=== PATIENT | female | born 1945 | race Caucasian/White ===

== ENCOUNTER → 2018-08-12 12:38 | Outpatient (CLI) | payer MEDICARE, SELFPAY ==
--- NOTE | 2018-08-12 12:45 | CA_ITS ---
PROCEDURE: 2-D M-mode and color Doppler study INDICATIONS FOR THE TEST: Chest pain COPD Heart Murmur+ Tobacco Smoking Palpitations Fatigue Syncope Edema Hypertension+Diabetes Mellitus Rheumatic Fever SOB MESSINA Obesity Hyperlipidemia+ Family History HD Additional History CABG, STENTS PATIENT INFORMATION HEIGHT:64 WEIGHT:197 GENDER: Female B/P: 2-D/M-MODE INTERPRETATION: 2-D MEASUREMENTS OBSERVED VALUES IN CMS Right Ventricular Dimension (RVDd) 2.0 Interventricular Septum (Thickness)(IVsd) 1.4 Left Ventricular Internal Dimensions(LVIDd) 5.1 Left Ventricular Posterior Wall (Thickness)(LVPWd) 1.1 Aortic Root 2.6 Aortic Cusp Separation 1.5 Left Atrial Dimensions (LAD) 4.1 2D 1. Left atrium is mildly enlarged, left ventricle is normal size, mild concentric left ventricular hypertrophy, visually estimated ejection fraction of 55% with no regional wall motion abnormality. 2. The right atrium and right ventricle are normal size and contractility. 3. The aortic valve is thickened and calcified with restriction the leaflet mobility. 4. The mitral and tricuspid valve leaflets are minimally thickened. 5. The pulmonic valve is poorly visualized. 6. No significant pericardial effusion noted. DOPPLER INTERROGATION: Doppler interrogation of the aortic, mitral and tricuspid valve reveals presence of moderate aortic, mild mitral and tricuspid regurgitation, tricuspid regurgitation jet velocity is inadequate for calculation of the right ventricular systolic pressure, grade 1 diastolic dysfunction seen with tissue Doppler evidence of raised left atrial pressure. The mean gradient across aortic valve is 9 mmHg represents mild aortic stenosis. CONCLUSION: 1. Mildly enlarged left atrium, normal left ventricular size, mild concentric left ventricular hypertrophy, visually estimated ejection fraction of 55% with no regional wall motion abnormality, grade 1 diastolic dysfunction seen with tissue Doppler evidence of raised left atrial pressure. 2. Thickened and calcified aortic valve with mild aortic stenosis, there is moderate aortic insufficiency. 3. Mild mitral and tricuspid regurgitation 4. No significant pericardial effusion noted.
== END ==
PROVIDERS: PCP Family Medicine; Visit Provider Family Medicine
DX: R01.1 Cardiac murmur, unspecified (principal)
CPT/HCPCS: 93306

== ENCOUNTER → 2018-10-04 08:08 | Outpatient (CLI) | payer MEDICARE, SELFPAY ==
--- NOTE | 2018-10-04 08:13 | XR_ITS ---
XR DEXA axial skeleton HISTORY: ITS.REASON: POSTMENOPAUSAL ORDERING PHYSICIAN: Saeed Tomlinson MD PATIENT AGE: 73 years COMPARISON: None FINDINGS: The BMD measured at the right femoral neck is 0.773 g/cm squared with a T score of -1.9. This is considered Osteopenic according to the World Health Organization criteria. Fracture risk is Moderate. Treatment is advised. IMPRESSION: Osteopenia with marked fracture risk. Treatment is advised. Suggest follow up exam in 2 years
== END ==
PROVIDERS: PCP Family Medicine; Visit Provider Family Medicine
DX: Z78.0 Asymptomatic menopausal state (principal)
CPT/HCPCS: 77080

== ENCOUNTER → 2019-04-10 09:35 | Outpatient (CLI) | payer MEDICARE, SELFPAY ==
--- NOTE | 2019-04-10 10:41 | CT_ITS ---
CT angio LE BI INDICATION: ITS.REASON: AAA W/O RUPTURE ORDERING PHYSICIAN: Ricarda Stephen APRN PATIENT AGE: 74 years COMPARISON: 01/20/2019. TECHNIQUE: Axial images are obtained without contrast. Sagittal and coronal reformatted images are reviewed as well. All CT scans at the facility use one or more dose reduction, viz: automated exposure control, ma/kV adjustment per patient size (including targeted exams where dose is matched to indication, i.e. head), or iterative reconstruction technique. FINDINGS: Angiogram portion of the study shows the atherosclerotic changes involving the abdominal aorta with the fusiform infrarenal abdominal aortic aneurysm. However there is accumulation of contrast along the left lateral aspect which is somewhat extrinsic to some of the wall calcifications suggesting either a prominent ulceration or pseudoaneurysm. This contrast-filled outpouching measures 2.7 x 1.4 cm in AP and transverse diameter and is approximately 1.4 cm in length. There is a small amount of soft tissue density surrounding this area along the left lateral aspect. The soft tissue density is nonspecific although could be some reactive edema or fibrosis. The overall size of the aneurysm appears stable compared to the prior exam. There are solitary renal artery calcifications. The celiac and SMA and NGA arteries opacify normally although there is probably a small calcified plaque with very mild narrowing at the origin of the celiac artery. Pelvic area shows vascular calcifications with mild to moderate stenosis of the distal left common iliac artery. There are some scattered external iliac and internal iliac L5 plaques which are nonstenotic. Left lower extremity shows small partially calcified plaque at the left common femoral artery with 20% or less diameter stenosis. There is a normal bifurcation in this area. There is a distal left SFA small nonstenotic plaque. There is also a calcified plaque causing less than 20% stenosis of the proximal left popliteal artery. There is a left-sided 3 vessel trifurcation however at the mid to lower aspect of the left lower leg the peroneal and anterior tibial arteries are no longer visualized and the posterior tibial artery is opacified to the left ankle and foot area. Right lower extremity shows calcified plaque with less than 20% diameter stenosis of the left common femoral artery. There is a normal right femoral bifurcation. There are a few nonstenotic calcified plaques along the right SFA and proximal right popliteal artery where there is a 20% diameter stenosis. At the mid right popliteal there is a calcified plaque with at least 30% diameter stenosis. There is a right trifurcation with small calcified plaque without stenosis involving the distal common trunk. As on the left side the right side shows lack of opacification of the mid and distal right anterior tibial and right peroneal arteries and the right posterior tibial artery is faintly opacified at the right ankle. The visualized lower extremity muscles and osseous structures are unremarkable. There are clips from cholecystectomy. There are small diverticulum from the distal second portion of the duodenal sweep. There are a few small sigmoid diverticula without inflammatory changes. Uterus is not visualized. IMPRESSION: Infrarenal fusiform abdominal aortic aneurysm is stable in size. However as described above along the left posterior lateral aspect of the aneurysm there is another contrast-filled outpouching which appears to be extrinsic to the calcified wall which could be a prominent ulceration or pseudoaneurysm. Small amount of adjacent para-aortic soft tissue density could be some reactive inflammation or fibrosis. There is no gross evidence of acute rupture. As discussed above calcific plaques in the pelv
--- NOTE | 2019-04-10 11:12 | CI_ITS ---
Cerebrovascular Exam Indications: 780.4 Dizziness and giddiness. IMPRESSIONS 1. The bilateral vertebral arteries are patent with normal antegrade flow. 2. Study suggests 50-69% stenosis involving the right internal carotid artery and the left internal carotid artery. History: Risk factors: Former smoker - years since quittinyr. Hypertension. History of CABG. Carotid duplex study. Complete study and Doppler flow study including spectral analysis, color and vasquez scale imaging. Height: Height: 162.6cm. Height: 64in. Weight: Weight: 81.6kg. Weight: 179.6lb. Body mass index: BMI: 30.9kg/m^2. Body surface area: BSA: 1.95m^2. Location: Vascular laboratory. Patient status: Outpatient. Tables: Arterial flow: + +--------+--------+ Location V sys V ed + +--------+--------+ Right CCA - proximal 97.4cm/s 18.1cm/s + +--------+--------+ Right CCA - distal 109cm/s 18.1cm/s + +--------+--------+ Right ECA 172cm/s -------- + +--------+--------+ Right ICA - proximal 161cm/s 33.4cm/s + +--------+--------+ Right ICA - mid 158cm/s 31.4cm/s + +--------+--------+ Right ICA - distal 108cm/s 24.7cm/s + +--------+--------+ Right vertebral 58.9cm/s -------- + +--------+--------+ Left CCA - proximal 104cm/s 13.4cm/s + +--------+--------+ Left CCA - distal 104cm/s 18.1cm/s + +--------+--------+ Left ECA 179cm/s -------- + +--------+--------+ Left ICA - proximal 210cm/s 21cm/s + +--------+--------+ Left ICA - mid 228cm/s 39.3cm/s + +--------+--------+ Left ICA - distal 147cm/s 35.2cm/s + +--------+--------+ Left vertebral 68.7cm/s -------- + +--------+--------+ Velocity ratios: + + + + + + Right, V sys Right, V ed Left, V sys Left, V ed + + + + + + Max ICA/dist CCA 1.48 1.85 2.19 2.17 + + + + + + (Report amended ) Electronically signed by: Jesus Gutierrez [id number]
== END ==
PROVIDERS: PCP Nurse Practitioner Family; Visit Provider Nurse Practitioner Family
DX: R42 Dizziness and giddiness (principal); I71.4 Abdominal aortic aneurysm, without rupture
CPT/HCPCS: 73701; 93880; Q9967

== ENCOUNTER 2019-08-12 13:10 | Outpatient (CLI) | payer MEDICARE, SELFPAY ==
[2019-08-12 13:30] VITALS: BP 176/64; PULSE 54; RESP 18
== END 2019-08-12 14:00 | disposition home or self-care (01) ==
LOC: INF 13:10
PROVIDERS: Visit Provider Family Medicine
DX: M81.0 Age-related osteoporosis without current pathological fracture (principal); Z91.89 Other specified personal risk factors, not elsewhere classified
CPT/HCPCS: 96372; J0897

== ENCOUNTER → 2020-03-22 09:44 | Outpatient (CLI) | payer MEDICARE, SELFPAY ==
--- NOTE | 2020-03-22 09:50 | US_ITS ---
PROCEDURE: US ABD. AORTA SCREENING CLINICAL INDICATION: AAA Follow-up aortic aneurysm COMPARISON: AGABDFEM CT angio abdomen/femoral from 04/10/2019 FINDINGS: There is dilatation the mid abdominal aorta measuring up to 3 cm. There is an intraluminal area of increased echogenicity which may represent the wall the saccular aneurysm as seen on the CT scan. Proximal common iliacs are unremarkable. IMPRESSION: 3 cm mid abdominal aortic aneurysm Dictated by: Juan Monreal MD 03/22/2020 19:02 Electronically signed by Juan Monreal MD in [place] 03/22/2020 19:02
== END ==
PROVIDERS: PCP Family Medicine; Visit Provider Nurse Practitioner Family
DX: I71.4 Abdominal aortic aneurysm, without rupture (principal)
CPT/HCPCS: 76705

== ENCOUNTER 2020-11-28 10:33 | Emergency (ER) | payer MEDICARE, SELFPAY ==
[2020-11-28 10:52] LABS: Color,Urine Yellow (Yellow)
[2020-11-28 10:53] LABS: Apearance,Urine Slightly Cloudy (Clear); Bilirubin,Urine Negative (Negative); Blood, Urine 3+ (Negative); Glucose,Urine (UA) Negative (Negative); Ketones,Urine Negative (Negative); PH,Urine 5.5 (5.0-8.5); Protein,Urine 1+ (Negative); Specific Gravity, Urine 1.025 (1.005-1.030); Urobilinogen,Urine 0.2 EU/dl (0.2)
[2020-11-28 10:54] LABS: UTC Leukocyte Esterase,Urine 1+ (Negative); UTC Nitrate,Urine Positive (Negative)
[2020-11-28 11:07] VITALS: BP 107/77; PULSE 89; RESP 16; TEMP 36.8; O2SAT 94; BMI 32.1
[2020-11-28 11:13] VITALS: BP 110/78; PULSE 79; RESP 16; TEMP 36.6
--- NOTE | 2020-11-28 11:13 | HMH.EDUTC ---
[facility] [place] Disposition Clinical Impression: UTI (urinary tract infection) Qualifiers: Urinary tract infection type: site unspecified Hematuria presence: with hematuria Qualified Code(s): N39.0 - Urinary tract infection, site not specified Disposition: Home, Self-Care Condition on Discharge: Good Instructions: Urinary Tract Infection, DI for Urinary Tract Infection (UTI) Additional Instructions: Drink plenty of fluids. Take tylenol for pain or fever. Take the medications as directed. Follow up with your regular doctor. GO TO THE ER FOR ANY WORSENING SYMPTOMS The pyridium will make your urine turn orange, this is an expected side effect. It will stain your clothes if it comes into contact with them. Prescriptions: Nitrofurantoin Monohyd/M-Cryst [Macrobid 100 mg Capsule] 100 mg PO BID 5 Days #10 cap Transmission Status: Received by [facility] #[id number] Phenazopyridine HCl [Pyridium 200mg Tablet] 200 pow PO TID #6 tab Transmission Status: Received by [facility] #[id number] Referrals: Ricarda Stephen APRN [Primary Care Provider] - Time of Disposition: 11:22 Medical Decision Making - Medical Records Medical records reviewed: No: I reviewed the patient's medical records. - Jackson Inquiry Pt receiving controlled substance: No Vital Signs: 11/28/20 11:07 11/28/20 11:13 Temperature 98.2 F 97.9 F Temperature Source Oral Oral Pulse Rate 79 Pulse Rate [Left] 89 Respiratory Rate 16 16 Blood Pressure 110/78 Blood Pressure [Right Arm] 107/77 L Blood Pressure Mean [Right Arm] 87 Blood Pressure Source [Right Arm] Automatic Cuff Blood Pressure Position Sitting Blood Pressure Position [Right Arm] Sitting 02 Sat by Pulse Oximetry 94 L Oxygen Delivery Method Room Air - Lab Data Lab results reviewed: Yes: I reviewed the patient's lab results. Lab Results 11/28/20 10:34: Urine Color Yellow, Urine Appearance Slightly cloudy, Urine pH 5.5, Ur Specific [place] 1.025, Urine Protein 1+, Urine Glucose (UA) Negative, Urine Ketones Negative, Urine Blood 3+, Urine Nitrate Positive A, Urine Bilirubin Negative, Urine Urobilinogen 0.2, Ur Leukocyte Esterase 1+ A Orders (Tests/Meds): ORDERS Category Date Time Status Urine Culture Routine Micro 11/28/20 10:50 Received [facility] [place] HPI - General Stated complaint: possible uti Time Seen by Provider: 11/28/20 11:13 Mode of Arrival: Ambulatory Source of Information: Patient Limitations: No Limitations Description of Symptoms (Recalled from Triage Doc. by RN): pt states she thinks she has a uti. shes having burning and pain with urination and states theres a bad smell. HEENT Symptoms (Recalled from RN notes): No Resp Symptoms (Recalled from RN notes): No Skin Symptoms (Recalled from RN notes): No MS Symptoms (Recalled from RN notes): No Functional Status (Recalled from RN notes): na - History of Present Illness Provider Complaint: She states that for the past 2 days her urine has had a strong odor and it has burnt when she was urinating. She is on azithromycin for a sinus infection. She denies any yeast infection symptoms. - Related Data Home Medications Medication Instructions Recorded Confirmed aspirin 81 mg tablet,delayed 81 mg PO DAILY 10/12/18 06/15/20 release cetirizine 10 mg capsule 10 mg PO DAILY cap 10/12/18 06/15/20 citalopram 20 mg tablet 20 mg PO DAILY 10/12/18 06/15/20 lisinopril 5 mg tablet 5 mg PO DAILY 10/12/18 06/15/20 metoprolol succinate 50 mg capsule 50 mg PO BID 10/12/18 06/15/20 sprinkle, ext. release 24 hr Magnesium 250 mg PO DAILY 01/20/19 06/15/20 acetaminophen 650 mg 650 mg PO Q12H PRN 08/20/19 06/15/20 tablet,extended release levothyroxine 75 mcg tablet PO #90 tab 08/20/19 06/15/20 red yeast rice 600 mg tablet 600 mg PO DAILY 08/20/19 06/15/20 omega 8-tkt-bmf-fish oil 120 cap PO 11/20/19 06/15/20 mg-180 mg-500 mg capsule vitamin B complex 1 tab PO DAILY 06/15/20 06/15/20 Previo
== END 2020-11-28 11:39 | disposition home or self-care (01) ==
PROVIDERS: Emergency Provider Nurse Practitioner Family; PCP Nurse Practitioner Family
DX: N30.00 Acute cystitis without hematuria (principal); B96.20 Unspecified Escherichia coli [E. coli] as the cause of diseases classified elsewhere; I10 Essential (primary) hypertension; F33.1 Major depressive disorder, recurrent, moderate; E78.5 Hyperlipidemia, unspecified; E03.9 Hypothyroidism, unspecified; Z95.1 Presence of aortocoronary bypass graft; Z87.891 Personal history of nicotine dependence
CPT/HCPCS: G0463; 81003; 87086; 87088; 87186; 99202

== ENCOUNTER → 2020-12-02 15:28 | Outpatient (CLI) | payer MEDICARE, SELFPAY ==
--- NOTE | 2020-12-02 15:37 | CT_ITS ---
PROCEDURE: CT ABDOMEN PELVIS WO CON CLINICAL INDICATION: HEMATURIA,DYSURIA Hematuria, UTI since Sunday, burning sensation. COMPARISON: CT ABDPELWO CT abdomen pelvis wo con from 01/20/[address] angio abdomen/femoral from 04/10/2019 TECHNIQUE: Axial images obtained with sagittal and coronal reformats. All CT scans at the facility use one or more dose reduction, viz: automated exposure control, ma/kV adjustment per patient size (including targeted exams where dose is matched to indication, i.e. head), or iterative reconstruction technique. FINDINGS: LOWER THORAX: No acute finding ABDOMEN & PELVIS: There is no intraperitoneal free air. There is no intraperitoneal free fluid. Patient has had prior cholecystectomy. The solid abdominal organs have an otherwise unremarkable unenhanced appearance. Patient has had prior hysterectomy and small or surgically absent ovaries. There is minimal fluid in an unremarkable appearing urinary bladder. There are several diverticuli without CT evidence of diverticulitis. The cecum is midline and in a low position, lying immediately above the urinary bladder. The appendix is not visualized as a independent structure but there are no secondary signs suspicious for acute appendicitis. GI tract otherwise unremarkable. There is no abdominal or pelvic adenopathy. 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 These findings were better visualized on CTA dated 04/10/2019. There is a small focal protrusion inferior to the inferior left renal pole, also present and not significantly changed compared with the prior CT a. there is extensive atherosclerotic calcification in the abdominal aorta which extends into the iliac arteries where there is suspected moderate narrowing of the left external iliac artery. There is diffuse osteopenia. No acute fracture. IMPRESSION: Scattered diverticulosis without CT evidence of acute diverticulitis. Pre-existing known infrarenal abdominal aortic aneurysm and dissection not visibly changed on noncontrast CT compared to prior CT a. Severe atherosclerosis. Diffuse osteopenia. Dictated by: Lien Miranda MD 12/02/2020 16:17 Lien Miranda MD in [place] 12/02/2020 16:17
== END ==
PROVIDERS: PCP Nurse Practitioner; Visit Provider Nurse Practitioner
DX: R31.9 Hematuria, unspecified (principal); R30.0 Dysuria
CPT/HCPCS: 74176

== ENCOUNTER → 2020-12-24 09:03 | Outpatient (CLI) | payer MEDICARE, SELFPAY ==
--- NOTE | 2020-12-24 09:06 | XR_ITS ---
PROCEDURE: XR DEXA AXIAL SKELETON CLINICAL HISTORY: OSTEOPENIA COMPARISON: CR DEXAAX XR DEXA axial skeleton from 10/04/2018 FINDINGS: The right hip BMD is 0.668 with a T-score of -1.6. The left hip BMD is 0.709 with a T-score of -1.3. The lumbar spine BMD is 1.121 with a T-score of 0.7. Previously the lowest density was in the right femoral neck with a T-score of -1.9 IMPRESSION: This patient is considered osteopenic according to the World Health Organization criteria. Bone density is between 10 and 25 percent below young normal. Fracture risk is moderate. Treatment is advised. Based on these results a follow-up exam is recommended in 2 year. Dictated by: Juan Monreal MD 12/25/2020 11:45 Juan Monreal MD in [place] 12/25/2020 11:45
== END ==
PROVIDERS: PCP Nurse Practitioner Family; Visit Provider Nurse Practitioner Family
DX: M85.89 Other specified disorders of bone density and structure, multiple sites (principal)
CPT/HCPCS: 77080

== ENCOUNTER 2021-02-19 09:26 | Emergency (ER) | payer MEDICARE, SELFPAY ==
--- NOTE | 2021-02-19 10:29 | HMH.EDUTC ---
[facility] [place] Clinical Impression: Sinusitis Qualifiers: Sinusitis location: unspecified location Chronicity: acute Recurrence: non-recurrent Qualified Code(s): J01.90 - Acute sinusitis, unspecified Acute bronchitis Qualifiers: Bronchitis organism: unspecified organism Qualified Code(s): J20.9 - Acute bronchitis, unspecified Disposition: Home, Self-Care Condition on Discharge: Good Instructions: DI for Sinusitis Additional Instructions: Drink plenty of fluids. Take tylenol for pain or fever. Return if you begin to have difficulty breathing. Follow up with your regular doctor. GO TO THE ER FOR ANY WORSENING SYMPTOMS Prescriptions: Benzonatate [Tessalon Perle 100mg Cap] 100 mg PO TIDP PRN #30 cap PRN Reason: Cough Transmission Status: Received by [facility] # Azithromycin [Z-Yonathan 250mg Tab*] 250 mg PO UD DOSE PK #6 tab Transmission Status: Received by [facility] # Referrals: Ricarda Stephen APRN [Primary Care Provider] - Time of Disposition: 10:37 Medical Decision Making - Medical Records Medical records reviewed: No: I reviewed the patient's medical records. - Jackson Inquiry Pt receiving controlled substance: No Vital Signs: 02/19/21 10:39 02/19/21 10:44 Temperature 97.0 F L 97.0 F L Temperature Source Tympanic Tympanic Pulse Rate 68 Pulse Rate [Right] 68 Respiratory Rate 17 16 Blood Pressure 147/68 H Blood Pressure [Right Arm] 147/68 H Blood Pressure Mean [Right Arm] 94 Blood Pressure Source [Right Arm] Automatic Cuff Blood Pressure Position [Right Arm] Sitting 02 Sat by Pulse Oximetry 95 Oxygen Delivery Method Room Air [facility] [place] - General Stated complaint: sneezing, runny nose, congestion Time Seen by Provider: 02/19/21 10:29 - History of Present Illness Provider Complaint: She states that for the past 2 days she has been getting more congested in her sinuses and her chest. She denies any shortness of breath. - Related Data Home Medications Medication Instructions Recorded Confirmed aspirin 81 mg tablet,delayed 81 mg PO DAILY 10/12/18 06/15/20 release cetirizine 10 mg capsule 10 mg PO DAILY cap 10/12/18 06/15/20 citalopram 20 mg tablet 20 mg PO DAILY 10/12/18 06/15/20 lisinopril 5 mg tablet 5 mg PO DAILY 10/12/18 06/15/20 metoprolol succinate 50 mg capsule 50 mg PO BID 10/12/18 06/15/20 sprinkle, ext. release 24 hr Magnesium 250 mg PO DAILY 01/20/19 06/15/20 acetaminophen 650 mg 650 mg PO Q12H PRN 08/20/19 06/15/20 tablet,extended release levothyroxine 75 mcg tablet PO #90 tab 08/20/19 06/15/20 red yeast rice 600 mg tablet 600 mg PO DAILY 08/20/19 06/15/20 omega 5-kye-ydu-fish oil 120 cap PO 11/20/19 06/15/20 mg-180 mg-500 mg capsule vitamin B complex 1 tab PO DAILY 06/15/20 06/15/20 Previous Rx's Medication Instructions Recorded fluconazole 150 mg tablet 150 mg PO Q3D 0 Days #2 tab 06/15/20 terconazole 0.8 % vaginal cream 1 appful VAGINAL QHS 3 Days #20 g 06/15/20 Nitrofurantoin Monohyd/M-Cryst 100 mg PO BID 5 Days #10 cap 11/28/20 [Macrobid 100 mg Capsule] Phenazopyridine HCl [Pyridium 200 pow PO TID #6 tab 11/28/20 200mg Tablet] Azithromycin [Z-Yonathan 250mg Tab*] 250 mg PO UD DOSE PK #6 tab 02/19/21 Benzonatate [Tessalon Perle 100mg 100 mg PO TIDP PRN #30 cap 02/19/21 Cap] Allergies Allergy/AdvReac Type Severity Reaction Status Date / Time ciprofloxacin [From Cipro] Allergy Mild Vomiting Verified 11/28/20 10:35 trimethoprim [From Bactrim] Allergy Verified 11/28/20 10:35 [facility] History - Hepatitis A Screen Attestation statement:: This patient has been screened for Hepatitis A risk factors. I have reviewed the patient's past medical history: Yes Medical History: Reports:: Aneurysm, Depression, Hyperlipidemia, Hypertension Denies:: Diabetes Mellitus Type 1, Diabetes Mellitus Type 2 Other Medical History: Reports: Hypothyroidism Laterality Cases: Bilateral: Tonsillectomy O
[2021-02-19 10:39] VITALS: BP 147/68; PULSE 68; RESP 17; TEMP 36.1; O2SAT 95; BMI 36.5
[2021-02-19 10:44] VITALS: BP 147/68; PULSE 68; RESP 16; TEMP 36.1; O2SAT 95
== END 2021-02-19 10:44 | disposition home or self-care (01) ==
PROVIDERS: Emergency Provider Nurse Practitioner Family; PCP Nurse Practitioner Family
DX: J01.90 Acute sinusitis, unspecified (principal); J20.9 Acute bronchitis, unspecified; I10 Essential (primary) hypertension; E78.5 Hyperlipidemia, unspecified; Z79.899 Other long term (current) drug therapy
CPT/HCPCS: G0463; 99202

== ENCOUNTER → 2021-03-15 12:14 | Outpatient (CLI) | payer MEDICARE, SELFPAY ==
[2021-03-15 13:10] LABS: Hemoglobin A1C 5.5 % (4.0-6.0)
[2021-03-15 15:23] LABS: Vitamin B12 358 pg/mL (239-931)
[2021-03-16 13:34] LABS: Antiparietal Cell Antibody 42.8 Units (0.0-20.0)
[2021-03-17 16:53] LABS: Intrinsic Factor Abs, Serum 58.8 AU/mL (0.0-1.1)
== END ==
PROVIDERS: Visit Provider Nurse Practitioner Family
DX: R26.89 Other abnormalities of gait and mobility (principal); R26.9 Unspecified abnormalities of gait and mobility; R29.2 Abnormal reflex; R73.09 Other abnormal glucose
CPT/HCPCS: 36415; 82607; 82746; 83036; 83516; 86340

== ENCOUNTER → 2021-03-23 16:08 | Outpatient (CLI) | payer MEDICARE, SELFPAY ==
--- NOTE | 2021-03-23 16:08 | MR_ITS ---
PROCEDURE: MR CERVICAL SPINE WO CON CLINICAL INDICATION: gait dist, + hewitt, brisk reflexes Pt denies neck pain. Pt states hx of memory issues and imbalance with multiple falls. COMPARISON: No exams were available for comparison TECHNIQUE: Standard multiplanar multiecho sequences are performed without contrast. 3-D MIP and myelographic images are also rendered and reviewed FINDINGS: There is normal alignment. The craniocervical junction has an unremarkable appearance. C2-C3: Minimal central disc protrusion versus prominent posterior longitudinal ligament without impingement. C3-C4: Minimal central disc protrusion versus mild prominence of the posterior longitudinal ligament with narrowing of the canal at 10 mm without impingement C4-C5: Degenerative disc disease with a small broad-based central/left paracentral and foraminal disc protrusion/disc osteophyte complex with canal stenosis at 8 mm, left lateral recess narrowing, and severe left foraminal narrowing. There is moderate right foraminal narrowing as well. There is some minimal flattening of the cord anteriorly on the left. C5-C6: Degenerative disc disease with bulging disc with narrowing of the canal at 9 mm. Moderate right foraminal narrowing and mild left foraminal narrowing from facet and uncovertebral hypertrophy. C6-C7: Degenerative disc disease with mild bulging disc without impingement. C7-T1: Unremarkable. The spinal cord has an unremarkable appearance. IMPRESSION: Multilevel cervical spondylosis with degenerative disc disease, bulging and protruding disc along with facet and uncovertebral hypertrophy with resultant canal stenosis, lateral recess and foraminal narrowing. Please see above for detailed description at each level. Dictated by: Juan Monreal MD 03/24/2021 07:23 Juan Monreal MD in [place] 03/24/2021 07:23
--- NOTE | 2021-03-23 16:08 | MR_ITS ---
PROCEDURE: MR HEAD/BRAIN WO CON CLINICAL INDICATION: gait disturbance, +hewitt Pt states hx of memory issues and imbalance. COMPARISON: No exams were available for comparison TECHNIQUE: Routine multiplanar multi echo sequences are performed without gadolinium enhancement. FINDINGS: No restricted diffusion. No evidence of acute infarction. No midline shift mass effect intracranial hemorrhage or hydrocephalus identified. Cerebellopontine angles cerebellum, brainstem, and mid brain have an unremarkable appearance. Senescent changes with mild brain volume loss and minimal nonspecific T2 white matter hyperintensity. Pituitary gland, optic chiasm, corpus callosum, and craniocervical junction is unremarkable. No mastoid effusion or sinus air-fluid level. IMPRESSION: No acute intracranial findings. Unremarkable unenhanced MRI of the brain. Dictated by: Juan Monreal MD 03/24/2021 07:15 Juan Monreal MD in [facility] 03/24/2021 07:15
== END ==
PROVIDERS: PCP Nurse Practitioner Family; Visit Provider Nurse Practitioner Family
DX: R26.89 Other abnormalities of gait and mobility (principal); R29.2 Abnormal reflex
CPT/HCPCS: 70551; 72141; 76376

== ENCOUNTER 2021-04-25 15:00 | Outpatient (RCR) | payer MEDICARE, SELFPAY ==
--- NOTE | 2021-03-28 14:27 | HMH.PTOPEV ---
PT Outpatient Evaluation Rehab PT Outpatient Evaluation Start: 03/28/21 13:53 Freq: Status: Active Protocol: Document 03/28/21 14:14 URI (Rec: 03/28/21 14:26 URI [id number]) Electronically Signed By Santana Bess PT 03/28/21 14:14 Outpatient Therapy Subjective History Subjective History THis is the initial Vestibular evaluation for Marguerite Decker. Pt is a 76 y/o female referred to PT for c/o bad balance . Pt reports minimal complaints for years but states last year c/o balance issues increased. Pt reports she feels like her knees are gonna buckle or she feels like she is gonna fall backwards. Pt also reports that just after standing up she has to not move for a bit b/c she feels unsteady. Chief Complaint Other Symptom Type Other Symptoms Relieved By Rest/Positioning Current Functional Limitations Recreation Activity,Walking Symptom Description Intermittent Balance Eval Chief Complaint vertigo No Did you feel dizzy, unsteady or faint? Yes Activity at onset standing Prior Functional Limitations Prior Functional [place] Level I Hx of Falls Hx Falls No Gait/Posture Asssessment General Gait Observation Narrow Based Gait Assistive Devices None / NA Nystagmus Nystagmus Presence None Timed Up and Go Test 1. Is the Timed Up and Go test result > yes or = to 12 seconds? Oculomotor Gaze Oculomotor Gaze Abn: Smooth Pursuit Saccades [place] Feet Together/Eyes open/Stable Surface pass Feet Together/Eyes Closed/Stable Surface pass Feet Together/Eyes open/Unstable Surface pass Feet Together/Eyes Closed/Unstable pass Surface Dynamic Gait Index Test Protocol Gait Level Surface Mild Impairment Query Text: Instructions: Walk at your normal speed from here to the next cesar (20'). Grading: Cesar the lowest category that applies. Change in Gait Speed Mild Impairment Query Text: Instructions: Begin walking at your normal pace (for 5'), when I tell you go , walk as fast as you can (for 5'). When I tell you slow , walk as slowly as you can (for 5'). Grading: Cesar the lowest category that applies. Gait with Horizo
== END 2021-04-25 15:05 | disposition home or self-care (01) ==
LOC: PT 15:00
PROVIDERS: PCP Nurse Practitioner Family; Visit Provider Nurse Practitioner Family
DX: R26.89 Other abnormalities of gait and mobility (principal)
CPT/HCPCS: 97110; 97163

== ENCOUNTER → 2021-08-11 14:20 | Outpatient (CLI) | payer MEDICARE, SELFPAY | PROVIDERS: PCP Family Medicine; Visit Provider Nurse Practitioner | DX: Z20.822 Contact with and (suspected) exposure to COVID-19 (principal) | CPT/HCPCS: C9803; U0003; U0005 ==

== ENCOUNTER 2021-08-12 16:31 | Emergency (ER) | payer MEDICARE, SELFPAY ==
[2021-08-12 16:53] VITALS: BP 169/74; PULSE 84; RESP 18; TEMP 36.9; O2SAT 96; BMI 32.1
--- NOTE | 2021-08-12 17:05 | HMH.EDUTC ---
[facility] [place] Clinical Impression: UTI (urinary tract infection) Qualifiers: Urinary tract infection type: site unspecified Hematuria presence: with hematuria Qualified Code(s): N39.0 - Urinary tract infection, site not specified Disposition: Home, Self-Care Condition on Discharge: Good Instructions: DI for Urinary Tract Infection (UTI) Additional Instructions: *Increase fluids. Water not Soda or Tea *Start antibiotic immediately and be sure to take as ordered for the FULL length of time although you should start to see improvement over the next 48 hours *Be SURE to follow up anytime for new or worsening symptoms with your family doctor. AND in 48 hours for urine culture results with your family doctor, if you do not have a doctor then you may call back to the [facility] for urine culture results and further treatment. We do recommend that you choose and establish care with a Primary Care Physician. AND follow up with them in 10-14 days to repeat UA to ensure infection is resolved and blood no longer present *Be sure to let your PCP know that we sent urine cultures from the [facility] so they can follow up to ensure that you area the on the correct antibiotic Call your doctor office and make appointment for 48 hours (2 days from today) to follow up and get the results of your urine culture and further treatment Follow up with your Family Doctor if no improvement or any worsening of symptoms Return if needed Prescriptions: cephALEXin [cephALEXin 500mg capsule*] 500 mg PO BID 7 Days #14 cap Transmission Status: Received by [facility] #[id number] Referrals: Saeed Tomlinson MD [Primary Care Provider] - As needed Time of Disposition: 17:26 Medical Decision Making - Jackson Inquiry Pt receiving controlled substance: No Jackson was queried for this patient: No Vital Signs: 08/12/21 16:53 08/12/21 17:39 Temperature 98.4 F 98.4 F Temperature Source Oral Pulse Rate 84 Pulse Rate [Left] 84 Respiratory Rate 18 18 Blood Pressure 169/74 H Blood Pressure [Right Arm] 169/74 H Blood Pressure Mean [Right Arm] 105 02 Sat by Pulse Oximetry 96 - Lab Data Lab results reviewed: Yes: I reviewed the patient's lab results. Lab Results 08/12/21 17:04: Influenza Type A Ag Negative, Influenza Type B Ag Negative 08/12/21 17:04: Strep Scn [facility] Negative 08/12/21 17:04: Urine Color Dark yellow, Urine Appearance Clear, Urine pH 5.5, Ur Specific [place] 1.010, Urine Protein Negative, Urine Glucose (UA) Negative, Urine Ketones Negative, Urine Blood 4+, Urine Nitrate Negative, Urine Bilirubin Negative, Urine Urobilinogen 0.2, Ur Leukocyte Esterase Trace Orders (Tests/Meds): ORDERS Category Date Time Status Strep Screen Confirmation Stat Micro 08/12/21 17:04 Received Urine Culture Stat Micro 08/12/21 17:10 Received Medical Decision Narrative: Patient reports that she is able to smell ok but nothing tastes right Medication discussed with pharmacy and dosed per pharmacy [facility] [place] - General Stated complaint: nausea taste change Time Seen by Provider: 08/12/21 17:05 Mode of Arrival: Ambulatory Source of Information: Patient Limitations: No Limitations Description of Symptoms (Recalled from Triage Doc. by RN): pt was negative for covid as of yesterday. pt c/o loss of taste, no appetite, nausea, PULLIAM, and body aches. HEENT Symptoms (Recalled from RN notes): Yes (loss of taste, PULLIAM and sore throat) Resp Symptoms (Recalled from RN notes): No Skin Symptoms (Recalled from RN notes): No MS Symptoms (Recalled from RN notes): No Functional Status (Recalled from RN notes): body aches - History of Present Illness Provider Complaint: Patient states that she hasnt felt well for a few days now States that she has been having body aches, chills, and nausea but she always has nausea. States that she has been laying around in the bed States that she got tested yesterday for COVID and it was negative but she still doesnt have much of an appetit
[2021-08-12 17:11] LABS: Apearance,Urine Clear (Clear); Color,Urine Dark Yellow (Yellow); Glucose,Urine (UA) Negative (Negative); Ketones,Urine Negative (Negative); PH,Urine 5.5 (5.0-8.5); Protein,Urine Negative (Negative)
[2021-08-12 17:12] LABS: Bilirubin,Urine Negative (Negative); Blood, Urine 4+ (Negative); UTC Leukocyte Esterase,Urine Trace (Negative); UTC Nitrate,Urine Negative (Negative); Urobilinogen,Urine 0.2 EU/dl (0.2)
[2021-08-12 17:39] VITALS: BP 169/74; PULSE 84; RESP 18; TEMP 36.9
[2021-08-12 19:01] LABS: UTC Influenza A Antigen Negative (Negative); UTC Influenza B Antigen Negative (Negative); UTC Strep Screen (Rapid) Negative (Negative)
== END 2021-08-12 17:40 | disposition home or self-care (01) ==
PROVIDERS: Emergency Provider Nurse Practitioner; PCP Family Medicine
DX: N30.00 Acute cystitis without hematuria (principal); I25.10 Atherosclerotic heart disease of native coronary artery without angina pectoris; E78.5 Hyperlipidemia, unspecified; I10 Essential (primary) hypertension; F33.1 Major depressive disorder, recurrent, moderate; E03.9 Hypothyroidism, unspecified; Z79.899 Other long term (current) drug therapy
CPT/HCPCS: G0463; 81003; 87086; 87088; 87186; 87804; 87880; 99203

== ENCOUNTER 2021-08-15 06:23 | Emergency (ER) | payer MEDICARE, SELFPAY ==
[2021-08-15 06:24] VITALS: BP 163/61; PULSE 88; RESP 16; TEMP 36.6; O2SAT 95; BMI 30.9
--- NOTE | 2021-08-15 06:42 | CT_ITS ---
Procedure: CT ANGIO ABDOMEN PELVIS CLINICAL HISTORY: abd pain, known AAA Right-sided abdominal pain. Known aneurysm COMPARISON: CT AGABDFEM CT angio abdomen/femoral from 04/10/[address] ABDOMEN PELVIS WO CON from 12/02/2020 TECHNIQUE: IV Contrast: 100ml Isovue 370 Axial images obtained with sagittal and coronal reformats. All CT scans at the facility use one or more dose reduction, viz: automated exposure control, ma/kV adjustment per patient size (including targeted exams where dose is matched to indication, i.e. head), or iterative reconstruction technique. FINDINGS: Lung bases: Stable 6 x 3 mm nodule right lower lobe anteriorly. Faint ground-glass opacity is present in the right lung base medially possibly related to scarring or atelectatic change. Small nodular opacity in the lingula at 7 x 3 mm. Prior CABG. Abdomen and pelvis: Fatty liver. Small hiatal hernia. Prior cholecystectomy with mild biliary ectasia with common bile duct measuring 11 mm. A duodenal diverticulum is present near the ampulla the common bile duct. The spleen has an unremarkable appearance. There is mild nodularity of the adrenal glands nonspecific. No evidence of pancreatitis. Along the superior aspect of the tail the pancreas posteriorly there is a small nodular protrudes. This may only be due to anatomic variation of the pancreas. Follow-up suggested to confirm stability. This is not significantly changed. No renal or ureteral calculi. No hydronephrosis. There is an infrarenal abdominal aortic aneurysm with a saccular component on the left. The maximum with of the aneurysm is 3.4 cm transverse and 2.7 cm AP. The saccular component is 1.8 cm transverse and 2 cm cephalad caudad. Overall, the diameter of the aorta is not significantly changed from 04/10/2019. Along the posterior and left lateral aspect of the saccular component there is some slight soft tissue thickening. This could be due to mural thrombus or some minimal perianeurysmal fibrosis from an old small bleed. This is not significantly changed from 04/10/2019. Inferior to the saccular component of the aneurysm the aorta measures up to 2.8 cm transverse not significantly changed. The celiac and SMA show no significant stenosis. Scattered atheromatous changes are present of the celiac and SMA. The renal arteries are small without obvious occlusive change. No evidence of acute retroperitoneal hemorrhage. The stomach and duodenum have an unremarkable appearance other than the duodenal diverticulum. There is mild dilatation of the small bowel with scattered air-fluid levels.. This involves the ilium. There is some minimal bowel wall thickening in the lower pelvic region. There is a small amount of fluid in the cul-de-sac. There has been a prior hysterectomy. No free air apparent. IMPRESSION: 1. Stable infrarenal abdominal aortic aneurysm with saccular component. Minimal soft tissue thickening along the left the posterior lateral aspect of the saccular component which could be related to an old area of leakage versus asymmetric mural thrombus not significantly changed 2. Mildly distended small bowel loops with some mild mucosal thickening. No obvious transition point. Enteritis is considered. Cannot exclude partial obstruction. Consider follow-up to confirm resolution. There is a small amount fluid in the pelvis. No evidence of occlusive change of the celiac or SMA. The NGA is patent. Dictated by: Juan Monreal MD 08/15/2021 08:44 Juan Monreal MD in [place] 08/15/2021 08:44
--- NOTE | 2021-08-15 06:44 | HMH.EDGENADL ---
ED Disposition Condition on Discharge: Good - Critical Care Critical Care Time: No <Courtney Mijares - Last Filed: 08/15/21 07:50> Condition on Discharge: Good Time of Disposition: 08:57 - Critical Care Critical Care Time: No <Juan J Ta - Last Filed: 08/15/21 08:58> Clinical Impression: Enteritis Abdominal pain Qualifiers: Abdominal location: unspecified location Qualified Code(s): R10.9 - Unspecified abdominal pain Disposition: Home, Self-Care Instructions: DI for Acute Abdominal Pain Additional Instructions: Clear liquid diet. You may slowly advance your diet as your symptoms improve. Return to emergency department for abdominal bloating, pain, or vomiting. Referrals: Ricarda Stephen APRN [Primary Care Provider] - (1 to 2 days) Attestation: On 08/15/21, the high probability of a clinically significant, sudden or life threatening deterioration of the following system(s) required my full and direct attention, intervention and personal management. The time I documented below is in addition to time spent performing reported procedures but includes the following listed in this critical care notation. Medical Decision Making - Jackson Inquiry Pt receiving controlled substance: No - Lab Data Result diagrams: 08/15/21 07:00 08/15/21 07:00 <Courtney Mijares - Last Filed: 08/15/21 07:50> - Medical Records Medical records reviewed: Yes: I reviewed the patient's medical records. - Jackson Inquiry Pt receiving controlled substance: No - Lab Data Lab results reviewed: Yes: I reviewed the patient's lab results. Result diagrams: 08/15/21 07:00 08/15/21 07:00 - CT Data CT Scan: Abdomen, Pelvis Time Received: 08:[address] Reviewed: Yes: I have viewed the radiologist's interpretation Preliminary Findings: Abnormal <Juan J Ta - Last Filed: 08/15/21 08:58> Vital Signs: 08/15/21 06:24 Temperature 97.9 F Temperature Source Oral Pulse Rate [Right] 88 Respiratory Rate 16 Blood Pressure [Right Arm] 163/61 H Blood Pressure Mean [Right Arm] 95 02 Sat by Pulse Oximetry 95 - Lab Data Lab Results 08/15/21 07:00: WBC 7.7, RBC 4.25, Hgb 12.9, Hct 38.1, MCV 89.6, MCH 30.2, MCHC 33.7, RDW 13.9, Plt Count 232, MPV 9.9, Neut % (Auto) 71.9, Lymph % (Auto) 19.3, [place] % (Auto) 7.2, Eos % (Auto) 1.0, Baso % (Auto) 0.6, Neut # (Auto) 5.6, Lymph # (Auto) 1.5, [place] # (Auto) 0.6, Eos # (Auto) 0.1, Baso # (Auto) 0.1 08/15/21 07:00: Sodium 135 L, Potassium 3.9, Chloride 102, Carbon Dioxide 24, Anion Gap 12.9, BUN 13, Creatinine 0.80, Estimated Creat Clear 63, Estimated GFR 70, Est GFR ( Amer) 85, Glucose 142 H, Calcium 8.6, Total Bilirubin 0.5, AST 24, ALT 16, Alkaline Phosphatase 49, Troponin I < 0.01, Total Protein 6.8, Albumin 3.7, Globulin 3.1, Albumin/Globulin Ratio 1.2 08/15/21 07:10: Urine Color Yellow, Urine Appearance Clear, Urine pH 6.0, Ur Specific [place] 1.010, Urine Protein Negative, Urine Glucose (UA) Negative, Urine Ketones Negative, Urine Blood 3+, Urine Nitrate Negative, Urine Bilirubin Negative, Urine Urobilinogen 0.2, Ur Leukocyte Esterase Negative, Urine RBC None, Urine WBC 3-5, Ur Squamous Epith Cells Occasional, Urine Bacteria None Orders (Tests/Meds): ED MEDICATIONS Discontinued Medications Generic Name Dose Route Start Last Admin Trade Name Chuy PRN Reason Stop Dose Admin Iopamidol 100 ml 08/15/21 08:15 08/15/21 08:17 Iopamidol-370 (76%);100ml Bottle IV 08/15/21 08:16 100 ml ONCE ONE Administration Ketorolac Tromethamine 30 mg 08/15/21 08:35 08/15/21 08:36 Ketorolac 30mg/Ml Vial IV 08/15/21 08:36 30 mg ONCE ONE Administration Ondansetron HCl 4 mg 08/15/21 08:35 08/15/21 08:36 Ondansetron 4mg/2ml Vial IV 08/15/21 08:36 4 mg ONCE ONE Administration Sodium Chloride 40 ml 08/15/21 08:15 08/15/21 08:17 0.9 % Sodium Chloride 50 Ml Vial IV 08/15/21 08:16 40 ml ONCE ONE Administration Sodium Chloride 10 ml 08/15/21 08:15 08/15
[2021-08-15 07:18] LABS: Basophils # 0.1 K/mm3 (0-0.2); Basophils % 0.6 % (0.1-2.0); Eosinophils # 0.1 K/mm3 (0.0-0.4); Hematocrit 38.1 % (37.0-47.0); Hemoglobin 12.9 g/dL (12.2-16.2); Lymphocytes # 1.5 K/mm3 (0.7-4.5); Lymphocytes % 19.3 % (10-50); Mean Corpuscular HGB Conc 33.7 g/dL (31.8-35.4); Mean Corpuscular Hemoglobin 30.2 pg (27.0-31.2); Mean Corpuscular Volume 89.6 fl (81-99); Mean Platelet Volume 9.9 fl (7.4-10.4); Monocytes # 0.6 K/mm3 (0.1-1.0); Monocytes % 7.2 % (1.7-9.3); Neutrophils # 5.6 K/mm3 (1.8-7.8); Neutrophils % 71.9 % (37.0-80.0); Platelet Count 232 K/mm3 (142-424); Red Blood Count 4.25 M/mm3 (4.20-5.40); Red Cell Distribution Width 13.9 % (11.5-17.5); White Blood Count 7.7 K/mm3 (4.8-10.8)
[2021-08-15 07:26] LABS: Alanine Aminotransferase 16 U/L (12-78); Albumin Level 3.7 g/dl (3.5-5.0); Albumin/Globulin Ratio 1.2 (1.1-1.8); Alkaline Phosphatase 49 U/L (38-126); Anion Gap 12.9 mEq/L (5-15); Aspartate Amino Transferase 24 U/L (14-36); Bilirubin,Total 0.5 mg/dl (0.2-1.3); Blood Urea Nitrogen 13 mg/dl (7-17); Calcium 8.6 mg/dl (8.4-10.2); Carbon Dioxide 24 mmol/L (22.0-30.0); Chloride 102 mmol/L (98-107); Creatinine Clearance Estimated 63 mL/min (50-200); Estimated Glomerular Filt Rate 70 ml/min (>60); GFR (African American) 85 ML/MIN (>60); Globulin 3.1 g/dL (1.3-3.2); Glucose 142 mg/dl (74-100); Potassium 3.9 mmoL/L (3.5-5.1); Sodium 135 mmol/L (136-145); Total Protein,Serum 6.8 g/dl (6.3-8.2)
[2021-08-15 07:55] LABS: Troponin I < 0.01 ng/ml (0.00-0.034)
[2021-08-15 08:13] LABS: Microscopic, Urine URINE MICROSCOPIC (MICROSCOPIC)
[2021-08-15 08:18] LABS: Appearance,Urine CLEAR (Clear); Bilirubin,Urine Negative (Negative); Blood, Urine 3+ (Negative); Color,Urine YELLOW (Yellow); Glucose,Urine (UA) Negative (Negative); Ketones,Urine Negative (Negative); Leukocyte Esterase,Urine Negative (Negative); Nitrate,Urine Negative (Negative); Protein,Urine Negative (Negative); Urobilinogen,Urine 0.2 EU/dl (0.2)
[2021-08-15 08:30] LABS: Squamous Epithelial Cell,Urine Occasional #/hpf (0-5)
[2021-08-15 09:07] VITALS: BP 145/87; PULSE 78; RESP 18; TEMP 36.6; O2SAT 98
== END 2021-08-15 09:09 | disposition home or self-care (01) ==
PROVIDERS: Emergency Provider Emergency Medicine; PCP Nurse Practitioner Family
DX: K52.9 Noninfective gastroenteritis and colitis, unspecified (principal); N39.0 Urinary tract infection, site not specified; E03.9 Hypothyroidism, unspecified; I25.10 Atherosclerotic heart disease of native coronary artery without angina pectoris; I10 Essential (primary) hypertension; E78.5 Hyperlipidemia, unspecified; I71.4 Abdominal aortic aneurysm, without rupture; Z95.1 Presence of aortocoronary bypass graft; Z79.899 Other long term (current) drug therapy
CPT/HCPCS: 74174; 80053; 81001; 84484; 85025; 96374; 96375; 99283; J2405; Q9967

== ENCOUNTER 2021-08-24 11:48 | Emergency (ER) | payer MEDICARE, SELFPAY ==
[2021-08-24 13:34] VITALS: BP 173/50; PULSE 52; RESP 14; TEMP 36.8; O2SAT 96; BMI 31.6
[2021-08-24 13:37] VITALS: BP 173/50; PULSE 52; RESP 14; TEMP 36.8
[2021-08-24 13:39] LABS: Apearance,Urine Cloudy (Clear); Color,Urine Amber (Yellow); PH,Urine 5.5 (5.0-8.5); Specific Gravity, Urine 1.015 (1.005-1.030)
[2021-08-24 13:40] LABS: Bilirubin,Urine Negative (Negative); Blood, Urine 4+ (Negative); Glucose,Urine (UA) Negative (Negative); Ketones,Urine Negative (Negative); Protein,Urine 2+ (Negative); UTC Leukocyte Esterase,Urine 3+ (Negative); UTC Nitrate,Urine Negative (Negative); Urobilinogen,Urine 0.2 EU/dl (0.2)
--- NOTE | 2021-08-24 13:58 | HMH.EDUTC ---
[facility] [place] Impression: UTI (urinary tract infection) Qualifiers: Urinary tract infection type: site unspecified Hematuria presence: with hematuria Qualified Code(s): N39.0 - Urinary tract infection, site not specified Disposition: Home, Self-Care Condition on Discharge: Good Instructions: Urinary Tract Infection, DI for Urinary Tract Infection (UTI) Additional Instructions: Drink plenty of fluids. Take tylenol or ibuprofen for pain or fever. Take the medications as directed. Follow up with your regular doctor. GO TO THE ER FOR ANY WORSENING SYMPTOMS The pyridium will make your urine turn orange, this is an expected side effect. It will stain your clothes if it comes into contact with them. Prescriptions: Cefdinir [Omnicef 300mg Capsule] 300 mg PO BID #20 cap Transmission Status: Received by [facility] #[id number] Phenazopyridine HCl [Pyridium 200mg Tablet] 200 pow PO TID #6 tab Transmission Status: Received by [facility] #[id number] Referrals: Ricarda Stephen APRN [Primary Care Provider] - Time of Disposition: 14:10 Medical Decision Making - Medical Records Medical records reviewed: No: I reviewed the patient's medical records. - Jackson Inquiry Pt receiving controlled substance: No Vital Signs: 08/24/21 13:34 08/24/21 13:37 Temperature 98.2 F 98.2 F Temperature Source Oral Pulse Rate 52 L Pulse Rate [Left] 52 L Respiratory Rate 14 14 Blood Pressure 173/50 H Blood Pressure [Right Arm] 173/50 H Blood Pressure Mean [Right Arm] 91 02 Sat by Pulse Oximetry 96 - Lab Data Lab results reviewed: Yes: I reviewed the patient's lab results. Lab Results 08/24/21 13:38: Urine Color Lin, Urine Appearance Cloudy, Urine pH 5.5, Ur Specific [place] 1.015, Urine Protein 2+, Urine Glucose (UA) Negative, Urine Ketones Negative, Urine Blood 4+, Urine Nitrate Negative, Urine Bilirubin Negative, Urine Urobilinogen 0.2, Ur Leukocyte Esterase 3+ A Orders (Tests/Meds): ORDERS Category Date Time Status Urine Culture Stat Micro 08/24/21 13:26 Results [facility] [place] - General Stated complaint: possible uti Time Seen by Provider: 08/24/21 14:02 Mode of Arrival: Ambulatory Source of Information: Patient Limitations: No Limitations Description of Symptoms (Recalled from Triage Doc. by RN): pt was seen here on 08/12 for a UTI. pt is still having symptoms. she wonders if maybe she needed a stronger antibiotic. HEENT Symptoms (Recalled from RN notes): No Resp Symptoms (Recalled from RN notes): No Skin Symptoms (Recalled from RN notes): No MS Symptoms (Recalled from RN notes): No Functional Status (Recalled from RN notes): na - History of Present Illness Provider Complaint: She c/o burning with urination and low back pain for the past 2 days. She thinks sthat she has a uti. She just had a uti about 3 weeks ago. She states that she got better with that episode, but now she is having the same symptoms. - Related Data Home Medications Medication Instructions Recorded Confirmed aspirin 81 mg tablet,delayed 81 mg PO DAILY 10/12/18 04/19/21 release cetirizine 10 mg capsule 10 mg PO DAILY cap 10/12/18 04/19/21 citalopram 20 mg tablet 20 mg PO DAILY 10/12/18 04/19/21 lisinopril 5 mg tablet 5 mg PO DAILY 10/12/18 04/19/21 metoprolol succinate 50 mg capsule 50 mg PO BID 10/12/18 04/19/21 sprinkle, ext. release 24 hr acetaminophen 650 mg 650 mg PO Q12H PRN 08/20/19 04/19/21 tablet,extended release red yeast rice 600 mg tablet 600 mg PO DAILY 08/20/19 04/19/21 omega 2-nvl-wro-fish oil 120 cap PO 11/20/19 04/19/21 mg-180 mg-500 mg capsule vitamin B complex 1 tab PO DAILY 06/15/20 04/19/21 levothyroxine 75 mcg tablet 75 mcg PO DAILY #90 tab 04/19/21 04/19/21 Previous Rx's Medication Instructions Recorded Nitrofurantoin Monohyd/M-Cryst 100 mg PO BID 5 Days #10 cap 11/28/20 [Macrobid 100 mg Capsule] cephALEXin [cephALEXin 500mg 500 mg PO
== END 2021-08-24 14:29 | disposition home or self-care (01) ==
PROVIDERS: Emergency Provider Nurse Practitioner Family; PCP Nurse Practitioner Family
DX: N30.00 Acute cystitis without hematuria (principal); I25.10 Atherosclerotic heart disease of native coronary artery without angina pectoris; F33.1 Major depressive disorder, recurrent, moderate; E78.5 Hyperlipidemia, unspecified; I10 Essential (primary) hypertension; E03.9 Hypothyroidism, unspecified; Z79.899 Other long term (current) drug therapy
CPT/HCPCS: G0463; 81003; 87086; 87088; 87186; 99202

== ENCOUNTER 2021-10-22 15:10 | Emergency (ER) | payer MEDICARE, SELFPAY ==
[2021-10-22 16:25] LABS: Color,Urine Orange (Yellow)
[2021-10-22 16:26] LABS: Apearance,Urine Clear (Clear); Bilirubin,Urine Negative (Negative); Blood, Urine 2+ (Negative); Glucose,Urine (UA) 100 (Negative); Ketones,Urine Negative (Negative); Protein,Urine 1+ (Negative); Specific Gravity, Urine 1.005 (1.005-1.030); UTC Leukocyte Esterase,Urine 3+ (Negative); UTC Nitrate,Urine Positive (Negative); Urobilinogen,Urine 2 EU/dl (0.2)
[2021-10-22 17:20] VITALS: BP 108/68; PULSE 84; RESP 19; TEMP 36.9; O2SAT 98; BMI 33.1
--- NOTE | 2021-10-22 17:43 | HMH.EDUTC ---
[facility] [place]ression: UTI (urinary tract infection) Qualifiers: Urinary tract infection type: site unspecified Hematuria presence: with hematuria Qualified Code(s): N39.0 - Urinary tract infection, site not specified Disposition: Home, Self-Care Condition on Discharge: Good Instructions: DI for Urinary Tract Infection (UTI), Cefdinir Additional Instructions: *Increase fluids. Water not Soda or Tea *Start antibiotic immediately and be sure to take as ordered for the FULL length of time although you should start to see improvement over the next 48 hours *Pyridium as needed Remember this medication will turn your urine [place]. This is normal but it will stain what ever it gets on *You should not use Pyridium for more than 48 hours. If so , follow up with your primary physician to review urine culture and ensure that antibiotic is adequate for infection *Be SURE to follow up anytime for new or worsening symptoms with your family doctor. AND in 48 hours for urine culture results with your family doctor, if you do not have a doctor then you may call back to the [facility] for urine culture results and further treatment. We do recommend that you choose and establish care with a Primary Care Physician. AND follow up with them in 10-14 days to repeat UA to ensure infection is resolved and blood no longer present *Be sure to let your PCP know that we sent urine cultures from the [facility] so they can follow up to ensure that you area the on the correct antibiotic Call your doctor office and make appointment for 48 hours (2 days from today) to follow up and get the results of your urine culture and further treatment Prescriptions: Cefdinir [Omnicef 300mg Capsule] 300 mg PO BID #20 cap Transmission Status: Received by [id number] Phenazopyridine HCl [Pyridium 200mg Tablet] 200 pow PO TID #6 tab Transmission Status: Received by [id number] Referrals: Ricarda Stephen APRN [Primary Care Provider] - As needed Time of Disposition: 18:03 Medical Decision Making - Jackson Inquiry Pt receiving controlled substance: No Jackson was queried for this patient: No Vital Signs: 10/22/21 17:20 10/22/21 18:03 Temperature 98.4 F 98.4 F Temperature Source Oral Pulse Rate 84 Pulse Rate [Left Brachial] 84 Respiratory Rate 19 19 Blood Pressure 108/68 L Blood Pressure [Left Arm] 108/68 L Blood Pressure Mean [Left Arm] 81 Blood Pressure Source [Left Arm] Automatic Cuff Blood Pressure Position [Left Arm] Sitting 02 Sat by Pulse Oximetry 98 Oxygen Delivery Method Room Air - Lab Data Lab results reviewed: Yes: I reviewed the patient's lab results. Lab Results 10/22/21 16:10: Urine Color [place], Urine Appearance Clear, Urine pH 5.0, Ur Specific [place] 1.005, Urine Protein 1+, Urine Glucose (UA) 100, Urine Ketones Negative, Urine Blood 2+, Urine Nitrate Positive A, Urine Bilirubin Negative, Urine Urobilinogen 2, Ur Leukocyte Esterase 3+ A Orders (Tests/Meds): ORDERS Category Date Time Status Urine Culture Stat Micro 10/22/21 16:08 Received Medical Decision Narrative: Patient states that she has taken cefdinir and pyridium in the past without complications or reactions [facility] [place] General Stated complaint: Possible UTI Time Seen by Provider: 10/22/21 17:43 Mode of Arrival: Ambulatory Source of Information: Patient Limitations: No Limitations Description of Symptoms (Recalled from Triage Doc. by RN): PATIENT C/O BURNING AND PAIN WITH URINATION SINCE YESTERDAY HEENT Symptoms (Recalled from RN notes): No Resp Symptoms (Recalled from RN notes): No Skin Symptoms (Recalled from RN notes): No MS Symptoms (Recalled from RN notes): No Functional Status (Recalled from RN notes): WNL - History of Present Illness Provider Complaint: Patient states that she has frequent UTI States that she started having burning with urination and urgency and frequency like she gets when she has a UTI States that she took
[2021-10-22 18:03] VITALS: BP 108/68; PULSE 84; RESP 19; TEMP 36.9; O2SAT 98
== END 2021-10-22 18:07 | disposition home or self-care (01) ==
PROVIDERS: Emergency Provider Nurse Practitioner; PCP Nurse Practitioner Family
DX: N30.00 Acute cystitis without hematuria (principal); I25.10 Atherosclerotic heart disease of native coronary artery without angina pectoris; I10 Essential (primary) hypertension; E78.5 Hyperlipidemia, unspecified
CPT/HCPCS: G0463; 81003; 87086; 87088; 87186; 99202

== ENCOUNTER 2021-11-10 15:57 | Emergency (ER) | payer MEDICARE, SELFPAY ==
[2021-11-10 16:40] VITALS: BP 143/81; PULSE 76; RESP 18; TEMP 36.6; O2SAT 99; BMI 31.1
[2021-11-10 17:10] LABS: Apearance,Urine Cloudy (Clear); Color,Urine Dark Yellow (Yellow)
[2021-11-10 17:11] LABS: Bilirubin,Urine 1+ (Negative); Blood, Urine 3+ (Negative); Glucose,Urine (UA) Negative (Negative); Ketones,Urine Negative (Negative); Protein,Urine 1+ (Negative); UTC Leukocyte Esterase,Urine 1+ (Negative); UTC Nitrate,Urine Positive (Negative); Urobilinogen,Urine 1 EU/dl (0.2)
--- NOTE | 2021-11-10 17:41 | HMH.EDUTC ---
[facility] [place] Clinical Impression: UTI (urinary tract infection) Qualifiers: Urinary tract infection type: site unspecified Hematuria presence: with hematuria Qualified Code(s): N39.0 - Urinary tract infection, site not specified; R31.9 - Hematuria, unspecified Disposition: Home, Self-Care Condition on Discharge: Good Instructions: DI for Urinary Tract Infection (UTI), Urinary Tract Infection, Cephalexin Additional Instructions: *Increase fluids. Water not Soda or Tea *Start antibiotic immediately and be sure to take as ordered for the FULL length of time although you should start to see improvement over the next 48 hours *Pyridium as needed Remember this medication will turn your urine [place]. This is normal but it will stain what ever it gets on *You should not use Pyridium for more than 48 hours. If so , follow up with your primary physician to review urine culture and ensure that antibiotic is adequate for infection *Be SURE to follow up anytime for new or worsening symptoms with your family doctor. AND in 48 hours for urine culture results with your family doctor, if you do not have a doctor then you may call back to the [facility] for urine culture results and further treatment. We do recommend that you choose and establish care with a Primary Care Physician. AND follow up with them in 10-14 days to repeat UA to ensure infection is resolved and blood no longer present *Be sure to let your PCP know that we sent urine cultures from the [facility] so they can follow up to ensure that you area the on the correct antibiotic Call your doctor office and make appointment for 48 hours (2 days from today) to follow up and get the results of your urine culture and further treatment Prescriptions: cephALEXin [cephALEXin 500mg capsule*] 500 mg PO BID 7 Days #14 cap Transmission Status: Pending to [id number] Phenazopyridine HCl [Pyridium 200mg Tablet] 200 pow PO TID #6 tab Transmission Status: Pending to [id number] Referrals: Ricarda Stephen APRN [Primary Care Provider] - As needed Time of Disposition: 17:46 Medical Decision Making - Jackson Inquiry Pt receiving controlled substance: No Jackson was queried for this patient: No Vital Signs: 11/10/21 16:40 Temperature 97.8 F Temperature Source Oral Pulse Rate [Right Brachial] 76 Respiratory Rate 18 Blood Pressure [Right Arm] 143/81 H Blood Pressure Mean [Right Arm] 101 Blood Pressure Source [Right Arm] Automatic Cuff Blood Pressure Position [Right Arm] Sitting 02 Sat by Pulse Oximetry 99 Oxygen Delivery Method Room Air - Lab Data Lab results reviewed: Yes: I reviewed the patient's lab results. Lab Results 11/10/21 16:56: Urine Color Dark yellow, Urine Appearance Cloudy, Urine pH 5.0, Ur Specific [place] 1.030, Urine Protein 1+, Urine Glucose (UA) Negative, Urine Ketones Negative, Urine Blood 3+, Urine Nitrate Positive A, Urine Bilirubin 1+ A, Urine Urobilinogen 1, Ur Leukocyte Esterase 1+ A Orders (Tests/Meds): ORDERS Category Date Time Status Urine Culture Stat Micro 11/10/21 17:09 [place] [facility] [place] - General Stated complaint: possible uti Time Seen by Provider: 11/10/21 17:42 Mode of Arrival: Ambulatory Source of Information: Patient Limitations: No Limitations Description of Symptoms (Recalled from Triage Doc. by RN): PATIENT C/O BURNING AND FREQUENCY WITH URINATION X 3 DAYS HEENT Symptoms (Recalled from RN notes): No Resp Symptoms (Recalled from RN notes): No Skin Symptoms (Recalled from RN notes): No MS Symptoms (Recalled from RN notes): No Functional Status (Recalled from RN notes): WNL - History of Present Illness Provider Complaint: Patient state that she gets UTI frequently and for the last couple of days states that she has been having burning with urination and feeling of frequency and urgency like she gets with UTI so she came in to get checked - Related Data Home Medications Medication Instructions Recorded Conf
[2021-11-10 17:50] VITALS: BP 143/81; PULSE 76; RESP 18; TEMP 36.6; O2SAT 99
== END 2021-11-10 17:59 | disposition home or self-care (01) ==
PROVIDERS: Emergency Provider Nurse Practitioner; PCP Nurse Practitioner Family
DX: N30.01 Acute cystitis with hematuria (principal); E03.9 Hypothyroidism, unspecified; I25.10 Atherosclerotic heart disease of native coronary artery without angina pectoris; E78.5 Hyperlipidemia, unspecified; I10 Essential (primary) hypertension
CPT/HCPCS: G0463; 81003; 87086; 87088; 87186; 99202

== ENCOUNTER 2022-02-12 16:48 | Emergency (ER) | payer MEDICARE, SELFPAY ==
[2022-02-12 17:00] VITALS: BP 125/58; PULSE 78; RESP 18; TEMP 37.4; O2SAT 94; BMI 32.1
[2022-02-12 17:25] LABS: UTC Influenza A Antigen Negative (Negative); UTC Influenza B Antigen Negative (Negative)
--- NOTE | 2022-02-12 17:38 | HMH.EDUTC ---
[facility] [place] Impression: Upper respiratory infection, viral Disposition: Home, Self-Care Condition on Discharge: Good Instructions: DI for Viral Upper Respiratory Infection -- Adult Additional Instructions: covid swab was sent to lab, call tomorrow for results. self isolate until test results are known to be negative No sign of a bacterial infection. Likely viral. Viruses can take 7-14 days to run their course. Nasal saline and bulb syringe or nose Caryn to remove nasal drainage to help with nasal congestion. Hard to eat, drink, sleep with nasal congestion so important to keep this cleaned out. Monitor temp. Tylenol or Motrin as needed for pain or fever Encourage fluids, water, Gatorade, Powerade, Pedialyte if /toddler/child Warm salt water gargles Warm fluids Sore throat lozenges Sleep elevated Humidifier/vaporizer Follow-up immediately for new or worsening symptoms or no noticeable improvement over the next 48-72 hours. Referrals: Ricarda Stephen APRN [Primary Care Provider] - Time of Disposition: 17:42 Medical Decision Making - Jackson Inquiry Pt receiving controlled substance: No Vital Signs: 02/12/22 17:00 Temperature 99.3 F Temperature Source Oral Pulse Rate [Right Brachial] 78 Respiratory Rate 18 Blood Pressure [Right Arm] 125/58 L Blood Pressure Mean [Right Arm] 80 Blood Pressure Source [Right Arm] Automatic Cuff Blood Pressure Position [Right Arm] Sitting 02 Sat by Pulse Oximetry 94 L Oxygen Delivery Method Room Air - Lab Data Lab Results 02/12/22 17:11: Influenza Type A Ag Negative, Influenza Type B Ag Negative Orders (Tests/Meds): ORDERS Category Date Time Status Covid-19 Nasal PCR ([facility]) Routine Lab 02/12/22 17:14 [place] [facility] [place] - General Chief complaint: [facility] Stated complaint: Cough, chills, body aches Time Seen by Provider: 02/12/22 17:39 Mode of Arrival: Ambulatory Source of Information: Patient Limitations: No Limitations Description of Symptoms (Recalled from Triage Doc. by RN): PATIENT C/O BODY ACHES, NAUSEA, AND NO TASTE SINCE YESTERDAY HEENT Symptoms (Recalled from RN notes): No Resp Symptoms (Recalled from RN notes): No Skin Symptoms (Recalled from RN notes): No MS Symptoms (Recalled from RN notes): No Functional Status (Recalled from RN notes): WNL - History of Present Illness Provider Complaint: 77 yr old female presents for body aches,nausea and loss of taste since yesterday - Related Data Home Medications Medication Instructions Recorded Confirmed aspirin 81 mg tablet,delayed 81 mg PO DAILY 10/12/18 01/23/22 release cetirizine 10 mg capsule 10 mg PO DAILY cap 10/12/18 01/23/22 citalopram 20 mg tablet 20 mg PO DAILY 10/12/18 01/23/22 lisinopril 5 mg tablet 5 mg PO DAILY 10/12/18 01/23/22 metoprolol succinate 50 mg capsule 50 mg PO BID 10/12/18 01/23/22 sprinkle, ext. release 24 hr acetaminophen 650 mg 650 mg PO Q12H PRN 08/20/19 01/23/22 tablet,extended release red yeast rice 600 mg tablet 600 mg PO DAILY 08/20/19 01/23/22 omega 9-wwy-rza-fish oil 120 cap PO 11/20/19 01/23/22 mg-180 mg-500 mg capsule vitamin B complex 1 tab PO DAILY 06/15/20 01/23/22 levothyroxine 75 mcg tablet 75 mcg PO DAILY #90 tab 04/19/21 01/23/22 cranberry extract 500 mg capsule 500 mg PO DAILY cap 01/23/22 01/23/22 cyanocobalamin (vitamin B-12) 1,000 mcg SQ .COMPLEX 01/23/22 01/23/22 1,000 mcg/mL injection solution estradiol 1 g VAGINAL WEEKLY g 01/23/22 01/23/22 ibandronate 150 mg tablet 150 mg PO QMONTH tab 01/23/22 01/23/22 magnesium citrate 100 mg capsule 100 mg PO DAILY 01/23/22 01/23/22 nitrofurantoin 100 mg PO ONCE cap 01/23/22 monohydrate/macrocrystals 100 mg capsule Allergies Allergy/AdvReac Type Severity Reaction Status Date / Time ciprofloxacin [From Cipro] Allergy Mild Vomiting Verified 01/23/22 10:28 Sulfa (Sulfonamide Allergy Verified 01/23/22 10:28 Antibiotics) trimethoprim
[2022-02-12 17:42] VITALS: BP 125/58; PULSE 78; RESP 18; TEMP 37.4; O2SAT 94
== END 2022-02-12 17:47 | disposition home or self-care (01) ==
PROVIDERS: Emergency Provider Nurse Practitioner Family; PCP Nurse Practitioner Family
DX: J06.9 Acute upper respiratory infection, unspecified (principal)
CPT/HCPCS: 87804; 99213; C9803; G0463; U0003; U0005

== ENCOUNTER 2022-03-18 11:27 | Emergency (ER) | payer MEDICARE, SELFPAY ==
--- NOTE | 2022-03-18 12:00 | HMH.EDUTC ---
[facility] [place] Clinical Impression: UTI (urinary tract infection) Disposition: Home, Self-Care Condition on Discharge: Good Instructions: DI for Urinary Tract Infection (UTI) Additional Instructions: Take all medications as prescribed until gone May also take AZO if needed Urine has been sent for culture - should be available to Miss Stephen Sunday or Sunday Prescriptions: cephALEXin [cephALEXin 500mg capsule*] 500 mg PO TID 7 Days #21 cap Transmission Status: Pending to [id number] Referrals: Ricarda Stephen APRN [Primary Care Provider] - Time of Disposition: 12:11 Medical Decision Making - Jackson Inquiry Pt receiving controlled substance: No - Lab Data Lab results reviewed: Yes: I reviewed the patient's lab results. [facility] [place] HPI - General Stated complaint: possible uti Time Seen by Provider: 03/18/22 12:08 - History of Present Illness Provider Complaint: Dysuria X 3 days. Right flank pain. No fever. No nausea or vomiting. History of recurrent UTIs, no kidney stones. Has been seeing Dr Edgar and hasn't had one recently. Has been taking AZO with some relief. Onset (ago): day(s) (3) Location: abdomen Radiation: back Consistency: intermittent Relieving factors: none Exacerbating factors: none Associated symptoms: other Treatments prior to arrival: other (AZO) - Related Data Home Medications Medication Instructions Recorded Confirmed aspirin 81 mg tablet,delayed 81 mg PO DAILY 10/12/18 01/23/22 release cetirizine 10 mg capsule 10 mg PO DAILY cap 10/12/18 01/23/22 citalopram 20 mg tablet 20 mg PO DAILY 10/12/18 01/23/22 lisinopril 5 mg tablet 5 mg PO DAILY 10/12/18 01/23/22 metoprolol succinate 50 mg capsule 50 mg PO BID 10/12/18 01/23/22 sprinkle, ext. release 24 hr acetaminophen 650 mg 650 mg PO Q12H PRN 08/20/19 01/23/22 tablet,extended release red yeast rice 600 mg tablet 600 mg PO DAILY 08/20/19 01/23/22 omega 0-mic-aba-fish oil 120 cap PO 11/20/19 01/23/22 mg-180 mg-500 mg capsule vitamin B complex 1 tab PO DAILY 06/15/20 01/23/22 levothyroxine 75 mcg tablet 75 mcg PO DAILY #90 tab 04/19/21 01/23/22 cranberry extract 500 mg capsule 500 mg PO DAILY cap 01/23/22 01/23/22 cyanocobalamin (vitamin B-12) 1,000 mcg SQ .COMPLEX 01/23/22 01/23/22 1,000 mcg/mL injection solution estradiol 1 g VAGINAL WEEKLY g 01/23/22 01/23/22 ibandronate 150 mg tablet 150 mg PO QMONTH tab 01/23/22 01/23/22 magnesium citrate 100 mg capsule 100 mg PO DAILY 01/23/22 01/23/22 nitrofurantoin 100 mg PO ONCE cap 01/23/22 monohydrate/macrocrystals 100 mg capsule Previous Rx's Medication Instructions Recorded cephALEXin [cephALEXin 500mg 500 mg PO TID 7 Days #21 cap 03/18/22 capsule*] Allergies Allergy/AdvReac Type Severity Reaction Status Date / Time ciprofloxacin [From Cipro] Allergy Mild Vomiting Verified 01/23/22 10:28 Sulfa (Sulfonamide Allergy Verified 01/23/22 10:28 Antibiotics) trimethoprim [From Bactrim] Allergy Verified 01/23/22 10:28 [facility] History - Hepatitis A Screen Attestation statement:: This patient has been screened for Hepatitis A risk factors. Medical History: Reports:: Aneurysm, Coronary Artery Disease, Depression, Hyperlipidemia, Hypertension, Myocardial Infarction, Urinary Tract Infection Denies:: Diabetes Mellitus Type 1, Diabetes Mellitus Type 2 Other Medical History: Reports: Arthritis, Hypothyroidism Laterality Cases: Bilateral: Tonsillectomy Other Surgeries: Yes: CABG, Cardiac Catheterization, Cardiac Surgery, Cholecystectomy, Colonoscopy, Coronary Stent, Hysterectomy-Total, Hysterectomy-Partial, Tubal Ligation, Other Amputation: No Fractures: No Comment: Bypass - Social History Smoking Status: Former smoker Alcohol Intake: never Substance Use Type: denies use Occupational Status: retired Housing: house Household Members: family - Psychiatric History Pschychiatric History:: Reports:: Depression Family Hx:: Cancer, Heart At
[2022-03-18 12:10] VITALS: BP 155/70; PULSE 60; RESP 17; TEMP 36.7; O2SAT 96; BMI 32.8
[2022-03-18 12:16] LABS: Apearance,Urine Clear (Clear); Bilirubin,Urine Negative (Negative); Blood, Urine Negative (Negative); Color,Urine Yellow (Yellow); Glucose,Urine (UA) Negative (Negative); Ketones,Urine Negative (Negative); PH,Urine 6.5 (5.0-8.5); Protein,Urine Negative (Negative); Specific Gravity, Urine 1.015 (1.005-1.030); UTC Leukocyte Esterase,Urine Negative (Negative); UTC Nitrate,Urine Negative (Negative); Urobilinogen,Urine 0.2 EU/dl (0.2)
[2022-03-18 12:25] VITALS: BP 155/70; PULSE 60; RESP 17; TEMP 36.7
== END 2022-03-18 12:38 | disposition home or self-care (01) ==
PROVIDERS: Emergency Provider Physician Assistant; PCP Nurse Practitioner Family
DX: N39.0 Urinary tract infection, site not specified (principal); Z88.1 Allergy status to other antibiotic agents; Z88.2 Allergy status to sulfonamides
CPT/HCPCS: 81003; 87086; 99212; G0463

== ENCOUNTER → 2022-04-14 08:12 | Outpatient (CLI) | payer MEDICARE, SELFPAY ==
--- NOTE | 2022-04-14 08:33 | US_ITS ---
FINAL REPORT CLINICAL HISTORY: follow up [facility] FINDINGS: Limited sonographic images were obtained of the abdomen to evaluate the abdominal aorta and iliac arteries. The abdominal aorta measures up to 3.3 cm in greatest dimension. The iliac arteries are within normal limits. IMPRESSION: Mild aneurysmal dilatation up to 3.3 cm. If indicated, CTA may be helpful. Reviewed, Interpreted and Dictated by Jose Cid III, MD Transcribed by Cora Willard Authenticated and [facility]
== END ==
PROVIDERS: PCP Nurse Practitioner Family; Visit Provider Nurse Practitioner Family
DX: I71.4 Abdominal aortic aneurysm, without rupture (principal)
CPT/HCPCS: 76705

== ENCOUNTER 2022-11-23 08:39 | Emergency (ER) | payer MEDICARE, SELFPAY ==
[2022-11-23 08:59] VITALS: BP 132/74; PULSE 72; RESP 18; TEMP 37.1; O2SAT 96; BMI 29.7
[2022-11-23 09:19] LABS: UTC Influenza A Antigen Negative (Negative); UTC Influenza B Antigen Negative (Negative)
--- NOTE | 2022-11-23 09:21 | EXP.UTC ---
Discharge Plan Disposition Patient Disposition: Home, Self-Care Condition: Good Prescriptions Prescriptions: New ondansetron 4 mg tablet,disintegrating 4 mg PO Q8H PRN (Reason: nausea and vomiting) Qty: 10 0RF benzonatate 100 mg capsule 100 mg PO TID PRN (Reason: cough) Qty: 15 0RF No Action metoprolol succinate 50 mg capsule,sprinkle,ER 24hr 50 mg PO BID lisinopril 5 mg tablet 5 mg PO DAILY citalopram 20 mg tablet 20 mg PO DAILY aspirin [Adult Low Dose Aspirin] 81 mg tablet,delayed release (DR/EC) 81 mg PO DAILY cetirizine 10 mg capsule 10 mg PO DAILY vitamin B complex [B Complex-Vitamin B12] Tablet 1 tab PO DAILY acetaminophen [Arthritis Pain Relief (acetam)] 650 mg tablet extended release 650 mg PO Q12H PRN red yeast rice 600 mg tablet 600 mg PO DAILY levothyroxine 75 mcg tablet 75 mcg PO DAILY Qty: 90 Label Comments: TAKE 1 TABLET BY MOUTH IN THE MORNING ON AN EMPTY STOMACH Fish Oil 120-180-500 mg capsule PO estradiol 0.01 % (0.1 mg/gram) cream 1 g VAGINAL WEEKLY Label Comments: INSERT ONE GRAM VAGINALLY UP TO 3 TIMES A WEEK cyanocobalamin (vitamin B-12) 1,000 mcg/mL solution 1,000 mcg SQ .COMPLEX Rx Instructions: 1,000 mcg SQ 2x month; nitrofurantoin monohyd/m-cryst 100 mg capsule 100 mg PO ONCE ibandronate 150 mg tablet 150 mg PO QMONTH magnesium citrate 100 mg capsule 100 mg PO DAILY cranberry extract 500 mg capsule 500 mg PO DAILY Rx Instructions: administer with meals Referrals Follow up/Referrals: Ricarda Stephen APRN [Primary Care Provider] - See instructions Activity Restrictions/Add. Instructions Additional Instructions/Restrictions: Drink extra fluids with and between meals. If you have difficulty drinking, try very small amounts of water or suck on ice chips. ? Avoid fruit juices, as these do not replace minerals and can actually increase diarrhea. ? Children and adults can use sports drinks to replenish electrolytes. Younger children and infants should use products formulated for children, like oral rehydration solutions. ? Eat food in small amounts and let your stomach recover. ? Get lots of rest. You may feel tired or weak. ? No greasy or fried foods for the next 24-48 hours BRAT diet Bananas Rice Apples and [place] ? Make sure to drink plenty of liquids ? Return if needed ? Straight to ER if any life threatening symptoms ? Zofran as prescribed ? You was given an outpatient order for diarrhea panel, please collect specimen and bring back to outpatient lab then call back to the [facility] or follow up with family doctor for results ? Follow up with family doctor in the next 48-72 hours if no improvement or any worsening of symptoms You were tested for today for COVID19 your test result should be back in the next 24-48 hours, you may check your results on the [facility] Clinical Impressions Clinical Impression: Viral syndrome Instructions Patient Instructions: DI for Viral Syndrome, DI for Vomiting -- Adult Discharge ED Provider: No Mejia [facility] [place] General Stated complaint: Bodyaches vomiting headache fever Mode of Arrival: Ambulatory Source of Information: Patient Limitations: No Limitations Time Seen by Provider: 11/23/22 09:21 Description of Symptoms (Recalled from Triage Doc. by RN): c/o vomiting, cough, body aches and diarrhea since yesterday, exposed to covid HEENT Symptoms (Recalled from RN notes): No Resp Symptoms (Recalled from RN notes): No Skin Symptoms (Recalled from RN notes): No MS Symptoms (Recalled from RN notes): No Functional Status (Recalled from RN notes): na History of Present Illness Provider Complaint: Patient states that she has been around her 2 brothers that has been dx with COVID states that she isnt sure if she may have a s
[2022-11-23 09:41] VITALS: BP 132/74; PULSE 72; RESP 19; TEMP 37.1; O2SAT 96
== END 2022-11-23 09:43 | disposition home or self-care (01) ==
PROVIDERS: Emergency Provider Nurse Practitioner; PCP Nurse Practitioner Family
DX: U07.1 COVID-19 (principal); R52 Pain, unspecified; R11.10 Vomiting, unspecified; R50.9 Fever, unspecified
CPT/HCPCS: 87804; 99212; 99213; C9803; G0463; U0003; U0005

== ENCOUNTER → 2022-12-22 08:54 | Outpatient (CLI) | payer MEDICARE, SELFPAY ==
--- NOTE | 2022-12-22 08:58 | XR_ITS ---
FINAL REPORT TECHNIQUE: Bone densitometry calculations of the lumbar spine and hip were obtained. CLINICAL HISTORY: . post menopausal COMPARISON: 12/24/2020 FINDINGS: DEXA BONE DENSITY AXIAL SKELETON Using L1-4, the bone mineral density of the spine is 1.085 g/cm2, corresponding to T-score of 0.3. Previously measured 1.121 g/cm2, corresponding to T-score of 0.7. Using the right hip, the bone mineral density of the femoral neck is 0.637 g/cm2, corresponding to a T-score of -1.9. Previously measured 0.668 g/cm2, corresponding to T-score of -1.6. NOTE: T-score: Standard deviation compared with peak bone mass of young adult mean. *Following the recommendations of the International Society of Bone densitometry, classification of hip BMD is based on the lower of two T-scores; total hip or femoral neck. IMPRESSION: Normal bone mineral density of the lumbar spine. Diminished bone mineral density of the right hip consistent with osteopenia. FRAX 10 year fracture risk is 13% for a hip fracture and 22% for a major osteoporotic fracture. Reviewed, Interpreted and Dictated by Jose Cid III, MD Transcribed by Cora iWllard Authenticated and [facility]
== END ==
PROVIDERS: PCP Nurse Practitioner Family; Visit Provider Nurse Practitioner Family
DX: M85.89 Other specified disorders of bone density and structure, multiple sites (principal)
CPT/HCPCS: 77080

== ENCOUNTER → 2023-01-18 13:13 | Outpatient (CLI) | payer MEDICARE, SELFPAY | PROVIDERS: PCP Nurse Practitioner Family; Referring Provider Internal Medicine Cardiovascular Disease; Visit Provider Nurse Practitioner Family | DX: I25.810 Atherosclerosis of coronary artery bypass graft(s) without angina pectoris (principal) | CPT/HCPCS: 93306 ==

== ENCOUNTER 2023-04-01 15:58 | Emergency (ER) | payer MEDICARE, SELFPAY ==
[2023-04-01 15:59] VITALS: BP 144/80; PULSE 58; RESP 18; TEMP 37; O2SAT 94; BMI 36.1
--- NOTE | 2023-04-01 16:16 | EXP.UTC ---
Discharge Plan Disposition Patient Disposition: Home, Self-Care Condition: Good Prescriptions Prescriptions: New methylprednisolone 4 mg Tablets,Dose Pack 4 mg PO DIRECTED Qty: 21 0RF No Action metoprolol succinate 50 mg capsule,sprinkle,ER 24hr 50 mg PO BID lisinopril 5 mg tablet 5 mg PO DAILY citalopram 20 mg tablet 20 mg PO DAILY aspirin [Adult Low Dose Aspirin] 81 mg tablet,delayed release (DR/EC) 81 mg PO DAILY cetirizine 10 mg capsule 10 mg PO DAILY vitamin B complex [B Complex-Vitamin B12] Tablet 1 tab PO DAILY acetaminophen [Arthritis Pain Relief (acetam)] 650 mg tablet extended release 650 mg PO Q12H PRN red yeast rice 600 mg tablet 600 mg PO DAILY levothyroxine 75 mcg tablet 75 mcg PO DAILY Qty: 90 Label Comments: TAKE 1 TABLET BY MOUTH IN THE MORNING ON AN EMPTY STOMACH Fish Oil 120-180-500 mg capsule PO estradiol 0.01 % (0.1 mg/gram) cream 1 g VAGINAL WEEKLY Label Comments: INSERT ONE GRAM VAGINALLY UP TO 3 TIMES A WEEK cyanocobalamin (vitamin B-12) 1,000 mcg/mL solution 1,000 mcg SQ .COMPLEX Rx Instructions: 1,000 mcg SQ 2x month; nitrofurantoin monohyd/m-cryst 100 mg capsule 100 mg PO ONCE ibandronate 150 mg tablet 150 mg PO QMONTH magnesium citrate 100 mg capsule 100 mg PO DAILY cranberry extract 500 mg capsule 500 mg PO DAILY Rx Instructions: administer with meals ondansetron 4 mg tablet,disintegrating 4 mg PO Q8H PRN (Reason: nausea and vomiting) Qty: 10 0RF benzonatate 100 mg capsule 100 mg PO TID PRN (Reason: cough) Qty: 15 0RF Referrals Follow up/Referrals: Ricarda Stephen APRN [Primary Care Provider] - See instructions Willie Cage JR, MD [Physician] - See instructions Activity Restrictions/Add. Instructions Additional Instructions/Restrictions: Rest the extremity. Take the medication as directed. Follow up with Dr. Cage (orthopedics) if you continue to have symptoms. I put in a referral but you need to call his office and schedule an appointment. Follow up with your regular doctor. GO TO THE ER FOR ANY WORSENING SYMPTOMS Clinical Impressions Clinical Impression: Pain in right shoulder Instructions Patient Instructions: DI for Shoulder Pain, Shoulder Tendinopathy Discharge ED Provider: Aniceto [facility] General Stated complaint: rt lung should pain - no accident Time Seen by Provider: 04/01/23 16:16 History of Present Illness Provider Complaint: She states that for the past 3 days she has had right sided shoulder pain. She denies any injury. She states that her shoulder pain is worse when she lies on that side. It is also worse when she raises her shoulder above her head. Related Data Home Medications Medication Instructions Recorded Confirmed aspirin 81 mg tablet,delayed 81 mg PO DAILY CAD 10/12/18 07/04/22 release (Adult Low Dose Aspirin) cetirizine 10 mg capsule 10 mg PO DAILY Allergy symptoms 10/12/18 07/04/22 citalopram 20 mg tablet 20 mg PO DAILY Depression 10/12/18 07/04/22 lisinopril 5 mg tablet 5 mg PO DAILY CAD 10/12/18 07/04/22 metoprolol succinate 50 mg capsule 50 mg PO BID High blood pressure 10/12/18 07/04/22 sprinkle, ext. release 24 hr acetaminophen 650 mg 650 mg PO Q12H PRN 08/20/19 07/04/22 tablet,extended release (Arthritis Pain Relief (acetaminophen) ER) red yeast rice 600 mg tablet 600 mg PO DAILY 08/20/19 07/04/22 omega 3-jak-ihv-fish oil 120 cap PO 11/20/19 07/04/22 mg-180 mg-500 mg capsule (Fish Oil) vitamin B complex (B 1 tab PO DAILY 06/15/20 07/04/22 Complex-Vitamin B12 tablet) levothyroxine 75 mcg tablet 75 mcg PO DAILY #90 tabs 04/19/21 07/04/22 cranberry extract 500 mg capsule 500 mg PO DAILY 01/23/22 07/04/22 cyanocobalamin (vitamin B-12) 1,000 mcg SQ .COMPLEX 01/23/22 07/04/22 1,000 mcg/mL injection solution estradiol 0.01% (0.1 mg/gram) 1
--- NOTE | 2023-04-01 16:28 | XR_ITS ---
PROCEDURE INFORMATION: Exam: XR Chest Exam date and time: 04/01/2023 4:30 PM Age: 78 years old Clinical indication: Pain; Chest pressure TECHNIQUE: Imaging protocol: Radiologic exam of the chest. Views: 2 views. COMPARISON: MR CERVICAL SPINE WO CON 03/23/2021 4:19 PM FINDINGS: Lungs: No acute airspace consolidation. No appreciable pulmonary edema. Pleural spaces: No pleural effusion. No pneumothorax. Heart/Mediastinum: Cardiomediastinal silouhette is within normal limits. Bones/joints: No evidence of acute osseous abnormality. IMPRESSION: No acute findings.
[2023-04-01 17:10] VITALS: BP 144/80; PULSE 58; RESP 18; TEMP 37; O2SAT 94
== END 2023-04-01 17:12 | disposition home or self-care (01) ==
PROVIDERS: Emergency Provider Nurse Practitioner Family; PCP Nurse Practitioner Family
DX: M25.511 Pain in right shoulder (principal); M75.31 Calcific tendinitis of right shoulder
CPT/HCPCS: 71046; 99212; 99214; G0463

== ENCOUNTER 2024-01-10 15:05 | Emergency (ER) | payer MEDICARE, SELFPAY ==
[2024-01-10 15:08] VITALS: BP 150/59; PULSE 71; RESP 18; TEMP 36.7; O2SAT 94; BMI 33.6
--- NOTE | 2024-01-10 15:15 | CT_ITS ---
PROCEDURE INFORMATION: Exam: CT Head Without Contrast Exam date and time: 01/10/2024 4:26 PM Age: 78 years old Clinical indication: Dizziness; Additional info: Dizziness, recent cath TECHNIQUE: Imaging protocol: Computed tomography of the head without contrast. Radiation optimization: All CT scans at this facility use at least one of these dose optimization techniques: automated exposure control; mA and/or kV adjustment per patient size (includes targeted exams where dose is matched to clinical indication); or iterative reconstruction. COMPARISON: MR HEAD/BRAIN WO CON 03/23/2021 4:19 PM FINDINGS: Brain: There is no evidence of acute intracranial hemorrhage, extra-axial collection or locoregional mass effect. There are scattered hypodensities in the periventricular and subcortical white matter. The appearance is nonspecific, but most likely represents chronic small vessel disease in a person of this age. There are multiple small hypodensities in the basal ganglia, consistent with remote lacunar infarctions/prominent perivascular spaces. Cerebral ventricles: The ventricles, sulci and cisterns are normal in size and configuration for patient's age. No hydrocephalus or midline structure shift Pituitary gland and sella: Sellar/parasellar structures, craniocervical junction and orbits are unremarkable Paranasal sinuses: Visualized sinuses are unremarkable. No fluid levels. Mastoid air cells: Visualized mastoid air cells are well aerated. Bones/joints: No calvarial fracture Soft tissues: Unremarkable. IMPRESSION: 1. No acute intracranial abnormality. No calvarial fracture. 2. If focal neurological symptoms persist brain MRI can be obtained for better evaluation
--- NOTE | 2024-01-10 15:15 | CT_ITS ---
PROCEDURE INFORMATION: Exam: CTA Head With Contrast, Arteriography Exam date and time: 01/10/2024 4:29 PM Age: 78 years old Clinical indication: Dizziness and giddiness; Additional info: Dizziness, recent cath TECHNIQUE: Imaging protocol: Computed tomographic angiography of the head with contrast. Exam focused on the arteries. 3D rendering (Not supervised by radiologist): MIP and/or 3D reconstructed images were created by the technologist. Radiation optimization: All CT scans at this facility use at least one of these dose optimization techniques: automated exposure control; mA and/or kV adjustment per patient size (includes targeted exams where dose is matched to clinical indication); or iterative reconstruction. Contrast material: ISOVUE; Contrast volume: 100 ml; Contrast route: INTRAVENOUS (IV); COMPARISON: CT HEAD/BRAIN WO CON 01/10/2024 4:26 PM FINDINGS: ANTERIOR CIRCULATION: Right internal carotid artery: Intracranial segment is patent with no significant stenosis. No aneurysm. Right middle cerebral artery: No occlusion or significant stenosis. No aneurysm. Right anterior cerebral artery: No occlusion or significant stenosis. No aneurysm. Left internal carotid artery: Intracranial segment is patent with no significant stenosis. No aneurysm. Left middle cerebral artery: No occlusion or significant stenosis. No aneurysm. Left anterior cerebral artery: A1 segment of left anterior cerebral artery is hypoplastic, anatomical variant. Left anterior cerebral artery is patent. No significant stenosis. No aneurysm. POSTERIOR CIRCULATION: Right vertebral artery: No occlusion or significant stenosis. No aneurysm. Left vertebral artery: No occlusion or significant stenosis. No aneurysm. Basilar artery: No occlusion or significant stenosis. No aneurysm. Right posterior cerebral artery: No occlusion or significant stenosis. No aneurysm. Left posterior cerebral artery: No occlusion or significant stenosis. No aneurysm. Brain: No definite mass, mass effect, or midline shift. Cerebral ventricles: No ventriculomegaly. Bones/joints: Unremarkable. No acute fracture. Soft tissues: Unremarkable. IMPRESSION: No large vessel occlusion.
--- NOTE | 2024-01-10 15:15 | CT_ITS ---
PROCEDURE INFORMATION: Exam: CTA Neck With Contrast Exam date and time: 01/10/2024 4:29 PM Age: 78 years old Clinical indication: Dizziness and giddiness; Additional info: Dizziness, recent cath TECHNIQUE: Imaging protocol: Computed tomographic angiography of the neck with contrast. Exam focused on the cervical segments of the vasculature. 3D rendering (Not supervised by radiologist): MIP and/or 3D reconstructed images were created by the technologist. Radiation optimization: All CT scans at this facility use at least one of these dose optimization techniques: automated exposure control; mA and/or kV adjustment per patient size (includes targeted exams where dose is matched to clinical indication); or iterative reconstruction. Contrast material: ISOVUE; Contrast volume: 100 ml; Contrast route: INTRAVENOUS (IV); COMPARISON: CT ANGIO HEAD 01/10/2024 4:29 PM FINDINGS: Right common carotid artery: No stenosis. No dissection or occlusion. Right internal carotid artery: Moderate atherosclerotic changes contribute to 50-69% stenosis per NASCET criteria at the origin of right internal carotid artery. Right external carotid artery: No occlusion or stenosis of the origin. Left common carotid artery: No stenosis. No dissection or occlusion. Left internal carotid artery: Moderate atherosclerotic changes contribute to 50-69% stenosis per NASCET criteria at the origin of left internal carotid artery. Left external carotid artery: No occlusion or stenosis of the origin. Right vertebral artery: No stenosis. No dissection or occlusion. Left vertebral artery: No stenosis. No dissection or occlusion. Soft tissues: Normal. No significant soft tissue swelling. Bones/joints: No acute fracture. Lungs: Hazy ground-glass opacities with centrilobular distribution suspicious for pulmonary edema. IMPRESSION: 1. Hazy ground-glass opacities with centrilobular distribution suspicious for pulmonary edema. 2. Moderate atherosclerotic changes contribute to 50-69% stenosis per NASCET criteria at the origin of bilateral internal carotid arteries. REFERENCES: NASCET CRITERIA. The degree of stenosis in the cervical segment of the internal carotid artery is based on NASCET criteria. Normal is no stenosis. Mild is less than 50% stenosis. Moderate is 50-69% stenosis. Severe is 70% to 99% stenosis. Total occlusion is no detectable patent lumen.
--- NOTE | 2024-01-10 15:17 | ECG_ITS ---
APPROVED REPORT Exam: Resting ECG HR:64 bpm ECG Measurements Heart Rate 64 AXES [place] 167 P 23 QRSd 136 QRS 36 QT 396 T -5 QTc 405 Conclusion SINUS RHYTHM INTRAVENTRICULAR CONDUCTION DELAY [130+ ms QRS DURATION] ABNORMAL ECG Electronically signed by : VANESSA HOYOS, 01/10/2024 23:34:15
--- NOTE | 2024-01-10 15:28 | ED_ITS ---
Discharge Plan Disposition Patient Disposition: Home, Self-Care Chief Complaint: Weakness Prescriptions Prescriptions: No Action aspirin [Adult Low Dose Aspirin] 81 mg tablet,delayed release (DR/EC) 81 mg PO DAILY cetirizine 10 mg capsule 10 mg PO DAILY acetaminophen [Arthritis Pain Relief (acetam)] 650 mg tablet extended release 650 mg PO Q12H PRN red yeast rice 600 mg tablet 600 mg PO DAILY Fish Oil 120-180-500 mg capsule PO cyanocobalamin (vitamin B-12) 1,000 mcg/mL solution 1,000 mcg SQ .COMPLEX Rx Instructions: 1,000 mcg SQ 2x month; nitrofurantoin monohyd/m-cryst 100 mg capsule 100 mg PO ONCE cranberry extract 500 mg capsule 15,000 mg PO DAILY Rx Instructions: administer with meals levothyroxine 100 mcg tablet 100 mcg PO DAILY ropinirole 1 mg tablet 1 mg PO DAILY cholecalciferol (vitamin D3) 1,250 mcg (50,000 unit) capsule 1,250 mcg PO WEEKLY meloxicam 15 mg tablet 15 mg PO DAILY Qty: 30 2RF metoprolol succinate 50 mg capsule,sprinkle,ER 24hr 50 mg PO BID 90 Days Qty: 180 0RF lisinopril 5 mg tablet 5 mg PO DAILY 90 Days Qty: 90 0RF citalopram 20 mg tablet 20 mg PO DAILY 90 Days Qty: 90 0RF metoprolol tartrate 50 mg tablet 50 mg PO BID 30 Days Qty: 60 2RF Referrals Follow up/Referrals: Lennie Grimm APRN [Primary Care Provider] - See instructions Activity Restrictions/Add. Instructions Additional Instructions/Restrictions: At this time it was felt you are safe to be discharged home. If new or worsening symptoms please do not hesitate to return the emergency department. As discussed please follow-up with your destination sign repairer or family doctor within 48 hours. Your calcium, liver, muscle markers were elevated today which is likely due to your ezetimibe which you quit taking 2 days ago. Please continue to not take your ezetimibe and follow-up for repeat blood work within the next 2 days to ensure that everything is heading in the proper direction. Clinical Impressions Clinical Impression: Hypercalcemia, Adverse effect of statin, Transaminitis, Myopathy, Creatinine elevation Discharge ED Provider: Jean Paul Khan General Adult HPI General Chief complaint: Weakness Stated complaint: sent by destination sign repairer , CT of head requested Time Seen by Provider: 01/10/24 15:08 Mode of Arrival: Ambulatory Source of Information: Patient Limitations: No Limitations Description of Symptoms (Recalled from ER Triage Doc. by RN): Patient reports night sweats, nausea, weakness since starting new medications after having a heart cath. History of Present Illness HPI narrative: Patient is a 78-year-old female with past medical history of coronary artery disease status post CABG status post recent heart catheterization of CABG approximately 2 weeks ago at [facility] who presents emergency department for evaluation of night sweats, nausea, weakness. This all started when she took her new statin that was prescribed to her after her heart cath. Denies trauma. Denies any current chest pain. Weakness is generalized. She contacted her destination sign repairer who wanted her to come here for evaluation of stroke. Related Data Home Medications Medication Instructions Recorded Confirmed aspirin 81 mg tablet,delayed 81 mg PO DAILY CAD 10/12/18 12/03/23 release (Adult Low Dose Aspirin) cetirizine 10 mg capsule 10 mg PO DAILY Allergy symptoms 10/12/18 12/03/23 acetaminophen 650 mg 650 mg PO Q12H PRN 08/20/19 12/03/23 tablet,extended release (Arthritis Pain Relief (acetaminophen) ER) red yeast rice 600 mg tablet 600 mg PO DAILY 08/20/19 12/03/23 omega 4-mtd-twj-fish oil 120 cap PO 11/20/19 12/03/23 mg-180 mg-500 mg capsule (Fish Oil) cyanocobalamin (vitamin B-12) 1,000 mcg SQ .COMPLEX 01/23/22 12/03/23 1,000 mcg/mL injection solution nitrofurantoin 100 mg PO ONCE 01/23/22 12/03/23 monohydrate/macrocrystals 100 mg capsule cholecalciferol (vitamin D3) 1,250 1,250 mcg PO WEEKLY 12/03/23 12/03/23 mcg (50,000 unit) capsule cranberry extract 500 mg capsule 15,000 mg PO DAILY 12/03/23 12/03/23 levothyroxine 100 mcg tablet 100 mcg PO DAILY 12/03/23 12/03/23 ropinirole 1 mg tablet 1 mg PO DAILY 12/03/23 12/03/23 Previous Rx's Medication Instructions Recorded citalopram 20 mg tablet 20 mg PO DAILY Depression 90 days 07/23/23 #90 tabs lisinopril 5 mg tablet 5 mg PO DAILY CAD 90 days #90 tabs 07/23/23 metoprolol succinate 50 mg capsule 50 mg PO BID High blood pressure 07/23/23 sprinkle, ext. release 24 hr 90 days #180 ea metoprolol tartrate 50 mg tablet 50 mg PO BID 30 days #60 tabs 07/23/23 meloxicam 15 mg tablet 15 mg PO DAILY #30 tabs 12/03/23 Allergies Allergy/AdvReac Type Severity Reaction Status Date / Time ciprofloxacin [From Cipro] Allergy Mild Vomiting Verified 12/03/23 14:30 Sulfa (Sulfonamide Allergy Verified 12/03/23 14:30 Antibiotics) trimethoprim [From Bactrim] Allergy Verified 12/03/23 14:30 PFSH PFS Disclaimer: The information contained in this section may have been updated after the patient was seen, as this information can be updated by other users. Surgical History H/O: hysterectomy Hx of cholecystectomy S/P CABG (coronary artery bypass graft) Family History Other Cancer Heart attack Hypertension Stroke Social History Smoking Status: Former smoker second hand exposure: No alcohol intake: never substance use type: denies use current occupational status: retired Travel in the last 8 weeks: None household members: family housing: house ROS Obtained: Yes Systems reviewed as appropriate & no additional complaints except as documented Physical Exam General General appearance: alert and in no apparent distress Head Head exam: atraumatic and normocephalic Eye Eye exam: Present PERRL and EOMI ENT ENT exam: Present mucous membranes moist Neck Neck exam: Present normal inspection Chest Chest inspection: Present normal inspection and symmetric chest wall rise Respiratory Respiratory exam: Present normal lung sounds bilaterally; Absent respiratory distress Cardiovascular Cardiovascular exam: Present regular rate and normal rhythm Abdominal Exam Abdominal exam: Present soft; Absent tenderness Extremities Exam Extremities exam: Present normal inspection Neurological Exam Neurological exam: Present alert, oriented X3 and CN II-XII intact; Absent motor sensory deficit Psychiatric Psychiatric exam: Present normal affect Skin Skin exam: Present warm and dry Medical Decision Making Jackson Inquiry Pt receiving controlled substance: No Vital Signs: 01/10/24 15:08 01/10/24 15:30 01/10/24 16:00 Temperature 98.0 F Temperature Source Oral Pulse Rate 62 62 Pulse Rate [Radial] 71 Respiratory Rate 18 20 20 Blood Pressure 118/66 129/60 Blood Pressure [Right Arm] 150/59 H Blood Pressure Mean 83 92 Blood Pressure Mean [Right Arm] 89 Blood Pressure Source [Right Arm] Automatic Cuff Blood Pressure Position [Right Arm] Sitting 02 Sat by Pulse Oximetry 94 L 98 96 Oxygen Delivery Method Room Air Lab Data Lab Results 01/10/24 15:24: WBC 7.0, RBC 4.16 L, Hgb 13.0, Hct 38.1, MCV 91.7, MCH 31.2, MCHC 34.0, RDW 13.6, Plt Count 224, MPV 8.7, Neut % (Auto) 69.3, Lymph % (Auto) 20.3, [place] % (Auto) 7.1, Eos % (Auto) 2.1, Baso % (Auto) 1.2, Neut # (Auto) 4.9, Lymph # (Auto) 1.4, [place] # (Auto) 0.5, Eos # (Auto) 0.2, Baso # (Auto) 0.1, S odium 134 L, Potassium 5.3 H, Chloride 101, Carbon Dioxide 27, Anion Gap 11.3, B UN 29 H, Creatinine 1.70 H, Estimated Creat Clear 35, Estimated GFR 29 L, Est GFR ( Amer) 35 L, Glucose 125 H, Calcium 11.4 H, Magnesium 1.9, Total Bilirubin 0.7, AST 208 H, ALT 214 H, Alkaline Phosphatase 60, Total Creatine Kinase 447 H, Total Protein 7.5, Albumin 4.3, Globulin 3.2, Albumin/Globulin Ratio 1.3 01/10/24 15:24 01/10/24 15:24 Orders (Tests/Meds): ED MEDICATIONS Discontinued Medications Generic Name Dose Route Start Last Admin Trade Name Freq PRN Reason Stop Dose Admin Iopamidol 100 ml 01/10/24 16:31 01/10/24 16:32 Iopamidol-370 (76%);100ml Bottle IV 01/10/24 16:32 100 ml ONCE ONE Administration Ondansetron HCl 4 mg 01/10/24 15:15 01/10/24 15:34 Ondansetron 4mg/2ml Vial IV 01/10/24 15:16 4 mg ONCE ONE Administration Sodium Chloride 50 ml 01/10/24 16:31 01/10/24 16:32 0.9 % Sodium Chloride 50 Ml Vial IV 01/10/24 16:32 50 ml ONCE ONE Administration Sodium Chloride 10 ml 01/10/24 16:31 01/10/24 16:32 Sodium Chloride 0.9% 10ml Syr (Rad Only) IV 01/10/24 16:32 10 ml ONCE ONE Administration ORDERS Category Date Time Status CT angio head Stat Cat Scan 01/10/24 15:[address] angio neck Stat Cat Scan 01/10/24 15:[address] head/brain wo con Stat Cat Scan 01/10/24 15:15 Completed CBC w/Auto Diff [Complete Blood Count Auto Diff] Stat Lab 01/10/24 15:24 Completed CK [Creatine Kinase] Stat Lab 01/10/24 15:24 Completed CMP [Comprehensive Metabolic Panel] Stat Lab 01/10/24 15:24 Completed MG [Magnesium] Stat Lab 01/10/24 15:24 Completed UA [Urinalysis and Microscopic] Stat Lab 01/10/24 15:15 Ordered ECG Data Tracing #1: Dependently interpreted by me, rate is 64, rhythm is regular, axis is normal, no ST elevation in anatomical contiguous leads, incomplete right bundle branch block, QTc 405. Medical Decision Narrative: In summary patient is a 78-year-old female past medical history described above presents emergency department for evaluation of nausea, weakness, night sweats in the setting of recent heart catheterization 2 weeks ago with new medicine initiation. Patient is hemodynamically stable nontoxic-appearing upon arrival, afebrile. Differential diagnosis includes medication side effect, myositis, electrolyte abnormalities, among others. CVA would be unlikely however cannot be completely ruled out. Workup will be conducted with hematologic labs, EKG, urinalysis, noncontrasted CT scan of the head and CTA of the head and neck. Initial inventions include Zofran. Initial workup reviewed by me, hematologic labs are remarkable for mild transaminitis and elevated CK. Given that she has no abdominal pain, no focal findings on exam I suspect the patient is having myopathy and elevated transaminases secondary to her initiation of statin. CK is not elevated enough to cause acute tubular necrosis therefore elevated creatinine is likely CKD given that her last known creatinine was over 3 years ago however even if it was an acute injury there are no critical electrolyte abnormalities that would warrant emergent intervention at this time. Repeat discussion was had at bedside. Patient was recently started on ezetimibe for her dyslipidemia which I think is the culprit. Patient was told to discontinue by her destination sign repairer a couple of days ago therefore the definitive intervention has already been conducted. However given transaminitis, mild hypercalcemia, mild transaminitis patient was given a crystalloid bolus and patient will require rapid follow-up within the next 48 hours to ensure it is heading in the right direction. This was discussed with the patient and she is comfortable doing this. Patient was given return precautions. Critical Care Critical Care Time Critical Care Time: No
[2024-01-10 15:30] VITALS: BP 118/66; PULSE 62; RESP 20; O2SAT 98
[2024-01-10] MEDS: ONDANSETRON 4MG/2ML VIAL 4 MG IV (15:34)
[2024-01-10 15:36] LABS: Basophils # 0.1 K/mm3 (0-0.2); Basophils % 1.2 % (0.1-2.0); Eosinophils # 0.2 K/mm3 (0.0-0.4); Eosinophils % 2.1 % (0.1-12.0); Hematocrit 38.1 % (37.0-47.0); Lymphocytes # 1.4 K/mm3 (0.7-4.5); Lymphocytes % 20.3 % (10-50); Mean Corpuscular Hemoglobin 31.2 pg (27.0-31.2); Mean Corpuscular Volume 91.7 fl (81-99); Mean Platelet Volume 8.7 fl (7.4-10.4); Monocytes # 0.5 K/mm3 (0.1-1.0); Monocytes % 7.1 % (1.7-9.3); Neutrophils # 4.9 K/mm3 (1.8-7.8); Neutrophils % 69.3 % (37.0-80.0); Platelet Count 224 K/mm3 (142-424); Red Blood Count 4.16 M/mm3 (4.20-5.40); Red Cell Distribution Width 13.6 % (11.5-17.5)
[2024-01-10 16:00] VITALS: BP 129/60; PULSE 62; RESP 20; O2SAT 96
[2024-01-10 16:01] LABS: Chloride 101 mmol/L (98-107)
[2024-01-10 16:02] LABS: Potassium 5.3 mmoL/L (3.5-5.1)
[2024-01-10 16:04] LABS: Alanine Aminotransferase 214 U/L (12-78); Albumin Level 4.3 g/dl (3.5-5.0); Albumin/Globulin Ratio 1.3 (1.1-1.8); Alkaline Phosphatase 60 U/L (38-126); Aspartate Amino Transferase 208 U/L (14-36); Bilirubin,Total 0.7 mg/dl (0.2-1.3); Blood Urea Nitrogen 29 mg/dl (7-17); Calcium 11.4 mg/dl (8.4-10.2); Carbon Dioxide 27 mmol/L (22.0-30.0); Creatine Kinase 447 U/L (30-135); Creatinine Clearance Estimated 35 mL/min (50-200); Estimated Glomerular Filt Rate 29 ml/min (>60); GFR (African American) 35 ML/MIN (>60); Globulin 3.2 g/dL (1.3-3.2); Glucose 125 mg/dl (74-100); Total Protein,Serum 7.5 g/dl (6.3-8.2)
[2024-01-10 16:05] LABS: Magnesium 1.9 mg/dl (1.6-2.3)
[2024-01-10 16:07] LABS: Anion Gap 11.3 mEq/L (5-15); Sodium 134 mmol/L (136-145)
[2024-01-10] MEDS: IOPAMIDOL-370 (76%);100ML BOTTLE 100 ML IV (16:32)
[2024-01-10] MEDS: SODIUM CHLORIDE 0.9% 10ML SYR (RAD ONLY) 10 ML IV (16:32)
[2024-01-10] MEDS: 0.9 % SODIUM CHLORIDE 50 ML VIAL IV (16:32)
[2024-01-10 17:00] VITALS: BP 151/55; PULSE 62; RESP 18; O2SAT 90
[2024-01-10 18:32] VITALS: BP 146/52; PULSE 60; RESP 16; TEMP 36.7; O2SAT 90
== END 2024-01-10 18:33 | disposition home or self-care (01) ==
PROVIDERS: Emergency Provider Emergency Medicine; PCP Nurse Practitioner
DX: E83.52 Hypercalcemia (principal); R74.01 Elevation of levels of liver transaminase levels; R11.0 Nausea; R53.1 Weakness; I25.10 Atherosclerotic heart disease of native coronary artery without angina pectoris; T46.6X5A Adverse effect of antihyperlipidemic and antiarteriosclerotic drugs, initial encounter; Z87.891 Personal history of nicotine dependence; I45.19 Other right bundle-branch block
CPT/HCPCS: 70450; 70496; 70498; 80053; 82550; 83735; 85025; 93005; 96374; 99285; J2405; Q9967

== ENCOUNTER 2024-01-19 12:06 | Observation (INO) | payer MEDICARE, SELFPAY ==
[2024-01-19] VITALS (15 sets, daily range): BP systolic 116–178; BP diastolic 45–61; PULSE 64–78; RESP 18–22; TEMP 36.7–36.9; O2SAT 2–96; BMI 29.3; BMI 28.9
--- NOTE | 2024-01-19 12:52 | EXP.UTC ---
Discharge Plan Disposition Patient Disposition: Still a Patient Condition: Good Prescriptions Prescriptions: No Action aspirin [Adult Low Dose Aspirin] 81 mg tablet,delayed release (DR/EC) 81 mg PO DAILY cetirizine 10 mg capsule 10 mg PO DAILY acetaminophen [Arthritis Pain Relief (acetam)] 650 mg tablet extended release 650 mg PO Q12H PRN red yeast rice 600 mg tablet 600 mg PO DAILY Fish Oil 120-180-500 mg capsule PO cyanocobalamin (vitamin B-12) 1,000 mcg/mL solution 1,000 mcg SQ .COMPLEX Rx Instructions: 1,000 mcg SQ 2x month; nitrofurantoin monohyd/m-cryst 100 mg capsule 100 mg PO ONCE cranberry extract 500 mg capsule 15,000 mg PO DAILY Rx Instructions: administer with meals levothyroxine 100 mcg tablet 100 mcg PO DAILY ropinirole 1 mg tablet 1 mg PO DAILY cholecalciferol (vitamin D3) 1,250 mcg (50,000 unit) capsule 1,250 mcg PO WEEKLY lisinopril 5 mg tablet 5 mg PO DAILY 90 Days Qty: 90 0RF citalopram 20 mg tablet 20 mg PO DAILY 90 Days Qty: 90 0RF metoprolol tartrate 50 mg tablet 50 mg PO BID 30 Days Qty: 60 2RF meloxicam 15 mg tablet 15 mg PO DAILY clopidogrel 75 mg tablet 75 mg PO DAILY Referrals Follow up/Referrals: Lennie Grimm APRN [Primary Care Provider] - See instructions Clinical Impressions Clinical Impression: Elevated liver enzymes, Weakness Discharge ED Provider: Jean Paul Khan [facility] General Stated complaint: weakness Mode of Arrival: Ambulatory Source of Information: Patient Limitations: No Limitations Time Seen by Provider: 01/19/24 12:52 Description of Symptoms (Recalled from Triage Doc. by RN): Pt was seen at [facility] for stents being placed. She was seen in ER on 01/10/2024 for weakness. She stated that she has vomitted three times in the last two weeks. The last time she vomitted was last night. She is complaining of nausea, weakness, and fatigued. HEENT Symptoms (Recalled from RN notes): No Resp Symptoms (Recalled from RN notes): No Skin Symptoms (Recalled from RN notes): No MS Symptoms (Recalled from RN notes): No Functional Status (Recalled from RN notes): n/a History of Present Illness Provider Complaint: She returns today to be rechecked for her weakness. She states that she is feeling better, but she would like to be rechecked. She denies any chest pain or shortness of breath. She has had continued nausea. She denies abdominal pain. She refuses a chest x-ray. Related Data Home Medications Medication Instructions Recorded Confirmed aspirin 81 mg tablet,delayed 81 mg PO DAILY CAD 10/12/18 01/19/24 release (Adult Low Dose Aspirin) cetirizine 10 mg capsule 10 mg PO DAILY Allergy symptoms 10/12/18 12/03/23 acetaminophen 650 mg 650 mg PO Q12H PRN 08/20/19 12/03/23 tablet,extended release (Arthritis Pain Relief (acetaminophen) ER) red yeast rice 600 mg tablet 600 mg PO DAILY 08/20/19 12/03/23 omega 8-jnr-fmc-fish oil 120 cap PO 11/20/19 12/03/23 mg-180 mg-500 mg capsule (Fish Oil) cyanocobalamin (vitamin B-12) 1,000 mcg SQ .COMPLEX 01/23/22 12/03/23 1,000 mcg/mL injection solution nitrofurantoin 100 mg PO ONCE 01/23/22 01/19/24 monohydrate/macrocrystals 100 mg capsule cholecalciferol (vitamin D3) 1,250 1,250 mcg PO WEEKLY 12/03/23 12/03/23 mcg (50,000 unit) capsule cranberry extract 500 mg capsule 15,000 mg PO DAILY 12/03/23 12/03/23 levothyroxine 100 mcg tablet 100 mcg PO DAILY 12/03/23 01/19/24 ropinirole 1 mg tablet 1 mg PO DAILY 12/03/23 12/03/23 clopidogrel 75 mg tablet 75 mg PO DAILY 01/19/24 01/19/24 meloxicam 15 mg tablet 15 mg PO DAILY 01/19/24 01/19/24 Previous Rx's Medication Instructions Recorded citalopram 20 mg tablet 20 mg PO DAILY Depression 90 days 07/23/23 #90 tabs lisinopril 5 mg tablet 5 mg PO DAILY CAD 90 days #90 tabs 07/23/23 metoprolol tartrate 50 mg tablet 50 mg PO BID 30 days #60 tabs 07/23/23 Allergies Allergy/AdvReac Type Severity Reaction Status Date / Time ciprofloxacin [From Bryce] Allergy Mild Vomiting Verified 01/19/24 12:49 Sulfa (Sulfonamide Allergy Verified 01/19/24 12:49 Antibiotics) trimethoprim [From Bactrim] Allergy Verified 01/19/24 12:49 Worker's Comp Is this a Worker's Comp case?: No [facility] Disclaimer: The information contained in this section may have been updated after the patient was seen, as this information can be updated by other users. Surgical History H/O: hysterectomy Hx of cholecystectomy S/P CABG (coronary artery bypass graft) Family History Other Cancer Heart attack Hypertension Stroke Social History Smoking Status: Former smoker second hand exposure: No alcohol intake: never substance use type: denies use current occupational status: retired Travel in the last 8 weeks: None household members: family housing: house ROS Obtained: Yes All systems reviewed & no additional complaints except as documented Constitutional Constitutional: Denies chills and Denies fever(s) Eyes Eyes: Denies eye discharge ENT Ears, Nose, Mouth, and Throat: Denies dizziness, Denies otalgia and Denies sore throat Cardiovascular Cardiovascular: Denies chest pain Respiratory Respiratory: Denies shortness of breath, Denies chest congestion, Denies cough, Denies stridor and Denies wheezing Gastrointestinal Gastrointestingal: Denies nausea or vomiting Musculoskeletal Musculoskeletal: Reports system reviewed and no additional complaints, except as documented and Denies arthralgias Integumentary/Breasts Skin/Breast: Denies rash Neurologic Neurologic: Denies dizziness and Denies paresthesias Allergic/Immunologic Allergic/Immunologic: Denies wheezing Physical Exam General General appearance: alert and in no apparent distress Head Head exam: atraumatic, normocephalic and normal inspection Eye Eye exam: Present normal appearance, PERRL and EOMI ENT ENT exam: Present normal exam, normal oropharynx, mucous membranes moist, TM's normal bilaterally and normal external ear exam Neck Neck exam: Present normal inspection, full ROM and trachea midline; Absent meningismus or lymphadenopathy Chest Chest inspection: Present normal inspection and symmetric chest wall rise; Absent tenderness Respiratory Respiratory exam: Present normal lung sounds bilaterally; Absent respiratory distress Cardiovascular Cardiovascular exam: Present regular rate and normal rhythm; Absent JVD Abdominal Exam Abdominal exam: Present soft and normal bowel sounds; Absent distention, tenderness or guarding Extremities Exam Extremities exam: Present normal inspection, full ROM and normal capillary refill; Absent calf tenderness Back Exam Back exam: Present normal inspection; Absent tenderness Neurological Exam Neurological exam: Present alert and oriented X3 Psychiatric Psychiatric exam: Present normal affect and normal mood Skin Skin exam: Present warm, dry, intact and normal color Lymphatic Lymphatic Findings: no adenopathy Medical Decision Making Medical Records Medical records reviewed: No I reviewed the patient's medical records. Jackson Inquiry Pt receiving controlled substance: No Vital Signs: 01/19/24 12:40 Temperature 98.0 F Temperature Source Oral Pulse Rate [Right Radial] 76 Respiratory Rate 19 Blood Pressure [Right Arm] 125/59 L Blood Pressure Mean [Right Arm] 81 Blood Pressure Source [Right Arm] Automatic Cuff Blood Pressure Position [Right Arm] Sitting 02 Sat by Pulse Oximetry 90 L Oxygen Delivery Method Room Air Lab Data Lab results reviewed: Yes I reviewed the patient's lab results. 01/19/24 13:05 01/19/24 13:05
--- NOTE | 2024-01-19 13:07 | PC.NURSE ---
Sent to lab via tube
[2024-01-19 13:18] LABS: Chloride 102 mmol/L (98-107); Potassium 4.5 mmoL/L (3.5-5.1); Sodium 136 mmol/L (136-145)
[2024-01-19 13:21] LABS: Albumin/Globulin Ratio 1.1 (1.1-1.8); Alkaline Phosphatase 107 U/L (38-126); Anion Gap 12.5 mEq/L (5-15); Aspartate Amino Transferase 742 U/L (14-36); Bilirubin,Total 1.1 mg/dl (0.2-1.3); Blood Urea Nitrogen 23 mg/dl (7-17); Calcium 11.5 mg/dl (8.4-10.2); Carbon Dioxide 26 mmol/L (22.0-30.0); Creatinine Clearance Estimated 40 mL/min (50-200); Estimated Glomerular Filt Rate 34 ml/min (>60); GFR (African American) 41 ML/MIN (>60); Globulin 3.6 g/dL (1.3-3.2); Glucose 122 mg/dl (74-100); Total Protein,Serum 7.6 g/dl (6.3-8.2)
[2024-01-19 13:23] LABS: Basophils # 0.1 K/mm3 (0-0.2); Basophils % 1.1 % (0.1-2.0); Eosinophils # 0.1 K/mm3 (0.0-0.4); Eosinophils % 1.1 % (0.1-12.0); Hematocrit 39.6 % (37.0-47.0); Hemoglobin 12.6 g/dL (12.2-16.2); Lymphocytes % 19.5 % (10-50); Mean Corpuscular HGB Conc 31.7 g/dL (31.8-35.4); Mean Corpuscular Hemoglobin 30.1 pg (27.0-31.2); Mean Corpuscular Volume 95.2 fl (81-99); Mean Platelet Volume 9.6 fl (7.4-10.4); Monocytes # 0.4 K/mm3 (0.1-1.0); Monocytes % 7.1 % (1.7-9.3); Neutrophils # 3.8 K/mm3 (1.8-7.8); Neutrophils % 71.3 % (37.0-80.0); Platelet Count 206 K/mm3 (142-424); Red Blood Count 4.17 M/mm3 (4.20-5.40); Red Cell Distribution Width 14.1 % (11.5-17.5); White Blood Count 5.3 K/mm3 (4.8-10.8)
[2024-01-19 13:28] LABS: Alanine Aminotransferase 765 U/L (12-78)
--- NOTE | 2024-01-19 14:04 | PC.NURSE ---
[facility] Yessenia Arita APRN s/w Dr. Khan.
[2024-01-19 14:05] LABS: Microscopic, Urine URINE MICROSCOPIC (MICROSCOPIC)
--- NOTE | 2024-01-19 14:10 | CT_ITS ---
PROCEDURE INFORMATION: Exam: CT Abdomen And Pelvis With Contrast Exam date and time: 01/19/2024 3:20 PM Age: 78 years old Clinical indication: Abdominal pain; Additional info: Painless liver failure TECHNIQUE: Imaging protocol: Computed tomography of the abdomen and pelvis with contrast. Radiation optimization: All CT scans at this facility use at least one of these dose optimization techniques: automated exposure control; mA and/or kV adjustment per patient size (includes targeted exams where dose is matched to clinical indication); or iterative reconstruction. Contrast material: ISOVUE; Contrast volume: 75 ml; Contrast route: IV; COMPARISON: CT ANGIO ABDOMEN PELVIS 08/15/2021 7:59 AM FINDINGS: Lungs: Patchy bilateral ground-glass opacities may represent multifocal pneumonia. Coronary arteries: Coronary artery calcifications may indicate coronary artery disease. Liver: Normal. No mass. Gallbladder and bile ducts: Cholecystectomy. The common duct is prominent. It measures 11 millimeters. This may be due to post cholecystectomy state and elderly status. However, if biliary obstruction is suspected clinically, recommend further evaluation. Pneumobilia in the common duct Pancreas: Normal. No ductal dilation. Spleen: Normal. No splenomegaly. Adrenal glands: Normal. No mass. Kidneys and ureters: 10 mm simple cyst lower pole right kidney . No follow-up imaging recommended . Stomach and bowel: Diverticulosis of the rectosigmoid. No diverticulitis Appendix: No evidence of appendicitis. Intraperitoneal space: Unremarkable. No free air. No significant fluid collection. 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 Lymph nodes: Unremarkable. No enlarged lymph nodes. Urinary bladder: Unremarkable as visualized. Reproductive: Surgical resection of the uterus Bones/joints: Median sternotomy. Soft tissues: Unremarkable. IMPRESSION: 1. Patchy bilateral ground-glass opacities may represent multifocal pneumonia. 2. 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 COMMENTS: Consistent with the [employer]'s Incidental Findings Committee white paper (J Am Collette Radiol 2018): Any incidental renal lesion less than 1 cm or classified as too small to characterize, or any incidental cystic renal lesion characterized as simple-appearing, is likely benign. No follow-up imaging is recommended for these lesions per consensus recommendations based on imaging criteria.
[2024-01-19 14:11] LABS: Appearance,Urine CLEAR (Clear); Blood, Urine 3+ (Negative); Color,Urine YELLOW (Yellow); Glucose,Urine (UA) Negative (Negative); Ketones,Urine Negative (Negative); Leukocyte Esterase,Urine 1+ (Negative); Nitrate,Urine POSITIVE (Negative); Protein,Urine 1+ (Negative)
[2024-01-19 14:15] LABS: Bilirubin,Urine 1+ (Negative)
[2024-01-19] MEDS: 0.9 % SODIUM CHLORIDE 1000ML 1,000 ML 999 ML IV (14:23)
--- NOTE | 2024-01-19 14:27 | HMH.EDGENADL ---
Discharge Plan Disposition Patient Disposition: Admitted Condition: Good Clinical Impressions Clinical Impression: Elevated liver enzymes, Weakness, Side effect of medication, Acute UTI, Pneumonia Discharge ED Provider: Fabián Campos General Adult HPI <Jean Paul Khan MD - Last Filed: 01/19/24 15:14> General Chief complaint: Weakness Stated complaint: weakness Time Seen by Provider: 01/19/24 12:52 Mode of Arrival: Ambulatory Source of Information: Patient and Medical Record Limitations: No Limitations Description of Symptoms (Recalled from ER Triage Doc. by RN): Pt reports generalized weakness and wanting to have her liver enzymes rechecked. She has c/o occassional vomiting, most recently last night. She also c/o nausea wo diarrhea. Denies any abd pain, rectal bleeding, or urinary symptoms. History of Present Illness HPI narrative: Patient is a pleasant 78-year-old female who presents for repeat evaluation of weakness. I remember this patient well, I saw this patient on 01-10-2024 where she presented for evaluation of weakness after 2 stents were placed in her coronary artery bypass graft at [facility] in mid December. Patient was started on ezetimibe at that time and her workup was ultimately unremarkable for mild transaminitis in the 200s, CK in the 400s which I attributed to the ezetimibe which she discontinued 2 days prior to my evaluation. She was to follow-up on an outpatient basis for repeat lab work and changing her statin on an outpatient basis. She presented to urgent care today where transaminases were significantly elevated from prior with global weakness, denies chest pain or abdominal pain and urgent care referred her here for continued evaluation. Patient denies trauma, other acute complaints at this time, just more globally weak from baseline. Related Data Home Medications Medication Instructions Recorded Confirmed aspirin 81 mg tablet,delayed 81 mg PO DAILY CAD 10/12/18 01/19/24 release (Adult Low Dose Aspirin) cetirizine 10 mg capsule 10 mg PO DAILY Allergy symptoms 10/12/18 12/03/23 acetaminophen 650 mg 650 mg PO Q12H PRN 08/20/19 12/03/23 tablet,extended release (Arthritis Pain Relief (acetaminophen) ER) red yeast rice 600 mg tablet 600 mg PO DAILY 08/20/19 12/03/23 omega 2-lkn-erc-fish oil 120 cap PO 11/20/19 12/03/23 mg-180 mg-500 mg capsule (Fish Oil) cyanocobalamin (vitamin B-12) 1,000 mcg SQ .COMPLEX 01/23/22 12/03/23 1,000 mcg/mL injection solution nitrofurantoin 100 mg PO ONCE 01/23/22 01/19/24 monohydrate/macrocrystals 100 mg capsule cholecalciferol (vitamin D3) 1,250 1,250 mcg PO WEEKLY 12/03/23 12/03/23 mcg (50,000 unit) capsule cranberry extract 500 mg capsule 15,000 mg PO DAILY 12/03/23 12/03/23 levothyroxine 100 mcg tablet 100 mcg PO DAILY 12/03/23 01/19/24 ropinirole 1 mg tablet 1 mg PO DAILY 12/03/23 12/03/23 clopidogrel 75 mg tablet 75 mg PO DAILY 01/19/24 01/19/24 meloxicam 15 mg tablet 15 mg PO DAILY 01/19/24 01/19/24 Previous Rx's Medication Instructions Recorded citalopram 20 mg tablet 20 mg PO DAILY Depression 90 days 07/23/23 #90 tabs lisinopril 5 mg tablet 5 mg PO DAILY CAD 90 days #90 tabs 07/23/23 metoprolol tartrate 50 mg tablet 50 mg PO BID 30 days #60 tabs 07/23/23 Allergies Allergy/AdvReac Type Severity Reaction Status Date / Time ciprofloxacin [From Cipro] Allergy Mild Vomiting Verified 01/19/24 12:49 Sulfa (Sulfonamide Allergy Verified 01/19/24 12:49 Antibiotics) trimethoprim [From Bactrim] Allergy Verified 01/19/24 12:49 [facility] <Jean Paul Khan MD - Last Filed: 01/19/24 15:14> [facility] Disclaimer: The information contained in this section may have been updated after the patient was seen, as this information can be updated by other users. Surgical History H/O: hysterectomy Hx of cholecystectomy S/P CABG (coronary artery bypass graft) Family History Other Cancer Heart attack Hypertension Stroke Social History Smoking Status: Former smoker second hand exposure: No alcohol intake: never substance use type: denies use current occupational status: retired Travel in the last 8 weeks: None household members: family housing: house <Jean Paul Khan MD - Last Filed: 01/19/24 15:14> ROS Obtained: Yes Systems reviewed as appropriate & no additional complaints except as documented Physical Exam <Jean Paul Khan MD - Last Filed: 01/19/24 15:14> General General appearance: alert and in no apparent distress Head Head exam: atraumatic and normocephalic Eye Eye exam: Present PERRL ENT ENT exam: Present mucous membranes moist Neck Neck exam: Present normal inspection Chest Chest inspection: Present normal inspection and symmetric chest wall rise Respiratory Respiratory exam: Present normal lung sounds bilaterally; Absent respiratory distress Cardiovascular Cardiovascular exam: Present regular rate, normal rhythm and other (No pitting edema) Abdominal Exam Abdominal exam: Present soft; Absent tenderness Extremities Exam Extremities exam: Present normal inspection Neurological Exam Neurological exam: Present alert Psychiatric Psychiatric exam: Present normal affect Skin Skin exam: Present warm and dry Medical Decision Making <Jean Paul Khan MD - Last Filed: 01/19/24 15:14> [place] Inquiry Pt receiving controlled substance: No Vital Signs: 01/19/24 12:40 01/19/24 14:04 01/19/24 14:30 Temperature 98.0 F 98.2 F Temperature Source Oral Oral Pulse Rate 67 Pulse Rate [Right Radial] 76 66 Respiratory Rate 19 20 18 Blood Pressure 116/52 L Blood Pressure [Right Arm] 125/59 L 161/53 H Blood Pressure Mean 73 Blood Pressure Mean [Right Arm] 81 89 Blood Pressure Source [Right Arm] Automatic Cuff Automatic Cuff Blood Pressure Position [Right Arm] Sitting 02 Sat by Pulse Oximetry 90 L 93 L 90 L Oxygen Delivery Method Room Air Room Air 01/19/24 15:00 01/19/24 15:31 01/19/24 16:00 Temperature Temperature Source Pulse Rate 66 67 64 Pulse Rate [Right Radial] Respiratory Rate 18 18 18 Blood Pressure 118/45 L 143/52 H 130/48 L Blood Pressure [Right Arm] Blood Pressure Mean 77 69 60 Blood Pressure Mean [Right Arm] Blood Pressure Source [Right Arm] Blood Pressure Position [Right Arm] 02 Sat by Pulse Oximetry 90 L 92 L 94 L Oxygen Delivery Method 01/19/24 16:33 01/19/24 17:00 01/19/24 17:34 Temperature Temperature Source Pulse Rate 76 68 74 Pulse Rate [Right Radial] Respiratory Rate 18 18 Blood Pressure 178/58 H 155/59 H 159/60 H Blood Pressure [Right Arm] Blood Pressure Mean 81 73 Blood Pressure Mean [Right Arm] Blood Pressure Source [Right Arm] Blood Pressure Position [Right Arm] 02 Sat by Pulse Oximetry 91 L 89 L 92 L Oxygen Delivery Method Room Air 01/19/24 18:00 01/19/24 18:31 01/19/24 19:00 Temperature Temperature Source Pulse Rate 73 73 74 Pulse Rate [Right Radial] Respiratory Rate 18 18 Blood Pressure 173/59 H 158/61 H 155/60 H Blood Pressure [Right Arm] Blood Pressure Mean 93 91 Blood Pressure Mean [Right Arm] Blood Pressure Source [Right Arm] Blood Pressure Position [Right Arm] 02 Sat by Pulse Oximetry 88 L 95 95 Oxygen Delivery Method Lab Data Lab Results 01/19/24 13:05: WBC 5.3, RBC 4.17 L, Hgb 12.6, Hct 39.6, MCV 95.2, MCH 30.1, MCHC 31.7 L, RDW 14.1, Plt Count 206, MPV 9.6, Neut % (Auto) 71.3, Lymph % (Auto) 19.5, Mora % (Auto) 7.1, Eos % (Auto) 1.1, Baso % (Auto) 1.1, Neut # (Auto) 3.8, Lymph # (Auto) 1.0, Mora # (Auto) 0.4, Eos # (Auto) 0.1, Baso # (Auto) 0.1, Sodium 136, Potassium 4.5, Chloride 102, Carbon Dioxide 26, Anion Gap 12.5, BUN 23 H, Creatinine 1.50 H, Estimated Creat Clear 40, Estimated GFR 34 L, Est GFR ( Amer) 41 L, Glucose 122 H, Calcium 11.5 H, Total Bilirubin 1.1, Direct Bilirubin 0.5 H, AST 742 H*, ALT 765 H*, Alkaline Phosphatase 107, Total Creatine Kinase 40, Total Protein 7.6, Albumin 4.0, Globulin 3.6 H, Albumin/Globulin Ratio 1.1, Lipase 171 01/19/24 13:59: Urine Color Yellow, Urine Appearance Clear, Urine pH 6.0, Ur Specific [place] 1.020, Urine Protein 1+, Urine Glucose (UA) Negative, Urine Ketones Negative, Urine Blood 3+, Urine Nitrate Positive, Urine Bilirubin 1+ A, Urine Urobilinogen 2.0, Ur Leukocyte Esterase 1+ A, Urine RBC 5-10, Urine WBC 3-5, Ur Squamous Epith Cells 5-10, Urine Bacteria Trace 01/19/24 14:25: Ammonia 9 01/19/24 15:07: Lactate 1.1 01/19/24 15:30: PT 12.8 H, INR 1.20 H 01/19/24 13:05 01/19/24 13:05 Orders (Tests/Meds): ED MEDICATIONS Generic Name Dose Route Start Last Admin Trade Name Freq PRN Reason Stop Dose Admin Sodium Chloride 10 ml 01/19/24 15:19 Sodium Chloride 0.9% 10ml Syr (Rad Only) IV 02/18/24 15:18 NEEDED PRN Maintain IV Site Discontinued Medications Generic Name Dose Route Start Last Admin Trade Name Freq PRN Reason Stop Dose Admin Sodium Chloride 1,000 mls @ 999 mls/hr 01/19/24 14:16 01/19/24 14:23 Sod Chlor 0.9% 1000ml Bag IV 01/19/24 15:16 999 mls/hr .Q1H1M ONE Administration Ceftriaxone Sodium 1 gm/ 50 mls @ 100 mls/hr 01/19/24 14:56 01/19/24 15:58 Sodium Chloride IV 01/19/24 15:25 100 mls/hr ONCE ONE Administration Ceftriaxone Sodium 1 gm/ 50 mls @ 100 mls/hr 01/19/24 18:11 01/19/24 18:32 Sodium Chloride IV 01/19/24 18:40 100 mls/hr ONCE ONE Administration Iopamidol 75 ml 01/19/24 15:19 01/19/24 15:20 Iopamidol-370 (76%);100ml Bottle IV 01/19/24 15:20 75 ml ONCE ONE Administration ORDERS Category Date Time Status CT abdomen pelvis w con Stat Cat Scan 01/19/24 14:10 Completed Ammonia Stat Lab 01/19/24 14:25 Completed Bilirubin,Direct Stat Lab 01/19/24 13:05 Completed CK [Creatine Kinase] Stat Lab 01/19/24 13:05 Completed Complete Blood Count Auto Diff Stat Lab 01/19/24 13:05 Completed Comprehensive Metabolic Panel Stat Lab 01/19/24 13:05 Completed Lactic Acid Stat Lab 01/19/24 15:07 Completed Lipase Stat Lab 01/19/24 13:05 Completed PT INR [Prothrombin Time INR] Stat Lab 01/19/24 15:30 Completed Urinalysis and Microscopic Stat Lab 01/19/24 13:59 Completed Urine Culture Stat Micro 01/19/24 13:59 Received Medical Decision Narrative: In summary patient is a 78-year-old female who presents emergency department for evaluation of global weakness in the setting of transaminitis. Patient is hemodynamically stable nontoxic-appearing upon arrival, afebrile. Differential includes worsening statin hepatitis although medication has been discontinued, acute viral hepatitis, malignancy, among others. Workup will be conducted with additional hematologic labs, CT abdomen pelvis will be obtained. Initial inventions include crystalloid bolus. Additional labs and CT imaging pending at time of transition of care to the oncoming physician, Dr. Campos. <Fabián Campos MD - Last Filed: 01/19/24 19:26> Vital Signs: 01/19/24 12:40 01/19/24 14:04 01/19/24 14:30 Temperature 98.0 F 98.2 F Temperature Source Oral Oral Pulse Rate 67 Pulse Rate [Right Radial] 76 66 Respiratory Rate 19 20 18 Blood Pressure 116/52 L Blood Pressure [Right Arm] 125/59 L 161/53 H Blood Pressure Mean 73 Blood Pressure Mean [Right Arm] 81 89 Blood Pressure Source [Right Arm] Automatic Cuff Automatic Cuff Blood Pressure Position [Right Arm] Sitting 02 Sat by Pulse Oximetry 90 L 93 L 90 L Oxygen Delivery Method Room Air Room Air 01/19/24 15:00 01/19/24 15:31 01/19/24 16:00 Temperature Temperature Source Pulse Rate 66 67 64 Pulse Rate [Right Radial] Respiratory Rate 18 18 18 Blood Pressure 118/45 L 143/52 H 130/48 L Blood Pressure [Right Arm] Blood Pressure Mean 77 69 60 Blood Pressure Mean [Right Arm] Blood Pressure Source [Right Arm] Blood Pressure Position [Right Arm] 02 Sat by Pulse Oximetry 90 L 92 L 94 L Oxygen Delivery Method 01/19/24 16:33 01/19/24 17:00 01/19/24 17:34 Temperature Temperature Source Pulse Rate 76 68 74 Pulse Rate [Right Radial] Respiratory Rate 18 18 Blood Pressure 178/58 H 155/59 H 159/60 H Blood Pressure [Right Arm] Blood Pressure Mean 81 73 Blood Pressure Mean [Right Arm] Blood Pressure Source [Right Arm] Blood Pressure Position [Right Arm] 02 Sat by Pulse Oximetry 91 L 89 L 92 L Oxygen Delivery Method Room Air 01/19/24 18:00 01/19/24 18:31 01/19/24 19:00 Temperature Temperature Source Pulse Rate 73 73 74 Pulse Rate [Right Radial] Respiratory Rate 18 18 Blood Pressure 173/59 H 158/61 H 155/60 H Blood Pressure [Right Arm] Blood Pressure Mean 93 91 Blood Pressure Mean [Right Arm] Blood Pressure Source [Right Arm] Blood Pressure Position [Right Arm] 02 Sat by Pulse Oximetry 88 L 95 95 Oxygen Delivery Method Lab Data Lab Results 01/19/24 13:05: WBC 5.3, RBC 4.17 L, Hgb 12.6, Hct 39.6, MCV 95.2, MCH 30.1, MCHC 31.7 L, RDW 14.1, Plt Count 206, MPV 9.6, Neut % (Auto) 71.3, Lymph % (Auto) 19.5, Mora % (Auto) 7.1, Eos % (Auto) 1.1, Baso % (Auto) 1.1, Neut # (Auto) 3.8, Lymph # (Auto) 1.0, Mora # (Auto) 0.4, Eos # (Auto) 0.1, Baso # (Auto) 0.1, Sodium 136, Potassium 4.5, Chloride 102, Carbon Dioxide 26, Anion Gap 12.5, BUN 23 H, Creatinine 1.50 H, Estimated Creat Clear 40, Estimated GFR 34 L, Est GFR ( Amer) 41 L, Glucose 122 H, Calcium 11.5 H, Total Bilirubin 1.1, Direct Bilirubin 0.5 H, AST 742 H*, ALT 765 H*, Alkaline Phosphatase 107, Total Creatine Kinase 40, Total Protein 7.6, Albumin 4.0, Globulin 3.6 H, Albumin/Globulin Ratio 1.1, Lipase 171 01/19/24 13:59: Urine Color Yellow, Urine Appearance Clear, Urine pH 6.0, Ur Specific [place] 1.020, Urine Protein 1+, Urine Glucose (UA) Negative, Urine Ketones Negative, Urine Blood 3+, Urine Nitrate Positive, Urine Bilirubin 1+ A, Urine Urobilinogen 2.0, Ur Leukocyte Esterase 1+ A, Urine RBC 5-10, Urine WBC 3-5, Ur Squamous Epith Cells 5-10, Urine Bacteria Trace 01/19/24 14:25: Ammonia 9 01/19/24 15:07: Lactate 1.1 01/19/24 15:30: PT 12.8 H, INR 1.20 H Orders (Tests/Meds): ED MEDICATIONS Generic Name Dose Route Start Last Admin Trade Name Freq PRN Reason Stop Dose Admin Sodium Chloride 10 ml 01/19/24 15:19 Sodium Chloride 0.9% 10ml Syr (Rad Only) IV 02/18/24 15:18 NEEDED PRN Maintain IV Site Discontinued Medications Generic Name Dose Route Start Last Admin Trade Name Freq PRN Reason Stop Dose Admin Sodium Chloride 1,000 mls @ 999 mls/hr 01/19/24 14:16 01/19/24 14:23 Sod Chlor 0.9% 1000ml Bag IV 01/19/24 15:16 999 mls/hr .Q1H1M ONE Administration Ceftriaxone Sodium 1 gm/ 50 mls @ 100 mls/hr 01/19/24 14:56 01/19/24 15:58 Sodium Chloride IV 01/19/24 15:25 100 mls/hr ONCE ONE Administration Ceftriaxone Sodium 1 gm/ 50 mls @ 100 mls/hr 01/19/24 18:11 01/19/24 18:32 Sodium Chloride IV 01/19/24 18:40 100 mls/hr ONCE ONE Administration Iopamidol 75 ml 01/19/24 15:19 01/19/24 15:20 Iopamidol-370 (76%);100ml Bottle IV 01/19/24 15:20 75 ml ONCE ONE Administration ORDERS Category Date Time Status CT abdomen pelvis w con Stat Cat Scan 01/19/24 14:10 Completed Ammonia Stat Lab 01/19/24 14:25 Completed Bilirubin,Direct Stat Lab 01/19/24 13:05 Completed CK [Creatine Kinase] Stat Lab 01/19/24 13:05 Completed Complete Blood Count Auto Diff Stat Lab 01/19/24 13:05 Completed Comprehensive Metabolic Panel Stat Lab 01/19/24 13:05 Completed Lactic Acid Stat Lab 01/19/24 15:07 Completed Lipase Stat Lab 01/19/24 13:05 Completed PT INR [Prothrombin Time INR] Stat Lab 01/19/24 15:30 Completed Urinalysis and Microscopic Stat Lab 01/19/24 13:59 Completed Urine Culture Stat Micro 01/19/24 13:59 Received Medical Decision Narrative: In summary patient is a 78-year-old female who presents emergency department for evaluation of global weakness in the setting of transaminitis. Patient is hemodynamically stable nontoxic-appearing upon arrival, afebrile. Differential includes worsening statin hepatitis although medication has been discontinued, acute viral hepatitis, malignancy, among others. Workup will be conducted with additional hematologic labs, CT abdomen pelvis will be obtained. Initial inventions include crystalloid bolus. Additional labs and CT imaging pending at time of transition of care to the oncoming physician, Dr. Campos. Andres: I assumed primary responsibility for this patient after signout from previous physician. Independent interpretation of workup demonstrated nonactionable CBC. Chemistry with normal ammonia. Electrolytes within normal limits. Kidney function decreased with ANNA creatinine 1.5, BUN 23, GFR 34. Patient's LFTs concerning for AST 742, ALT 765. Alkaline phosphatase and bilirubin normal. CK within normal limits at 40. Lipase negative. UA with concern for UTI. Andres: I assumed primary responsibility for this patient after signout from previous physician. On my evaluation of patient, patient continues to desat around 85%. Placed on [address] demonstrated concern for pneumonia. Patient also has AAA which is known with intramural thrombus. No evidence of liver involvement on independent interpretation. Hospital medicine was contacted here at [facility]. They recommended I reach out to hepatology. I reach out to hepatology at [facility]. Hepatology stated that they would not exchange trouble shooter, should she be transferred in the short-term. They recommended admission here at [facility], PT/INR, chemistry, bilirubin daily as well as right upper quadrant ultrasound to evaluate the liver. I also reached out to [facility], [facility] does not have hepatology on. After further conversation with hospitalist, he feels comfortable admitting this patient for trending labs, possible transfer in the case of worsening. Because patient high risk for clinical decompensation, deemed appropriate for inpatient admission. Results were relayed to patient who voiced understanding and patient was agreeable to inpatient admission and management. Patient was admitted to the hospital for further definitive management. Critical Care <Jean Paul Khan MD - Last Filed: 01/19/24 15:14> Critical Care Time Critical Care Time: No
[2024-01-19 14:53] LABS: Bacteria,Urine Trace /lpf
[2024-01-19 15:03] LABS: Ammonia 9 umol/L (9-30)
--- NOTE | 2024-01-19 15:05 | PC.NURSE ---
@[id number]- Called lab to check on status of PT/INR, lab state the can not find it. Reminded them that rainbow of tubes were sent by [facility] earlier. [place] in lab reports we've looked all over and its not here . @[phone]- Lab called back to state, We found it but it is rejected because it was not filled enough . Asking staff again to re-collect the blue top tube.
[2024-01-19 15:08] LABS: Bilirubin,Direct 0.5 mg/dl (0.0-0.4); Creatine Kinase 40 U/L (30-135); Lipase 171 U/L (23-300)
[2024-01-19] MEDS: IOPAMIDOL-370 (76%);100ML BOTTLE 75 ML IV (15:20)
--- NOTE | 2024-01-19 15:23 | PC.NURSE ---
Pt back from ct scan and collected blue top for PT/INR. I ensured it had sufficient amount of blood to the fill line and sent to Lab.
[2024-01-19 15:58] LABS: Prothrombin Time 12.8 seconds (10.1-12.5)
[2024-01-19] MEDS: CEFTRIAXONE SODIUM 1 GM in 0.9 % SODIUM CHLORIDE 50 ML IV ×2 (15:58→18:32)
--- NOTE | 2024-01-19 16:50 | PC.NURSE ---
CT read back at 1639. Let Dr. Campos known results of CT are back and pt asking how much longer till I get a bed? . Dr. Campos reviewed ct scan images and results and states he would like to reach out to [facility] as pt follow [facility].
--- NOTE | 2024-01-19 17:04 | PC.NURSE ---
called [facility] for consult/transfer. will call back
--- NOTE | 2024-01-19 17:20 | PC.NURSE ---
Dr. Campos at bedside
[2024-01-19 17:23] LABS: Lactic Acid 1.1 mmol/L (0.7-2.1)
--- NOTE | 2024-01-19 17:29 | PC.NURSE ---
Meghna from [facility] returned call and states Dr. Torres (vascular surgery) is at [place] on inpatients. States he is NOT accepting any transfers and never does any outside hospital consults. Dr. Campos notified
--- NOTE | 2024-01-19 17:41 | PC.NURSE ---
calling [facility] for consult on pt , hepatology for elevated liver enzymes
--- NOTE | 2024-01-19 17:52 | PC.NURSE ---
Pt ambulate to the restroom
--- NOTE | 2024-01-19 18:04 | PC.NURSE ---
ROBERTO on the phone at this time speaking to Dr Campos
--- NOTE | 2024-01-19 18:48 | PC.NURSE ---
elida? admitting pt here
--- NOTE | 2024-01-19 18:52 | PC.NURSE ---
front line supervisor notified for bed request
--- NOTE | 2024-01-19 19:24 | PC.NURSE ---
pt 84% on RA @ rest. placed on 2lnc due to increased SOA.
--- NOTE | 2024-01-19 22:24 | EXP.HP ---
History of Present Illness *Admission Date: 01/19/24 *Reason for visit:: Transaminitis *History of present illness: 78 year old female presented to the [facility] ED for c/o nausea and weakness. PMHX of AAA, CAD (2 stents placed in december at [facility]), HTN, HLD, Hypothyroid, and recurrent UTI's. Patient was started on ezetimibe s/p stent placement. She was seen in the ED here on 01/10/24 with mild transaminitis in the 200s, CK in the 400s which was attributed to the ezetimibe. It had been discontinued 2 days prior. Today her liver enzymes are significantly worse with AST 742 and ALT 765. She has an ANNA with creatinine of 1.5. Her UA is positive for nitrates and leukocytes. Her abdomen/pelvis CT reveals multifocal pna and AAA with thrombus. She was given Rocephin in the ED and the ED physiciain consulted the hospitalist team for further medical management. I admitted the pt to the medical floor. She is unable to recall all her current medications. Awaiting Son to bring in all bottles of medications. She will be started on cefepime IV for treatment of the UTI and PNA. Will trend liver enzymes, PT/INR, and obtain a ultrasound of her liver. I will also consult cardiology for the thrombus on her AAA. [facility] Disclaimer: The information contained in this section may have been updated after the patient was seen, as this information can be updated by other users. Surgical History H/O: hysterectomy Hx of cholecystectomy S/P CABG (coronary artery bypass graft) Family History Other Cancer Heart attack Hypertension Stroke Social History (Updated 01/19/24 @ 19:51 by Sneha Capone RN) Smoking Status: Former smoker second hand exposure: No alcohol intake: never substance use type: denies use current occupational status: retired Travel in the last 8 weeks: None household members: family housing: house Review of Systems Review of Systems Review of systems:: pertinent systems reviewed and negative unless documented below ENT Ears, Nose, Mouth, and Throat: Denies dizziness *Gastrointestinal Gastrointestinal: Reports as per HPI *Neurologic Neurologic: Denies dizziness and Denies paresthesias Meds Home Medications and Allergies Home Medications Medication Instructions Recorded Confirmed Type aspirin 81 mg tablet,delayed 81 mg PO DAILY CAD 10/12/18 01/19/24 History release (Adult Low Dose Aspirin) acetaminophen 650 mg 650 mg PO Q12H PRN Pain (Scale 08/20/19 01/19/24 History tablet,extended release (Arthritis Score 1-3) Pain Relief (acetaminophen) ER) omega 9-dic-dwz-fish oil 120 1 cap PO DAILY 11/20/19 01/19/24 History mg-180 mg-500 mg capsule (Fish Oil) cyanocobalamin (vitamin B-12) 1,000 mcg SQ .COMPLEX 01/23/22 01/19/24 History 1,000 mcg/mL injection solution nitrofurantoin 100 mg PO ONCE 01/23/22 01/19/24 History monohydrate/macrocrystals 100 mg capsule citalopram 20 mg tablet 20 mg PO DAILY Depression 90 days 07/23/23 01/19/24 Rx #90 tabs lisinopril 5 mg tablet 5 mg PO DAILY CAD 90 days #90 tabs 07/23/23 01/19/24 Rx metoprolol tartrate 50 mg tablet 50 mg PO BID 30 days #60 tabs 07/23/23 01/19/24 Rx cholecalciferol (vitamin D3) 1,250 1,250 mcg PO WEEKLY 12/03/23 01/19/24 History mcg (50,000 unit) capsule cranberry extract 500 mg capsule 15,000 mg PO DAILY 12/03/23 01/19/24 History levothyroxine 100 mcg tablet 100 mcg PO DAILY 12/03/23 01/19/24 History ropinirole 1 mg tablet 1 mg PO DAILY 12/03/23 01/19/24 History meloxicam 15 mg tablet 15 mg PO DAILY 01/19/24 01/19/24 History New Prescriptions to Start Prescriptions: Allergies Allergy/AdvReac Type Severity Reaction Status Date / Time ciprofloxacin [From Cipro] Allergy Mild Vomiting Verified 01/19/24 12:49 Sulfa (Sulfonamide Allergy Verified 01/19/24 12:49 Antibiotics) trimethoprim [From Bactrim] Allergy Verified 01/19/24 12:49 Exam Data for Last 24 hours Vital signs and Labs for Last 24 Hours: Temp Pulse Resp BP Pulse Ox O2 Del Method O2 Flow Rate 98.2 F 74 19 155/60 H 95 Nasal Cannula 2 01/19/24 19:15 01/19/24 19:15 01/19/24 19:15 01/19/24 19:15 01/19/24 19:00 01/19/24 21:00 01/19/24 21:00 Laboratory Results - last 24 hr 01/19/24 13:05: WBC 5.3, RBC 4.17 L, Hgb 12.6, Hct 39.6, MCV 95.2, MCH 30.1, MCHC 31.7 L, RDW 14.1, Plt Count 206, MPV 9.6, Neut % (Auto) 71.3, Lymph % (Auto) 19.5, Long % (Auto) 7.1, Eos % (Auto) 1.1, Baso % (Auto) 1.1, Neut # (Auto) 3.8, Lymph # (Auto) 1.0, Long # (Auto) 0.4, Eos # (Auto) 0.1, Baso # (Auto) 0.1, Sodium 136, Potassium 4.5, Chloride 102, Carbon Dioxide 26, Anion Gap 12.5, BUN 23 H, Creatinine 1.50 H, Estimated Creat Clear 40, Estimated GFR 34 L, Est GFR ( Amer) 41 L, Glucose 122 H, Calcium 11.5 H, Total Bilirubin 1.1, Direct Bilirubin 0.5 H, AST 742 H*, ALT 765 H*, Alkaline Phosphatase 107, Total Creatine Kinase 40, Total Protein 7.6, Albumin 4.0, Globulin 3.6 H, Albumin/Globulin Ratio 1.1, Lipase 171 01/19/24 13:59: Urine Color Yellow, Urine Appearance Clear, Urine pH 6.0, Ur Specific [place] 1.020, Urine Protein 1+, Urine Glucose (UA) Negative, Urine Ketones Negative, Urine Blood 3+, Urine Nitrate Positive, Urine Bilirubin 1+ A, Urine Urobilinogen 2.0, Ur Leukocyte Esterase 1+ A, Urine RBC 5-10, Urine WBC 3-5, Ur Squamous Epith Cells 5-10, Urine Bacteria Trace 01/19/24 14:25: Ammonia 9 01/19/24 15:07: Lactate 1.1 01/19/24 15:30: PT 12.8 H, INR 1.20 H I & O for Last 24 hours: Intake & Output 01/16/24 01/17/24 01/18/24 01/19/24 23:59 23:59 23:59 23:59 Intake Total 250 / 250 Output Total 0 / 0 Balance 250 / 250 Weight 79.9 kg Constitutional Constitutional: no acute distress *Routine HEENT Exam Head: Present normocephalic and atraumatic Eye: Present EOMI and PERRL ENT: Present mucous membranes moist *Routine Neck Exam Neck: Present supple and full ROM *Routine Respiratory Exam Respiratory: Present crackles and symmetric chest movement *Routine Cardiovascular Exam Cardiovascular: Present RRR *Routine Abdominal Exam Abdominal: Present soft and normoactive bowel sounds; Absent tenderness or distended *Routine Rectal Exam Rectal:: deferred *Routine Genitalia Exam Genitalia:: deferred *Routine Extremities Exam Extremities: Present full ROM *Routine Skin Exam Skin: Present intact *Routine Neurological Exam Neurological: Present alert and oriented X3 Assessment and Plan *Assessment and plan (1) Transaminitis: Status: Acute Category: Medical Code(s): R74.01 - Elevation of levels of liver transaminase levels (2) ANNA (acute kidney injury): Status: Acute Category: Medical Code(s): N17.9 - Acute kidney failure, unspecified (3) Acute UTI: Status: Acute Category: Medical Code(s): N39.0 - Urinary tract infection, site not specified (4) Pneumonia: Status: Acute Category: Medical Code(s): J18.9 - Pneumonia, unspecified organism (5) AAA (abdominal aortic aneurysm): Status: Acute Qualifiers: Presence of rupture: without rupture Qualified Code(s): I71.4 - Abdominal aortic aneurysm, without rupture Category: Medical Code(s): I71.4 - Abdominal aortic aneurysm, without rupture (6) CAD (coronary artery disease): Status: Acute Category: Medical Code(s): I25.10 - Atherosclerotic heart disease of [place] coronary artery without angina pectoris (7) HTN (hypertension): Status: Acute Category: Medical Code(s): I10 - Essential (primary) hypertension (8) HLD (hyperlipidemia): Status: Acute Category: Medical Code(s): E78.5 - Hyperlipidemia, unspecified (9) Hypothyroid: Status: Acute Category: Medical Code(s): E03.9 - Hypothyroidism, unspecified Plan 78 year old female presented to the [facility] ED for c/o nausea and weakness. Liver enzymes are significantly worse with AST 742 and ALT 765. She has an ANNA with creatinine of 1.5. Her UA is positive for nitrates and leukocytes. Her abdomen/pelvis CT reveals multifocal pna and AAA with thrombus. She was given Rocephin in the ED and the ED physiciain consulted the hospitalist team for further medical management. I admitted the pt to the medical floor. She is unable to recall all her current medications. Awaiting Son to bring in all bottles of medications. She will be started on cefepime IV for treatment of the UTI and PNA. Will trend liver enzymes, PT/INR, and obtain a ultrasound of her liver. I will also consult cardiology for the thrombus on her AAA. [facility] already contacted by ED physician. If liver enzymes continue to increase, will contact [facility] again for hepatology. Plan as to follow: TRANSAMINITIS ANNA -AST 742 and ALT 765 -trend daily -Ezetimibe started and stopped in December due to mild elevation in liver enzymes. Since then, continued elevation -PT/INR 12.8, 1.20-trend daily -Ultrasound of liver pending -Hold all hepatic toxic medications -Creatinine 1.5 -trend cmp -hold home medication lisinopril ACUTE UTI PNA -Cefepime 2gm q 8hr -holding daily home medication Macrobid -blood cultures ordered -UA reveals nitrates and leukocytes -urine culture pending AAA CAD HTN HLD HYPOTHRYROID -CT of reviewed and reveals multifocal pna and AAA with thrombus. Thrombus is lateral measuring 4.5 x 3.5. Cardiology consult placed. Thank you for the help!! -continue aspirin 81 mg, levothyroxine 100 mcg, metoprolol 50 mg, Plavix 75 mg, and requip 1mg PRN. -TSH pending DNR CARDIAC DIET DVT: HEPARIN SQ
[2024-01-19 23:12] LABS: Chol/HDL Ratio 9.9 (1-3.5); Cholesterol 179 mg/dl (140-200); HDL Cholesterol 18 mg/dl (40-60); Triglycerides 301 mg/dl (30-150); VLDL Cholesterol 60 mg/dL (0-40)
[2024-01-19 23:23] LABS: Direct LDL Cholesterol 89.28 mg/dL (100-129)
[2024-01-20] VITALS: BP 172/62; PULSE 96; RESP 22; TEMP 37.1; O2SAT 98
[2024-01-20 04:00] VITALS: BP 144/60; PULSE 84; RESP 18; TEMP 36.9; O2SAT 93; BMI 29.5
[2024-01-20] MEDS: CEFEPIME HCL 2 GM in 0.9 % SODIUM CHLORIDE 100 ML IV ×2 (05:00→17:34)
--- NOTE | 2024-01-20 06:29 | PC.NURSE ---
patient on 2LNC - otherwise no acute changes
[2024-01-20 07:28] LABS: Chloride 107 mmol/L (98-107); Potassium 4.2 mmoL/L (3.5-5.1); Sodium 138 mmol/L (136-145)
[2024-01-20 07:31] LABS: Alanine Aminotransferase 724 U/L (12-78); Albumin Level 3.5 g/dl (3.5-5.0); Albumin/Globulin Ratio 1.1 (1.1-1.8); Alkaline Phosphatase 104 U/L (38-126); Anion Gap 11.2 mEq/L (5-15); Aspartate Amino Transferase 693 U/L (14-36); Bilirubin,Total 0.8 mg/dl (0.2-1.3); Blood Urea Nitrogen 18 mg/dl (7-17); Calcium 10.6 mg/dl (8.4-10.2); Carbon Dioxide 24 mmol/L (22.0-30.0); Creatinine Clearance Estimated 50 mL/min (50-200); Estimated Glomerular Filt Rate 44 ml/min (>60); GFR (African American) 53 ML/MIN (>60); Globulin 3.1 g/dL (1.3-3.2); Glucose 162 mg/dl (74-100); Prothrombin Time 11.8 seconds (10.1-12.5); Total Protein,Serum 6.6 g/dl (6.3-8.2)
[2024-01-20 07:40] LABS: Eosinophils # 0.2 K/mm3 (0.0-0.4); Monocytes # 0.3 K/mm3 (0.1-1.0); Neutrophils # 2.5 K/mm3 (1.8-7.8); Red Cell Distribution Width 14.1 % (11.5-17.5)
[2024-01-20 07:46] LABS: Basophils % 1.1 % (0.1-2.0); Eosinophils % 4.1 % (0.1-12.0); Hematocrit 36.2 % (37.0-47.0); Lymphocytes % 25.3 % (10-50); Mean Corpuscular HGB Conc 31.4 g/dL (31.8-35.4); Mean Corpuscular Hemoglobin 29.9 pg (27.0-31.2); Mean Corpuscular Volume 95.1 fl (81-99); Mean Platelet Volume 9.2 fl (7.4-10.4); Monocytes % 7.5 % (1.7-9.3); Platelet Count 178 K/mm3 (142-424)
[2024-01-20 07:49] LABS: Hemoglobin 11.4 g/dL (12.2-16.2)
[2024-01-20 07:50] VITALS: BP 132/62; PULSE 85; RESP 18; TEMP 36.8; O2SAT 95
[2024-01-20] MEDS: ASPIRIN EC 81MG TABLET 81 MG PO (09:10)
[2024-01-20] MEDS: CLOPIDOGREL 75MG TAB 75 MG PO (09:10)
[2024-01-20] MEDS: HEPARIN SODIUM 5,000 UNIT/ML VIAL 5000 UNIT SQ ×2 (09:10→21:19)
[2024-01-20] MEDS: METOPROLOL TARTRATE 50MG TABLET 50 MG PO (09:10)
[2024-01-20] MEDS: LEVOTHYROXINE 100MCG (0.1MG) TAB 100 MCG PO (09:10)
--- NOTE | 2024-01-20 09:25 | PC.NURSE ---
turned pt's oxygen off. o2 noted at 87% on RA. pt is currently at 93% on 2L NC tolerating well.
--- NOTE | 2024-01-20 09:57 | HMH.PHAINT1 ---
Pharmacy Intervention Comments: MEDICATION RECONCILIATION COMPLETED ON PATIENT USING EXTERNAL FILL HISTORY FROM PHARMACY AND PATIENT'S OWN RX BOTTLES. -VIKTOR RAINEY, PRASHANTD
[2024-01-20 11:56] VITALS: BP 133/61; PULSE 68; RESP 18; TEMP 36.7; O2SAT 95
--- NOTE | 2024-01-20 15:55 | EXP.PN ---
Subjective *Date: 01/20/24 *Time: 15:55 Interval history: patient is seen at bedside, denied CP, SOB, N/V Exam Data for Last 24 hours Vital signs and Labs for Last 24 Hours: Temp Pulse Resp BP Pulse Ox O2 Del Method O2 Flow Rate 98.0 F 68 18 133/61 95 Nasal Cannula 2 01/20/24 11:56 01/20/24 11:56 01/20/24 11:56 01/20/24 11:56 01/20/24 11:56 01/20/24 13:10 01/20/24 13:10 Laboratory Results - last 24 hr 01/19/24 13:05: Triglycerides 301 H, Cholesterol 179, LDL Cholesterol Direct 89.28 L, VLDL Cholesterol 60 H, HDL Cholesterol 18 L, Cholesterol/HDL Ratio 9.9 H, TSH 2.00 01/19/24 15:07: Lactate 1.1 01/19/24 15:30: PT 12.8 H, INR 1.20 H 01/20/24 06:50: WBC 4.0 L, RBC 3.80 L, Hgb 11.4 L, Hct 36.2 L, MCV 95.1, MCH 29.9, MCHC 31.4 L, RDW 14.1, Plt Count 178, MPV 9.2, Neut % (Auto) 62.0, Lymph % (Auto) 25.3, [place] % (Auto) 7.5, Eos % (Auto) 4.1, Baso % (Auto) 1.1, Neut # (Auto) 2.5, Lymph # (Auto) 1.0, [place] # (Auto) 0.3, Eos # (Auto) 0.2, Baso # (Auto) 0.0, PT 11.8, INR 1.10, Sodium 138, Potassium 4.2, Chloride 107, Carbon Dioxide 24, Anion Gap 11.2, BUN 18 H, Creatinine 1.20 H, Estimated Creat Clear 50, Estimated GFR 44 L, Est GFR ( Amer) 53 L D, Glucose 162 H D, Calcium 10.6 H, Total Bilirubin 0.8, AST 693 H*, ALT 724 H*, Alkaline Phosphatase 104, Total Protein 6.6, Albumin 3.5 D, Globulin 3.1, Albumin/Globulin Ratio 1.1 I & O for Last 24 hours: Intake & Output 01/17/24 01/18/24 01/19/24 01/20/24 23:59 23:59 23:59 23:59 Intake Total 250 / 370 630 / 630 Output Total 0 / 0 0 / 0 Balance 250 / 370 630 / 630 Weight 78.67 kg 80.456 kg Constitutional Constitutional: no acute distress *Routine HEENT Exam Head: Present normocephalic Eye: Present EOMI and PERRL ENT: Present mucous membranes moist *Routine Neck Exam Neck: Present supple; Absent lymphadenopathy *Routine Respiratory Exam Respiratory: Present CTA bilaterally *Routine Cardiovascular Exam Cardiovascular: Present RRR *Routine Abdominal Exam Abdominal: Present soft and normoactive bowel sounds; Absent tenderness *Routine Extremities Exam Extremities: Absent cyanosis, clubbing or edema *Routine Skin Exam Skin: Present warm; Absent rash *Routine Neurological Exam Neurological: Present alert and oriented X3 Assessment and Plan *Assessment and plan (1) Transaminitis: Status: Acute Category: Medical Code(s): R74.01 - Elevation of levels of liver transaminase levels (2) ANNA (acute kidney injury): Status: Acute Category: Medical Code(s): N17.9 - Acute kidney failure, unspecified (3) Acute UTI: Status: Acute Category: Medical Code(s): N39.0 - Urinary tract infection, site not specified (4) Pneumonia: Status: Acute Category: Medical Code(s): J18.9 - Pneumonia, unspecified organism (5) AAA (abdominal aortic aneurysm): Status: Acute Qualifiers: Presence of rupture: without rupture Qualified Code(s): I71.4 - Abdominal aortic aneurysm, without rupture Category: Medical Code(s): I71.4 - Abdominal aortic aneurysm, without rupture (6) CAD (coronary artery disease): Status: Acute Category: Medical Code(s): I25.10 - Atherosclerotic heart disease of [place] coronary artery without angina pectoris (7) HTN (hypertension): Status: Acute Category: Medical Code(s): I10 - Essential (primary) hypertension (8) HLD (hyperlipidemia): Status: Acute Category: Medical Code(s): E78.5 - Hyperlipidemia, unspecified (9) Hypothyroid: Status: Acute Category: Medical Code(s): E03.9 - Hypothyroidism, unspecified Plan 78 year old female presented to the [facility] ED for c/o nausea and weakness. Liver enzymes are significantly worse with AST 742 and ALT 765. She has an ANNA with creatinine of 1.5. Her UA is positive for nitrates and leukocytes. Her abdomen/pelvis CT reveals multifocal pna and AAA with thrombus. She was given Rocephin in the ED and the ED physiciain consulted the hospitalist team for further medical management. I admitted the pt to the medical floor. She is unable to recall all her current medications. Awaiting Son to bring in all bottles of medications. She will be started on cefepime IV for treatment of the UTI and PNA. Will trend liver enzymes, PT/INR, and obtain a ultrasound of her liver. I will also consult cardiology for the thrombus on her AAA. [facility] already contacted by ED physician. If liver enzymes continue to increase, will contact [facility] again for hepatology. Plan as to follow: TRANSAMINITIS ANNA -AST and ALT trend daily, trending down -Ezetimibe started and stopped in December due to mild elevation in liver enzymes. Since then, continued elevation -Ultrasound of liver pending -Hold all hepatic toxic medications -Creatinine 1.5 -trend cmp -hold home medication lisinopril ACUTE UTI PNA -Cefepime 2gm q 8hr -holding daily home medication Macrobid -blood cultures ordered -UA reveals nitrates and leukocytes -urine culture pending AAA CAD HTN HLD HYPOTHRYROID -CT of reviewed and reveals multifocal pna and AAA with thrombus. Thrombus is lateral measuring 4.5 x 3.5. Cardiology consult placed. Thank you for the help!! -continue aspirin 81 mg, levothyroxine 100 mcg, metoprolol 50 mg, Plavix 75 mg, and requip 1mg PRN. -TSH pending DNR CARDIAC DIET DVT: HEPARIN SQ plan is to continue IV abx and monitor LFTs, await cardiology recommendations for mural thrombus in Aortic aneurysm
[2024-01-20 16:00] VITALS: BP 136/58; PULSE 73; RESP 18; TEMP 36.7; O2SAT 91
--- NOTE | 2024-01-20 16:07 | PC.NURSE ---
A&OX4. PT HAS TOLERATED 2L NC WELL THUS FAR AND IS CURRENTLY ON 1L NC TOLERATING WELL. NOTED AT 91%. RESPIRATIONS REGULAR AND UNLABORED. LUNG SOUNDS CLEAR THROUGHOUT. OCCASIONALLY NONPRODUCTIVE COUGH NOTED. HEART RATE REGULAR. HAND SCRAPPER EQUAL. +1 PULSES NOTED THROUGHOUT. DENIES ANY CP, SOB, OR PAIN THUS FAR. ACTIVE BOWEL SOUNDS HEARD IN ALL 4 QUADRANTS. SOFT AND NONTENDER ABDOMEN. VOIDS PER BATHROOM INDEPENDENTLY. FAMILY HAS VISITED THROUGHOUT SHIFT. BED IN LOWEST POSITION. CALL LIGHT WITHIN REACH. VSS.
--- NOTE | 2024-01-20 18:48 | PC.NURSE ---
PROVIDED PT WITH SPECIMEN CUP FOR SPUTUM SAMPLE. PT VERBALIZED UNDERSTANDING AND AWARE OF NEED FOR SPUTUM SAMPLE
--- NOTE | 2024-01-20 19:07 | PC.NURSE ---
GIVEN TO DAVE SHARMA
[2024-01-20 20:00] VITALS: BP 149/58; PULSE 60; RESP 20; TEMP 36.7; O2SAT 94
[2024-01-20] MEDS: METOPROLOL TARTRATE 50 MG PO (21:19)
[2024-01-20] MEDS: ROPINIROLE 1 MG PO (21:19)
[2024-01-21] VITALS (9 sets, daily range): BP systolic 117–149; BP diastolic 50–61; PULSE 66–83; RESP 16–20; TEMP 36.4–37.2; O2SAT 83–94; BMI 29.0
[2024-01-21] MEDS: ONDANSETRON 4MG/2ML VIAL 4 MG IV (00:41)
[2024-01-21] MEDS: CEFEPIME HCL 2 GM in 0.9 % SODIUM CHLORIDE 100 ML IV ×2 (04:25→17:49)
--- NOTE | 2024-01-21 04:49 | PC.NURSE ---
Pt is alert and oriented. Ambulates to the restroom. Pt became nausea, no vomiting, treated per dec. Increased to 2L NC at 0400 due to patient desat to low 80s while ambulating, and not recovering, pt comfortable, O2 sat 94% on 2L NC. Lung sounds clear. Pt has had no other complaints this shift. Call light in reach.
--- NOTE | 2024-01-21 06:00 | US_ITS ---
FINAL REPORT CLINICAL HISTORY: transaminitis FINDINGS: Sonographic images of the right upper quadrant were obtained. The pancreas is partially obscured.The liver has an unremarkable appearance. The gallbladder is surgically absent. There is no evidence of biliary ductal dilatation.The common duct measures 5mm. Limited images of the right kidney are unremarkable. IMPRESSION: Unremarkable right upper quadrant ultrasound. Reviewed, Interpreted and Dictated by Jose Cid III, MD Transcribed by Rakel Moran Authenticated and [facility]
[2024-01-21] MEDS: LEVOTHYROXINE 100 MCG PO (06:11)
[2024-01-21 09:35] LABS: Chloride 106 mmol/L (98-107); Sodium 136 mmol/L (136-145)
[2024-01-21 09:36] LABS: Potassium 4.5 mmoL/L (3.5-5.1)
[2024-01-21 09:38] LABS: Basophils # 0.1 K/mm3 (0-0.2); Basophils % 1.3 % (0.1-2.0); Blood Urea Nitrogen 17 mg/dl (7-17); Creatinine Clearance Estimated 45 mL/min (50-200); Eosinophils # 0.1 K/mm3 (0.0-0.4); Estimated Glomerular Filt Rate 40 ml/min (>60); GFR (African American) 48 ML/MIN (>60); Hematocrit 36.5 % (37.0-47.0); Hemoglobin 11.5 g/dL (12.2-16.2); Lymphocytes # 1.1 K/mm3 (0.7-4.5); Lymphocytes % 27.9 % (10-50); Mean Corpuscular HGB Conc 31.6 g/dL (31.8-35.4); Mean Corpuscular Hemoglobin 29.9 pg (27.0-31.2); Mean Corpuscular Volume 94.7 fl (81-99); Mean Platelet Volume 9.3 fl (7.4-10.4); Monocytes # 0.4 K/mm3 (0.1-1.0); Monocytes % 8.6 % (1.7-9.3); Neutrophils # 2.4 K/mm3 (1.8-7.8); Neutrophils % 59.2 % (37.0-80.0); Platelet Count 205 K/mm3 (142-424); Red Blood Count 3.85 M/mm3 (4.20-5.40); Red Cell Distribution Width 14.2 % (11.5-17.5); White Blood Count 4.1 K/mm3 (4.8-10.8)
[2024-01-21 09:39] LABS: Anion Gap 10.5 mEq/L (5-15); Calcium 10.9 mg/dl (8.4-10.2); Carbon Dioxide 24 mmol/L (22.0-30.0); Glucose 140 mg/dl (74-100)
[2024-01-21 10:20] LABS: Alanine Aminotransferase 712 U/L (12-78); Aspartate Amino Transferase 599 U/L (14-36); Bilirubin,Unconjugated 0.2 mg/dL (0.0-1.1)
[2024-01-21 10:21] LABS: Albumin Level 3.5 g/dl (3.5-5.0); Alkaline Phosphatase 108 U/L (38-126); Bilirubin,Direct 0.6 mg/dl (0.0-0.4); Bilirubin,Indirect 0.2 mg/dL (0.0-0.9); Bilirubin,Total 0.8 mg/dl (0.2-1.3); Total Protein,Serum 6.7 g/dl (6.3-8.2)
[2024-01-21] MEDS: METOPROLOL TARTRATE 50 MG PO ×2 (10:29→20:22)
[2024-01-21] MEDS: *PAT OWN MED* CLOPIDOGREL 75MG TAB 75 MG PO (10:29)
[2024-01-21] MEDS: ASPIRIN EC 81MG TABLET 81 MG PO (10:31)
[2024-01-21] MEDS: HEPARIN SODIUM 5,000 UNIT/ML VIAL 5000 UNIT SQ ×2 (10:31→20:22)
--- NOTE | 2024-01-21 10:58 | EXP.CARD.CON ---
History of Present Illness History of Present Illness Consult date: 01/21/24 Requesting physician: Anoop Wells Chief complaint: AAA History of present illness: This is a 78-year-old white female who presented to the emergency department complaints of nausea and weakness. The patient has past medical history of coronary artery disease status post coronary artery bypass grafting in 2007 and 2 stents placed approximately 2 to 3 weeks ago. The patient sees cardiology at [facility], Dr. Del Angel. She also has a past medical history of AAA, hypertension, hyperlipidemia and hypothyroidism. The patient states that she was started on Zetia post cardiac catheterization and she has had issues with taking statins and Zetia in the past causing elevated liver enzymes. On arrival to the emergency department the patient's liver enzymes were significantly elevated with an AST of 742 and an ALT of 765. The Zetia has been stopped. She also had an acute kidney injury with a creatinine of 1.5 which is now improved. She also is being treated for a UTI. CT of her abdomen pelvis showed multifocal pneumonia and a AAA with a lateral thrombus which the patient reports has been present for many years. CAT scan in 2020 shows a AAA with mural thrombus. She denies any chest pain or pressure. She denies any shortness of breath or edema. She denies any jaw pain which is typically her symptoms when she has needed stenting in the past. She denies any fever, chills, nausea, vomiting, diarrhea, PND orthopnea today. [facility] Disclaimer: The information contained in this section may have been updated after the patient was seen, as this information can be updated by other users. Medical History (Updated 01/21/24 @ 11:03 by Kemi Mckenzie APRN) Stenosis of carotid artery Pneumonia Acute UTI AAA (abdominal aortic aneurysm) Weakness Elevated liver enzymes HLD (hyperlipidemia) HTN (hypertension) CAD (coronary artery disease) Surgical History Hx of cholecystectomy H/O: hysterectomy S/P CABG (coronary artery bypass graft) Family History Other Cancer Heart attack Hypertension Stroke Social History (Updated 01/19/24 @ 19:51 by Sneha Capone RN) Smoking Status: Former smoker second hand exposure: No alcohol intake: never substance use type: denies use current occupational status: retired Travel in the last 8 weeks: None household members: family housing: house Review of Systems Review of Systems Review of systems:: pertinent systems reviewed and negative unless documented below Constitutional Constitutional: Reports system reviewed and no additional complaints, except as documented, Reports lethargy and Reports weakness Eyes Eyes: Reports system reviewed and no additional complaints, except as documented ENT Ears, Nose, Mouth, and Throat: Denies dizziness *Cardiovascular Cardiovascular: Reports system reviewed and no additional complaints, except as documented *Respiratory Respiratory: Reports system reviewed and no additional complaints, except as documented *Gastrointestinal Gastrointestinal: Reports system reviewed and no additional complaints, except as documented *Genitourinary Genitourinary: Reports system reviewed and no additional complaints, except as documented *Musculoskeletal Musculoskeletal: Reports system reviewed and no additional complaints, except as documented Integumentary/Breasts Skin/Breast: Reports system reviewed and no additional complaints, except as documented *Neurologic Neurologic: Denies dizziness, Denies paresthesias and Reports weakness Psychiatric Psychiatric: Reports system reviewed and no additional complaints, except as documented Endocrine Endocrine: Reports system reviewed and no additional complaints, except as documented Hematologic/Lymphatic Hematologic/Lymphatic: Reports system reviewed and no additional complaints, except as documented Allergic/Immunologic Allergic/Immunologic: Reports system reviewed and no additional complaints, except as documented Exam Data for Last 24 hours Vital signs and Labs for Last 24 Hours: Temp Pulse Resp BP Pulse Ox O2 Del Method O2 Flow Rate 97.9 F 70 16 126/59 L 90 L Nasal Cannula 2 01/21/24 08:00 01/21/24 08:00 01/21/24 08:00 01/21/24 08:00 01/21/24 08:00 01/21/24 08:00 01/21/24 08:00 Laboratory Results - last 24 hr 01/21/24 09:18: WBC 4.1 L, RBC 3.85 L, Hgb 11.5 L, Hct 36.5 L, MCV 94.7, MCH 29.9, MCHC 31.6 L, RDW 14.2, Plt Count 205, MPV 9.3, Neut % (Auto) 59.2, Lymph % (Auto) 27.9, [place] % (Auto) 8.6, Eos % (Auto) 3.0, Baso % (Auto) 1.3, Neut # (Auto) 2.4, Lymph # (Auto) 1.1, [place] # (Auto) 0.4, Eos # (Auto) 0.1, Baso # (Auto) 0.1, Sodium 136, Potassium 4.5, Chloride 106, Carbon Dioxide 24, Anion Gap 10.5, BUN 17, Creatinine 1.30 H, Estimated Creat Clear 45, Estimated GFR 40 L, Est GFR ( Amer) 48 L, Glucose 140 H, Calcium 10.9 H, Total Bilirubin 0.8, Direct Bilirubin 0.6 H, Conjugated Bilirubin 0.0, Indirect Bilirubin 0.2, Unconjugated Bilirubin 0.2, AST 599 H*, ALT 712 H*, Alkaline Phosphatase 108, Total Protein 6.7, Albumin 3.5 I & O for Last 24 hours: Intake & Output 01/18/24 01/19/24 01/20/24 01/21/24 23:59 23:59 23:59 23:59 Intake Total 250 / 370 1989 340 / 340 Output Total 0 / 0 0 / 0 0 / 0 Balance 250 / 370 1989 340 / 340 Weight 173 lb 7 oz 177 lb 6 oz 174 lb 3 oz Constitutional Constitutional: no acute distress and average body habitus *Routine HEENT Exam Head: Present normocephalic and atraumatic ENT: Present mucous membranes moist *Routine Neck Exam Neck: Present supple, full ROM and normal carotid upstroke; Absent JVD, carotid bruit or lymphadenopathy *Routine Respiratory Exam Respiratory: Present CTA bilaterally, normal respiratory effort, able to speak in complete sentences and symmetric chest movement *Routine Cardiovascular Exam Cardiovascular: Present RRR, Normal S1 and Normal S2; Absent murmur or gallop *Routine Abdominal Exam Abdominal: Present soft and normoactive bowel sounds; Absent tenderness, distended or organomegaly *Routine Extremities Exam Extremities: Present full ROM, pulses intact and normal capillary refill; Absent cyanosis, clubbing or edema *Routine Skin Exam Skin: Present intact and warm; Absent erythema *Routine Neurological Exam Neurological: Present alert, oriented X3 and CN II-XII intact; Absent sensory deficit or motor deficit Routine Psychiatric Exam Psychiatric: Present normal affect Meds Home Medications and Allergies Home Medications Medication Instructions Recorded Confirmed Type aspirin 81 mg tablet,delayed 81 mg PO DAILY 10/12/18 01/20/24 History release (Adult Low Dose Aspirin) cyanocobalamin (vitamin B-12) 1,000 mcg SQ DIRECTED 01/23/22 01/20/24 History 1,000 mcg/mL injection solution citalopram 20 mg tablet 20 mg PO DAILY Depression 90 days 07/23/23 01/20/24 Rx #90 tabs metoprolol tartrate 50 mg tablet 50 mg PO BID 30 days #60 tabs 07/23/23 01/20/24 Rx cholecalciferol (vitamin D3) 1,250 1,250 mcg PO DIRECTED 12/03/23 01/20/24 History mcg (50,000 unit) capsule cranberry extract 500 mg capsule 15,000 mg PO DAILY 12/03/23 01/20/24 History levothyroxine 100 mcg tablet 100 mcg PO DAILY 12/03/23 01/20/24 History ropinirole 1 mg tablet 1 mg PO HS 12/03/23 01/20/24 History clopidogrel 75 mg tablet 75 mg PO DAILY 01/19/24 01/20/24 History meloxicam 15 mg tablet 15 mg PO DAILY 01/19/24 01/20/24 History lisinopril 20 mg tablet 20 mg PO DAILY 01/20/24 01/20/24 History nitrofurantoin macrocrystal 50 mg 50 mg PO DAILY 01/20/24 01/20/24 History capsule New Prescriptions to Start Prescriptions: Allergies Allergy/AdvReac Type Severity Reaction Status Date / Time ciprofloxacin [From Cipro] Allergy Mild Vomiting Verified 01/19/24 12:49 Sulfa (Sulfonamide Allergy Verified 01/19/24 12:49 Antibiotics) trimethoprim [From Bactrim] Allergy Verified 01/19/24 12:49 Assessment and Plan *Assessment and plan (1) AAA (abdominal aortic aneurysm): Status: Acute Qualifiers: Presence of rupture: without rupture Qualified Code(s): I71.4 - Abdominal aortic aneurysm, without rupture Category: Medical Code(s): I71.4 - Abdominal aortic aneurysm, without rupture (2) CAD (coronary artery disease): Status: Acute Qualifiers: Associated angina: without angina Coronary Disease-Associated Artery/Lesion type: [place] artery [place] vs. transplanted heart: [place] heart Qualified Code(s): I25.10 - Atherosclerotic heart disease of [place] coronary artery without angina pectoris Category: Medical Code(s): I25.10 - Atherosclerotic heart disease of [place] coronary artery without angina pectoris (3) Stenosis of carotid artery: Status: Acute Qualifiers: Laterality: bilateral Qualified Code(s): I65.23 - Occlusion and stenosis of bilateral carotid arteries Category: Medical Code(s): I65.29 - Occlusion and stenosis of unspecified carotid artery (4) HTN (hypertension): Status: Acute Qualifiers: Hypertension type: primary hypertension Qualified Code(s): I10 - Essential (primary) hypertension Category: Medical Code(s): I10 - Essential (primary) hypertension (5) HLD (hyperlipidemia): Status: Acute Qualifiers: Hyperlipidemia type: mixed hyperlipidemia Qualified Code(s): E78.2 - Mixed hyperlipidemia Category: Medical Code(s): E78.5 - Hyperlipidemia, unspecified (6) Elevated liver enzymes: Status: Acute Category: Medical Code(s): R74.8 - Abnormal levels of other serum enzymes (7) Weakness: Status: Acute Category: Medical Code(s): R53.1 - Weakness (8) Acute UTI: Status: Acute Category: Medical Code(s): N39.0 - Urinary tract infection, site not specified (9) Pneumonia: Status: Acute Qualifiers: Laterality: unspecified laterality Lung location: unspecified part of lung Pneumonia type: due to unspecified organism Qualified Code(s): J18.9 - Pneumonia, unspecified organism Category: Medical Code(s): J18.9 - Pneumonia, unspecified organism (10) ANNA (acute kidney injury): Status: Acute Category: Medical Code(s): N17.9 - Acute kidney failure, unspecified Plan Plan: 1. The patient presented to the emergency department with nausea and weakness. She was found to have elevated liver enzymes. The patient had recently been started on Zetia following stenting in December of this year. The Zetia has been stopped. The patient reports that in 2016 she had the same thing happen when she was started on a statin as well as Zetia then. Will hold all statins and hepatotoxic medications at this time. 2. The patient did have an acute kidney injury on admission with a creatinine at 1.5. Her creatinine has improved to 1.2 at this time. 3. The patient does have an acute UTI and pneumonia. She is currently getting IV antibiotics. Will defer this to the hospitalist. 4. Coronary artery disease is present. She denies any chest pain or pressure. She had recent cardiac stenting 2 to [address] Payne. No plans for invasive left cardiac catheterization at this time. Continue aspirin and Plavix. 5. Her blood pressure is well-controlled. Continue metoprolol. 6. Her LDL goal is less than 55. Her LDL is 89. As mentioned above her liver enzymes are elevated so no statin or hepatotoxic drugs at this time. 7. The patient does have a history of a AAA with a lateral thrombus which was also present on CT in 2020. No heparin drip indicated at this time. The most recent CT shows that her aneurysm is 4.5 x 3.5 cm and previous scans showed that the aneurysm was around 3.3 to 3.5 cm. It is not clear on this most recent scan if the 4.5 or 3.5 is the diameter of the aneurysm so we have contacted radiology to relook at these scans to compare her aneurysm to previous studies to see if the aneurysm has grown in diameter or not. We are awaiting them to reevaluate the scans. If the scan has grown over the last year and a half then it may be time to consider surgical intervention for her AAA which can be done on an outpatient basis. The patient reports that if she requires surgery then she wants to see Dr. Torres in [place] for this. 8. Liver ultrasound is currently pending. 9. No further recommendations at this time from a cardiac standpoint. The patient is going to continue her cardiology care with Dr. Del Angel in [facility]. She states that she has an appointment with him at the beginning of February of this year. Thank you for the opportunity to help participate in the care of this patient. All recommendations and orders are per Dr. Earl.
--- NOTE | 2024-01-21 16:02 | P.PN_ITS ---
Subjective *Date: 01/21/24 *Time: 16:02 Interval history: patient is seen at bedside, denied CP, SOB, N/V, she is on room air Exam Data for Last 24 hours Vital signs and Labs for Last 24 Hours: Temp Pulse Resp BP Pulse Ox O2 Del Method O2 Flow Rate 97.8 F 66 18 137/57 L 93 L Room Air 2 01/21/24 11:42 01/21/24 11:42 01/21/24 11:42 01/21/24 11:42 01/21/24 11:42 01/21/24 15:00 01/21/24 11:42 Laboratory Results - last 24 hr 01/21/24 09:18: WBC 4.1 L, RBC 3.85 L, Hgb 11.5 L, Hct 36.5 L, MCV 94.7, MCH 29.9, MCHC 31.6 L, RDW 14.2, Plt Count 205, MPV 9.3, Neut % (Auto) 59.2, Lymph % (Auto) 27.9, [place] % (Auto) 8.6, Eos % (Auto) 3.0, Baso % (Auto) 1.3, Neut # (Auto) 2.4, Lymph # (Auto) 1.1, [place] # (Auto) 0.4, Eos # (Auto) 0.1, Baso # (Auto) 0.1, Sodium 136, Potassium 4.5, Chloride 106, Carbon Dioxide 24, Anion Gap 10.5, BUN 17, Creatinine 1.30 H, Estimated Creat Clear 45, Estimated GFR 40 L, Est GFR ( Amer) 48 L, Glucose 140 H, Calcium 10.9 H, Total Bilirubin 0.8, Direct Bilirubin 0.6 H, Conjugated Bilirubin 0.0, Indirect Bilirubin 0.2, Unconjugated Bilirubin 0.2, AST 599 H*, ALT 712 H*, Alkaline Phosphatase 108, Total Protein 6.7, Albumin 3.5 I & O for Last 24 hours: Intake & Output 01/18/24 01/19/24 01/20/24 01/21/24 23:59 23:59 23:59 23:59 Intake Total 250 / 370 1989 580 / 580 Output Total 0 / 0 0 / 0 0 / 0 Balance 250 / 370 1989 580 / 580 Weight 78.67 kg 80.456 kg 79.01 kg Constitutional Constitutional: no acute distress *Routine HEENT Exam Head: Present normocephalic Eye: Present EOMI and PERRL ENT: Present mucous membranes moist *Routine Neck Exam Neck: Present supple; Absent lymphadenopathy *Routine Respiratory Exam Respiratory: Present CTA bilaterally *Routine Cardiovascular Exam Cardiovascular: Present RRR *Routine Abdominal Exam Abdominal: Present soft and normoactive bowel sounds; Absent tenderness *Routine Extremities Exam Extremities: Absent cyanosis, clubbing or edema *Routine Skin Exam Skin: Present warm; Absent rash *Routine Neurological Exam Neurological: Present alert and oriented X3 Assessment and Plan *Assessment and plan (1) Transaminitis: Status: Acute Category: Medical Code(s): R74.01 - Elevation of levels of liver transaminase levels (2) ANNA (acute kidney injury): Status: Acute Category: Medical Code(s): N17.9 - Acute kidney failure, unspecified (3) Acute UTI: Status: Acute Category: Medical Code(s): N39.0 - Urinary tract infection, site not specified (4) Pneumonia: Status: Acute Qualifiers: Laterality: unspecified laterality Lung location: unspecified part of lung Pneumonia type: due to unspecified organism Qualified Code(s): J18.9 - Pneumonia, unspecified organism Category: Medical Code(s): J18.9 - Pneumonia, unspecified organism (5) AAA (abdominal aortic aneurysm): Status: Acute Qualifiers: Presence of rupture: without rupture Qualified Code(s): I71.4 - Abdominal aortic aneurysm, without rupture Category: Medical Code(s): I71.4 - Abdominal aortic aneurysm, without rupture (6) CAD (coronary artery disease): Status: Acute Qualifiers: Coronary Disease-Associated Artery/Lesion type: [place] artery [place] vs. transplanted heart: [place] heart Associated angina: without angina Qualified Code(s): I25.10 - Atherosclerotic heart disease of [place] coronary artery without angina pectoris Category: Medical Code(s): I25.10 - Atherosclerotic heart disease of [place] coronary artery without angina pectoris (7) HTN (hypertension): Status: Acute Qualifiers: Hypertension type: primary hypertension Qualified Code(s): I10 - Essential (primary) hypertension Category: Medical Code(s): I10 - Essential (primary) hypertension (8) HLD (hyperlipidemia): Status: Acute Qualifiers: Hyperlipidemia type: mixed hyperlipidemia Qualified Code(s): E78.2 - Mixed hyperlipidemia Category: Medical Code(s): E78.5 - Hyperlipidemia, unspecified (9) Hypothyroid: Status: Acute Category: Medical Code(s): E03.9 - Hypothyroidism, unspecified Plan 78 year old female presented to the [facility] ED for c/o nausea and weakness. Liver enzymes are significantly worse with AST 742 and ALT 765. She has an ANNA with creatinine of 1.5. Her UA is positive for nitrates and leukocytes. Her abdomen/pelvis CT reveals multifocal pna and AAA with thrombus. She was given Rocephin in the ED and the ED physiciain consulted the hospitalist team for further medical management. I admitted the pt to the medical floor. She is unable to recall all her current medications. Awaiting Son to bring in all bottles of medications. She will be started on cefepime IV for treatment of th e UTI and PNA. Will trend liver enzymes, PT/INR, and obtain a ultrasound of her liver. I will also consult cardiology for the thrombus on her AAA. [facility] already contacted by ED physician. If liver enzymes continue to increase, will contact again for hepatology. Plan as to follow: TRANSAMINITIS - improving, stable ANNA - stable -AST and ALT trend daily, trending down -Ezetimibe started and stopped in December due to mild elevation in liver enzymes. Since then, continued elevation -Ultrasound of liver pending - unremarkable -Hold all hepatic toxic medications -hold home medication lisinopril ACUTE UTI PNA -Cefepime 2gm q 8hr -holding daily home medication Macrobid -blood cultures ordered -UA reveals nitrates and leukocytes -urine culture pending AAA CAD HTN HLD HYPOTHRYROID -CT of reviewed and reveals multifocal pna and AAA with thrombus. Thrombus is lateral measuring 4.5 x 3.5. Cardiology consult placed. await radiology comparison with previous scans -continue aspirin 81 mg, levothyroxine 100 mcg, metoprolol 50 mg, Plavix 75 mg, and requip 1mg PRN. -TSH pending DNR CARDIAC DIET DVT: HEPARIN SQ plan is to continue IV abx and monitor LFTs, await final cardiology recommendations for mural thrombus in Aortic aneurysm, likely discharge tomorrow
--- NOTE | 2024-01-21 18:39 | PC.NURSE ---
Addendum entered by Chencho Cruz RN 01/21/24 19:00: gave pt prune juice to help induce BM Original Note: Pt alert and oriented x4. VSS. Oxygen removed this afternoon, sats in the 90s. Pt has been ambulating around her room all day today and denies shortness of breath/chest pain. Incentive spirometer use has been encouraged throughout the day. Bed is in the lowest position and call light is in reach.
[2024-01-21] MEDS: ROPINIROLE 1 MG PO (20:22)
[2024-01-22 04:00] VITALS: BP 147/61; PULSE 78; RESP 16; TEMP 36.6; O2SAT 92; BMI 29.0
[2024-01-22] MEDS: CEFEPIME HCL 2 GM in 0.9 % SODIUM CHLORIDE 100 ML IV (06:00)
[2024-01-22] MEDS: LEVOTHYROXINE 100 MCG PO (06:00)
[2024-01-22 06:28] LABS: Chloride 106 mmol/L (98-107); Potassium 4.5 mmoL/L (3.5-5.1); Sodium 135 mmol/L (136-145)
[2024-01-22 06:30] LABS: Alanine Aminotransferase 675 U/L (12-78); Aspartate Amino Transferase 565 U/L (14-36); Blood Urea Nitrogen 20 mg/dl (7-17); Creatinine Clearance Estimated 45 mL/min (50-200); Estimated Glomerular Filt Rate 40 ml/min (>60); GFR (African American) 48 ML/MIN (>60)
[2024-01-22 06:31] LABS: Albumin Level 3.3 g/dl (3.5-5.0); Albumin/Globulin Ratio 1.1 (1.1-1.8); Alkaline Phosphatase 116 U/L (38-126); Anion Gap 5.5 mEq/L (5-15); Bilirubin,Total 0.9 mg/dl (0.2-1.3); Calcium 10.8 mg/dl (8.4-10.2); Carbon Dioxide 28 mmol/L (22.0-30.0); Globulin 3.1 g/dL (1.3-3.2); Glucose 120 mg/dl (74-100); Magnesium 1.9 mg/dl (1.6-2.3); Total Protein,Serum 6.4 g/dl (6.3-8.2)
[2024-01-22 06:40] LABS: Basophils % 0.9 % (0.1-2.0); Eosinophils # 0.2 K/mm3 (0.0-0.4); Eosinophils % 4.3 % (0.1-12.0); Hematocrit 36.3 % (37.0-47.0); Hemoglobin 11.2 g/dL (12.2-16.2); Lymphocytes % 25.3 % (10-50); Mean Corpuscular HGB Conc 30.8 g/dL (31.8-35.4); Mean Corpuscular Hemoglobin 29.2 pg (27.0-31.2); Mean Corpuscular Volume 94.8 fl (81-99); Mean Platelet Volume 9.1 fl (7.4-10.4); Monocytes # 0.4 K/mm3 (0.1-1.0); Monocytes % 9.4 % (1.7-9.3); Neutrophils # 2.4 K/mm3 (1.8-7.8); Neutrophils % 60.2 % (37.0-80.0); Platelet Count 201 K/mm3 (142-424); Red Blood Count 3.83 M/mm3 (4.20-5.40); Red Cell Distribution Width 14.1 % (11.5-17.5)
[2024-01-22 07:39] VITALS: BP 137/64; PULSE 84; RESP 24; TEMP 36.8; O2SAT 91
--- NOTE | 2024-01-22 07:41 | PC.NURSE ---
pt got up to bathroom. Oxygen saturation was recorded at 80 room air after exertion. New saturation was checked air having 1l on and charted
[2024-01-22 08:00] VITALS: O2SAT 94
--- NOTE | 2024-01-22 09:58 | P.DS_ITS ---
General Admission date:: 01/20/24 Discharge date: 01/22/24 HPI HPI HPI: 78 year old female presented to the [facility] ED for c/o nausea and weakness. PMHX of AAA, CAD (2 stents placed in december at [facility]), HTN, HLD, Hypothyroid, and recurrent UTI's. Patient was started on ezetimibe s/p stent placement. She was seen in the ED here on 01/10/24 with mild transaminitis in the 200s, CK in the 400s which was attributed to the ezetimibe. It had been discontinued 2 days prior. Today her liver enzymes are significantly worse with AST 742 and ALT 765. She has an ANNA with creatinine of 1.5. Her UA is positive for nitrates and leukocytes. Her abdomen/pelvis CT reveals multifocal pna and AAA with thrombus. She was given Rocephin in the ED and the ED physiciain consulted the hospitalist team for further medical management. I admitted the pt to the medical floor. She is unable to recall all her current medications. Awaiting Son to bring in all bottles of medications. She will be started on cefepime IV for treatment of the UTI and PNA. Will trend liver enzymes, PT/INR, and obtain a ultrasound of her liver. I will also consult cardiology for the thrombus on her AAA. Hospital Course Hospital Course Hospital Course: 78 year old female presented to the [facility] ED for c/o nausea and weakness. Liver enzymes are significantly worse with AST 742 and ALT 765. She has an ANNA with creatinine of 1.5. Her UA is positive for nitrates and leukocytes. Her abdomen/pelvis CT reveals multifocal pna and AAA with thrombus. She was given Rocephin in the ED and the ED physiciain consulted the hospitalist team for further medical management. I admitted the pt to the medical floor. She is unable to recall all her current medications. Awaiting Son to bring in all bottles of medications. She was started on cefepime IV for treatment of the UTI and PNA. Liver enzymes trended during admission. Showed improvement. Ca rdiology consulted and assisted with care. Was felt that her AAA is stable. Given improvement in liver dysfunction, stability of AAA, patient transition to oral antibiotics to complete course and have further follow-up and management as an outpatient. Problems addressed as follows: TRANSAMINITIS - improving, stable ANNA - stable -AST and ALT severely elevated on admission at 742 and 765 respectively. Improved to 565 and 675 respectively by day of discharge. Bilirubin and alk phos within normal range. Improving with discontinuation of ezetimibe. Ultrasound liver obtained, it was unremarkable with no acute abnormalities. Review of home medications should show other potential hepatotoxic meds in her regimen. Given her clinical improvement. Recommend discharge home with follow- up as an outpatient with repeat labs in the next 1 to 2 weeks. ACUTE UTI PNA -Patient had patchy airspace disease on chest imaging. No oxygen requirement during admission however. Urinalysis suspicious for UTI on admission. Culture positive for less than 10,000 CFU's. Transitioned to cefdinir after being treated with cefepime during admission. Given her stability on room air, will complete 5-day course of antibiotics for respiratory and urinary sources. White cell count normal at 4 on day of discharge. AAA CAD HTN HLD HYPOTHRYROID -CT of reviewed and reveals AAA with thrombus. Thrombus is lateral measuring 4.5 x 3.5. Cardiology consulted. Review of images showed stability of AAA. Needs close follow-up as an outpatient. Recommend continuing to follow with her supervisor modern languages Dr. Burgos in [place] for further management. Will need repeat imaging in 3 to 6 months. In the meantime we will continue aspirin 81 mg daily, levothyroxine 100 mcg daily, metoprolol 50 mg daily, Plavix 75 mg daily, and ropinirole 1 mg daily. TSH obtained, normal at 2.0. Exam Data for Last 24 hours Vital signs and Labs for Last 24 Hours: Temp Pulse Resp BP Pulse Ox O2 Del Method O2 Flow Rate 98.3 F 84 24 137/64 91 L Nasal Cannula 1 01/22/24 07:39 01/22/24 07:39 01/22/24 07:39 01/22/24 07:39 01/22/24 07:39 01/22/24 07:39 01/22/24 07:39 Laboratory Results - last 24 hr 01/21/24 09:18: Total Bilirubin 0.8, Direct Bilirubin 0.6 H, Conjugated Bilirubin 0.0, Indirect Bilirubin 0.2, Unconjugated Bilirubin 0.2, AST 599 H*, ALT 712 H*, Alkaline Phosphatase 108, Total Protein 6.7, Albumin 3.5 01/22/24 05:35: WBC 4.0 L, RBC 3.83 L, Hgb 11.2 L, Hct 36.3 L, MCV 94.8, MCH 29.2, MCHC 30.8 L, RDW 14.1, Plt Count 201, MPV 9.1, Neut % (Auto) 60.2, Lymph % (Auto) 25.3, [place] % (Auto) 9.4 H, Eos % (Auto) 4.3, Baso % (Auto) 0.9, Neut # (Auto) 2.4, Lymph # (Auto) 1.0, [place] # (Auto) 0.4, Eos # (Auto) 0.2, Baso # (Auto) 0.0, Sodium 135 L, Potassium 4.5, Chloride 106, Carbon Dioxide 28, Anion Gap 5.5, BUN 20 H, Creatinine 1.30 H, Estimated Creat Clear 45, Estimated GFR 40 L, Est GFR ( Amer) 48 L, Glucose 120 H, Calcium 10.8 H, Magnesium 1.9, Total Bilirubin 0.9, AST 565 H*, ALT 675 H*, Alkaline Phosphatase 116, Total Protein 6.4, Albumin 3.3 L, Globulin 3.1, Albumin/Globulin Ratio 1.1 I & O for Last 24 hours: Intake & Output 01/19/24 01/20/24 01/21/24 01/22/24 23:59 23:59 23:59 23:59 Intake Total 250 / 370 19895 / 5 250 / 250 Output Total 0 / 0 0 / 0 0 / 0 0 / 0 Balance 250 / 370 1989 250 / 250 Weight 78.67 kg 80.456 kg 79.01 kg 79.01 kg Constitutional Constitutional: no acute distress, average body habitus and cooperative *Routine HEENT Exam Head: Present normocephalic Eye: Present EOMI and PERRL ENT: Present mucous membranes moist *Routine Neck Exam Neck: Present supple; Absent lymphadenopathy *Routine Respiratory Exam Respiratory: Present CTA bilaterally *Routine Cardiovascular Exam Cardiovascular: Present RRR *Routine Abdominal Exam Abdominal: Present soft and normoactive bowel sounds; Absent tenderness or distended *Routine Extremities Exam Extremities: Absent cyanosis, clubbing or edema *Routine Skin Exam Skin: Present warm; Absent rash *Routine Neurological Exam Neurological: Present alert, oriented X3 and moving all extremities; Absent altered mental status Results Data Completed and Pending Labs on day of discharge: Labs from last 24 hours 01/22/24 01/21/24 05:35 09:18 WBC 4.0 L RBC 3.83 L Hgb 11.2 L Hct 36.3 L MCV 94.8 MCH 29.2 MCHC 30.8 L RDW 14.1 Plt Count 201 MPV 9.1 Neut % (Auto) 60.2 Lymph % (Auto) 25.3 [place] % (Auto) 9.4 H Eos % (Auto) 4.3 Baso % (Auto) 0.9 Neut # (Auto) 2.4 Lymph # (Auto) 1.0 [place] # (Auto) 0.4 Eos # (Auto) 0.2 Baso # (Auto) 0.0 Sodium 135 L Potassium 4.5 Chloride 106 Carbon Dioxide 28 Anion Gap 5.5 BUN 20 H Creatinine 1.30 H Estimated Creat Clear 45 Estimated GFR 40 L Est GFR ( Amer) 48 L Glucose 120 H Calcium 10.8 H Magnesium 1.9 Total Bilirubin 0.9 0.8 Direct Bilirubin 0.6 H Conjugated Bilirubin 0.0 Indirect Bilirubin 0.2 Unconjugated Bilirubin 0.2 AST 565 H* 599 H* ALT 675 H* 712 H* Alkaline Phosphatase 116 108 Total Protein 6.4 6.7 Albumin 3.3 L 3.5 Globulin 3.1 Albumin/Globulin Ratio 1.1 DS: Diagnosis Discharge Diagnosis (1) Transaminitis: Status: Acute Code(s): R74.01 - Elevation of levels of liver transaminase levels (2) ANNA (acute kidney injury): Status: Acute Code(s): N17.9 - Acute kidney failure, unspecified (3) Acute UTI: Status: Acute Code(s): N39.0 - Urinary tract infection, site not specified (4) Pneumonia: Status: Acute Code(s): J18.9 - Pneumonia, unspecified organism Qualifiers: Laterality: unspecified laterality Lung location: unspecified part of lung Pneumonia type: due to unspecified organism Qualified Code(s): J18.9 - Pneumonia, unspecified organism (5) AAA (abdominal aortic aneurysm): Status: Acute Code(s): I71.4 - Abdominal aortic aneurysm, without rupture Qualifiers: Presence of rupture: without rupture Qualified Code(s): I71.4 - Abdominal aortic aneurysm, without rupture (6) CAD (coronary artery disease): Status: Acute Code(s): I25.10 - Atherosclerotic heart disease of [place] coronary artery without angina pectoris Qualifiers: Associated angina: without angina Coronary Disease-Associated Artery/Lesion type: [place] artery [place] vs. transplanted heart: [place] heart Qualified Code(s): I25.10 - Atherosclerotic heart disease of [place] coronary artery without angina pectoris (7) HTN (hypertension): Status: Acute Code(s): I10 - Essential (primary) hypertension Qualifiers: Hypertension type: primary hypertension Qualified Code(s): I10 - Essential (primary) hypertension (8) HLD (hyperlipidemia): Status: Acute Code(s): E78.5 - Hyperlipidemia, unspecified Qualifiers: Hyperlipidemia type: mixed hyperlipidemia Qualified Code(s): E78.2 - Mixed hyperlipidemia (9) Hypothyroid: Status: Acute Code(s): E03.9 - Hypothyroidism, unspecified Meds Home Medications and Allergies Home Medications Medication Instructions Recorded Confirmed Type aspirin 81 mg tablet,delayed 81 mg PO DAILY 10/12/18 01/20/24 History release (Adult Low Dose Aspirin) cyanocobalamin (vitamin B-12) 1,000 mcg SQ DIRECTED 01/23/22 01/20/24 History 1,000 mcg/mL injection solution citalopram 20 mg tablet 20 mg PO DAILY Depression 90 days 07/23/23 01/20/24 Rx #90 tabs metoprolol tartrate 50 mg tablet 50 mg PO BID 30 days #60 tabs 07/23/23 01/20/24 Rx cholecalciferol (vitamin D3) 1,250 1,250 mcg PO DIRECTED 12/03/23 01/20/24 History mcg (50,000 unit) capsule cranberry extract 500 mg capsule 15,000 mg PO DAILY 12/03/23 01/20/24 History levothyroxine 100 mcg tablet 100 mcg PO DAILY 12/03/23 01/20/24 History ropinirole 1 mg tablet 1 mg PO HS 12/03/23 01/20/24 History clopidogrel 75 mg tablet 75 mg PO DAILY 01/19/24 01/20/24 History meloxicam 15 mg tablet 15 mg PO DAILY 01/19/24 01/20/24 History lisinopril 20 mg tablet 20 mg PO DAILY 01/20/24 01/20/24 History cefdinir 300 mg capsule 300 mg PO BID 3 days #6 caps 01/22/24 Rx New Prescriptions to Start Prescriptions: Aniceto Saldivar Allergies Allergy/AdvReac Type Severity Reaction Status Date / Time ciprofloxacin [From Cipro] Allergy Mild Vomiting Verified 01/19/24 12:49 Sulfa (Sulfonamide Allergy Verified 01/19/24 12:49 Antibiotics) trimethoprim [From Bactrim] Allergy Verified 01/19/24 12:49 Discharge Plan Disposition Patient Disposition: Home, Self-Care Condition: Good Discharge Order Discharge Orders: Discharge Order (Routine); Ordered 01/22/24 Ordered By: Aniceto Shaw Follow up Plan Follow up with: Aniceto Payne [Referring] - 02/21/24 2:15 pm Lennie Grimm APRN [Primary Care Provider] - 01/28/24 10:00 am Prescriptions/Medication Reconciliation: New cefdinir 300 mg capsule 300 mg PO BID 3 Days Qty: 6 0RF Continued aspirin [Adult Low Dose Aspirin] 81 mg tablet,delayed release (DR/EC) 81 mg PO DAILY cyanocobalamin (vitamin B-12) 1,000 mcg/mL solution 1,000 mcg SQ DIRECTED Rx Instructions: 1,000 mcg SQ 2x month cranberry extract 500 mg capsule 15,000 mg PO DAILY Rx Instructions: administer with meals levothyroxine 100 mcg tablet 100 mcg PO DAILY ropinirole 1 mg tablet 1 mg PO HS cholecalciferol (vitamin D3) 1,250 mcg (50,000 unit) capsule 1,250 mcg PO DIRECTED Rx Instructions: TWICE WEEKLY citalopram 20 mg tablet 20 mg PO DAILY 90 Days Qty: 90 0RF metoprolol tartrate 50 mg tablet 50 mg PO BID 30 Days Qty: 60 2RF meloxicam 15 mg tablet 15 mg PO DAILY clopidogrel 75 mg tablet 75 mg PO DAILY lisinopril 20 mg Tablet 20 mg PO DAILY Discontinued nitrofurantoin macrocrystal 50 mg capsule 50 mg PO DAILY Problem Reconciliation Problems Reviewed?: Yes Patient Discharge Instructions ACTIVITY: Continue current activity DIET: continue same diet Patient Instructions: DI for Pneumonia -- Adult, DI for Urinary Tract Infection (UTI), DI for Acute Kidney Injury Providers Primary Care Provider: Lennie Grimm Admit Provider: Anoop Wells Attending Provider: Anoop Wells
[2024-01-22] MEDS: METOPROLOL TARTRATE 50 MG PO (10:23)
[2024-01-22] MEDS: *PAT OWN MED* CLOPIDOGREL 75MG TAB 75 MG PO (10:23)
[2024-01-22] MEDS: HEPARIN SODIUM 5,000 UNIT/ML VIAL 5000 UNIT SQ (10:24)
[2024-01-22] MEDS: CITALOPRAM 20MG TABLET 20 MG PO (10:24)
[2024-01-22] MEDS: ASPIRIN EC 81MG TABLET 81 MG PO (10:25)
[2024-01-22 11:42] VITALS: BP 140/70; PULSE 80; RESP 22; TEMP 36.7; O2SAT 87
--- NOTE | 2024-01-22 12:11 | HMH.PHAINT1 ---
Pharmacy Intervention Comments: DISCHARGE MEDICATION COUNSELING WAS PROVIDED TO PATIENT AND FAMILY MEMBER FOR CEFDINIR ON INDICATION, DOSE, AND POSSIBLE SIDE EFFECTS. DISCUSSED STOPPING THE NITROFURANTOIN. PATIENT AND FAMILY MEMBER VERBALIZED UNDERSTANDING AND HAD NO FURTHER QUESTIONS.
--- NOTE | 2024-01-23 12:54 | CARE MANAGER ---
Called and spoke with patient regarding recent discharge. She has made the medication changes prescribed at discharge and plans to ask PCP about restarting the nitrofurantoin at some point. Aware of f/u appts. No concerns voiced at time of call.
== END 2024-01-22 12:36 | disposition home or self-care (01) | DRG 194 ==
LOC: UTC 13:40 → ER 13:56 → 2ND 19:07
PROVIDERS: Emergency Medicine; Internal Medicine Adolescent Medicine; Nurse Practitioner Critical Care Medicine; Nurse Practitioner Family; Admitting Provider Internal Medicine; Emergency Provider Emergency Medicine; PCP Nurse Practitioner; Visit Provider Internal Medicine
DX: J18.9 Pneumonia, unspecified organism (principal); N17.9 Acute kidney failure, unspecified; N39.0 Urinary tract infection, site not specified; R74.01 Elevation of levels of liver transaminase levels; I25.10 Atherosclerotic heart disease of native coronary artery without angina pectoris; I10 Essential (primary) hypertension; E78.5 Hyperlipidemia, unspecified; E03.9 Hypothyroidism, unspecified; Z95.5 Presence of coronary angioplasty implant and graft; Z95.1 Presence of aortocoronary bypass graft; Z87.891 Personal history of nicotine dependence
CPT/HCPCS: 36415; 74177; 76705; 80048; 80053; 80061; 80076; 81001; 82140; 82248; 82550; 83605; 83690; 83735; 84443; 85025; 85610; 87040; 87070; 87086; 87205; 99285; G0378; J0696; J2405; Q9967

== ENCOUNTER 2024-02-06 09:21 | Inpatient (IN) | payer MEDICARE, SELFPAY ==
[2024-02-06] VITALS (12 sets, daily range): BP systolic 104–151; BP diastolic 36–65; PULSE 66–94; RESP 18–22; TEMP 36.6–36.9; O2SAT 87–95; BMI 29.3; BMI 29.7
--- NOTE | 2024-02-06 09:26 | HMH.EDGENADL ---
Discharge Plan Disposition Patient Disposition: Admitted Clinical Impressions Clinical Impression: Pneumonia Discharge ED Provider: [place] Chin General Adult HPI General Chief complaint: Shortness of Breath/Dyspnea Stated complaint: dry heaves, SOA, Time Seen by Provider: 02/06/24 09:26 History of Present Illness HPI narrative: This patient presents for evaluation of nausea, in the absence of vomiting, abdominal pain, dysuria or frequency. Symptoms were gradual in onset yesterday, starting today. She reports she has had similar symptoms in the setting of reaction to cholesterol medications. She recently initiated new medications under the direction of her primary care physicians. No sick contacts, no recent travel, no hemoptysis. She reports some chronic mild dyspnea but no productive cough. No dysuria or frequency. No palpitations, no chest pain, no syncope or presyncope Please note that above description of symptoms, in this electronic medical record under categorization of recalled from ER triage doctor by RN are reflective of an initial nursing assessment, however, is not reflective of my full history and physical exam that was personally taken and clarified. Consequentially, this preceding description of symptoms, which may include the patient's categorized chief complaint in the EMR, do not reflect my personal clinical impression, and the ultimate description of history of present illness and patient stated complaints should be deferred to this section of the note. Unless stated otherwise or congruent with this section of the note, additional signs, symptoms, or incongruence should be interpreted as inaccurate with my clinical impression. Related Data Home Medications Medication Instructions Recorded Confirmed aspirin 81 mg tablet,delayed 81 mg PO DAILY 10/12/18 02/06/24 release (Adult Low Dose Aspirin) cyanocobalamin (vitamin B-12) 1,000 mcg SQ DIRECTED 01/23/22 02/06/24 1,000 mcg/mL injection solution cholecalciferol (vitamin D3) 1,250 1,250 mcg PO .TWICE WEEKLY 12/03/23 02/06/24 mcg (50,000 unit) capsule cranberry extract 500 mg capsule 15,000 mg PO DAILY 12/03/23 02/06/24 levothyroxine 100 mcg tablet 100 mcg PO DAILY 12/03/23 02/06/24 ropinirole 1 mg tablet 1 mg PO HS 12/03/23 02/06/24 clopidogrel 75 mg tablet 75 mg PO DAILY 01/19/24 02/06/24 meloxicam 15 mg tablet 15 mg PO DAILY 01/19/24 02/06/24 lisinopril 20 mg tablet 20 mg PO DAILY 01/20/24 02/06/24 citalopram 20 mg tablet 20 mg PO DAILY 02/06/24 02/06/24 nitrofurantoin macrocrystal 50 mg 50 mg PO DAILY 02/06/24 02/06/24 capsule Previous Rx's Medication Instructions Recorded metoprolol tartrate 50 mg tablet 50 mg PO BID 30 days #60 tabs 07/23/23 Allergies Allergy/AdvReac Type Severity Reaction Status Date / Time ciprofloxacin [From Cipro] Allergy Mild Vomiting Verified 01/19/24 12:49 Sulfa (Sulfonamide Allergy Verified 01/19/24 12:49 Antibiotics) trimethoprim [From Bactrim] Allergy Verified 01/19/24 12:49 PFSH [facility] Disclaimer: The information contained in this section may have been updated after the patient was seen, as this information can be updated by other users. Medical History Stenosis of carotid artery Pneumonia Acute UTI AAA (abdominal aortic aneurysm) Weakness Elevated liver enzymes HLD (hyperlipidemia) HTN (hypertension) CAD (coronary artery disease) Surgical History Hx of cholecystectomy H/O: hysterectomy S/P CABG (coronary artery bypass graft) Family History Other Cancer Heart attack Hypertension Stroke Social History Smoking Status: Former smoker second hand exposure: No alcohol intake: never substance use type: denies use current occupational status: retired Travel in the last 8 weeks: None household members: family housing: house ROS Obtained: Yes other As per HPI Physical Exam General General appearance: alert and in no apparent distress Head Head exam: atraumatic and normocephalic Eye Eye exam: Present normal appearance Neck Neck exam: Present normal inspection Chest Chest inspection: Present normal inspection and symmetric chest wall rise Respiratory Respiratory exam: Present other (Crackles in bilateral lung bases); Absent respiratory distress Cardiovascular Cardiovascular exam: Present regular rate and normal rhythm Abdominal Exam Abdominal exam: Present soft Neurological Exam Neurological exam: Present alert and oriented X3 Psychiatric Psychiatric exam: Present normal affect and normal mood Skin Skin exam: Present warm and dry Medical Decision Making Medical Records Medical records reviewed: Yes I reviewed the patient's medical records. [place] Inquiry Pt receiving controlled substance: No Vital Signs: 02/06/24 09:37 02/06/24 11:00 02/06/24 12:01 Temperature 98.2 F Temperature Source Oral Pulse Rate 73 84 Pulse Rate [Left Radial] 94 H Respiratory Rate 22 Blood Pressure 136/53 L 104/36 L Blood Pressure [Right Arm] 144/63 H Blood Pressure Mean [Right Arm] 90 Blood Pressure Source Blood Pressure Position 02 Sat by Pulse Oximetry 95 87 L 92 L Oxygen Delivery Method Nasal Cannula Room Air Oxygen Flow Rate (LPM) 2 02/06/24 12:19 02/06/24 12:30 02/06/24 13:00 Temperature Temperature Source Pulse Rate 85 80 86 Pulse Rate [Left Radial] Respiratory Rate Blood Pressure 110/50 L 116/48 L 126/42 L Blood Pressure [Right Arm] Blood Pressure Mean [Right Arm] Blood Pressure Source Blood Pressure Position 02 Sat by Pulse Oximetry 93 L 93 L 91 L Oxygen Delivery Method Nasal Cannula Nasal Cannula Nasal Cannula Oxygen Flow Rate (LPM) 02/06/24 13:30 02/06/24 14:00 02/06/24 15:05 Temperature 97.9 F Temperature Source Oral Pulse Rate 79 81 75 Pulse Rate [Left Radial] Respiratory Rate 18 Blood Pressure 118/41 L 108/42 L 116/46 L Blood Pressure [Right Arm] Blood Pressure Mean [Right Arm] Blood Pressure Source Automatic Cuff Blood Pressure Position Sitting 02 Sat by Pulse Oximetry 95 95 Oxygen Delivery Method Room Air Nasal Cannula Oxygen Flow Rate (LPM) 2 Lab Data Lab Results 02/06/24 09:38: WBC 9.8, RBC 4.93, Hgb 14.6, Hct 45.1, MCV 91.4, MCH 29.6, MCHC 32.4, RDW 14.5, Plt Count 208, MPV 9.1, Neut % (Auto) 89.6 H, Lymph % (Auto) 6.3 L, Jenkins % (Auto) 2.8, Eos % (Auto) 0.7, Baso % (Auto) 0.6, Neut # (Auto) 8.8 H, Lymph # (Auto) 0.6 L, Jenkins # (Auto) 0.3, Eos # (Auto) 0.1, Baso # (Auto) 0.1, Total Counted 100, Neutrophils % (Manual) 91 H, Lymphocytes % (Manual) 8 L, Monocytes % (Manual) 1 L, Platelet Estimate Normal, RBC Morphology Normal, PT 11.6, INR 1.08, Sodium 136, Potassium 5.2 H, Chloride 104, Carbon Dioxide 25, Anion Gap 12.2, BUN 20 H, Creatinine 1.40 H, Estimated Creat Clear 41, Estimated GFR 36 L, Est GFR ( Amer) 44 L, Glucose 145 H, Calcium 11.0 H, Total Bilirubin 2.1 H, AST 485 H*, ALT 485 H*, Alkaline Phosphatase 127 H, Troponin I 0.03, Total Protein 7.5, Albumin 3.9, Globulin 3.6 H, Albumin/Globulin Ratio 1.1, TSH 2.90, Acetaminophen < 10 L 02/06/24 09:38 02/06/24 09:38 Orders (Tests/Meds): ED MEDICATIONS Generic Name Dose Route Start Last Admin Trade Name Chuy PRN Reason Stop Dose Admin Aspirin 81 mg 02/07/24 09:00 Aspirin Ec 81mg Tablet PO 03/08/24 08:59 DAILY [facility] Citalopram Hydrobromide 20 mg 02/07/24 09:00 Citalopram 20mg Tablet PO 03/08/24 08:59 DAILY [facility] Clopidogrel Bisulfate 75 mg 02/07/24 09:00 Clopidogrel 75mg Tab PO 03/08/24 08:59 DAILY [facility] Ceftriaxone Sodium 1 gm/ 50 mls @ 100 mls/hr 02/07/24 12:30 Sodium Chloride IV 02/17/24 12:29 Q24H MARGIE Azithromycin 500 mg/ Sodium 250 mls @ 250 mls/hr 02/07/24 12:00 Chloride IV 02/17/24 11:59 Q24H MARGIE Levothyroxine Sodium 100 mcg 02/07/24 09:00 Levothyroxine 100mcg (0.1mg) Tab PO 03/08/24 08:59 DAILY MARGIE Metoprolol Tartrate 50 mg 02/06/24 21:00 Metoprolol Tartrate 50mg Tablet PO 03/07/24 20:59 BID MARGIE Ropinirole HCl 1 mg 02/06/24 21:00 Ropinirole 1mg Tablet PO 03/07/24 20:59 HS MARGIE Discontinued Medications Generic Name Dose Route Start Last Admin Trade Name Freq PRN Reason Stop Dose Admin Albuterol/Ipratropium 3 ml 02/06/24 11:05 02/06/24 11:17 Ipratropium/Albuterol 3 Ml Neb IH 02/06/24 11:06 3 ml ONCE ONE Administration Lactated Ringer's 1,000 mls @ 999 mls/hr 02/06/24 09:43 02/06/24 09:49 Lactated Ringer's 1000 Ml Bag IV 02/06/24 10:43 999 mls/hr .Q1H1M ONE Administration Ceftriaxone Sodium 1 gm/ 50 mls @ 100 mls/hr 02/06/24 12:20 02/06/24 12:48 Sodium Chloride IV 02/06/24 12:49 100 mls/hr ONCE STA Administration Azithromycin 500 mg/ Sodium 250 mls @ 250 mls/hr 02/06/24 12:20 02/06/24 13:26 Chloride IV 02/06/24 12:21 250 mls/hr ONCE STA Administration Iopamidol 100 ml 02/06/24 13:19 02/06/24 13:20 Iopamidol-370 (76%);100ml Bottle IV 02/06/24 13:20 100 ml ONCE ONE Administration Ondansetron HCl 4 mg 02/06/24 09:43 02/06/24 09:50 Ondansetron 4mg/2ml Vial IV 02/06/24 09:44 4 mg ONCE ONE Administration Sodium Chloride 40 ml 02/06/24 13:19 02/06/24 13:20 0.9 % Sodium Chloride 50 Ml Vial IV 02/06/24 13:20 40 ml ONCE ONE Administration Sodium Chloride 10 ml 02/06/24 13:19 02/06/24 13:20 Sodium Chloride 0.9% 10ml Syr (Rad Only) IV 02/06/24 13:20 10 ml ONCE ONE Administration ORDERS Category Date Time Status CT angio abdomen pelvis Stat Cat Scan 02/06/24 12:50 Completed CTA Chest [CT angio chest PE protocol] Stat Cat Scan 02/06/24 12:50 Completed Pulmonology Consult [Consult to Pulmonology] [CONS] Cons 02/06/24 14:50 Active Routine XR chest 2V Stat Exams 02/06/24 09:43 Completed CBC w/Auto Diff [Complete Blood Count Auto Diff] Stat Lab 02/06/24 09:38 Completed CMP [Comprehensive Metabolic Panel] Stat Lab 02/06/24 09:38 Completed Complete Blood Count Auto Diff AMLAB Lab 02/07/24 06:00 Ordered Comprehensive Metabolic Panel AMLAB Lab 02/07/24 06:00 Ordered Magnesium AMLAB Lab 02/07/24 06:00 Ordered PT INR [Prothrombin Time INR] Stat Lab 02/06/24 09:38 Completed TSH [Thyroid Stimulating Hormone] Stat Lab 02/06/24 09:38 Completed Troponin I Q3H Lab 02/06/24 16:52 Completed Troponin I Q3H Lab 02/06/24 20:00 Ordered Troponin I Stat Lab 02/06/24 09:38 Completed Medical Decision Narrative: Patient with history and exam per above presenting for evaluation of nausea Diagnoses considered include pneumonia, medication side effect, ANNA, gastritis. Given the absence of abdominal pain, chest pain, there is notable evidence to suggest at this time ACS, PE, dissection, other acute surgical pathology ED workup and treatment included: ED MEDICATIONS Generic Name Dose Route Start Last Admin Trade Name Freq PRN Reason Stop Dose Admin Aspirin 81 mg 02/07/24 09:00 Aspirin Ec 81mg Tablet PO 03/08/24 08:59 DAILY MARGIE Citalopram Hydrobromide 20 mg 02/07/24 09:00 Citalopram 20mg Tablet PO 03/08/24 08:59 DAILY MARGIE Clopidogrel Bisulfate 75 mg 02/07/24 09:00 Clopidogrel 75mg Tab PO 03/08/24 08:59 DAILY MARGIE Ceftriaxone Sodium 1 gm/ 50 mls @ 100 mls/hr 02/07/24 12:30 Sodium Chloride IV 02/17/24 12:29 Q24H MARGIE Azithromycin 500 mg/ Sodium 250 mls @ 250 mls/hr 02/07/24 12:00 Chloride IV 02/17/24 11:59 Q24H MARGIE Levothyroxine Sodium 100 mcg 02/07/24 09:00 Levothyroxine 100mcg (0.1mg) Tab PO 03/08/24 08:59 DAILY MARGIE Metoprolol Tartrate 50 mg 02/06/24 21:00 Metoprolol Tartrate 50mg Tablet PO 03/07/24 20:59 BID MARGIE Ropinirole HCl 1 mg 02/06/24 21:00 Ropinirole 1mg Tablet PO 03/07/24 20:59 HS MARGIE Discontinued Medications Generic Name Dose Route Start Last Admin Trade Name Chuy PRN Reason Stop Dose Admin Albuterol/Ipratropium 3 ml 02/06/24 11:05 02/06/24 11:17 Ipratropium/Albuterol 3 Ml Neb IH 02/06/24 11:06 3 ml ONCE ONE Administration Lactated Ringer's 1,000 mls @ 999 mls/hr 02/06/24 09:43 02/06/24 09:49 Lactated Ringer's 1000 Ml Bag IV 02/06/24 10:43 999 mls/hr .Q1H1M ONE Administration Ceftriaxone Sodium 1 gm/ 50 mls @ 100 mls/hr 02/06/24 12:20 02/06/24 12:48 Sodium Chloride IV 02/06/24 12:49 100 mls/hr ONCE STA Administration Azithromycin 500 mg/ Sodium 250 mls @ 250 mls/hr 02/06/24 12:20 02/06/24 13:26 Chloride IV 02/06/24 12:21 250 mls/hr ONCE STA Administration Iopamidol 100 ml 02/06/24 13:19 02/06/24 13:20 Iopamidol-370 (76%);100ml Bottle IV 02/06/24 13:20 100 ml ONCE ONE Administration Ondansetron HCl 4 mg 02/06/24 09:43 02/06/24 09:50 Ondansetron 4mg/2ml Vial IV 02/06/24 09:44 4 mg ONCE ONE Administration Sodium Chloride 40 ml 02/06/24 13:19 02/06/24 13:20 0.9 % Sodium Chloride 50 Ml Vial IV 02/06/24 13:20 40 ml ONCE ONE Administration Sodium Chloride 10 ml 02/06/24 13:19 02/06/24 13:20 Sodium Chloride 0.9% 10ml Syr (Rad Only) IV 02/06/24 13:20 10 ml ONCE ONE Administration ORDERS Category Date Time Status CT angio abdomen pelvis Stat Cat Scan 02/06/24 12:50 Completed CTA Chest [CT angio chest PE protocol] Stat Cat Scan 02/06/24 12:50 Completed Pulmonology Consult [Consult to Pulmonology] [CONS] Cons 02/06/24 14:50 Active Routine XR chest 2V Stat Exams 02/06/24 09:43 Completed CBC w/Auto Diff [Complete Blood Count Auto Diff] Stat Lab 02/06/24 09:38 Completed CMP [Comprehensive Metabolic Panel] Stat Lab 02/06/24 09:38 Completed Complete Blood Count Auto Diff AMLAB Lab 02/07/24 06:00 Ordered Comprehensive Metabolic Panel AMLAB Lab 02/07/24 06:00 Ordered Magnesium AMLAB Lab 02/07/24 06:00 Ordered PT INR [Prothrombin Time INR] Stat Lab 02/06/24 09:38 Completed TSH [Thyroid Stimulating Hormone] Stat Lab 02/06/24 09:38 Completed Troponin I Q3H Lab 02/06/24 16:52 Completed Troponin I Q3H Lab 02/06/24 20:00 Ordered Troponin I Stat Lab 02/06/24 09:38 Completed Labs were independently interpreted by me, significant for continued elevated liver enzymes, T. bili 2.1, creatinine 1.4, no leukocytosis Imaging was independently visualized and interpreted by me, significant for pneumonia. Please refer to radiology report for full details. Patient continued to require supplemental oxygen on serial evaluations. I suspect the precipitant, based off the information available at this time, to be secondary to pneumonia in the setting of history of COPD. Patient will be admitted to hospital medicine service for further management. Critical Care Critical Care Time Critical Care Time: No
--- NOTE | 2024-02-06 09:41 | PC.NURSE ---
DR KENDRICK AT BEDSIDE
--- NOTE | 2024-02-06 09:43 | XR_ITS ---
FINAL REPORT TECHNIQUE: Chest PA & Lateral CLINICAL HISTORY: Shortness of breath COMPARISON: 04/01/2023 FINDINGS: 2 views of the chest were performed. The heart size is normal. The mediastinum is within normal limits. There are patchy bibasilar airspace infiltrates, right greater than left, probably due to acute pneumonia. These are significantly more evident than on the prior study. There are no pleural effusions. There is no pneumothorax. The bony thorax appears intact. IMPRESSION: Probable acute pneumonia, significantly more evident than prior. Reviewed, Interpreted and Dictated by Diallo Pratt MD Transcribed by Nava Johnson Authenticated and [facility]
[2024-02-06] MEDS: LACTATED RINGERS 1000ML 1,000 ML 999 ML IV (09:49)
[2024-02-06] MEDS: ONDANSETRON 4MG/2ML VIAL 4 MG IV (09:50)
[2024-02-06 09:53] LABS: Basophils # 0.1 K/mm3 (0-0.2); Basophils % 0.6 % (0.1-2.0); Eosinophils # 0.1 K/mm3 (0.0-0.4); Eosinophils % 0.7 % (0.1-12.0); Hematocrit 45.1 % (37.0-47.0); Hemoglobin 14.6 g/dL (12.2-16.2); Lymphocytes # 0.6 K/mm3 (0.7-4.5); Lymphocytes % 6.3 % (10-50); Mean Corpuscular HGB Conc 32.4 g/dL (31.8-35.4); Mean Corpuscular Hemoglobin 29.6 pg (27.0-31.2); Mean Corpuscular Volume 91.4 fl (81-99); Mean Platelet Volume 9.1 fl (7.4-10.4); Monocytes # 0.3 K/mm3 (0.1-1.0); Monocytes % 2.8 % (1.7-9.3); Neutrophils # 8.8 K/mm3 (1.8-7.8); Neutrophils % 89.6 % (37.0-80.0); Platelet Count 208 K/mm3 (142-424); Red Blood Count 4.93 M/mm3 (4.20-5.40); Red Cell Distribution Width 14.5 % (11.5-17.5); White Blood Count 9.8 K/mm3 (4.8-10.8)
[2024-02-06 09:56] LABS: Chloride 104 mmol/L (98-107); Sodium 136 mmol/L (136-145)
[2024-02-06 09:57] LABS: INR 1.08 (0.9-1.1); Potassium 5.2 mmoL/L (3.5-5.1); Prothrombin Time 11.6 seconds (10.1-12.5)
[2024-02-06 09:59] LABS: Alanine Aminotransferase 485 U/L (12-78); Albumin Level 3.9 g/dl (3.5-5.0); Albumin/Globulin Ratio 1.1 (1.1-1.8); Alkaline Phosphatase 127 U/L (38-126); Anion Gap 12.2 mEq/L (5-15); Aspartate Amino Transferase 485 U/L (14-36); Bilirubin,Total 2.1 mg/dl (0.2-1.3); Blood Urea Nitrogen 20 mg/dl (7-17); Carbon Dioxide 25 mmol/L (22.0-30.0); Creatinine Clearance Estimated 41 mL/min (50-200); Estimated Glomerular Filt Rate 36 ml/min (>60); GFR (African American) 44 ML/MIN (>60); Globulin 3.6 g/dL (1.3-3.2); Total Protein,Serum 7.5 g/dl (6.3-8.2)
[2024-02-06 10:00] LABS: Glucose 145 mg/dl (74-100)
[2024-02-06 10:02] LABS: MANUAL DIFFERENTIAL MANUAL DIFFERENTIAL (MANUAL DIFF)
--- NOTE | 2024-02-06 10:15 | PC.NURSE ---
PT RETURNED FROM XR
--- NOTE | 2024-02-06 10:15 | PC.NURSE ---
PT ARRIVED BACK TO ROOM FROM CT
--- NOTE | 2024-02-06 10:25 | ECG_ITS ---
APPROVED REPORT Exam: Resting ECG HR:80 bpm ECG Measurements Heart Rate 80 AXES AL 159 P 43 QRSd 133 QRS 35 QT 383 T -3 QTc 419 Conclusion SINUS RHYTHM RIGHT BUNDLE BRANCH BLOCK No acute ischemic change Electronically signed by : LISBETH MACDONALD, 02/07/2024 19:41:32
[2024-02-06 10:46] LABS: Lymphocytes % 8 % (10-50); Monocytes % 1 % (2-9); Neutrophils % 91 % (42-76); Platelet Estimate Normal; RBC Morphology Normal; Total Cells Counted 100
--- NOTE | 2024-02-06 10:51 | PC.NURSE ---
DR KENDRICK AT BEDSIDE
[2024-02-06] MEDS: IPRATROPIUM/ALBUTEROL 3 ML NEB IH ×2 (11:17→23:48)
--- NOTE | 2024-02-06 11:35 | PC.NURSE ---
PT ASSISTED TO BR
--- NOTE | 2024-02-06 12:11 | PC.NURSE ---
ROUNDED ON PT GAVE HER A WARM BLANKET AND TURNED LIGHT DOWN SO PT COULD REST,CALL LIGHT IN REACH
--- NOTE | 2024-02-06 12:20 | PC.NURSE ---
DR KENDRICK AT BEDSIDE TO UPDATE PT AND FAMILY
--- NOTE | 2024-02-06 12:22 | PC.NURSE ---
DR KENDRICK ATTEMPTED TO REACH DR KENNEY FOR ADMISSION
--- NOTE | 2024-02-06 12:44 | PC.NURSE ---
DR KENDRICK SPEAKING WITH DR KENNEY FOR ADMISSION
[2024-02-06] MEDS: CEFTRIAXONE 1 GM 1 GM in 0.9 % SODIUM CHLORIDE 50 ML IV (12:48)
--- NOTE | 2024-02-06 12:50 | CT_ITS ---
FINAL REPORT TECHNIQUE: The patient was injected with IV contrast. Axial images were obtained through the chest in a PE protocol. 3-D reconstruction images were also performed. Individualized dose reduction techniques using automated exposure control or adjustment of the MA and/or KV according to patient's size were employed. CLINICAL HISTORY: hypoxia, hx pna COMPARISON: None FINDINGS: Mediastinal vasculature is adequately opacified. No pulmonary artery filling defects are identified to suggest PE. There is no aortic dissection. There is no axillary adenopathy. A nonspecific right hilar node is noted, measuring 1.7 cm in diameter. The heart size is normal. There is no pericardial or pleural effusion. There are extensive patchy bilateral upper lobe and lower lobe airspace infiltrates present, consistent with pneumonia. No pleural effusions are seen. The gallbladder has been surgically resected. IMPRESSION: No pulmonary embolus or dissection. Extensive patchy bilateral upper and lower lobe airspace infiltrates, consistent with pneumonia. Nonspecific right hilar node measuring 1.7 cm in size. Reviewed, Interpreted and Dictated by Diallo Pratt MD Transcribed by Zulema Navarrete Authenticated and [facility]
--- NOTE | 2024-02-06 12:50 | CT_ITS ---
FINAL REPORT TECHNIQUE: Pre-and postcontrast images of the abdomen were performed by computed tomography. Extensive 3-D reconstruction images were performed. A CTA was performed. This study was performed with techniques to keep radiation doses as low as reasonably achievable (ALARA). Individualized dose reduction techniques using automated exposure control or adjustment of mA and/or kV according to the patient''s size were employed. CLINICAL HISTORY: n/v COMPARISON: 08/15/2021 FINDINGS: ABDOMEN/PELVIS: There is moderate fatty infiltration of the liver. The gallbladder is surgically absent. The spleen and pancreas are unremarkable. There is a small periampullary duodenal diverticulum measuring 2 cm. The adrenals and kidneys appear unremarkable. CTA: There is a bilobed abdominal aortic aneurysm. Aneurysm measures up to 3.5 cm in diameter and has a small saccular component eccentric to the left. The saccular component appears thrombosed. Finding is well seen on images 63-68. There may be an intimal flap within the lumen of the aneurysm seen on images 64-71. The iliac vessels are adequately patent. There is moderate narrowing at the origin of the celiac axis measuring 60%. There is less than 50% stenosis at the origin of the SMA. There are single right and dual left renal arteries which are widely patent.. The NGA is patent. IMPRESSION: Fusiform and saccular aneurysm of the abdominal aorta with apparent chronic intimal flap. The aneurysm was present previously but has slightly increased in size. The dissection was present previously. The thrombosed saccular component has increased in size. 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 Reviewed, Interpreted and Dictated by Diallo Pratt MD Transcribed by Ella Escobar Authenticated and [facility]
--- NOTE | 2024-02-06 13:15 | PC.NURSE ---
Patient to radiology.
--- NOTE | 2024-02-06 13:16 | PC.NURSE ---
PT TO CT
[2024-02-06] MEDS: IOPAMIDOL-370 (76%);100ML BOTTLE 100 ML IV (13:20)
[2024-02-06] MEDS: SODIUM CHLORIDE 0.9% 10ML SYR (RAD ONLY) 10 ML IV (13:20)
[2024-02-06] MEDS: 0.9 % SODIUM CHLORIDE 50 ML VIAL 40 ML IV (13:20)
[2024-02-06] MEDS: AZITHROMYCIN 500 MG in 0.9 % SODIUM CHLORIDE 250 ML 250 MG IV (13:26)
--- NOTE | 2024-02-06 14:43 | PC.NURSE ---
Dr. Chin talking to Dr. Shaw at this time regarding possible admission.
--- NOTE | 2024-02-06 14:51 | PC.NURSE ---
pt assigned to room 202, admission called
--- NOTE | 2024-02-06 14:58 | EXP.HP ---
History of Present Illness *Admission Date: 02/06/24 *Reason for visit:: Dyspnea, nausea and vomiting *History of present illness: Ms. Decker is a 79-year-old female who was recently admitted earlier this month. She has a history of AAA, CAD with 2 stents placed in December, hypertension, hyperlipidemia, history of CABG, hypothyroid, recurrent UTIs. Patient presented to the ER because of worsening shortness of breath and nausea with dry heaves this morning. On arrival to the ER, patient found to be hypoxic. Chest imaging obtained showing patchy bilateral airspace disease. Liver enzymes elevated with AST and ALT approximately 500. Bilirubin 2.1. Improved from last visit but still elevated. White cell count normal. Necessitating 2 L nasal cannula oxygen to sat above 90%. Medicine was consulted for admission given new oxygen requirement and persistent transaminitis. On evaluation, patient states she wakes up daily with nausea in the morning. Had dry heaves today. Denies any significant abdominal pain. Reports she takes red yeast rice and Macrobid daily. Has been on the Macrobid for several months. Concerned that these can cause elevated liver enzymes. Denies significant abdominal pain, has mild tenderness diffusely in abdomen. Denies any fever, blood in vomit or stool. No syncope. Has not been taking her Zetia since last admission. Denies productive cough. Reports she just has not felt well since last visit. [facility] Disclaimer: The information contained in this section may have been updated after the patient was seen, as this information can be updated by other users. Medical History Stenosis of carotid artery Pneumonia Acute UTI AAA (abdominal aortic aneurysm) Weakness Elevated liver enzymes HLD (hyperlipidemia) HTN (hypertension) CAD (coronary artery disease) Surgical History Hx of cholecystectomy H/O: hysterectomy S/P CABG (coronary artery bypass graft) Family History Other Cancer Heart attack Hypertension Stroke Social History Smoking Status: Former smoker second hand exposure: No alcohol intake: never substance use type: denies use current occupational status: retired Travel in the last 8 weeks: None household members: family housing: house Review of Systems Review of Systems Review of systems (narrative): 14 point review of systems performed, pertinent positives and negatives as per HPI Meds Home Medications and Allergies Home Medications Medication Instructions Recorded Confirmed Type aspirin 81 mg tablet,delayed 81 mg PO DAILY 10/12/18 02/06/24 History release (Adult Low Dose Aspirin) cyanocobalamin (vitamin B-12) 1,000 mcg SQ DIRECTED 01/23/22 02/06/24 History 1,000 mcg/mL injection solution metoprolol tartrate 50 mg tablet 50 mg PO BID 30 days #60 tabs 07/23/23 02/06/24 Rx cholecalciferol (vitamin D3) 1,250 1,250 mcg PO .TWICE WEEKLY 12/03/23 02/06/24 History mcg (50,000 unit) capsule cranberry extract 500 mg capsule 15,000 mg PO DAILY 12/03/23 02/06/24 History levothyroxine 100 mcg tablet 100 mcg PO DAILY 12/03/23 02/06/24 History ropinirole 1 mg tablet 1 mg PO HS 12/03/23 02/06/24 History clopidogrel 75 mg tablet 75 mg PO DAILY 01/19/24 02/06/24 History meloxicam 15 mg tablet 15 mg PO DAILY 01/19/24 02/06/24 History lisinopril 20 mg tablet 20 mg PO DAILY 01/20/24 02/06/24 History citalopram 20 mg tablet 20 mg PO DAILY 02/06/24 02/06/24 History nitrofurantoin macrocrystal 50 mg 50 mg PO DAILY 02/06/24 02/06/24 History capsule New Prescriptions to Start Prescriptions: Allergies Allergy/AdvReac Type Severity Reaction Status Date / Time ciprofloxacin [From Cipro] Allergy Mild Vomiting Verified 01/19/24 12:49 Sulfa (Sulfonamide Allergy Verified 01/19/24 12:49 Antibiotics) trimethoprim [From Bactrim] Allergy Verified 01/19/24 12:49 Exam Data for Last 24 hours Vital signs and Labs for Last 24 Hours: Temp Pulse Resp BP Pulse Ox O2 Del Method O2 Flow Rate 98.2 F 81 22 108/42 L 95 Room Air 2 02/06/24 09:37 02/06/24 14:00 02/06/24 09:37 02/06/24 14:00 02/06/24 14:00 02/06/24 13:30 02/06/24 09:37 Laboratory Results - last 24 hr 02/06/24 09:38: WBC 9.8, RBC 4.93, Hgb 14.6, Hct 45.1, MCV 91.4, MCH 29.6, MCHC 32.4, RDW 14.5, Plt Count 208, MPV 9.1, Neut % (Auto) 89.6 H, Lymph % (Auto) 6.3 L, [place] % (Auto) 2.8, Eos % (Auto) 0.7, Baso % (Auto) 0.6, Neut # (Auto) 8.8 H, Lymph # (Auto) 0.6 L, [place] # (Auto) 0.3, Eos # (Auto) 0.1, Baso # (Auto) 0.1, Total Counted 100, Neutrophils % (Manual) 91 H, Lymphocytes % (Manual) 8 L, Monocytes % (Manual) 1 L, Platelet Estimate Normal, RBC Morphology Normal, PT 11.6, INR 1.08, Sodium 136, Potassium 5.2 H, Chloride 104, Carbon Dioxide 25, Anion Gap 12.2, BUN 20 H, Creatinine 1.40 H, Estimated Creat Clear 41, Estimated GFR 36 L, Est GFR ( Amer) 44 L, Glucose 145 H, Calcium 11.0 H, Total Bilirubin 2.1 H, AST 485 H*, ALT 485 H*, Alkaline Phosphatase 127 H, Total Protein 7.5, Albumin 3.9, Globulin 3.6 H, Albumin/Globulin Ratio 1.1, TSH 2.90 I & O for Last 24 hours: Intake & Output 02/03/24 02/04/24 02/05/24 02/06/24 23:59 23:59 23:59 23:59 Weight 77.564 kg Constitutional Constitutional: no acute distress, average body habitus and cooperative *Routine HEENT Exam Head: Present normocephalic and atraumatic Eye: Present EOMI and PERRL ENT: Present mucous membranes moist *Routine Neck Exam Neck: Present supple and full ROM Routine Chest/Breast/Axilla Exam Comments: Well-healed sternotomy scar *Routine Respiratory Exam Respiratory: Present crackles (Bilateral bases posterior lung [place]), normal respiratory effort and symmetric chest movement; Absent rhonchi or wheezes *Routine Cardiovascular Exam Cardiovascular: Present RRR *Routine Abdominal Exam Abdominal: Present soft, normoactive bowel sounds and tenderness (Diffuse nonfocal, no rebound or guarding); Absent distended *Routine Rectal Exam Rectal:: deferred *Routine Genitalia Exam Genitalia:: deferred *Routine Extremities Exam Extremities: Present full ROM *Routine Skin Exam Skin: Present intact *Routine Neurological Exam Neurological: Present alert, oriented X3 and moving all extremities; Absent altered mental status Assessment and Plan *Assessment and plan (1) Pneumonia: Status: Acute Qualifiers: Laterality: unspecified laterality Lung location: unspecified part of lung Pneumonia type: due to unspecified organism Qualified Code(s): J18.9 - Pneumonia, unspecified organism Category: Medical Code(s): J18.9 - Pneumonia, unspecified organism (2) Transaminitis: Status: Acute Category: Medical Code(s): R74.01 - Elevation of levels of liver transaminase levels (3) AAA (abdominal aortic aneurysm): Status: Acute Qualifiers: Presence of rupture: without rupture Qualified Code(s): I71.4 - Abdominal aortic aneurysm, without rupture Category: Medical Code(s): I71.4 - Abdominal aortic aneurysm, without rupture (4) CAD (coronary artery disease): Status: Acute Qualifiers: Associated angina: without angina Coronary Disease-Associated Artery/Lesion type: [place] artery [place] vs. transplanted heart: [place] heart Qualified Code(s): I25.10 - Atherosclerotic heart disease of [place] coronary artery without angina pectoris Category: Medical Code(s): I25.10 - Atherosclerotic heart disease of [place] coronary artery without angina pectoris (5) HTN (hypertension): Status: Acute Qualifiers: Hypertension type: primary hypertension Qualified Code(s): I10 - Essential (primary) hypertension Category: Medical Code(s): I10 - Essential (primary) hypertension (6) HLD (hyperlipidemia): Status: Acute Qualifiers: Hyperlipidemia type: mixed hyperlipidemia Qualified Code(s): E78.2 - Mixed hyperlipidemia Category: Medical Code(s): E78.5 - Hyperlipidemia, unspecified (7) Hypothyroid: Status: Acute Category: Medical Code(s): E03.9 - Hypothyroidism, unspecified (8) CKD (chronic kidney disease) stage 3, GFR 30-59 ml/min: Status: Acute Category: Medical Code(s): N18.30 - Chronic kidney disease, stage 3 unspecified Plan 79 year old female presented to the [facility] ED for c/o nausea and shortness of breath. Workup in the ER concerning for multifocal pneumonia along with elevated liver enzymes. Discussed case with ER, request admission for antibiotics and further management. Medicine agreed to admit. Review of patient's medications from home shows that she takes red yeast rice and Macrobid daily which can both cause elevation in liver enzymes. Will stop these medications at this time. Pulmonology consulted to assist with care given recurrence of pneumonia and persistence over the past month. Necessitating inpatient management. Problems addressed as follows: Pneumonia -CT personally reviewed with multifocal patchy airspace disease. Continue ceftriaxone 1 g daily and azithromycin 500 mg daily -Supplemental oxygen as needed, currently on 2 L for sats greater 90% -Pulmonology consulted for second opinion and to assist given persistence of pneumonia over the past month. -Sputum culture pending, nonproductive cough at this time. -Former smoker, will initiate DuoNebs every 6 hours scheduled - White cell count normal at 9.8 but has neutrophil predominance 89%. Kidney function at baseline with creatinine 1.4, BUN 20. -Repeat CBC, CMP, magnesium ordered for the morning. Hepatitis -Differential diagnosis includes medication induced, viral - Liver enzymes elevated with bilirubin 2.1, AST and ALT approximately 500, alkaline phosphatase 127. Predominantly hepatocellular pattern - Hepatitis panel pending -Review of meds elicits 2 possible culprits as listed above. Will hold medications at this time. Has not been on Zetia since last visit. -Workup 3 weeks ago with unremarkable ultrasound. Fatty liver on CT. No biliary dilatation or overt obstruction. Gallbladder absent. -Avoiding Tylenol at this time. Tylenol level pending. States she takes this medication rarely. AAA CAD HTN HLD HYPOTHRYROID -CT of reviewed and reveals stable AAA with thrombus. Evaluated at last visit. No intervention at this time. Needs further monitoring as an outpatient. -Continue aspirin 81 mg, levothyroxine 100 mcg, metoprolol 50 mg, Plavix 75 mg, and requip 1mg PRN. -TSH 2.9 earlier this month. DNR CARDIAC DIET DVT: HEPARIN SQ
[2024-02-06 15:03] LABS: Troponin I 0.03 ng/ml (0.00-0.034)
--- NOTE | 2024-02-06 15:23 | HMH.PHAINT1 ---
Pharmacy Intervention Comments: HOME MEDICATION LIST VERIFIED VIA OUTSIDE PHARMACY AND MOST RECENT DISCHARGE SUMMARY.
[2024-02-06 16:16] LABS: Acetaminophen < 10 ug/ml (10-30)
[2024-02-06 17:36] LABS: Troponin I 0.03 ng/ml (0.00-0.034)
[2024-02-06 20:31] LABS: Troponin I 0.02 ng/ml (0.00-0.034)
[2024-02-07] VITALS: BP 133/56; PULSE 66; RESP 18; TEMP 36.9; O2SAT 94
[2024-02-07 04:00] VITALS: BP 145/56; PULSE 63; RESP 18; TEMP 36.9; O2SAT 93; BMI 29.9
[2024-02-07] MEDS: IPRATROPIUM/ALBUTEROL 3 ML NEB IH (06:02)
[2024-02-07 06:03] VITALS: PULSE 66; PULSE 71; O2SAT 97
[2024-02-07 07:37] LABS: Eosinophils # 0.1 K/mm3 (0.0-0.4); Lymphocytes # 1.2 K/mm3 (0.7-4.5); Mean Platelet Volume 8.9 fl (7.4-10.4); Monocytes # 0.3 K/mm3 (0.1-1.0); Red Cell Distribution Width 14.5 % (11.5-17.5)
[2024-02-07 07:50] LABS: Basophils % 0.6 % (0.1-2.0); Eosinophils % 1.8 % (0.1-12.0); Hematocrit 36.8 % (37.0-47.0); Lymphocytes % 27.2 % (10-50); Mean Corpuscular HGB Conc 31.7 g/dL (31.8-35.4); Mean Corpuscular Hemoglobin 29.3 pg (27.0-31.2); Mean Corpuscular Volume 92.5 fl (81-99); Monocytes % 7.2 % (1.7-9.3); Neutrophils # 2.7 K/mm3 (1.8-7.8); Neutrophils % 63.2 % (37.0-80.0); Platelet Count 165 K/mm3 (142-424); Red Blood Count 3.98 M/mm3 (4.20-5.40); White Blood Count 4.2 K/mm3 (4.8-10.8)
[2024-02-07 07:59] LABS: Hemoglobin 11.7 g/dL (12.2-16.2)
[2024-02-07 08:00] VITALS: BP 129/52; PULSE 84; RESP 20; TEMP 37.1; O2SAT 80; O2SAT 90
[2024-02-07 08:05] LABS: Alanine Aminotransferase 364 U/L (12-78); Albumin Level 3.1 g/dl (3.5-5.0); Alkaline Phosphatase 88 U/L (38-126); Anion Gap 7.2 mEq/L (5-15); Aspartate Amino Transferase 370 U/L (14-36); Bilirubin,Total 1.1 mg/dl (0.2-1.3); Blood Urea Nitrogen 19 mg/dl (7-17); Calcium 10.2 mg/dl (8.4-10.2); Carbon Dioxide 29 mmol/L (22.0-30.0); Chloride 106 mmol/L (98-107); Creatinine Clearance Estimated 45 mL/min (50-200); Estimated Glomerular Filt Rate 40 ml/min (>60); GFR (African American) 48 ML/MIN (>60); Globulin 3.1 g/dL (1.3-3.2); Glucose 105 mg/dl (74-100); Magnesium 1.7 mg/dl (1.6-2.3); Potassium 4.2 mmoL/L (3.5-5.1); Sodium 138 mmol/L (136-145); Total Protein,Serum 6.2 g/dl (6.3-8.2)
[2024-02-07] MEDS: ENOXAPARIN 40MG/0.4ML SYRINGE 40 MG SQ (08:35)
[2024-02-07] MEDS: CLOPIDOGREL 75 MG PO (09:09)
[2024-02-07] MEDS: LEVOTHYROXINE 100 MCG PO (09:09)
[2024-02-07] MEDS: ASPIRIN 81 MG PO (09:09)
[2024-02-07] MEDS: CITALOPRAM 20 MG PO (09:09)
[2024-02-07] MEDS: METOPROLOL TARTRATE 50MG TABLET 50 MG PO ×2 (09:10→20:24)
--- NOTE | 2024-02-07 09:32 | P.CONS_ITS ---
History of Present Illness History of present illness: Ms. Decker is a 79-year-old female with reported history of CAD, hypertension, dyslipidemia hypothyroidism recently seen in the remote respiratory distress transaminitis, improving clinically and respiratory status discharged home on cefdinir presented hospital again today with concern for worsening nausea vomiting. She also found to have worsening airspace disease on CT and pulmonary was consulted for further evaluation and management [facility] Disclaimer: The information contained in this section may have been updated after the patient was seen, as this information can be updated by other users. Medical History (Updated 02/07/24 @ 11:20 by Suri Mccuryd MD) Acute respiratory failure with hypoxia Stenosis of carotid artery Pneumonia Acute UTI AAA (abdominal aortic aneurysm) Weakness Elevated liver enzymes HLD (hyperlipidemia) HTN (hypertension) CAD (coronary artery disease) Surgical History Hx of cholecystectomy H/O: hysterectomy S/P CABG (coronary artery bypass graft) Family History Other Cancer Heart attack Hypertension Stroke Social History Smoking Status: Former smoker second hand exposure: No alcohol intake: never substance use type: denies use current occupational status: retired Travel in the last 8 weeks: None household members: family housing: house Review of Systems Constitutional Constitutional: Reports anorexia, Reports body ache(s) and Reports fatigue Eyes Eyes: Denies eye discharge, Denies dry eyes, Denies irritation and Denies itchy eyes ENT Ears, Nose, Mouth, and Throat: Denies epistaxis, Denies facial pain, Denies lip swelling and Denies throat swelling *Cardiovascular Cardiovascular: Reports dyspnea and Reports dyspnea on exertion *Respiratory Respiratory: Reports chest congestion, Reports cough, Reports dyspnea, Reports dyspnea on exertion, Denies excessive phlegm production, Denies hemoptysis, Denies pain on inspiration, Denies pain with cough and Denies wheezing *Gastrointestinal Gastrointestinal: Denies abdominal pain, Denies belching, Denies cramping, Reports nausea and Reports vomiting *Musculoskeletal Musculoskeletal: Reports back pain, Reports myalgias and Reports other (No small joint swelling or Pain) Psychiatric Psychiatric: Denies homicidal ideation and Denies suicidal ideation Endocrine Endocrine: Reports fatigue and Denies heat intolerance Hematologic/Lymphatic Hematologic/Lymphatic: Denies easy bleeding and Denies lymphadenopathy Allergic/Immunologic Allergic/Immunologic: Denies itchy eyes, Denies lip swelling, Denies throat swelling and Denies wheezing Pulmonology Exam Inpatient Vital signs and Labs for Last 24 Hours: Temp Pulse Resp BP Pulse Ox O2 Del Method O2 Flow Rate 98.7 F 84 20 129/52 L 80 L Nasal Cannula 2 02/07/24 08:00 02/07/24 08:00 02/07/24 08:00 02/07/24 08:00 02/07/24 08:00 02/07/24 08:59 02/07/24 08:59 Laboratory Results - last 24 hr 02/06/24 09:38: WBC 9.8, RBC 4.93, Hgb 14.6, Hct 45.1, MCV 91.4, MCH 29.6, MCHC 32.4, RDW 14.5, Plt Count 208, MPV 9.1, Neut % (Auto) 89.6 H, Lymph % (Auto) 6.3 L, [place] % (Auto) 2.8, Eos % (Auto) 0.7, Baso % (Auto) 0.6, Neut # (Auto) 8.8 H, Lymph # (Auto) 0.6 L, [place] # (Auto) 0.3, Eos # (Auto) 0.1, Baso # (Auto) 0.1, Total Counted 100, Neutrophils % (Manual) 91 H, Lymphocytes % (Manual) 8 L, M onocytes % (Manual) 1 L, Platelet Estimate Normal, RBC Morphology Normal, PT 11.6, INR 1.08, Sodium 136, Potassium 5.2 H, Chloride 104, Carbon Dioxide 25, Anion Gap 12.2, BUN 20 H, Creatinine 1.40 H, Estimated Creat Clear 41, Estimated GFR 36 L, Est GFR ( Amer) 44 L, Glucose 145 H, Calcium 11.0 H, Total Bilirubin 2.1 H, AST 485 H*, ALT 485 H*, Alkaline Phosphatase 127 H, Troponin I 0.03, Total Protein 7.5, Albumin 3.9, Globulin 3.6 H, Albumin/Globulin Ratio 1.1, TSH 2.90, Acetaminophen < 10 L 02/06/24 16:52: Troponin I 0.03 02/06/24 20:02: Troponin I 0.02 02/07/24 06:34: WBC 4.2 L D, RBC 3.98 L, Hgb 11.7 L D, Hct 36.8 L, MCV 92.5, MCH 29.3, MCHC 31.7 L, RDW 14.5, Plt Count 165, MPV 8.9, Neut % (Auto) 63.2, Lymph % (Auto) 27.2, [place] % (Auto) 7.2, Eos % (Auto) 1.8, Baso % (Auto) 0.6, Neut # (Auto) 2.7, Lymph # (Auto) 1.2, [place] # (Auto) 0.3, Eos # (Auto) 0.1, Baso # (Auto) 0.0, Sodium 138, Potassium 4.2, Chloride 106, Carbon Dioxide 29, Anion Gap 7.2, BUN 19 H, Creatinine 1.30 H, Estimated Creat Clear 45, Estimated GFR 40 L, Est GFR ( Amer) 48 L, Glucose 105 H D, Calcium 10.2, Magnesium 1.7, Total Bilirubin 1.1, AST 370 H*, ALT 364 H*, Alkaline Phosphatase 88, Total Protein 6.2 L, Albumin 3.1 L D, Globulin 3.1, Albumin/Globulin Ratio 1.0 L I & O for Labs for Last 24 Hours: Intake & Output 02/04/24 02/05/24 02/06/24 02/07/24 23:59 23:59 23:59 23:59 Intake Total 360 / 360 480 / 480 Output Total 1 / 1 0 / 0 Balance 359 / 359 480 / 480 Weight 173 lb 4 oz 175 lb 5 oz Constitutional: Present moderate distress Head: Present normocephalic and atraumatic ENT: Present normal exam, normal oropharynx and mucous membranes moist Neck: Present normal inspection and full ROM Respiratory: Present respiratory distress, rhonchi and able to speak in complete sentences; Absent wheezes or crackles Cardiac: Present S1/S2, Tachycardia and radial pulses present GI: Present soft and distention; Absent tenderness or guarding Rectal (female): Present deferred (female): Present deferred Skin: Present intact; Absent cyanosis or jaundice Neuro: Present alert, awake and oriented x 3 Extremities: Present normal inspection; Absent clubbing or cyanosis Psychiatric: Present normal affect and cooperative Meds Home Medications and Allergies Home Medications Medication Instructions Recorded Confirmed Type aspirin 81 mg tablet,delayed 81 mg PO DAILY 10/12/18 02/06/24 History release (Adult Low Dose Aspirin) cyanocobalamin (vitamin B-12) 1,000 mcg SQ DIRECTED 01/23/22 02/06/24 History 1,000 mcg/mL injection solution metoprolol tartrate 50 mg tablet 50 mg PO BID 30 days #60 tabs 07/23/23 02/06/24 Rx cholecalciferol (vitamin D3) 1,250 1,250 mcg PO .TWICE WEEKLY 12/03/23 02/06/24 History mcg (50,000 unit) capsule cranberry extract 500 mg capsule 15,000 mg PO DAILY 12/03/23 02/06/24 History levothyroxine 100 mcg tablet 100 mcg PO DAILY 12/03/23 02/06/24 History ropinirole 1 mg tablet 1 mg PO HS 12/03/23 02/06/24 History clopidogrel 75 mg tablet 75 mg PO DAILY 01/19/24 02/06/24 History meloxicam 15 mg tablet 15 mg PO DAILY 01/19/24 02/06/24 History lisinopril 20 mg tablet 20 mg PO DAILY 01/20/24 02/06/24 History citalopram 20 mg tablet 20 mg PO DAILY 02/06/24 02/06/24 History nitrofurantoin macrocrystal 50 mg 50 mg PO DAILY 02/06/24 02/06/24 History capsule New Prescriptions to Start Prescriptions: Allergies Allergy/AdvReac Type Severity Reaction Status Date / Time ciprofloxacin [From Cipro] Allergy Mild Vomiting Verified 01/19/24 12:49 Sulfa (Sulfonamide Allergy Verified 01/19/24 12:49 Antibiotics) trimethoprim [From Bactrim] Allergy Verified 01/19/24 12:49 Results Laboratory Findings 02/07/24 06:34 02/07/24 06:34 PT/INR, D-dimer PT 11.6 seconds (10.1-12.5) 02/06/24 09:38 INR 1.08 (0.9-1.1) 02/06/24 09:38 Abnormal lab findings: Abnormal Labs 02/06/24 02/07/24 09:38 06:34 WBC 4.2 L D RBC 3.98 L Hgb 11.7 L D Hct 36.8 L MCHC 31.7 L Neut % (Auto) 89.6 H Lymph % (Auto) 6.3 L Neut # (Auto) 8.8 H Lymph # (Auto) 0.6 L Neutrophils % (Manual) 91 H Lymphocytes % (Manual) 8 L Monocytes % (Manual) 1 L Potassium 5.2 H BUN 20 H 19 H Creatinine 1.40 H 1.30 H Estimated GFR 36 L 40 L Est GFR ( Amer) 44 L 48 L Glucose 145 H 105 H D Calcium 11.0 H Total Bilirubin 2.1 H AST 485 H* 370 H* ALT 485 H* 364 H* Alkaline Phosphatase 127 H Total Protein 6.2 L Albumin 3.1 L D Globulin 3.6 H Albumin/Globulin Ratio 1.0 L Acetaminophen < 10 L Assessment and Plan *Assessment and plan (1) Pneumonia: Status: Acute Category: Medical Code(s): J18.9 - Pneumonia, unspecified organism (2) Acute respiratory failure with hypoxia: Status: Acute Category: Medical Code(s): J96.01 - Acute respiratory failure with hypoxia Plan Ms. Decker is a 79-year-old female with reported history of CAD, hypertension, dyslipidemia hypothyroidism recently seen in the remote respiratory distress transaminitis, improving clinically and respiratory status discharged home on cefdinir presented hospital again today with concern for worsening nausea vomiting. She also found to have worsening airspace disease on CT and pulmonary was consulted for further evaluation and management Patient is a prior smoker greater than 30 PPD, last moved around 1999 and however is not requiring any baseline inhalers dropped appointment up until her recent hospital admission which was discharged home on oxygen supplementation. CTA upon admission no evidence of pulmonary embolism. Continue to show bilateral patchy airspace disease worsening especially in the lower lobes from her recent CT abdomen. CT abdomen from 2020 lower lung [place] within normal limits. ILD ROS negative. Afebrile. Hemodynamically stable. Evidence of significant neutrophilic leukocytosis. Continue show transaminitis likely medication induced. Alk phos and T. bili within normal limits ultrasound from her most recent admission within normal limits. CT abdomen reported normal liver. Echocardiogram from 2022. Normal EF with indeterminate diastolic function. No acute respiratory distress on examination. Saturating 88% 1 L, escalated to 2 L. Bilateral rhonchi. No significant wheezing noted. Plan: Change antibiotic levofloxacin to complete a total of 7-day course Follow-up with respiratory viral PCR panel, nasal MRSA PCR, urine strep Legionella antigens. Trelegy 100 inhaler along with DuoNebs every 6 hours on as-needed basis Follow-up with sputum culture results Continue oxygen supplementation to maintain O2 saturation goal 90 to 95%. Currently on 2 L.
[2024-02-07 10:32] LABS: Adenovirus,PCR Not Detected (NotDetected); Coronavirus 19, PCR Not Detected (NotDetected); Coronavirus 229E Not Detected (NotDetected); Coronavirus NL63 Not Detected (NotDetected); Coronavirus OC43 Not Detected (NotDetected); Coronovirus HKU1,PCR Not Detected (NotDetected); Human Metapneumovirus Not Detected (NotDetected); Influenza A, PCR Not Detected (NotDetected); Influenza AH1, 2009 Not Detected (NotDetected); Influenza AH1, PCR Not Detected (NotDetected); Influenza AH3,PCR Not Detected (NotDetected); Influenza B, PCR Not Detected (NotDetected); Parainfluenza 1, PCR Not Detected (NotDetected); Parainfluenza 2, PCR Not Detected (NotDetected); Parainfluenza 3, PCR Not Detected (NotDetected); Parainfluenza 4, PCR Not Detected (NotDetected); Respiratory Syncytial Virus Not Detected (NotDetected); Rhinovirus/Enterovirus Not Detected (NotDetected)
[2024-02-07] MEDS: LEVOFLOXACIN/D5W 750 MG/150 ML 750 MG/150 ML PIGGYBACK 100 MG IV (11:39)
--- NOTE | 2024-02-07 14:25 | EXP.ACUTE.PN ---
Subjective *Date: 02/07/24 *Time: 14:25 Interval history: Feeling some better to day but still requiring oxygen. Room air saturation of 80% this morning. Liver enzymes showing some improvement. In bedside chair on exam. Denies chest pain, mild abdominal discomfort. No fever. No worsening shortness of breath. Medical Exam Vital signs and Labs for Last 24 Hours: Vital Signs Temp Pulse Pulse Resp BP BP Pulse Ox 02/07/24 14:11 02/07/24 12:12 02/07/24 10:13 02/07/24 08:59 02/07/24 08:00 02/07/24 08:00 80 L 02/07/24 08:00 98.7 F 84 20 129/52 L 90 L 02/07/24 07:00 02/07/24 06:03 66 02/07/24 06:03 71 02/07/24 06:03 97 02/07/24 05:00 02/07/24 04:00 98.4 F 63 18 145/56 H 93 L 02/07/24 03:00 02/07/24 01:00 02/07/24 00:00 98.5 F 66 18 133/56 L 94 L 02/07/24 00:00 98.5 F 66 18 133/56 L 94 L 02/06/24 23:48 66 02/06/24 23:48 90 L 02/06/24 23:00 02/06/24 22:54 02/06/24 21:00 02/06/24 20:00 98.3 F 74 18 112/61 92 L 02/06/24 18:57 02/06/24 17:00 02/06/24 17:00 98.5 F 80 18 151/65 H 94 L 02/06/24 15:58 02/06/24 15:05 97.9 F 75 18 116/46 L O2 Del Method O2 Flow Rate 02/07/24 14:11 Nasal Cannula 2 02/07/24 12:12 Nasal Cannula 2 02/07/24 10:13 Nasal Cannula 2 02/07/24 08:59 Nasal Cannula 2 02/07/24 08:00 Nasal Cannula 2 02/07/24 08:00 Room Air 02/07/24 08:00 Nasal Cannula 2 02/07/24 07:00 Nasal Cannula 2 02/07/24 06:03 02/07/24 06:03 02/07/24 06:03 Nasal Cannula 4 02/07/24 05:00 Nasal Cannula 3 02/07/24 04:00 Nasal Cannula 2 02/07/24 03:00 Nasal Cannula 3 02/07/24 01:00 Nasal Cannula 3 02/07/24 00:00 Nasal Cannula 2 02/07/24 00:00 2 02/06/24 23:48 02/06/24 23:48 Nasal Cannula 3 02/06/24 23:00 Nasal Cannula 3 02/06/24 22:54 Nasal Cannula 2 02/06/24 21:00 Nasal Cannula 2 02/06/24 20:00 Room Air 2 02/06/24 18:57 Nasal Cannula 2 02/06/24 17:00 Nasal Cannula 2 02/06/24 17:00 Nasal Cannula 02/06/24 15:58 Nasal Cannula 2 02/06/24 15:05 Nasal Cannula 2 Intake and Output 02/06/24 02/07/24 02/07/24 23:59 07:59 15:59 Intake Total 360 / 360 970 / 970 Output Total 1 / 1 0 / 0 0 / 0 Balance 359 / 359 0 / 970 970 / 970 Intake: Intake, Oral Amount 360 / 360 820 / 820 Intake, Total IV Amount 150 / 150 Levofloxacin/D5w 750 mg/150 ml 150 / 150 750 mg In 150 ml @ 100 mls/hr IV Q48H [facility] Rx#:[id number] Output: Output, Urine Amount 1 / 1 0 / 0 0 / 0 Other: Number of Voids 0 Number of Unmeasured Voids 1 3 Weight 78.585 kg 79.52 kg Patient Weight 02/07/24 23:59 Weight 79.52 kg Laboratory Results - last 24 hr 02/06/24 09:38: Troponin I 0.03, Acetaminophen < 10 L 02/06/24 16:52: Troponin I 0.03 02/06/24 20:02: Troponin I 0.02 02/07/24 06:34: WBC 4.2 L D, RBC 3.98 L, Hgb 11.7 L D, Hct 36.8 L, MCV 92.5, MCH 29.3, MCHC 31.7 L, RDW 14.5, Plt Count 165, MPV 8.9, Neut % (Auto) 63.2, Lymph % (Auto) 27.2, [place] % (Auto) 7.2, Eos % (Auto) 1.8, Baso % (Auto) 0.6, Neut # (Auto) 2.7, Lymph # (Auto) 1.2, [place] # (Auto) 0.3, Eos # (Auto) 0.1, Baso # (Auto) 0.0, Sodium 138, Potassium 4.2, Chloride 106, Carbon Dioxide 29, Anion Gap 7.2, BUN 19 H, Creatinine 1.30 H, Estimated Creat Clear 45, Estimated GFR 40 L, Est GFR ( Amer) 48 L, Glucose 105 H D, Calcium 10.2, Magnesium 1.7, Total Bilirubin 1.1, AST 370 H*, ALT 364 H*, Alkaline Phosphatase 88, Total Protein 6.2 L, Albumin 3.1 L D, Globulin 3.1, Albumin/Globulin Ratio 1.0 L 02/07/24 10:30: Chlamy pneumoniae PCR TNP, Adenovirus (PCR) Not detected, B. pertussis DNA (PCR) TNP, Coronavirus OC43 (PCR) Not detected, Coronavirus HKU1 (PCR) Not detected, Coronavirus 229E (PCR) Not detected, SARS-CoV-2 (PCR) Not detected, Coronavirus NL63 (PCR) Not detected, Human Metapneumovir PCR Not detected, Influenza A (H1) PCR Not detected, Influ A (H1N1/09) PCR Not detected, Influenza A (H3) PCR Not detected, Influenza Type A (PCR) Not detected, Influenza Type B (PCR) Not detected, M. pneumoniae (PCR) TNP, Parainfluenza 1 (PCR) Not detected, Parainfluenza 2 (PCR) Not detected, Parainfluenza 3 (PCR) Not detected, Parainfluenza 4 (PCR) Not detected, RSV (PCR) Not detected, Entero/Rhino (PCR) Not detected I & O for Labs for Last 24 Hours: Intake & Output 02/04/24 02/05/24 02/06/24 02/07/24 23:59 23:59 23:59 23:59 Intake Total 360 / 360 970 / 970 Output Total 1 / 1 0 / 0 Balance 359 / 359 970 / 970 Weight 78.585 kg 79.52 kg Constitutional: Present no acute distress, average body habitus and cooperative Head: Present atraumatic and normocephalic ENT: Present normal exam Neck: Present normal inspection Respiratory: Present crackles (Bilateral bases) and normal respiratory effort; Absent rhonchi or wheezes Cardiac: Present Reg Rate and Rhythm GI: Present soft, tenderness (Mild diffuse) and normal bowel sounds; Absent distention Extremities: Present normal inspection and full ROM Skin: Present intact; Absent erythema Neuro: Present Grossly Intact, alert, awake, oriented x 3 and moves all extremities Assessment and Plan *Assessment and plan (1) Pneumonia: Status: Acute Qualifiers: Laterality: unspecified laterality Lung location: unspecified part of lung Pneumonia type: due to unspecified organism Qualified Code(s): J18.9 - Pneumonia, unspecified organism Category: Medical Code(s): J18.9 - Pneumonia, unspecified organism (2) Transaminitis: Status: Acute Category: Medical Code(s): R74.01 - Elevation of levels of liver transaminase levels (3) AAA (abdominal aortic aneurysm): Status: Acute Qualifiers: Presence of rupture: without rupture Qualified Code(s): I71.4 - Abdominal aortic aneurysm, without rupture Category: Medical Code(s): I71.4 - Abdominal aortic aneurysm, without rupture (4) CAD (coronary artery disease): Status: Acute Qualifiers: Coronary Disease-Associated Artery/Lesion type: [place] artery [place] vs. transplanted heart: [place] heart Associated angina: without angina Qualified Code(s): I25.10 - Atherosclerotic heart disease of [place] coronary artery without angina pectoris Category: Medical Code(s): I25.10 - Atherosclerotic heart disease of [place] coronary artery without angina pectoris (5) HTN (hypertension): Status: Acute Qualifiers: Hypertension type: primary hypertension Qualified Code(s): I10 - Essential (primary) hypertension Category: Medical Code(s): I10 - Essential (primary) hypertension (6) HLD (hyperlipidemia): Status: Acute Qualifiers: Hyperlipidemia type: mixed hyperlipidemia Qualified Code(s): E78.2 - Mixed hyperlipidemia Category: Medical Code(s): E78.5 - Hyperlipidemia, unspecified (7) Hypothyroid: Status: Acute Category: Medical Code(s): E03.9 - Hypothyroidism, unspecified (8) CKD (chronic kidney disease) stage 3, GFR 30-59 ml/min: Status: Acute Category: Medical Code(s): N18.30 - Chronic kidney disease, stage 3 unspecified Plan 79 year old female presented to the [facility] ED for c/o nausea and shortness of breath. Workup in the ER concerning for multifocal pneumonia along with elevated liver enzymes. Discussed case with ER, request admission for antibiotics and further management. Medicine agreed to admit. Review of patient's medications from home shows that she takes red yeast rice and Macrobid daily which can both cause elevation in liver enzymes. Will stop these medications at this time. Pulmonology consulted to assist with care given recurrence of pneumonia and persistence over the past month. Necessitating inpatient management. Showing improvement with antibiotics. Anticipate discharge in the next 24 to 48 hours. Problems addressed as follows: Pneumonia -Discussed case with pulmonology, recommend transition antibiotics to levofloxacin for total of 7 days. nasal MRSA PCR and urine strep, Legionella antigens. Continue Trelegy 100 inhaler along with DuoNebs every 6 hours as needed. Continue supplemental oxygen with goal saturation greater 90%. Currently on 1 L. -White cell count normal at 4.2. Repeat CBC, CMP, magnesium ordered for the morning. -Kidney function normal BUN 19, creatinine 1.3 - Comprehensive respiratory panel negative for analytes Hepatitis -Differential diagnosis includes medication induced, viral -Improvement in liver enzymes with bilirubin 1.1, AST 370, ALT 364, alk phos 88. Monitor for improvement with adjustment to medications. -Holding Macrobid and red yeast rice - Hepatitis panel pending AAA CAD HTN HLD HYPOTHRYROID -CT of reviewed and reveals stable AAA with thrombus. Evaluated at last visit. No intervention at this time. Needs further monitoring as an outpatient. -Continue aspirin 81 mg, levothyroxine 100 mcg, metoprolol 50 mg, Plavix 75 mg, and requip 1mg PRN. -TSH 2.9 earlier this month. DNR CARDIAC DIET DVT: HEPARIN SQ
--- NOTE | 2024-02-07 15:16 | PC.NURSE ---
PT. is aox 4, DNR, independent, 02-1L nc with sats in the 90's, 20g R AC SL, cardiac diet.
[2024-02-07 16:00] VITALS: BP 131/51; PULSE 63; RESP 22; TEMP 36.9; O2SAT 94
[2024-02-07 20:00] VITALS: BP 154/67; PULSE 71; RESP 18; TEMP 36.9; O2SAT 94
[2024-02-07] MEDS: ROPINIROLE 1MG TABLET 1 MG PO (20:24)
[2024-02-08] MEDS: DOCUSATE SODIUM 100 MG CAPSULE PO ×2 (00:13→09:14)
[2024-02-08 04:00] VITALS: BP 134/57; PULSE 70; RESP 18; TEMP 37.4; O2SAT 90; BMI 29.9
[2024-02-08] MEDS: FLUTICASONE/UMECLIDIN/VILANTER 100/62.5/25MCG INHALER 1 PUFF IH (05:50)
[2024-02-08] MEDS: LEVOTHYROXINE 100MCG (0.1MG) TAB 100 MCG PO (06:22)
[2024-02-08 06:34] LABS: Basophils % 0.6 % (0.1-2.0); Eosinophils # 0.1 K/mm3 (0.0-0.4); Eosinophils % 1.1 % (0.1-12.0); Hematocrit 37.4 % (37.0-47.0); Hemoglobin 12.1 g/dL (12.2-16.2); Lymphocytes # 1.2 K/mm3 (0.7-4.5); Lymphocytes % 19.8 % (10-50); Mean Corpuscular HGB Conc 32.4 g/dL (31.8-35.4); Mean Corpuscular Hemoglobin 29.8 pg (27.0-31.2); Mean Platelet Volume 9.4 fl (7.4-10.4); Monocytes # 0.4 K/mm3 (0.1-1.0); Monocytes % 6.8 % (1.7-9.3); Neutrophils # 4.2 K/mm3 (1.8-7.8); Neutrophils % 71.8 % (37.0-80.0); Platelet Count 176 K/mm3 (142-424); Red Blood Count 4.07 M/mm3 (4.20-5.40); Red Cell Distribution Width 14.6 % (11.5-17.5); White Blood Count 5.9 K/mm3 (4.8-10.8)
[2024-02-08 06:40] LABS: Chloride 103 mmol/L (98-107); Sodium 136 mmol/L (136-145)
[2024-02-08 06:41] LABS: Potassium 4.4 mmoL/L (3.5-5.1)
[2024-02-08 06:43] LABS: Alanine Aminotransferase 376 U/L (12-78); Albumin Level 3.2 g/dl (3.5-5.0); Alkaline Phosphatase 97 U/L (38-126); Anion Gap 6.4 mEq/L (5-15); Aspartate Amino Transferase 355 U/L (14-36); Bilirubin,Total 1.3 mg/dl (0.2-1.3); Blood Urea Nitrogen 20 mg/dl (7-17); Calcium 10.9 mg/dl (8.4-10.2); Carbon Dioxide 31 mmol/L (22.0-30.0); Creatinine Clearance Estimated 42 mL/min (50-200); Estimated Glomerular Filt Rate 36 ml/min (>60); GFR (African American) 44 ML/MIN (>60); Globulin 3.2 g/dL (1.3-3.2); Glucose 107 mg/dl (74-100); Total Protein,Serum 6.4 g/dl (6.3-8.2)
[2024-02-08 06:44] LABS: Magnesium 1.6 mg/dl (1.6-2.3)
[2024-02-08 07:38] VITALS: BP 138/65; PULSE 70; RESP 22; TEMP 36.3; O2SAT 94
--- NOTE | 2024-02-08 07:58 | EXP.DC.SUM ---
General Admission date:: 02/06/24 Discharge date: 02/08/24 HPI HPI HPI: Ms. Decker is a 79-year-old female who was recently admitted earlier this month. She has a history of AAA, CAD with 2 stents placed in December, hypertension, hyperlipidemia, history of CABG, hypothyroid, recurrent UTIs. Patient presented to the ER because of worsening shortness of breath and nausea with dry heaves this morning. On arrival to the ER, patient found to be hypoxic. Chest imaging obtained showing patchy bilateral airspace disease. Liver enzymes elevated with AST and ALT approximately 500. Bilirubin 2.1. Improved from last visit but still elevated. White cell count normal. Necessitating 2 L nasal cannula oxygen to sat above 90%. Medicine was consulted for admission given new oxygen requirement and persistent transaminitis. On evaluation, patient states she wakes up daily with nausea in the morning. Had dry heaves today. Denies any significant abdominal pain. Reports she takes red yeast rice and Macrobid daily. Has been on the Macrobid for several months. Concerned that these can cause elevated liver enzymes. Denies significant abdominal pain, has mild tenderness diffusely in abdomen. Denies any fever, blood in vomit or stool. No syncope. Has not been taking her Zetia since last admission. Denies productive cough. Reports she just has not felt well since last visit. Hospital Course Hospital Course Hospital Course: 79 year old female presented to the [facility] ED for c/o nausea and shortness of breath. Workup in the ER concerning for multifocal pneumonia along with elevated liver enzymes. Discussed case with ER, request admission for antibiotics and further management. Medicine agreed to admit. Review of patient's medications from home shows that she takes red yeast rice and Macrobid daily which can both cause elevation in liver enzymes. Will stop these medications at this time. Pulmonology consulted to assist with care given recurrence of pneumonia and persistence over the past month. Necessitating inpatient management. Showed improvement with biotic treatment. Gradual improvement in liver enzymes. Meeting discharge criteria. Will transition to oral antibiotics to complete regimen. Pulmonology assisted with care during this admission. Problems addressed as follows: Pneumonia -Admitted for new oxygen requirement and pneumonia on chest imaging this been persistent over the past month. Started on broad-spectrum antibiotics IV, was transition to levofloxacin to complete a 7-day course of antibiotics. Respiratory panel negative for analytes, MRSA swab negative. Was initiated on Trelegy inhaler, continue Trelegy 100 daily. Responded well to breathing treatments during admission. Continue to require oxygen however. On day of charge room air saturation at rest was 86%. She is necessitating 2 L nasal cannula continuously per home. Labs on day of discharge with normal white count (was normal on admission as well). Hepatitis -Differential diagnosis includes medication or supplement induced injury, viral hepatitis, obstructive pathology. Pattern consistent with hepatocellular injury given elevated bilirubin, AST, ALT. On presentation, bili was 2.1, AST and ALT were 500. Showed improvement into the mid 300s during admission. Review of patient's home medications, she has been taking bid daily for UTI prophylaxis for 3 also on red yeast rice. These medications were held. Concerned that there culprits in her liver injury. Hepatitis panel obtained and was negative. 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 No significant biliary dilatation intrahepatically however concerned that she may have intermittent external obstruction due to this diverticulum. Would recommend evaluation as an outpatient with possible ERCP or MRCP and referral to GI or surgery to further evaluate. No nancy obstruction however and no appearance of stones. Reviewed imaging from previous admission as well, ultrasound was unremarkable. AAA CAD HTN HLD HYPOTHRYROID -CT of reviewed and reveals stable AAA with thrombus. Evaluated at last visit. No intervention at this time. Needs further monitoring as an outpatient. Continue aspirin 81 mg, levothyroxine 100 mcg, metoprolol 50 mg, Plavix 75 mg, and requip 1mg PRN. TSH 2.9 earlier this month. Patient doing well, responding to therapy. Will follow-up with pulmonology as an outpatient. Total time spent on discharge 35 minutes in counseling, documentation, chart review, and direct care with patient. Exam Data for Last 24 hours Vital signs and Labs for Last 24 Hours: Temp Pulse Resp BP Pulse Ox O2 Del Method O2 Flow Rate 97.4 F L 70 22 138/65 94 L Nasal Cannula 2 02/08/24 07:38 02/08/24 07:38 02/08/24 07:38 02/08/24 07:38 02/08/24 07:38 02/08/24 07:38 02/08/24 07:38 Laboratory Results - last 24 hr 02/07/24 06:34: WBC 4.2 L D, RBC 3.98 L, Hgb 11.7 L D, Hct 36.8 L, MCV 92.5, MCH 29.3, MCHC 31.7 L, RDW 14.5, Plt Count 165, MPV 8.9, Neut % (Auto) 63.2, Lymph % (Auto) 27.2, [place] % (Auto) 7.2, Eos % (Auto) 1.8, Baso % (Auto) 0.6, Neut # (Auto) 2.7, Lymph # (Auto) 1.2, [place] # (Auto) 0.3, Eos # (Auto) 0.1, Baso # (Auto) 0.0, Sodium 138, Potassium 4.2, Chloride 106, Carbon Dioxide 29, Anion Gap 7.2, BUN 19 H, Creatinine 1.30 H, Estimated Creat Clear 45, Estimated GFR 40 L, Est GFR ( Amer) 48 L, Glucose 105 H D, Calcium 10.2, Magnesium 1.7, Total Bilirubin 1.1, AST 370 H*, ALT 364 H*, Alkaline Phosphatase 88, Total Protein 6.2 L, Albumin 3.1 L D, Globulin 3.1, Albumin/Globulin Ratio 1.0 L 02/07/24 10:30: Chlamy pneumoniae PCR TNP, Adenovirus (PCR) Not detected, B. pertussis DNA (PCR) TNP, Coronavirus OC43 (PCR) Not detected, Coronavirus HKU1 (PCR) Not detected, Coronavirus 229E (PCR) Not detected, SARS-CoV-2 (PCR) Not detected, Coronavirus NL63 (PCR) Not detected, Human Metapneumovir PCR Not detected, Influenza A (H1) PCR Not detected, Influ A (H1N1/09) PCR Not detected, Influenza A (H3) PCR Not detected, Influenza Type A (PCR) Not detected, Influenza Type B (PCR) Not detected, M. pneumoniae (PCR) TNP, Parainfluenza 1 (PCR) Not detected, Parainfluenza 2 (PCR) Not detected, Parainfluenza 3 (PCR) Not detected, Parainfluenza 4 (PCR) Not detected, RSV (PCR) Not detected, Entero/Rhino (PCR) Not detected 02/08/24 06:09: WBC 5.9 D, RBC 4.07 L, Hgb 12.1 L, Hct 37.4, MCV 92.0, MCH 29.8, MCHC 32.4, RDW 14.6, Plt Count 176, MPV 9.4, Neut % (Auto) 71.8, Lymph % (Auto) 19.8, [place] % (Auto) 6.8, Eos % (Auto) 1.1, Baso % (Auto) 0.6, Neut # (Auto) 4.2, Lymph # (Auto) 1.2, [place] # (Auto) 0.4, Eos # (Auto) 0.1, Baso # (Auto) 0.0 I & O for Last 24 hours: Intake & Output 02/05/24 02/06/24 02/07/24 02/08/24 23:59 23:59 23:59 23:59 Intake Total 360 / 360 1450 / 1930 1020 / 1020 Output Total Balance 359 / 359 1449 / 1929 1017 / 1017 Weight 78.585 kg 79.52 kg 79.492 kg Constitutional Constitutional: no acute distress, average body habitus and cooperative *Routine HEENT Exam Head: Present normocephalic Eye: Present EOMI and PERRL ENT: Present mucous membranes moist *Routine Neck Exam Neck: Present supple; Absent lymphadenopathy *Routine Respiratory Exam Respiratory: Present rhonchi, crackles and normal respiratory effort; Absent wheezes *Routine Cardiovascular Exam Cardiovascular: Present RRR *Routine Abdominal Exam Abdominal: Present soft and normoactive bowel sounds; Absent tenderness or distended *Routine Extremities Exam Extremities: Absent cyanosis, clubbing or edema *Routine Skin Exam Skin: Present warm; Absent rash *Routine Neurological Exam Neurological: Present alert, oriented X3 and moving all extremities; Absent altered mental status Results Data Completed and Pending Labs on day of discharge: Labs from last 24 hours 02/08/24 02/07/24 02/07/24 06:09 10:30 06:34 WBC 5.9 D 4.2 L D RBC 4.07 L 3.98 L Hgb 12.1 L 11.7 L D Hct 37.4 36.8 L MCV 92.0 92.5 MCH 29.8 29.3 MCHC 32.4 31.7 L RDW 14.6 14.5 Plt Count 176 165 MPV 9.4 8.9 Neut % (Auto) 71.8 63.2 Lymph % (Auto) 19.8 27.2 [place] % (Auto) 6.8 7.2 Eos % (Auto) 1.1 1.8 Baso % (Auto) 0.6 0.6 Neut # (Auto) 4.2 2.7 Lymph # (Auto) 1.2 1.2 [place] # (Auto) 0.4 0.3 Eos # (Auto) 0.1 0.1 Baso # (Auto) 0.0 0.0 Sodium 138 Potassium 4.2 Chloride 106 Carbon Dioxide 29 Anion Gap 7.2 BUN 19 H Creatinine 1.30 H Estimated Creat Clear 45 Estimated GFR 40 L Est GFR ( Amer) 48 L Glucose 105 H D Calcium 10.2 Magnesium 1.7 Total Bilirubin 1.1 AST 370 H* ALT 364 H* Alkaline Phosphatase 88 Total Protein 6.2 L Albumin 3.1 L D Globulin 3.1 Albumin/Globulin Ratio 1.0 L Chlamy pneumoniae PCR TNP Adenovirus (PCR) Not detected B. pertussis DNA (PCR) TNP Coronavirus OC43 (PCR) Not detected Coronavirus HKU1 (PCR) Not detected Coronavirus 229E (PCR) Not detected SARS-CoV-2 (PCR) Not detected Coronavirus NL63 (PCR) Not detected Human Metapneumovir PCR Not detected Influenza A (H1) PCR Not detected Influ A (H1N1/09) PCR Not detected Influenza A (H3) PCR Not detected Influenza Type A (PCR) Not detected Influenza Type B (PCR) Not detected M. pneumoniae (PCR) TNP Parainfluenza 1 (PCR) Not detected Parainfluenza 2 (PCR) Not detected Parainfluenza 3 (PCR) Not detected Parainfluenza 4 (PCR) Not detected RSV (PCR) Not detected Entero/Rhino (PCR) Not detected DS: Diagnosis Discharge Diagnosis (1) Pneumonia: Status: Acute Code(s): J18.9 - Pneumonia, unspecified organism Qualifiers: Laterality: unspecified laterality Lung location: unspecified part of lung Pneumonia type: due to unspecified organism Qualified Code(s): J18.9 - Pneumonia, unspecified organism (2) Transaminitis: Status: Acute Code(s): R74.01 - Elevation of levels of liver transaminase levels (3) AAA (abdominal aortic aneurysm): Status: Acute Code(s): I71.4 - Abdominal aortic aneurysm, without rupture Qualifiers: Presence of rupture: without rupture Qualified Code(s): I71.4 - Abdominal aortic aneurysm, without rupture (4) CAD (coronary artery disease): Status: Acute Code(s): I25.10 - Atherosclerotic heart disease of [place] coronary artery without angina pectoris Qualifiers: Associated angina: without angina Coronary Disease-Associated Artery/Lesion type: [place] artery [place] vs. transplanted heart: [place] heart Qualified Code(s): I25.10 - Atherosclerotic heart disease of [place] coronary artery without angina pectoris (5) HTN (hypertension): Status: Acute Code(s): I10 - Essential (primary) hypertension Qualifiers: Hypertension type: primary hypertension Qualified Code(s): I10 - Essential (primary) hypertension (6) HLD (hyperlipidemia): Status: Acute Code(s): E78.5 - Hyperlipidemia, unspecified Qualifiers: Hyperlipidemia type: mixed hyperlipidemia Qualified Code(s): E78.2 - Mixed hyperlipidemia (7) Hypothyroid: Status: Acute Code(s): E03.9 - Hypothyroidism, unspecified (8) CKD (chronic kidney disease) stage 3, GFR 30-59 ml/min: Status: Acute Code(s): N18.30 - Chronic kidney disease, stage 3 unspecified Meds Home Medications and Allergies Home Medications Medication Instructions Recorded Confirmed Type aspirin 81 mg tablet,delayed 81 mg PO DAILY 10/12/18 02/06/24 History release (Adult Low Dose Aspirin) cyanocobalamin (vitamin B-12) 1,000 mcg SQ DIRECTED 01/23/22 02/06/24 History 1,000 mcg/mL injection solution metoprolol tartrate 50 mg tablet 50 mg PO BID 30 days #60 tabs 07/23/23 02/06/24 Rx cholecalciferol (vitamin D3) 1,250 1,250 mcg PO .TWICE WEEKLY 12/03/23 02/06/24 History mcg (50,000 unit) capsule cranberry extract 500 mg capsule 15,000 mg PO DAILY 12/03/23 02/06/24 History levothyroxine 100 mcg tablet 100 mcg PO DAILY 12/03/23 02/06/24 History ropinirole 1 mg tablet 1 mg PO HS 12/03/23 02/06/24 History clopidogrel 75 mg tablet 75 mg PO DAILY 01/19/24 02/06/24 History meloxicam 15 mg tablet 15 mg PO DAILY 01/19/24 02/06/24 History lisinopril 20 mg tablet 20 mg PO DAILY 01/20/24 02/06/24 History citalopram 20 mg tablet 20 mg PO DAILY 02/06/24 02/06/24 History fluticasone fur. 100 mcg-umeclid 1 inh inhalation DAILY 30 days #1 02/08/24 Rx 62.5 mcg-vilant 25 mcg ea inhalat.powder (Trelegy Ellipta) levofloxacin 750 mg tablet 750 mg PO Q48H 4 days #2 tabs 02/08/24 Rx prednisone 20 mg tablet 40 mg (2 x 20 mg) PO DAILY 7 days 02/08/24 Rx #14 tabs New Prescriptions to Start Prescriptions: [id number] [Trelegy Ellipta] Aniceto Shaw levofloxacin Valeria,Aniceto prednisone Aniceto Shaw Allergies Allergy/AdvReac Type Severity Reaction Status Date / Time ciprofloxacin [From Cipro] Allergy Mild Vomiting Verified 01/19/24 12:49 Sulfa (Sulfonamide Allergy Verified 01/19/24 12:49 Antibiotics) trimethoprim [From Bactrim] Allergy Verified 01/19/24 12:49 Discharge Plan Disposition Patient Disposition: Home, Self-Care Condition: Fair Discharge Order Discharge Orders: Discharge Order (Routine); Ordered 02/08/24 Ordered By: Aniceto Shaw Follow up Plan Follow up with: Ricarda Stephen APRN [Primary Care Provider] - 02/13/24 11:00 am Suri Mccurdy MD [Physician] - 02/14/24 2:00 pm Prescriptions/Medication Reconciliation: New Trelegy Ellipta 100-62.5-25 mcg Blister With Device 1 inh inhalation DAILY 30 Days Qty: 1 0RF levofloxacin 750 mg tablet 750 mg PO Q48H 4 Days Qty: 2 0RF Rx Instructions: first dose due 02/09/24 prednisone 20 mg Tablet 40 mg PO DAILY 7 Days Qty: 14 0RF Continued aspirin [Adult Low Dose Aspirin] 81 mg tablet,delayed release (DR/EC) 81 mg PO DAILY cyanocobalamin (vitamin B-12) 1,000 mcg/mL solution 1,000 mcg SQ DIRECTED Rx Instructions: 1,000 mcg SQ 2x month cranberry extract 500 mg capsule 15,000 mg PO DAILY Rx Instructions: administer with meals levothyroxine 100 mcg tablet 100 mcg PO DAILY ropinirole 1 mg tablet 1 mg PO HS cholecalciferol (vitamin D3) 1,250 mcg (50,000 unit) capsule 1,250 mcg PO .TWICE WEEKLY Rx Instructions: TWICE WEEKLY metoprolol tartrate 50 mg tablet 50 mg PO BID 30 Days Qty: 60 2RF meloxicam 15 mg tablet 15 mg PO DAILY clopidogrel 75 mg tablet 75 mg PO DAILY lisinopril 20 mg Tablet 20 mg PO DAILY citalopram 20 mg tablet 20 mg PO DAILY Discontinued nitrofurantoin macrocrystal 50 mg capsule 50 mg PO DAILY Other Ambulatory Orders: Home Medical Equipment (Routine) Location: None Selected Ordered By: Aniceto Shaw Problem Reconciliation Problems Reviewed?: Yes Patient Discharge Instructions ACTIVITY: Continue current activity DIET: continue same diet Patient Instructions: Preventing Liver Disease, DI for Pneumonia -- Adult Providers Primary Care Provider: Ricarda Stephen Admit Provider: Aniceto Shaw Attending Provider: Aniceto Shaw
[2024-02-08 08:20] LABS: HBsAg Screen Negative (Negative); HCV Ab Non Reactive (Non Reactive); Hep A Ab, IGM Negative (Negative); Hep B Core Ab, IgM Negative (Negative)
--- NOTE | 2024-02-08 08:57 | EXP.PULM.PN ---
Subjective *Date: 02/08/24 *Time: 10:08 Interval history: No acute respiratory events overnight. Stable on 2 L nasal cannula. Pulmonology Exam Inpatient Vital signs and Labs for Last 24 Hours: Temp Pulse Resp BP Pulse Ox O2 Del Method O2 Flow Rate 97.4 F L 70 22 138/65 94 L Nasal Cannula 2 02/08/24 07:38 02/08/24 07:38 02/08/24 07:38 02/08/24 07:38 02/08/24 07:38 02/08/24 07:38 02/08/24 07:38 Laboratory Results - last 24 hr 02/06/24 15:40: Hepatitis A IgM Ab Negative, Hep Bs Antigen Negative, Hep B Core IgM Ab Negative, Hepatitis C Antibody Non reactive 02/07/24 10:30: Chlamy pneumoniae PCR TNP, Adenovirus (PCR) Not detected, B. pertussis DNA (PCR) TNP, Coronavirus OC43 (PCR) Not detected, Coronavirus HKU1 (PCR) Not detected, Coronavirus 229E (PCR) Not detected, SARS-CoV-2 (PCR) Not detected, Coronavirus NL63 (PCR) Not detected, Human Metapneumovir PCR Not detected, Influenza A (H1) PCR Not detected, Influ A (H1N1/09) PCR Not detected, Influenza A (H3) PCR Not detected, Influenza Type A (PCR) Not detected, Influenza Type B (PCR) Not detected, M. pneumoniae (PCR) TNP, Parainfluenza 1 (PCR) Not detected, Parainfluenza 2 (PCR) Not detected, Parainfluenza 3 (PCR) Not detected, Parainfluenza 4 (PCR) Not detected, RSV (PCR) Not detected, Entero/Rhino (PCR) Not detected 02/08/24 06:09: WBC 5.9 D, RBC 4.07 L, Hgb 12.1 L, Hct 37.4, MCV 92.0, MCH 29.8, MCHC 32.4, RDW 14.6, Plt Count 176, MPV 9.4, Neut % (Auto) 71.8, Lymph % (Auto) 19.8, Crosby % (Auto) 6.8, Eos % (Auto) 1.1, Baso % (Auto) 0.6, Neut # (Auto) 4.2, Lymph # (Auto) 1.2, Crosby # (Auto) 0.4, Eos # (Auto) 0.1, Baso # (Auto) 0.0, Sodium 136, Potassium 4.4, Chloride 103, Carbon Dioxide 31 H, Anion Gap 6.4, BUN 20 H, Creatinine 1.40 H, Estimated Creat Clear 42, Estimated GFR 36 L, Est GFR ( Amer) 44 L, Glucose 107 H, Calcium 10.9 H, Magnesium 1.6, Total Bilirubin 1.3, AST 355 H*, ALT 376 H*, Alkaline Phosphatase 97, Total Protein 6.4, Albumin 3.2 L, Globulin 3.2, Albumin/Globulin Ratio 1.0 L Temp Pulse Resp BP Pulse Ox O2 Del Method O2 Flow Rate 98.7 F 84 20 129/52 L 80 L Nasal Cannula 2 02/07/24 08:00 02/07/24 08:00 02/07/24 08:00 02/07/24 08:00 02/07/24 08:00 02/07/24 08:59 02/07/24 08:59 Laboratory Results - last 24 hr 02/06/24 09:38: WBC 9.8, RBC 4.93, Hgb 14.6, Hct 45.1, MCV 91.4, MCH 29.6, MCHC 32.4, RDW 14.5, Plt Count 208, MPV 9.1, Neut % (Auto) 89.6 H, Lymph % (Auto) 6.3 L, Crosby % (Auto) 2.8, Eos % (Auto) 0.7, Baso % (Auto) 0.6, Neut # (Auto) 8.8 H, Lymph # (Auto) 0.6 L, Crosby # (Auto) 0.3, Eos # (Auto) 0.1, Baso # (Auto) 0.1, Total Counted 100, Neutrophils % (Manual) 91 H, Lymphocytes % (Manual) 8 L, Monocytes % (Manual) 1 L, Platelet Estimate Normal, RBC Morphology Normal, PT 11.6, INR 1.08, Sodium 136, Potassium 5.2 H, Chloride 104, Carbon Dioxide 25, Anion Gap 12.2, BUN 20 H, Creatinine 1.40 H, Estimated Creat Clear 41, Estimated GFR 36 L, Est GFR ( Amer) 44 L, Glucose 145 H, Calcium 11.0 H, Total Bilirubin 2.1 H, AST 485 H*, ALT 485 H*, Alkaline Phosphatase 127 H, Troponin I 0.03, Total Protein 7.5, Albumin 3.9, Globulin 3.6 H, Albumin/Globulin Ratio 1.1, TSH 2.90, Acetaminophen < 10 L 02/06/24 16:52: Troponin I 0.03 02/06/24 20:02: Troponin I 0.02 02/07/24 06:34: WBC 4.2 L D, RBC 3.98 L, Hgb 11.7 L D, Hct 36.8 L, MCV 92.5, MCH 29.3, MCHC 31.7 L, RDW 14.5, Plt Count 165, MPV 8.9, Neut % (Auto) 63.2, Lymph % (Auto) 27.2, Crosby % (Auto) 7.2, Eos % (Auto) 1.8, Baso % (Auto) 0.6, Neut # (Auto) 2.7, Lymph # (Auto) 1.2, Crosby # (Auto) 0.3, Eos # (Auto) 0.1, Baso # (Auto) 0.0, Sodium 138, Potassium 4.2, Chloride 106, Carbon Dioxide 29, Anion Gap 7.2, BUN 19 H, Creatinine 1.30 H, Estimated Creat Clear 45, Estimated GFR 40 L, Est GFR ( Amer) 48 L, Glucose 105 H D, Calcium 10.2, Magnesium 1.7, Total Bilirubin 1.1, AST 370 H*, ALT 364 H*, Alkaline Phosphatase 88, Total Protein 6.2 L, Albumin 3.1 L D, Globulin 3.1, Albumin/Globulin Ratio 1.0 L I & O for Labs for Last 24 Hours: Intake & Output 02/05/24 02/06/24 02/07/24 02/08/24 23:59 23:59 23:59 23:59 Intake Total 360 / 360 1450 / 1930 1020 / 1020 Output Total 3 / 3 Balance 359 / 359 1449 / 1929 1017 / 1017 Weight 173 lb 4 oz 175 lb 5 oz 175 lb 4 oz Intake & Output 02/04/24 02/05/24 02/06/24 02/07/24 23:59 23:59 23:59 23:59 Intake Total 360 / 360 480 / 480 Output Total 0 / 0 Balance 359 / 359 480 / 480 Weight 173 lb 4 oz 175 lb 5 oz Constitutional: Present moderate distress Head: Present normocephalic and atraumatic ENT: Present normal exam, normal oropharynx and mucous membranes moist Neck: Present normal inspection and full ROM Respiratory: Present respiratory distress, rhonchi and able to speak in complete sentences; Absent wheezes or crackles Cardiac: Present S1/S2, Tachycardia and radial pulses present GI: Present soft and distention; Absent tenderness or guarding Rectal (female): Present deferred (female): Present deferred Skin: Present intact; Absent cyanosis or jaundice Neuro: Present alert, awake and oriented x 3 Extremities: Present normal inspection; Absent clubbing or cyanosis Psychiatric: Present normal affect and cooperative Assessment and Plan *Assessment and plan (1) Pneumonia: Status: Acute Category: Medical Code(s): J18.9 - Pneumonia, unspecified organism (2) Acute respiratory failure with hypoxia: Status: Acute Category: Medical Code(s): J96.01 - Acute respiratory failure with hypoxia Plan Ms. Decker is a 79-year-old female with reported history of CAD, hypertension, dyslipidemia hypothyroidism recently seen in the hospital for respiratory distress transaminitis, improving clinically and respiratory status discharged home on cefdinir presented hospital again today with concern for worsening nausea vomiting. She also found to have worsening airspace disease on CT and pulmonary was consulted for further evaluation and management Patient is a prior smoker greater than 30 PPD, last moved around 1999 and however is not requiring any baseline inhalers dropped appointment up until her recent hospital admission which was discharged home on oxygen supplementation. CTA upon admission no evidence of pulmonary embolism. Continue to show bilateral patchy airspace disease worsening especially in the lower lobes from her recent CT abdomen. CT abdomen from 2020 lower lung crawford within normal limits. ILD ROS negative. On admission, afebrile. Hemodynamically stable. Continue show transaminitis likely medication induced. Alk phos and T. bili within normal limits ultrasound from her most recent admission within normal limits. CT abdomen reported normal liver. UA 5-10 WBC. Echocardiogram from 2022. Normal EF with indeterminate diastolic function. Interval update: No acute respiratory vents overnight. Improving leukopenia. Respiratory viral PCR panel negative Stable ox requirements. Worsening chest x-ray. Will closely monitor. Plan: Chest x-ray from this morning improved right lower lobe but worsening left lung infiltrates. Antibiotics changed to levofloxacin yesterday. Pending sputum culture results. Stable oxygen requirements. Will closely monitor. Continue levofloxacin to complete a total of 7-day course Follow-up with nasal MRSA PCR, urine strep Legionella antigens. Trelegy 100 inhaler along with DuoNebs every 6 hours on as-needed basis Follow-up with sputum culture results Continue oxygen supplementation to maintain O2 saturation goal 90 to 95%. Currently on 2 L. # Thank you for involving pulmonary in this patient care. Will continue to follow.
--- NOTE | 2024-02-08 08:58 | XR_ITS ---
FINAL REPORT CLINICAL HISTORY: Hypoxia COMPARISON: 02/06/2024 FINDINGS: A single view of the chest was obtained. The heart is normal in size. The patient is status post median sternotomy. There are patchy bilateral airspace infiltrates in the left midlung and both bases consistent with acute pneumonia. There is no pleural effusion. There is no pneumothorax. There is no acute osseous abnormality. IMPRESSION: Findings consistent with left midlung and bibasilar pneumonia. Reviewed, Interpreted and Dictated by Diallo Pratt MD Transcribed by Rakel Moran Authenticated and [facility]
[2024-02-08] MEDS: POLYETHYLENE GLYCOL 3350 17 GM PACKET PO (09:13)
[2024-02-08] MEDS: METOPROLOL TARTRATE 50MG TABLET 50 MG PO (09:14)
[2024-02-08] MEDS: ENOXAPARIN 40MG/0.4ML SYRINGE 40 MG SQ (09:14)
[2024-02-08] MEDS: CLOPIDOGREL 75MG TAB 75 MG PO (09:14)
[2024-02-08] MEDS: CITALOPRAM 20MG TABLET 20 MG PO (09:14)
[2024-02-08] MEDS: ASPIRIN EC 81MG TABLET 81 MG PO (09:14)
--- NOTE | 2024-02-08 10:47 | PC.NURSE ---
85 to 86% on RA at rest.
[2024-02-08] MEDS: predniSONE 20MG TAB 40 MG PO (11:27)
== END 2024-02-08 15:18 | disposition home or self-care (01) | DRG 193 ==
LOC: ER 09:41 → 2ND 14:57
PROVIDERS: Internal Medicine Pulmonary Disease; Admitting Provider Internal Medicine Adolescent Medicine; Emergency Provider Emergency Medicine; PCP Nurse Practitioner Family; Visit Provider Internal Medicine Adolescent Medicine
DX: J18.9 Pneumonia, unspecified organism (principal); J96.01 Acute respiratory failure with hypoxia; R74.01 Elevation of levels of liver transaminase levels; I25.10 Atherosclerotic heart disease of native coronary artery without angina pectoris; E78.2 Mixed hyperlipidemia; E03.9 Hypothyroidism, unspecified; N18.30 Chronic kidney disease, stage 3 unspecified; I12.9 Hypertensive chronic kidney disease with stage 1 through stage 4 chronic kidney disease, or unspecified chronic kidney disease; Z95.1 Presence of aortocoronary bypass graft; Z87.891 Personal history of nicotine dependence; Z95.5 Presence of coronary angioplasty implant and graft; I71.40 Abdominal aortic aneurysm, without rupture, unspecified; K75.9 Inflammatory liver disease, unspecified
CPT/HCPCS: 36415; 71045; 71046; 71275; 74174; 80053; 80074; 80329; 83735; 84443; 84484; 85007; 85025; 85610; 87070; 87081; 87205; 87632; 87635; 93005; 94640; 94761; 99285; J0456; J0696; J1956; J2405; Q9967

== ENCOUNTER 2024-02-14 15:00 | Outpatient (CLI) | payer MEDICARE, SELFPAY ==
--- NOTE | 2024-02-14 15:05 | XR_ITS ---
FINAL REPORT TECHNIQUE: 2 view chest CLINICAL HISTORY: SOB smoker, HTN COMPARISON: None FINDINGS: There are increased markings in the right lung base, would favor pneumonia although this could be chronic change as well. No effusions are seen. There is evidence of prior median sternotomy, presumably from CABG. Otherwise mediastinum is unremarkable. The heart is normal in size. IMPRESSION: No acute congestive heart failure. Increased markings right lung base, favor pneumonia, although this could be chronic change as well. Reviewed, Interpreted and Dictated by Jacqui Ventura MD Transcribed by Zulema Navarrete Authenticated and [facility]
== END 2024-02-14 23:59 | disposition home or self-care (01) ==
LOC: RAD 15:01
PROVIDERS: PCP Nurse Practitioner; Visit Provider Internal Medicine Pulmonary Disease
DX: R06.09 Other forms of dyspnea (principal)
CPT/HCPCS: 71046

== ENCOUNTER 2024-02-26 07:08 | Day surgery (SDC) | payer MEDICARE, SELFPAY ==
[2024-02-21 13:09] VITALS: BMI 29.2
[2024-02-26] MEDS: PHENYLEPHRINE 2.5% OPHTH SOLN 2ML OP ×3 (07:43→07:44)
[2024-02-26] MEDS: TETRACAINE 0.5% OPTH SOL 15ML OP ×3 (07:43→07:44)
[2024-02-26] MEDS: CYCLOPENTOLATE 2% OPHTH SOLN 2ML BOTTLE OP ×3 (07:43→07:44)
[2024-02-26] MEDS: SODIUM CHLORIDE 0.9% 10ML FLUSH SYRINGE 10 ML IV ×2 (07:44→08:59)
[2024-02-26 07:54] VITALS: BP 121/64; PULSE 64; RESP 18; TEMP 36.4; O2SAT 94; BMI 29.2
--- NOTE | 2024-02-26 08:05 | SUR.OPER ---
Spoke with Dr Gonzalez's office on 02/24 regarding pt's cardiac history. Ofiice to notify Dr Gonzalez and follow up with hospital staffas needed.
[2024-02-26 08:50] VITALS: BP 184/77; PULSE 59; RESP 18; TEMP 36.6; O2SAT 94
[2024-02-26] MEDS: MIDAZOLAM 2MG/2ML VIAL 1 MG IV (08:50)
[2024-02-26 08:55] VITALS: BP 175/77; PULSE 61; RESP 18; TEMP 36.6; O2SAT 94
[2024-02-26] MEDS: TIMOLOL 0.5% OPTH SOLN 5ML OP (08:58)
[2024-02-26] MEDS: LIDOCAINE 1% PF 2ML AMPULE 2 ML IJ (08:59)
[2024-02-26 09:00] VITALS: BP 175/75; PULSE 62; RESP 18; TEMP 36.6; O2SAT 94
[2024-02-26 09:05] VITALS: BP 174/63; PULSE 59; RESP 18; TEMP 36.6; O2SAT 93
[2024-02-26 09:14] VITALS: BP 153/73; PULSE 67; RESP 18; TEMP 36.4; O2SAT 93
--- NOTE | 2024-02-26 12:27 | HMH.PROCNOTE ---
[facility] Procedure Note Date: 02/26/24 Time: 12:27 Procedure Note:: Preoperative Diagnosis: Cataract combined NS Cortical Complex [Left] Eye Postop diagnosis: same Operation: Microscopic phacoemulsification with intraocular lens implant [Left] Eye Specimen: None Blood Loss: None The patient was examined in the office with a complaint of poor vision in the [left] eye. The patient reports that this interferes with ADLs such as reading, watching TV and/or driving or the vision is like looking through a foggy haze and is very troubling. The patient was examined and found to have a visually significant cataract with best corrected vision of [20/400] by refraction and/or glare testing. Treatment options, risks and benefits were explained and the patient elected to have cataract surgery in an attempt to improve their vision. The patient had the eye anesthetized with topical tetracaine, the eye ways prepped and draped in the usual fashion for cataract surgery. A paracentesis and a temporal keratotomy were made. 0.2cc of 1% lidocaine PF was placed into the anterior chamber. And aqueous/viscoelastic exchange was done and a 360 degree capsulorexis was performed. Through hydrodissection and delineation with BSS on a cannula was done. The lens nucleus was phecoemulsified with CDE of [16.21]. Residual cortical material was removed using automated I&A The capsular bag was deepened with viscoelastica and a PCIOL was placed in the capsular bag with good centration and stability. Residual viscoelastic was removed using automated I&A. The keratotomy incision was hydrated with BSS on a cannula. The wound were checked and found to be water tight. IOP was checked digitally and adjusted as needed so as not to be too high. 1 drop of timolol 0.5%, ofloxacin, prednisolone acetate and ketorolac was instilled and eye shield taped over the eye. The patient was taken to recovery in good condition and will be seen postoperatively.
== END 2024-02-26 09:25 | disposition home or self-care (01) ==
PROVIDERS: PCP Nurse Practitioner; Visit Provider Ophthalmology
PROC: (CPT 66984; principal; 2024-02-26 08:30)
DX: H25.12 Age-related nuclear cataract, left eye (principal); H53.8 Other visual disturbances
CPT/HCPCS: 66984; V2632

== ENCOUNTER 2024-03-11 07:02 | Day surgery (SDC) | payer MEDICARE, SELFPAY ==
[2024-03-05 14:23] VITALS: BMI 65.4
[2024-03-11 07:17] VITALS: BP 180/64; PULSE 67; RESP 18; TEMP 36.3; O2SAT 95
[2024-03-11] MEDS: TETRACAINE 0.5% OPTH SOL 15ML OP ×3 (07:24→07:27)
[2024-03-11] MEDS: PHENYLEPHRINE 2.5% OPHTH SOLN 2ML OP ×3 (07:25→07:27)
[2024-03-11] MEDS: CYCLOPENTOLATE 2% OPHTH SOLN 2ML BOTTLE OP ×3 (07:25→07:27)
[2024-03-11] MEDS: SODIUM CHLORIDE 0.9% 10ML FLUSH SYRINGE 10 ML IV ×2 (07:25→08:32)
[2024-03-11 08:22] VITALS: BP 211/85; PULSE 63; RESP 18; TEMP 36.6; O2SAT 94
[2024-03-11] MEDS: MIDAZOLAM 2MG/2ML VIAL 1 MG IV (08:22)
[2024-03-11 08:27] VITALS: BP 203/86; PULSE 62; RESP 18; TEMP 36.6; O2SAT 93
[2024-03-11 08:32] VITALS: BP 191/78; PULSE 62; RESP 18; TEMP 36.6; O2SAT 92
[2024-03-11] MEDS: TOBRAMYCIN/DEX OPTH SUSP 2.5ML OP (08:32)
[2024-03-11] MEDS: LIDOCAINE 1% PF 2ML AMPULE 2 ML IJ (08:32)
[2024-03-11] MEDS: TIMOLOL 0.5% OPTH SOLN 5ML OP (08:32)
[2024-03-11 08:37] VITALS: BP 199/80; PULSE 61; RESP 18; TEMP 36.6; O2SAT 93
[2024-03-11 08:43] VITALS: BP 158/70; PULSE 67; RESP 18; TEMP 36.6; O2SAT 93
--- NOTE | 2024-03-25 13:14 | HMH.PROCNOTE ---
[facility] Procedure Note Date: 03/11/24 Time: 13:14 Procedure Note:: Preoperative Diagnosis: Cataract combined NS Cortical Complex [Right] Eye Postop diagnosis: same Operation: Microscopic phacoemulsification with intraocular lens implant [Right] Eye Specimen: None Blood Loss: None The patient was examined in the office with a complaint of poor vision in the [right] eye. The patient reports that this interferes with ADLs such as reading, watching TV and/or driving or the vision is like looking through a foggy haze and is very troubling. The patient was examined and found to have a visually significant cataract with best corrected vision of [20/400] by refraction and/or glare testing. Treatment options, risks and benefits were explained and the patient elected to have cataract surgery in an attempt to improve their vision. The patient had the eye anesthetized with topical tetracaine, the eye ways prepped and draped in the usual fashion for cataract surgery. A paracentesis and a temporal keratotomy were made. 0.2cc of 1% lidocaine PF was placed into the anterior chamber. And aqueous/viscoelastic exchange was done and a 360 degree capsulorexis was performed. Through hydrodissection and delineation with BSS on a cannula was done. The lens nucleus was phecoemulsified with CDE of [10.55]. Residual cortical material was removed using automated I&A The capsular bag was deepened with viscoelastica and a PCIOL was placed in the capsular bag with good centration and stability. Residual viscoelastic was removed using automated I&A. The keratotomy incision was hydrated with BSS on a cannula. The wound were checked and found to be water tight. IOP was checked digitally and adjusted as needed so as not to be too high. 1 drop of timolol 0.5%, ofloxacin, prednisolone acetate and ketorolac was instilled and eye shield taped over the eye. The patient was taken to recovery in good condition and will be seen postoperatively.
== END 2024-03-11 09:05 | disposition home or self-care (01) ==
PROVIDERS: PCP Nurse Practitioner; Visit Provider Ophthalmology
PROC: (CPT 66984; principal; 2024-03-11 08:30)
DX: H25.11 Age-related nuclear cataract, right eye (principal); H53.8 Other visual disturbances
CPT/HCPCS: 66984; V2632

== ENCOUNTER 2024-05-18 09:08 | Emergency (ER) | payer MEDICARE, SELFPAY ==
[2024-05-18 09:30] VITALS: BP 118/76; PULSE 84; RESP 19; TEMP 36.6; O2SAT 97; BMI 29.2
--- NOTE | 2024-05-18 09:43 | EXP.UTC ---
Discharge Plan Disposition Patient Disposition: Home, Self-Care Condition: Good Prescriptions Prescriptions: New cyclobenzaprine 5 mg tablet 5 mg PO HS PRN (Reason: muscle spasm) Qty: 5 0RF No Action ropinirole 1 mg tablet 1 mg PO HS ropinirole 1 mg tablet 1 mg PO DAILY meloxicam 15 mg tablet 15 mg PO DAILY lisinopril 20 mg tablet 20 mg PO DAILY levothyroxine 100 mcg tablet 100 mcg PO DAILY citalopram 20 mg tablet 20 mg PO DAILY metoprolol tartrate 50 mg tablet 50 mg PO DAILY Referrals Follow up/Referrals: Lennie Grimm APRN [Primary Care Provider] - See instructions Activity Restrictions/Add. Instructions Additional Instructions/Restrictions: Take medication at night as prescribed Take medication after going to bed and not while you are up walking around Becareful on this medication it may make you drowsy, and increase your risk of falling Return if needed Follow upw with your Family Doctor as discussed in the [facility] today Straight to ER if any life threatening symptoms Clinical Impressions Clinical Impression: Muscle ache Instructions Patient Instructions: Cyclobenzaprine, DI for Muscle Spasm Print Language Print Language: Taiwanese Discharge ED Provider: No Mejia [facility] HPI General Stated complaint: weakness, body aches Mode of Arrival: Ambulatory Source of Information: Patient Limitations: No Limitations Time Seen by Provider: 05/18/24 09:45 Description of Symptoms (Recalled from Triage Doc. by RN): PATIENT C/O BODY ACHES AND WEAKNESS ALL OVER THAT STARTED APPROX 5 DAYS AGO. SHE STATES SHE THINKS IT'S BECAUSE HER PCP STOPPED HER BLOOD THINNERS LAST WEEK HEENT Symptoms (Recalled from RN notes): No Resp Symptoms (Recalled from RN notes): No Skin Symptoms (Recalled from RN notes): No MS Symptoms (Recalled from RN notes): Yes Functional Status (Recalled from RN notes): WNL History of Present Illness Provider Complaint: Patient states that she has been having issues with muscles spasms all over her body States that she seen her PCP and they give her some muscle relaxers for it but she is out States that they helped a little with her spasms but not all the way and she would like to see if there is something else she can get to help until she sees her PCP States that she didnt sleep much last night because they kept her up so this morning she wanted to come in and see if there is something that she can get Related Data Home Medications ?Medication ?Instructions ?Recorded ?Confirmed ropinirole 1 mg tablet 1 mg PO HS 12/03/23 03/11/24 citalopram 20 mg tablet 20 mg PO DAILY 05/18/24 05/18/24 levothyroxine 100 mcg tablet 100 mcg PO DAILY 05/18/24 05/18/24 lisinopril 20 mg tablet 20 mg PO DAILY 05/18/24 05/18/24 meloxicam 15 mg tablet 15 mg PO DAILY 05/18/24 05/18/24 metoprolol tartrate 50 mg tablet 50 mg PO DAILY 05/18/24 05/18/24 ropinirole 1 mg tablet 1 mg PO DAILY 05/18/24 05/18/24 Previous Rx's ?Medication ?Instructions ?Recorded cyclobenzaprine 5 mg tablet 5 mg PO HS PRN muscle spasm #5 tabs 05/18/24 Allergies Allergy/AdvReac Type Severity Reaction Status Date / Time ciprofloxacin [From Cipro] Allergy Mild Vomiting Verified 03/11/24 07:15 Sulfa (Sulfonamide Allergy Verified 03/11/24 07:15 Antibiotics) trimethoprim [From Bactrim] Allergy Verified 03/11/24 07:15 Worker's Comp Is this a Worker's Comp case?: No [facility] Disclaimer: The information contained in this section may have been updated after the patient was seen, as this information can be updated by other users. Medical History (Updated 05/18/24 @ 10:09 by No Mejia APRN) History of chest pain History of COVID-19 COPD (chronic obstructive pulmonary disease) Menopause Rheumatoid arthritis History of cataract Aneurysm History of smoking 30 or more pack years HLD (hyperlipidemia) HTN (hypertension) CAD (coronary artery disease) Pneumonia Acute UTI Weakness Elevated liver enzymes AAA (abdominal aortic aneurysm) Surgical History History of tonsillectomy History of appendectomy Hx of cholecystectomy H/O: hysterectomy S/P CABG (coronary artery bypass graft) Family History Other Cancer Heart attack Hypertension Stroke Social History Smoking Status: Former smoker second hand exposure: No alcohol intake: never substance use type: denies use current occupational status: retired Travel in the last 8 weeks: None household members: family housing: house ROS Obtained: Yes All systems reviewed & no additional complaints except as documented and Yes Systems reviewed as appropriate & no additional complaints except as documented Constitutional Constitutional: Reports system reviewed and no additional complaints, except as documented, Reports as per HPI, Denies body ache, Denies chills, Denies fever(s) and Denies headache(s) Eyes Eyes: Denies loss of vision ENT Ears, Nose, Mouth, and Throat: Reports system reviewed and no additional complaints, except as documented, Reports as per HPI, Denies abnormal hearing, Denies disequilibrium, Denies dizziness, Denies headache(s) and Denies vertigo Cardiovascular Cardiovascular: Reports system reviewed and no additional complaints, except as documented, Reports as per HPI, Denies chest pain, Denies dyspnea, Denies edema, Denies lightheadedness, Denies palpitations, Denies radiating jaw, neck or arm pain and Denies syncope Respiratory Respiratory: Reports system reviewed and no additional complaints, except as documented, Reports as per HPI, Denies shortness of breath and Denies dyspnea Gastrointestinal Gastrointestingal: Reports system reviewed and no additional complaints, except as documented and as per HPI; Denies abdominal pain Genitourinary Female Genitourinary: Reports system reviewed and no additional complaints, except as documented and Reports as per HPI Musculoskeletal Musculoskeletal: Reports system reviewed and no additional complaints, except as documented, Reports as per HPI, Denies back pain, Denies joint stiffness, Denies joint swelling, Reports muscle cramps, Reports myalgias, Denies numbness, Denies stiffness, Denies tingling and Reports other Integumentary/Breasts Skin/Breast: Reports system reviewed and no additional complaints, except as documented and Reports as per HPI Neurologic Neurologic: Reports system reviewed and no additional complaints, except as documented, Reports as per HPI, Denies abnormal hearing, Denies abnormal movements, Denies abnormal speech, Denies confusion, Denies convulsions, Denies disequilibrium, Denies dizziness, Denies headache(s), Denies loss of vision, Denies numbness, Denies seizure-like activity, Denies syncope, Denies tingling and Denies vertigo Endocrine Endocrine: Denies palpitations Physical Exam General General appearance: alert and in no apparent distress ENT ENT exam: Present mucous membranes moist Respiratory Respiratory exam: Present normal lung sounds bilaterally; Absent respiratory distress or wheezes Cardiovascular Cardiovascular exam: Present regular rate, normal rhythm and normal heart sounds Neurological Exam Neurological exam: Present alert, oriented X3 and normal gait Medical Decision Making Jackson Inquiry Pt receiving controlled substance: No Jackson was queried for this patient: No Vital Signs: 05/18/24 09:30 Temperature 97.8 F Temperature Source Axillary Pulse Rate [Left Brachial] 84 Respiratory Rate 19 Blood Pressure [Left Arm] 118/76 Blood Pressure Mean [Left Arm] 90 Blood Pressure Source [Left Arm] Automatic Cuff Blood Pressure Position [Left Arm] Sitting 02 Sat by Pulse Oximetry 97 Oxygen Delivery Method Room Air Medical Decision Narrative: Patient reports that she is out of her muscle relaxers that she was given by her PCP and she has still been having spasms all over her body for a couple weeks that is worse at times when she stands up States came in today to see if she could get a different muscle relaxer and pain medication until she sees her PCP to help Discussed with patient that we are unable to prescribed narcotic pain medication in the [facility] due to no LISA that we recommend tylenol and motrin and she said she had them at home, patient verbalized understanding discussed with patient may transfer her to the ED but she declined discussed with patient that we would give her a few more muscle relaxers and have her follow up with her PCP for further treatment and she agreed Again discussed transfer to the ED and she declined patient was given strict return instructions Medications discussed with Pharmacy Pt reports that Methocarbamol helped a little with her muscle aches and spasms states they are worse at night when she is trying to sleep Will try Flexeril 5mg Q HS patient educated on fall precautions and fall risks on this medication and she verbalized understanding patient educated to take this medication once she is in the bed to help prevent falls walking to the bed and she agreed Patient informed to follow up with PCP tomorrow for furhter treatment
[2024-05-18 10:10] VITALS: BP 118/76; PULSE 84; RESP 19; TEMP 36.6; O2SAT 97
== END 2024-05-18 10:12 | disposition home or self-care (01) ==
PROVIDERS: Emergency Provider Nurse Practitioner; PCP Nurse Practitioner
DX: M62.838 Other muscle spasm (principal); M06.9 Rheumatoid arthritis, unspecified
CPT/HCPCS: 99212; 99214; G0463

== ENCOUNTER 2024-05-27 09:41 | Emergency (ER) | payer MEDICARE, SELFPAY ==
[2024-05-27] VITALS (16 sets, daily range): BP systolic 127–186; BP diastolic 51–87; PULSE 61–70; RESP 18–20; TEMP 36.8; O2SAT 94–99; BMI 28.6
--- NOTE | 2024-05-27 09:49 | PC.NURSE ---
DR GIRALDO AT BEDSIDE
--- NOTE | 2024-05-27 09:57 | HMH.EDGENADL ---
Discharge Plan Disposition Patient Disposition: Home, Self-Care Condition: Good Prescriptions Prescriptions: New sodium polystyrene sulfonate Powder 15 g PO DAILY Qty: 453.6 0RF No Action ropinirole 1 mg tablet 1 mg PO HS ropinirole 1 mg tablet 1 mg PO DAILY meloxicam 15 mg tablet 15 mg PO DAILY lisinopril 20 mg tablet 20 mg PO DAILY levothyroxine 100 mcg tablet 100 mcg PO DAILY citalopram 20 mg tablet 20 mg PO DAILY metoprolol tartrate 50 mg tablet 50 mg PO DAILY cyclobenzaprine 5 mg tablet 5 mg PO HS PRN (Reason: muscle spasm) Qty: 5 0RF Referrals Follow up/Referrals: Lennie Grimm APRN [Primary Care Provider] - See instructions Activity Restrictions/Add. Instructions Additional Instructions/Restrictions: You were evaluated in the ER and are appropriate for discharge at this time. 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 Take it daily until you are evaluated by your primary care doctor. START the newly prescribed kayexalate. Take this as directed STOP your lisinopril. GO TO Joselin Grimm's office tomorrow morning to recheck your potassium. She is expecting to see you. Return to the ER with any new, worsening, or otherwise concerning symptoms. Clinical Impressions Clinical Impression: Hyperkalemia, Kidney dysfunction Print Language Print Language: Tajik Discharge ED Provider: Dong Cherry General Adult HPI General Chief complaint: PAIN Stated complaint: muscles in legs Time Seen by Provider: 05/27/24 09:46 History of Present Illness HPI narrative: 79-year-old female presents to the ER for complaints of diffuse pain. Patient reports aches in her muscles and joints. She states she was recently taken off Plavix because they thought this could potentially be causing her symptoms. Patient has a history of CAD with stents. She takes aspirin daily. Patient also reports hyperlipidemia, hypertension, multiple medication allergies. Patient had a fall a few days ago but does not complain of acute pain from that. She reports she has been taking Tylenol arthritis and a muscle relaxer for her discomfort. Back in December patient and stents placed and was started on Plavix. She reports since that time she has had mild bodyaches, in the last 2 weeks they have dramatically worsened, so 1 week ago she was taken off the Plavix thinking this could be causing her symptoms. She denies fevers, chills, chest pain, difficulty breathing, abdominal pain, nausea, vomiting, diarrhea, rash, tick bite, or other associated symptoms. Related Data Home Medications ?Medication ?Instructions ?Recorded ?Confirmed ropinirole 1 mg tablet 1 mg PO HS 12/03/23 05/27/24 citalopram 20 mg tablet 20 mg PO DAILY 05/18/24 05/27/24 levothyroxine 100 mcg tablet 100 mcg PO DAILY 05/18/24 05/27/24 lisinopril 20 mg tablet 20 mg PO DAILY 05/18/24 05/27/24 meloxicam 15 mg tablet 15 mg PO DAILY 05/18/24 05/27/24 metoprolol tartrate 50 mg tablet 50 mg PO DAILY 05/18/24 05/27/24 ropinirole 1 mg tablet 1 mg PO DAILY 05/18/24 05/27/24 Previous Rx's ?Medication ?Instructions ?Recorded cyclobenzaprine 5 mg tablet 5 mg PO HS PRN muscle spasm #5 tabs 05/18/24 sodium polystyrene sulfonate 15 g PO DAILY #453.6 grams 05/27/24 Allergies Allergy/AdvReac Type Severity Reaction Status Date / Time ciprofloxacin [From Cipro] Allergy Mild Vomiting Verified 03/11/24 07:15 Sulfa (Sulfonamide Allergy Verified 03/11/24 07:15 Antibiotics) trimethoprim [From Bactrim] Allergy Verified 03/11/24 07:15 PFSH [facility] Disclaimer: The information contained in this section may have been updated after the patient was seen, as this information can be updated by other users. Medical History (Updated 05/27/24 @ 12:28 by Dong Cherry MD) History of chest pain History of COVID-19 COPD (chronic obstructive pulmonary disease) Menopause Rheumatoid arthritis History of cataract Aneurysm History of smoking 30 or more pack years HLD (hyperlipidemia) HTN (hypertension) CAD (coronary artery disease) Pneumonia Acute UTI Weakness Elevated liver enzymes AAA (abdominal aortic aneurysm) Surgical History History of tonsillectomy History of appendectomy Hx of cholecystectomy H/O: hysterectomy S/P CABG (coronary artery bypass graft) Family History Other Cancer Heart attack Hypertension Stroke Social History Smoking Status: Never smoker second hand exposure: No alcohol intake: never substance use type: denies use current occupational status: retired Travel in the last 8 weeks: None household members: family housing: house ROS Obtained: Yes All systems reviewed & no additional complaints except as documented Constitutional Constitutional: Reports body ache Musculoskeletal Musculoskeletal: Reports arthralgias, Denies joint swelling and Reports myalgias Physical Exam General General appearance: alert and in no apparent distress Head Head exam: atraumatic and normocephalic Eye Eye exam: Present PERRL and EOMI ENT ENT exam: Present mucous membranes moist Neck Neck exam: Present normal inspection and full ROM Chest Chest inspection: Present symmetric chest wall rise Respiratory Respiratory exam: Present normal lung sounds bilaterally; Absent respiratory distress, wheezes or stridor Cardiovascular Cardiovascular exam: Present regular rate and normal rhythm Abdominal Exam Abdominal exam: Present soft; Absent distention or tenderness Extremities Exam Extremities exam: Present normal inspection, full ROM and tenderness (Bilateral calves, ankles, knees, no tenderness in the thighs. Bilateral bicep tenderness, wrist tenderness, hand tenderness, no swelling or deformity); Absent joint swelling Back Exam Back exam: Present tenderness (Paraspinal muscle tenderness bilaterally, no bony tenderness, deformity, or step-off) Neurological Exam Neurological exam: Present alert and oriented X3; Absent motor sensory deficit Psychiatric Psychiatric exam: Present normal affect and normal mood Skin Skin exam: Present warm and dry Medical Decision Making Medical Records Medical records reviewed: Yes I reviewed the patient's medical records. MR Comment: Patient has previously been evaluated in our ER with similar symptoms. Patient has been admitted to the hospital for transaminitis, multifocal pneumonia, AAA. [place] Inquiry Pt receiving controlled substance: No Vital Signs: 05/27/24 09:48 05/27/24 09:56 05/27/24 10:00 Temperature 98.2 F Temperature Source Oral Pulse Rate 67 65 Pulse Rate [Left Radial] 66 Respiratory Rate 20 Blood Pressure 138/56 L 140/55 L Blood Pressure [Right Arm] 138/56 L Blood Pressure Mean Blood Pressure Mean [Right Arm] 83 02 Sat by Pulse Oximetry 96 97 95 Oxygen Delivery Method Room Air 05/27/24 10:10 05/27/24 10:29 05/27/24 10:30 Temperature Temperature Source Pulse Rate 64 64 62 Pulse Rate [Left Radial] Respiratory Rate Blood Pressure 127/69 151/56 H 147/54 H Blood Pressure [Right Arm] Blood Pressure Mean Blood Pressure Mean [Right Arm] 02 Sat by Pulse Oximetry 94 L 96 95 Oxygen Delivery Method Room Air Room Air Room Air 05/27/24 10:41 05/27/24 10:50 05/27/24 11:00 Temperature Temperature Source Pulse Rate 68 65 70 Pulse Rate [Left Radial] Respiratory Rate Blood Pressure 150/54 H 141/51 H 153/67 H Blood Pressure [Right Arm] Blood Pressure Mean Blood Pressure Mean [Right Arm] 02 Sat by Pulse Oximetry 96 99 98 Oxygen Delivery Method Room Air 05/27/24 11:19 05/27/24 11:21 05/27/24 11:31 Temperature Temperature Source Pulse Rate 61 62 66 Pulse Rate [Left Radial] Respiratory Rate Blood Pressure 171/73 H 185/87 H 157/63 H Blood Pressure [Right Arm] Blood Pressure Mean Blood Pressure Mean [Right Arm] 02 Sat by Pulse Oximetry 99 98 98 Oxygen Delivery Method 05/27/24 11:40 05/27/24 11:50 05/27/24 12:00 Temperature Temperature Source Pulse Rate 68 67 67 Pulse Rate [Left Radial] Respiratory Rate Blood Pressure 146/70 H 165/57 H 148/56 H Blood Pressure [Right Arm] Blood Pressure Mean 86 Blood Pressure Mean [Right Arm] 02 Sat by Pulse Oximetry 97 99 97 Oxygen Delivery Method Lab Data Lab Results 05/27/24 10:23: WBC 11.9 H, RBC 3.87 L, Hgb 11.4 L, Hct 36.1 L, MCV 93.2, MCH 29.4, MCHC 31.5 L, RDW 14.5, Plt Count 283, MPV 8.9, Neut % (Auto) 79.8, Lymph % (Auto) 12.2, Atkinson % (Auto) 5.4, Eos % (Auto) 1.8, Baso % (Auto) 0.7, Neut # (Auto) 9.5 H, Lymph # (Auto) 1.5, Atkinson # (Auto) 0.6, Eos # (Auto) 0.2, Baso # (Auto) 0.1, ESR 98 H, PT 10.4, INR 0.92, Sodium 133 L, Potassium 6.1 H*, Chloride 105, Carbon Dioxide 24, Anion Gap 10.1, BUN 34 H, Creatinine 1.50 H, Estimated Creat Clear 37, Estimated GFR 34 L, Est GFR ( Amer) 41 L, Glucose 103 H, Calcium 10.0, Phosphorus 3.9, Magnesium 1.6, Total Bilirubin 0.6, AST 27, ALT 17, Alkaline Phosphatase 44, Total Creatine Kinase 24 L, C-Reactive Protein 35.4 H, Total Protein 7.4, Albumin 3.9, Globulin 3.5 H, Albumin/Globulin Ratio 1.1, TSH 0.99, Thyroxine (T4) 8.8 05/27/24 10:53: Potassium 6.1 H* 05/27/24 11:19: Urine Color Yellow, Urine Appearance Clear, Urine pH 7.0, Ur Specific [place] 1.010, Urine Protein Negative, Urine Glucose (UA) Negative, Urine Ketones Negative, Urine Blood 3+, Urine Nitrate Negative, Urine Bilirubin Negative, Urine Urobilinogen 0.2, Ur Leukocyte Esterase Negative, Urine RBC Occasional, Urine WBC None, Ur Squamous Epith Cells None, Urine Bacteria None 05/27/24 10:23 05/27/24 10:53 Orders (Tests/Meds): ED MEDICATIONS Discontinued Medications Generic Name Dose Route Start Last Admin Trade Name Freq PRN Reason Stop Dose Admin Lactated Ringer's 1,000 mls @ 999 mls/hr 05/27/24 09:54 05/27/24 10:25 Lactated Ringer's 1000 Ml Bag IV 05/27/24 10:54 999 mls/hr .Q1H1M ONE Administration Sodium Zirconium Cyclosilicate 10 gm 05/27/24 11:37 05/27/24 12:01 Lokelma 5gm Packet PO 05/27/24 11:38 10 gm ONCE ONE Administration ORDERS Category Date Time Status CBC w/Auto Diff [Complete Blood Count Auto Diff] Stat Lab 05/27/24 10:23 Completed CK [Creatine Kinase] Stat Lab 05/27/24 10:23 Completed CMP [Comprehensive Metabolic Panel] Stat Lab 05/27/24 10:23 Completed CRP [C-Reactive Protein] Stat Lab 05/27/24 10:23 Completed ESR [Erythrocyte Sedimentation Rate] Stat Lab 05/27/24 10:23 Completed Magnesium Stat Lab 05/27/24 10:23 Completed PT INR [Prothrombin Time INR] Stat Lab 05/27/24 10:23 Completed Phosphorous Stat Lab 05/27/24 10:23 Completed Potassium Stat Lab 05/27/24 10:53 Completed T4 (Thyroxine) Stat Lab 05/27/24 10:23 Completed Thyroid Stimulating Hormone Stat Lab 05/27/24 10:23 Completed Urinalysis and Microscopic Stat Lab 05/27/24 11:19 Completed Medical Decision Narrative: In summary, this 79-year-old female presents to the emergency department today with diffuse muscle and joint aches without precipitating injury or other associated symptoms. On initial evaluation patient is hemodynamically stable, afebrile, patient has multiple areas of tenderness without deformity, swelling, redness, bruising, or other abnormalities on exam. Neurovascularly intact throughout. Differential diagnosis includes but is not limited to myositis, muscle spasm, electrolyte abnormality, dehydration, medication side effect, thyroid abnormality, viral syndrome, UTI, and though I have extremely low concern for STI, patient has been evaluated for these problems previously, so to be thorough G/C DARREN has been ordered as well. Based on these concerns, I ordered urine studies, broad laboratory workup. Labs personally reviewed demonstrate mild leukocytosis, nonspecific, nonactionable, mild anemia, normal platelets, ESR and CRP both elevated but nonspecific, PT/INR normal, sodium slightly low at 133, potassium elevated at 6.1, this was rechecked and is unchanged on repeat, ECG was ordered for evaluation of this. ECG personally interpreted demonstrates normal sinus rhythm, rate 64, normal axis, OR and QTc normal, I do not appreciate hyperacute T waves or findings on ECG concerning for hyperkalemia. CK 24, reassuring against rhabdo; TSH and T4 normal, UA negative for findings of infection, Patient is receiving Lokelma. Patient continues to be hemodynamically stable. She states she does feel somewhat improved after receiving fluids and Lokelma. I discussed with the patient and her family that I recommend admitting patient due to her hyperkalemia, however patient does not want to be admitted. Patient states she has been admitted twice recently and wants to be home. She has insight and understanding into her condition and is able to make this decision. She is refusing admission at this time. I discussed the patient with her primary care, Joselin Grimm, who is able to see the patient tomorrow morning. I discussed that I would like the patient to have her potassium rechecked and be reevaluated for her body aches. Primary reported that patient has had extensive workup for her body aches including autoimmune labs which have always been reassuring. I also discussed the patient's lisinopril prescription with her primary care, since this medication can increase potassium especially in the setting of poor kidney function. Joselin recommend stopping the lisinopril. She agrees with the plan for Kayexalate prescription for continued hyperkalemia treatment outpatient. Patient is stable and appropriate to be discharged at this time with Kayexalate prescription which has been provided. She was given strict instructions to follow-up with her primary tomorrow morning. She was also given strict return precautions for the ER. She indicated understanding and was discharged in stable condition. Critical Care Critical Care Time Critical Care Time: No
[2024-05-27] MEDS: LACTATED RINGERS 1000ML 1,000 ML 999 ML IV (10:25)
[2024-05-27 10:33] LABS: Basophils # 0.1 K/mm3 (0-0.2); Basophils % 0.7 % (0.1-2.0); Eosinophils # 0.2 K/mm3 (0.0-0.4); Eosinophils % 1.8 % (0.1-12.0); Hematocrit 36.1 % (37.0-47.0); Hemoglobin 11.4 g/dL (12.2-16.2); Lymphocytes # 1.5 K/mm3 (0.7-4.5); Lymphocytes % 12.2 % (10-50); Mean Corpuscular HGB Conc 31.5 g/dL (31.8-35.4); Mean Corpuscular Hemoglobin 29.4 pg (27.0-31.2); Mean Corpuscular Volume 93.2 fl (81-99); Mean Platelet Volume 8.9 fl (7.4-10.4); Monocytes # 0.6 K/mm3 (0.1-1.0); Monocytes % 5.4 % (1.7-9.3); Neutrophils # 9.5 K/mm3 (1.8-7.8); Neutrophils % 79.8 % (37.0-80.0); Platelet Count 283 K/mm3 (142-424); Red Blood Count 3.87 M/mm3 (4.20-5.40); Red Cell Distribution Width 14.5 % (11.5-17.5); White Blood Count 11.9 K/mm3 (4.8-10.8)
[2024-05-27 10:42] LABS: Chloride 105 mmol/L (98-107); Sodium 133 mmol/L (136-145)
[2024-05-27 10:43] LABS: INR 0.92 (0.9-1.1); Prothrombin Time 10.4 seconds (10.1-12.5)
[2024-05-27 10:45] LABS: Alanine Aminotransferase 17 U/L (12-78); Alkaline Phosphatase 44 U/L (38-126); Anion Gap 10.1 mEq/L (5-15); Aspartate Amino Transferase 27 U/L (14-36); Bilirubin,Total 0.6 mg/dl (0.2-1.3); Blood Urea Nitrogen 34 mg/dl (7-17); Carbon Dioxide 24 mmol/L (22.0-30.0); Creatine Kinase 24 U/L (30-135); Creatinine Clearance Estimated 37 mL/min (50-200); Estimated Glomerular Filt Rate 34 ml/min (>60); GFR (African American) 41 ML/MIN (>60); Glucose 103 mg/dl (74-100); Total Protein,Serum 7.4 g/dl (6.3-8.2)
--- NOTE | 2024-05-27 10:47 | PC.NURSE ---
CRITICAL K+ 6.1 RECEIVED FROM LAB, PT NAME AND R/V. DR GIRALDO NOTIFIED
[2024-05-27 10:48] LABS: Potassium 6.1 mmoL/L (3.5-5.1)
[2024-05-27 10:52] LABS: C-Reactive Protein 35.4 mg/L (0-4); Phosphorous 3.9 mg/dl (2.5-4.5)
--- NOTE | 2024-05-27 10:52 | ECG_ITS ---
APPROVED REPORT Exam: Resting ECG HR:64 bpm ECG Measurements Heart Rate 64 AXES DE 166 P 12 QRSd 126 QRS 34 QT 381 T 34 QTc 390 Conclusion SINUS RHYTHM POSSIBLE RIGHT VENTRICULAR CONDUCTION DELAY [RSR (QR) IN V1/V2] Electronically signed by : ESEQUIEL GIRALDO, 05/28/2024 07:09:36
[2024-05-27 10:53] LABS: Magnesium 1.6 mg/dl (1.6-2.3)
[2024-05-27 10:57] LABS: Erythrocyte Sedimentation Rate 98 mm/hr (0-30)
[2024-05-27 11:09] LABS: T4 (Thyroxine) 8.8 ug/dl (5.53-11.0)
[2024-05-27 11:22] LABS: Thyroid Stimulating Hormone 0.99 uIU/mL (0.465-4.68)
[2024-05-27 11:23] LABS: Microscopic, Urine URINE MICROSCOPIC (MICROSCOPIC)
[2024-05-27 11:30] LABS: Potassium 6.1 mmoL/L (3.5-5.1)
[2024-05-27 11:30] LABS: Appearance,Urine CLEAR (Clear); Bilirubin,Urine Negative (Negative); Blood, Urine 3+ (Negative); Color,Urine YELLOW (Yellow); Glucose,Urine (UA) Negative (Negative); Ketones,Urine Negative (Negative); Leukocyte Esterase,Urine Negative (Negative); Nitrate,Urine Negative (Negative); Protein,Urine Negative (Negative); Urobilinogen,Urine 0.2 EU/dl (0.2)
--- NOTE | 2024-05-27 11:30 | PC.NURSE ---
critical potassium reported to
[2024-05-27 11:44] LABS: RBC,Urine Occasional #/hpf (0-3)
[2024-05-27 11:58] LABS: Albumin Level 3.9 g/dl (3.5-5.0); Albumin/Globulin Ratio 1.1 (1.1-1.8); Globulin 3.5 g/dL (1.3-3.2)
[2024-05-27] MEDS: LOKELMA 5GM PACKET 10 GM PO (12:01)
[2024-05-29 06:16] LABS: Neisseria gonorrhoeae, NAA Negative (Negative)
== END 2024-05-27 13:03 | disposition home or self-care (01) ==
PROVIDERS: Emergency Provider Emergency Medicine; PCP Nurse Practitioner
DX: E87.5 Hyperkalemia (principal); M79.604 Pain in right leg; M79.605 Pain in left leg; N28.9 Disorder of kidney and ureter, unspecified; E87.1 Hypo-osmolality and hyponatremia; J44.9 Chronic obstructive pulmonary disease, unspecified; I11.9 Hypertensive heart disease without heart failure; I25.10 Atherosclerotic heart disease of native coronary artery without angina pectoris; E78.5 Hyperlipidemia, unspecified; Z87.891 Personal history of nicotine dependence; Z79.01 Long term (current) use of anticoagulants; Z95.1 Presence of aortocoronary bypass graft
CPT/HCPCS: 80050; 80053; 81001; 82550; 83735; 84100; 84132; 84436; 84443; 85025; 85610; 85651; 86140; 87491; 87591; 93005; 96360; 99284; J7120

== ENCOUNTER 2024-05-28 09:23 | Outpatient (CLI) | payer MEDICARE, SELFPAY ==
--- NOTE | 2024-05-28 09:29 | XR_ITS ---
FINAL REPORT CLINICAL HISTORY: HYPERKALEMIA AND PAIN COMPARISON: None FINDINGS: LEFT SHOULDER 3 views demonstrate no acute fracture or dislocation. Moderate acromioclavicular degenerative changes present as well as mild glenohumeral degenerative change. There is a presumed subchondral cyst present in the humeral head. The visualized bony structures are well aligned. No soft tissue abnormality is seen. IMPRESSION: Moderate acromioclavicular degenerative change as well as mild glenohumeral degenerative change. Presumed subchondral cyst in the humeral head. No acute bony abnormality identified. Reviewed, Interpreted and Dictated by Jose Cid III, MD Transcribed by Zulema Navarrete Authenticated and [facility]
--- NOTE | 2024-05-28 09:29 | XR_ITS ---
FINAL REPORT CLINICAL HISTORY: pain...fall COMPARISON: None FINDINGS: LEFT HIP: 3 views of the left hip demonstrate no acute fracture or dislocation. There is mild chronic irregularity of the greater trochanter without acute bony abnormality identified. If symptoms persist, suggest MRI or CT for further evaluation. Mild degenerative changes present. The visualized bony structures are well aligned. Postoperative changes are present in the pelvis. IMPRESSION: Mild chronic appearing irregularity of the greater trochanter without acute bony abnormality identified. If symptoms persist, suggest MRI or CT for further evaluation. Reviewed, Interpreted and Dictated by Jose Cid III, MD Transcribed by Zulema Navarrete Authenticated and [facility]
[2024-05-28 09:59] LABS: Basophils # 0.1 K/mm3 (0-0.2); Basophils % 0.8 % (0.1-2.0); Eosinophils # 0.2 K/mm3 (0.0-0.4); Eosinophils % 1.7 % (0.1-12.0); Hematocrit 32.9 % (37.0-47.0); Hemoglobin 11.7 g/dL (12.2-16.2); Lymphocytes # 1.7 K/mm3 (0.7-4.5); Lymphocytes % 16.8 % (10-50); Mean Corpuscular HGB Conc 35.6 g/dL (31.8-35.4); Mean Corpuscular Hemoglobin 32.3 pg (27.0-31.2); Mean Corpuscular Volume 90.6 fl (81-99); Mean Platelet Volume 8.7 fl (7.4-10.4); Monocytes # 0.6 K/mm3 (0.1-1.0); Monocytes % 5.8 % (1.7-9.3); Neutrophils # 7.4 K/mm3 (1.8-7.8); Platelet Count 296 K/mm3 (142-424); Red Blood Count 3.63 M/mm3 (4.20-5.40); Red Cell Distribution Width 14.8 % (11.5-17.5); White Blood Count 9.8 K/mm3 (4.8-10.8)
[2024-05-28 10:42] LABS: Alanine Aminotransferase 12 U/L (12-78); Albumin Level 3.6 g/dl (3.5-5.0); Albumin/Globulin Ratio 1.2 (1.1-1.8); Alkaline Phosphatase 51 U/L (38-126); Anion Gap 9.6 mEq/L (5-15); Aspartate Amino Transferase 19 U/L (14-36); Bilirubin,Total 0.3 mg/dl (0.2-1.3); Blood Urea Nitrogen 33 mg/dl (7-17); Calcium 10.4 mg/dl (8.4-10.2); Carbon Dioxide 28 mmol/L (22.0-30.0); Chloride 106 mmol/L (98-107); Estimated Glomerular Filt Rate 29 ml/min (>60); GFR (African American) 35 ML/MIN (>60); Glucose 109 mg/dl (74-100); Potassium 5.6 mmoL/L (3.5-5.1); Sodium 138 mmol/L (136-145); Total Protein,Serum 6.6 g/dl (6.3-8.2)
[2024-05-28 10:47] LABS: C-Reactive Protein 41.7 mg/L (0-4)
[2024-06-06 09:58] LABS: Antinuclear Antibodies (ANA) NEGATIVE
== END 2024-05-28 23:59 | disposition home or self-care (01) ==
LOC: LAB 09:25
PROVIDERS: PCP Nurse Practitioner; Visit Provider Nurse Practitioner
DX: E87.5 Hyperkalemia (principal); M25.512 Pain in left shoulder; M25.552 Pain in left hip
CPT/HCPCS: 36415; 73030; 73502; 80053; 85025; 86038; 86140

== ENCOUNTER 2024-08-08 15:58 | Observation (INO) | payer MEDICARE, SELFPAY ==
[2024-08-08] VITALS (12 sets, daily range): BP systolic 115–193; BP diastolic 45–71; PULSE 60–86; RESP 16–20; TEMP 36.5–36.8; O2SAT 90–100; BMI 29.2; BMI 27.8
--- NOTE | 2024-08-08 16:14 | PC.NURSE ---
UA sent to lab
--- NOTE | 2024-08-08 16:43 | XR_ITS ---
PROCEDURE INFORMATION: Exam: XR Chest Exam date and time: 08/08/2024 4:45 PM Age: 79 years old Clinical indication: Cough and shortness of breath; Additional info: Cough, SOA TECHNIQUE: Imaging protocol: Radiologic exam of the chest. Views: 2 views. COMPARISON: CR XR CHEST 2V 02/14/2024 3:07 PM FINDINGS: Lungs: Patchy airspace opacities in the bilateral lower lungs are not significantly changed from 02/14/2024 radiograph. No evidence of new or worsening airspace disease. Pleural spaces: No visible pleural effusion. No pneumothorax. Heart/Mediastinum: Cardiomediastinal silhouette is unchanged from prior exam, noting stable appearance of prior CABG. Bones/joints: No evidence of acute osseous abnormality. IMPRESSION: Patchy airspace opacities in the bilateral lower lungs are not significantly changed from 02/14/2024 radiograph. No evidence of new or worsening airspace disease.
--- NOTE | 2024-08-08 16:54 | [facility].EDCP ---
Discharge Plan Disposition Patient Disposition: Admitted Clinical Impressions Clinical Impression: Acute hypoxemic respiratory failure, Bronchitis Discharge ED Provider: Lin Byers HPI General Chief Complaint: Shortness of Breath/Dyspnea Stated Complaint: O2 and BP low, Physician refferal Time Seen by Provider: 08/08/24 16:10 Mode of Arrival: Ambulatory Source of Information: Patient Limitations: No Limitations Description of Symptoms (Recalled from ER Triage Doc. by RN): pt states she has been sick the last few days, her PCP instructed her to come to the ER for low oxygen saturation and hypotension. pt c/o SOA, a productive cough with white sputum, and soreness in her lungs that is a 2/10. pt is 90% on RA with a hx of COPD. History of Present Illness HPI narrative: This patient is a 79-year-old female with a history of hypertension, hyperlipidemia, CAD status post CABG, COPD not on home oxygen, rheumatoid arthritis, and CKD presenting to the emergency department for evaluation with concern for possible pneumonia. She notes that she had a cold last week and has been doctoring symptoms since then, and she initially started to get better but then she acutely got worse. She states she is having productive cough with green sputum, shortness of breath, nausea, and poor appetite. No associated pain. She went to her PCPs office today and was noted to have low oxygen saturation and low blood pressure, so she was sent to the emergency department for further evaluation and management. Related Data Home Medications ?Medication ?Instructions ?Recorded ?Confirmed ropinirole 1 mg tablet 1 mg PO HS 12/03/23 05/27/24 citalopram 20 mg tablet 20 mg PO DAILY 05/18/24 05/27/24 levothyroxine 100 mcg tablet 100 mcg PO DAILY 05/18/24 05/27/24 lisinopril 20 mg tablet 20 mg PO DAILY 05/18/24 05/27/24 metoprolol tartrate 50 mg tablet 50 mg PO DAILY 05/18/24 05/27/24 ropinirole 1 mg tablet 1 mg PO DAILY 05/18/24 05/27/24 Previous Rx's ?Medication ?Instructions ?Recorded cyclobenzaprine 5 mg tablet 5 mg PO HS PRN muscle spasm #5 tabs 05/18/24 sodium polystyrene sulfonate 15 g PO DAILY #453.6 grams 05/27/24 meloxicam 15 mg tablet See Rx Instructions .Route 07/29/24 .COMPLEX #30 tabs Allergies Allergy/AdvReac Type Severity Reaction Status Date / Time ciprofloxacin [From Cipro] Allergy Mild Vomiting Verified 03/11/24 07:15 Sulfa (Sulfonamide Allergy Verified 03/11/24 07:15 Antibiotics) trimethoprim [From Bactrim] Allergy Verified 03/11/24 07:15 PFSH PFS Disclaimer: The information contained in this section may have been updated after the patient was seen, as this information can be updated by other users. Medical History History of chest pain History of COVID-19 COPD (chronic obstructive pulmonary disease) Menopause Rheumatoid arthritis History of cataract Aneurysm History of smoking 30 or more pack years HLD (hyperlipidemia) HTN (hypertension) CAD (coronary artery disease) Pneumonia Acute UTI Weakness Elevated liver enzymes AAA (abdominal aortic aneurysm) Surgical History History of tonsillectomy History of appendectomy Hx of cholecystectomy H/O: hysterectomy S/P CABG (coronary artery bypass graft) Family History Other Cancer Heart attack Hypertension Stroke Social History Smoking Status: Former smoker second hand exposure: No alcohol intake: never substance use type: denies use current occupational status: retired Travel in the last 8 weeks: None household members: family housing: house Other Medical History Have you received the Flu Vaccine for this season: No Have you received the Pneumonia Vaccine: Yes ROS Obtained: Yes All systems reviewed & no additional complaints except as documented Physical Exam General General appearance: alert and in no apparent distress Head Head exam: atraumatic and normocephalic Eye Eye exam: Present normal appearance, PERRL and EOMI ENT ENT exam: Present normal exam, normal oropharynx, mucous membranes moist and normal external ear exam Neck Neck exam: Present normal inspection, full ROM and trachea midline; Absent tenderness Chest Chest inspection: Present normal inspection and symmetric chest wall rise; Absent tenderness Respiratory Respiratory exam: Present normal lung sounds bilaterally; Absent respiratory distress, wheezes, stridor or accessory muscle use Cardiovascular Cardiovascular exam: Present regular rate and normal rhythm Abdominal Exam Abdominal exam: Present soft; Absent distention, tenderness or guarding Extremities Exam Extremities exam: Present normal inspection, full ROM and normal capillary refill; Absent tenderness or edema Back Exam Back exam: Present normal inspection and full ROM; Absent tenderness Neurological Exam Neurological exam: Present alert, oriented X3, CN II-XII intact and normal gait; Absent motor sensory deficit Psychiatric Psychiatric exam: Present normal affect and normal mood Skin Skin exam: Present warm and dry HEART Score HEART Score HEART Score assessment performed?: No Critical Care Critical Care Time Critical Care Time: No Medical Decision Making Jackson Inquiry Pt receiving controlled substance: No Vital Signs Vital Signs: 08/08/24 16:20 08/08/24 16:51 08/08/24 17:01 Temperature 98.2 F Temperature Source Oral Pulse Rate 63 61 Pulse Rate [Left] 77 Respiratory Rate 16 Blood Pressure 119/46 L 157/55 H Blood Pressure [Right Arm] 155/62 H Blood Pressure Mean 84 89 Blood Pressure Mean [Right Arm] 93 Blood Pressure Source [Right Arm] Automatic Cuff Blood Pressure Position [Right Arm] Sitting 02 Sat by Pulse Oximetry 90 L 98 97 Oxygen Delivery Method Room Air Nasal Cannula Nasal Cannula Oxygen Flow Rate (LPM) 2 2 08/08/24 17:21 08/08/24 17:41 08/08/24 18:00 Temperature Temperature Source Pulse Rate 60 77 71 Pulse Rate [Left] Respiratory Rate Blood Pressure 116/45 L 151/56 H 145/49 H Blood Pressure [Right Arm] Blood Pressure Mean 68 98 81 Blood Pressure Mean [Right Arm] Blood Pressure Source [Right Arm] Blood Pressure Position [Right Arm] 02 Sat by Pulse Oximetry 96 100 99 Oxygen Delivery Method Nasal Cannula Nasal Cannula Oxygen Flow Rate (LPM) 2 2 08/08/24 18:20 08/08/24 18:42 Temperature Temperature Source Pulse Rate 71 69 Pulse Rate [Left] Respiratory Rate Blood Pressure 141/54 H 193/71 H Blood Pressure [Right Arm] Blood Pressure Mean 83 80 Blood Pressure Mean [Right Arm] Blood Pressure Source [Right Arm] Blood Pressure Position [Right Arm] 02 Sat by Pulse Oximetry 95 95 Oxygen Delivery Method Nasal Cannula Nasal Cannula Oxygen Flow Rate (LPM) 2 2 Lab Data Labs: Lab Results 08/08/24 16:30: WBC 10.1, RBC 4.16 L, Hgb 12.2, Hct 35.9 L, MCV 86.4, MCH 29.5, MCHC 34.1, RDW 14.8, Plt Count 196, MPV 9.0, Neut % (Auto) 80.3 H, Lymph % (Auto) 12.0, [place] % (Auto) 4.8, Eos % (Auto) 2.2, Baso % (Auto) 0.6, Neut # (Auto) 8.1 H, Lymph # (Auto) 1.2, [place] # (Auto) 0.5, Eos # (Auto) 0.2, Baso # (Auto) 0.1, Sodium 137, Potassium 4.4, Chloride 105, Carbon Dioxide 25, Anion Gap 11.4, BUN 23 H, Creatinine 1.40 H, Estimated Creat Clear 40, Estimated GFR 36 L, Est GFR ( Amer) 44 L, Glucose 107 H, Calcium 10.7 H, Total Bilirubin 0.9, AST 114 H, ALT 79 H, Alkaline Phosphatase 40, Total Protein 7.2, Albumin 4.2, Globulin 3.0, Albumin/Globulin Ratio 1.4, HIV 1&2 Antibody Rapid Nonreactive 08/08/24 16:43: VBG pH 7.39, VBG pCO2 40.1, VBG pO2 56.4 H, VBG HCO3 23.5, VBG Total CO2 24.7, VBG O2 Saturation 87.3 H, VBG Base Excess -1.5, VBG Lactic Acid 2.2 H 08/08/24 17:01: SARS-CoV-2 (PCR) Not detected, Influenza A Untype (PCR) Not detected, Influenza Type B (PCR) Not detected 08/08/24 16:30 08/08/24 16:30 Response Orders (Tests/Meds): ED MEDICATIONS Generic Name Dose Route Start Last Admin Trade Name Freq PRN Reason Stop Dose Admin Furosemide 40 mg 08/09/24 09:00 Furosemide 40mg/4ml Vial IV 09/08/24 08:59 DAILY MARGIE Sodium Chloride 10 ml 08/08/24 16:55 Sodium Chloride 0.9% 10ml Flush Syringe IV 09/07/24 16:54 NEEDED PRN Maintain IV Site Sodium Chloride 3 ml 08/08/24 17:49 Sodium Chloride 3% 15ml Neb IH 09/07/24 17:48 ONCE PRN INDUCE SPUTUM COLLECTION Discontinued Medications Generic Name Dose Route Start Last Admin Trade Name Freq PRN Reason Stop Dose Admin Albuterol/Ipratropium 3 ml 08/08/24 17:23 08/08/24 17:33 Ipratropium/Albuterol 3 Ml Neb IH 08/08/24 17:24 3 ml ONCE ONE Administration Furosemide 80 mg 08/08/24 18:41 08/08/24 18:55 Furosemide 40mg/4ml Vial IV 08/08/24 18:42 80 mg ONCE ONE Administration Ceftriaxone Sodium 2 gm/ 100 mls @ 200 mls/hr 08/08/24 18:36 08/08/24 18:55 Sodium Chloride IV 08/08/24 19:05 200 mls/hr ONCE ONE Administration Prednisone 40 mg 08/08/24 18:38 08/08/24 18:55 Prednisone 20mg Tab PO 08/08/24 18:39 40 mg ONCE ONE Administration ORDERS Category Date Time Status CXR 2 view (NOT portable) [XR chest 2V] Stat Exams 08/08/24 16:43 Completed BNP [NT Pro Brain Natriuretic Pep.] Stat Lab 08/08/24 16:30 Received Complete Blood Count Auto Diff AMLAB Lab 08/09/24 06:00 Ordered Complete Blood Count Auto Diff Stat Lab 08/08/24 16:30 Completed Comprehensive Metabolic Panel AMLAB Lab 08/09/24 06:00 Ordered Comprehensive Metabolic Panel Stat Lab 08/08/24 16:30 Completed D-Dimer Stat Lab 08/08/24 18:15 Received HIV (1&2) Antibody Rapid Stat Lab 08/08/24 16:30 Completed Hep C Ab with Reflex to RNA Stat Lab 08/08/24 16:30 Received Magnesium AMLAB Lab 08/09/24 06:00 Ordered Rapid PCR Covid and Flu A/B Stat Lab 08/08/24 17:01 Completed Blood Culture Stat Micro 08/08/24 17:35 Received Sputum Culture & Gram Stain Stat Micro 08/08/24 17:49 Ordered VBG [Venous Blood Gas] Stat RT 08/08/24 16:43 Completed MDM Narrative Medical Decision Narrative: In summary, this patient is a 79-year-old female presenting to the Emergency Department for evaluation of cough, shortness of breath, nausea, and reported low oxygen saturation and blood pressure readings in PCP office. She and her PCP are concerned that she has pneumonia, as she had a cold last week and got acutely worse. Differential diagnoses considered include but are not limited to pneumonia, sepsis, respiratory failure, viral syndrome. Ruling out the most morbid conditions drove assessment. It should be noted patient's history includes hypertension, hyperlipidemia, CAD, CKD, COPD which may or may not be at goal therapy. This complicates all aspects of care by increasing patient's risk for morbidity. On exam, the patient is lying in bed in no acute distress. She has an O2 saturation of 90% on room air but otherwise her vitals are reassuring on cardiac telemetry. She is hypertensive as opposed to being hypotensive. Workup included CBC, CMP, VBG, lactate, blood cultures, viral swab, and two-view chest x-ray. I independently interpreted x-ray prior to the radiologist read and noted stable chronic lung changes but no obvious acute large focal pneumonia. Please see their read for final interpretation. Labs were obtained that demonstrated white count of 10.1 with mild neutrophilic shift. Labs are otherwise reassuring Patient ambulated to x-ray and desaturated to 76% on room air while walking. It took her some time to recover, requiring 2 L nasal cannula. She was satting 92% on 2 L after that. She was given a neb which she states did not really improve her symptoms. I did go ahead and empirically treat her with Rocephin and prednisone with concern for infectious etiology based on her recent symptoms. Ultimately given her respiratory failure, I feel she would benefit from admission for continued monitoring. I had an interactive discussion with the hospitalist who admitted her in stable condition
--- NOTE | 2024-08-08 16:54 | PC.NURSE ---
1 set of blood cultures obtained from R forearm. sent to lab.
--- NOTE | 2024-08-08 16:54 | PC.NURSE ---
vbg ordered on pt, lab and RT notified
[2024-08-08 16:55] LABS: Lactate Venous 2.2 mmol/L (0.4-2.0); VBG Base Excess -1.5 mmol/L (-2.4-2.3); VBG HCO3 23.5 mmol/L (23-30); VBG Oxygen Saturation 87.3 % (50-70); VBG PCO2 40.1 mmol/L (35-51); VBG PH 7.39 mmol/L (7.31-7.41); VBG PO2 56.4 mmol/L (28-40); VBG Total CO2 24.7 mmol/L (23-27)
[2024-08-08 17:02] LABS: Basophils # 0.1 K/mm3 (0-0.2); Basophils % 0.6 % (0.1-2.0); Eosinophils # 0.2 K/mm3 (0.0-0.4); Eosinophils % 2.2 % (0.1-12.0); Hematocrit 35.9 % (37.0-47.0); Hemoglobin 12.2 g/dL (12.2-16.2); Lymphocytes # 1.2 K/mm3 (0.7-4.5); Mean Corpuscular HGB Conc 34.1 g/dL (31.8-35.4); Mean Corpuscular Hemoglobin 29.5 pg (27.0-31.2); Mean Corpuscular Volume 86.4 fl (81-99); Monocytes # 0.5 K/mm3 (0.1-1.0); Monocytes % 4.8 % (1.7-9.3); Neutrophils # 8.1 K/mm3 (1.8-7.8); Neutrophils % 80.3 % (37.0-80.0); Platelet Count 196 K/mm3 (142-424); Red Blood Count 4.16 M/mm3 (4.20-5.40); Red Cell Distribution Width 14.8 % (11.5-17.5); White Blood Count 10.1 K/mm3 (4.8-10.8)
--- NOTE | 2024-08-08 17:03 | PC.NURSE ---
pt ambulated to radiology for chest xray, pt tolerated well. However when pt returned to her room O2 Sat as 76% on RA. NO distress noted. Pt placed on 2L per NC. Pt sat increased to 95% within 2 minutes on O2. Notified Dr. Byers.
[2024-08-08 17:04] LABS: Albumin Level 4.2 g/dl (3.5-5.0); Chloride 105 mmol/L (98-107); Potassium 4.4 mmoL/L (3.5-5.1); Sodium 137 mmol/L (136-145)
[2024-08-08 17:05] LABS: Coronavirus 19, PCR Not Detected (NotDetected); Influenza A, PCR Not Detected (NotDetected); Influenza B, PCR Not Detected (NotDetected)
[2024-08-08 17:06] LABS: Blood Urea Nitrogen 23 mg/dl (7-17); Creatinine Clearance Estimated 40 mL/min (50-200); Estimated Glomerular Filt Rate 36 ml/min (>60); GFR (African American) 44 ML/MIN (>60)
[2024-08-08 17:07] LABS: Alanine Aminotransferase 79 U/L (12-78); Albumin/Globulin Ratio 1.4 (1.1-1.8); Alkaline Phosphatase 40 U/L (38-126); Anion Gap 11.4 mEq/L (5-15); Aspartate Amino Transferase 114 U/L (14-36); Bilirubin,Total 0.9 mg/dl (0.2-1.3); Calcium 10.7 mg/dl (8.4-10.2); Carbon Dioxide 25 mmol/L (22.0-30.0); Glucose 107 mg/dl (74-100); Total Protein,Serum 7.2 g/dl (6.3-8.2)
[2024-08-08] MEDS: IPRATROPIUM/ALBUTEROL 3 ML NEB IH (17:33)
[2024-08-08 17:36] LABS: HIV (1&2) Antibody Rapid NONREACTIVE (NONREACTIVE)
--- NOTE | 2024-08-08 17:36 | PC.NURSE ---
2nd blood culture drawn and sent to lab
--- NOTE | 2024-08-08 18:16 | PC.NURSE ---
blue top tube sent to lab per their request
--- NOTE | 2024-08-08 18:17 | PC.NURSE ---
pt given additional warm blanket pt completed neb treatment O2 Sat 89-90 on RA, pt placed back on 2L per NC
--- NOTE | 2024-08-08 18:43 | PC.NURSE ---
Spoke with ANNIKA Valladares regarding patient admission
[2024-08-08] MEDS: predniSONE 20MG TAB 40 MG PO (18:55)
[2024-08-08] MEDS: FUROSEMIDE 40MG/4ML VIAL 80 MG IV (18:55)
[2024-08-08] MEDS: CEFTRIAXONE SODIUM 2 GM in 0.9 % SODIUM CHLORIDE 100 ML IV (18:55)
[2024-08-08 19:06] LABS: NT Pro Brain Natriuretic Pep. 1540 pg/mL (0-450)
[2024-08-08 19:46] LABS: D-Dimer 1.02 ug/mL (0.0-0.5)
--- NOTE | 2024-08-08 20:17 | PC.NURSE ---
Patient arrived to floor via wheelchair from ED at 19:48.
[2024-08-08 20:24] LABS: Procalcitonin 0.144 ng/mL (0.0-2.0)
[2024-08-08 20:55] LABS: Reflex Lactic Add Lactic Reflex
--- NOTE | 2024-08-08 20:59 | P.HP_ITS ---
History of Present Illness *Admission Date: 08/08/24 *Reason for visit:: Shortness of breath *History of present illness: This is a 79-year-old female with past medical history of AAA, CAD with 2 stents placed in December, hypertension, hyperlipidemia, history of CABG, hypothyroid, [id number] smoking history with smoking cessation in 2007 who presents emergency department today with complaints of shortness of breath. She reports yesterday she developed onset of shortness of breath. States that she has also had low-grade fever over the last couple days with temperature measuring at home of 100. States that she is not more short of breath with ambulation. States that she felt similar to the last time she had pneumonia. Does endorse productive sputum that is white with a green tinge. Denies any sick contacts. Denies any orthopnea or leg swelling. Denies any chest pain. Emergency department workup notable for chest imaging with patchy airspace opacities in the bilateral lower lung zones that are not significantly changed from February. Labs notable for elevated BNP of 1500, D-dimer 1.02, lactic of 2.2, creatinine of 1.4 with a GFR of 40 mildly elevated AST and ALT. Given patient's presentation she was treated with antibiotics for pneumonia and received DuoNeb and steroids for COPD exacerbation and admitted to the hospitalist service [facility] Disclaimer: The information contained in this section may have been updated after the patient was seen, as this information can be updated by other users. Medical History History of chest pain History of COVID-19 COPD (chronic obstructive pulmonary disease) Menopause Rheumatoid arthritis History of cataract Aneurysm History of smoking 30 or more pack years HLD (hyperlipidemia) HTN (hypertension) CAD (coronary artery disease) Pneumonia Acute UTI Weakness Elevated liver enzymes AAA (abdominal aortic aneurysm) Surgical History History of tonsillectomy History of appendectomy Hx of cholecystectomy H/O: hysterectomy S/P CABG (coronary artery bypass graft) Family History Other Cancer Heart attack Hypertension Stroke Social History (Updated 08/08/24 @ 20:14 by Juancho Dorsey RN) Smoking Status: Former smoker second hand exposure: No alcohol intake: never substance use type: denies use current occupational status: retired Travel in the last 8 weeks: None household members: family housing: house Other Medical History Have you received the Flu Vaccine for this season: No Have you received the Pneumonia Vaccine: No Review of Systems Review of Systems Review of systems:: other Review of systems (narrative): Review of systems negative except for HPI Meds Home Medications and Allergies Home Medications ?Medication ?Instructions ?Recorded ?Confirmed ?Type ropinirole 1 mg tablet 1 mg PO HS 12/03/23 08/08/24 History citalopram 20 mg tablet 20 mg PO DAILY 05/18/24 08/08/24 History levothyroxine 100 mcg tablet 100 mcg PO DAILY 05/18/24 08/08/24 History metoprolol tartrate 50 mg tablet 50 mg PO BID 05/18/24 08/09/24 History aspirin 325 mg tablet 325 mg PO DAILY 08/08/24 08/08/24 History cyclobenzaprine 5 mg tablet 10 mg PO TIDP PRN muscle spasm 08/08/24 08/09/24 History nitrofurantoin macrocrystal 50 mg 50 mg PO DAILY 08/08/24 08/08/24 History capsule New Prescriptions to Start Prescriptions: Allergies Allergy/AdvReac Type Severity Reaction Status Date / Time ciprofloxacin [From Cipro] Allergy Mild Vomiting Verified 03/11/24 07:15 Sulfa (Sulfonamide Allergy Verified 03/11/24 07:15 Antibiotics) trimethoprim [From Bactrim] Allergy Verified 03/11/24 07:15 Exam Data for Last 24 hours Vital signs and Labs for Last 24 Hours: Temp Pulse Resp BP Pulse Ox O2 Del Method O2 Flow Rate 98.2 F 79 16 115/47 L 92 L Nasal Cannula 2 08/08/24 19:53 08/08/24 19:53 08/08/24 19:53 08/08/24 19:53 08/08/24 19:53 08/08/24 19:53 08/08/24 19:53 Laboratory Results - last 24 hr 08/08/24 16:30: WBC 10.1, RBC 4.16 L, Hgb 12.2, Hct 35.9 L, MCV 86.4, MCH 29.5, MCHC 34.1, RDW 14.8, Plt Count 196, MPV 9.0, Neut % (Auto) 80.3 H, Lymph % (Auto) 12.0, [place] % (Auto) 4.8, Eos % (Auto) 2.2, Baso % (Auto) 0.6, Neut # (Auto) 8.1 H, Lymph # (Auto) 1.2, [place] # (Auto) 0.5, Eos # (Auto) 0.2, Baso # (Auto) 0.1, Sodium 137, Potassium 4.4, Chloride 105, Carbon Dioxide 25, Anion Gap 11.4, BUN 23 H, Creatinine 1.40 H, Estimated Creat Clear 40, Estimated GFR 36 L, Est GFR ( Amer) 44 L, Glucose 107 H, Calcium 10.7 H, Total Bilirubin 0.9, AST 114 H, ALT 79 H, Alkaline Phosphatase 40, NT-Pro-B Natriuret Pep 1540 H, Total Protein 7.2, Albumin 4.2, Globulin 3.0, Albumin/Globulin Ratio 1.4, Procalcitonin 0.144, HIV 1&2 Antibody Rapid Nonreactive 08/08/24 16:43: VBG pH 7.39, VBG pCO2 40.1, VBG pO2 56.4 H, VBG HCO3 23.5, VBG Total CO2 24.7, VBG O2 Saturation 87.3 H, VBG Base Excess -1.5, VBG Lactic Acid 2.2 H 08/08/24 17:01: SARS-CoV-2 (PCR) Not detected, Influenza A Untype (PCR) Not detected, Influenza Type B (PCR) Not detected 08/08/24 18:15: D-Dimer 1.02 H I & O for Last 24 hours: Intake & Output 08/05/24 08/06/24 08/07/24 08/08/24 23:59 23:59 23:59 23:59 Weight 73.567 kg Constitutional Constitutional: no acute distress *Routine HEENT Exam Head: Present normocephalic Eye: Present EOMI and PERRL ENT: Present mucous membranes moist *Routine Neck Exam Neck: Present supple; Absent lymphadenopathy *Routine Respiratory Exam Respiratory: Present wheezes Comments: Minimal wheezing noted anterior lung [place] *Routine Cardiovascular Exam Cardiovascular: Present RRR *Routine Abdominal Exam Abdominal: Present soft and normoactive bowel sounds; Absent tenderness *Routine Rectal Exam Rectal:: deferred *Routine Genitalia Exam Genitalia:: deferred *Routine Extremities Exam Extremities: Absent cyanosis, clubbing or edema *Routine Skin Exam Skin: Present warm; Absent rash *Routine Neurological Exam Neurological: Present alert and oriented X3 Assessment and Plan *Assessment and plan (1) Acute hypoxemic respiratory failure: Status: Acute Category: Medical Code(s): J96.01 - Acute respiratory failure with hypoxia (2) CKD (chronic kidney disease) stage 3, GFR 30-59 ml/min: Status: Acute Qualifiers: Chronic kidney disease stage 3 subtype: stage 3a (GFR 45-59) Qualified Code(s): N18.31 - Chronic kidney disease, stage 3a Category: Medical Code(s): N18.30 - Chronic kidney disease, stage 3 unspecified (3) Hypothyroid: Status: Acute Qualifiers: Hypothyroidism type: acquired Qualified Code(s): E03.9 - Hypothyroidism, unspecified Category: Medical Code(s): E03.9 - Hypothyroidism, unspecified (4) HLD (hyperlipidemia): Status: Acute Qualifiers: Hyperlipidemia type: mixed hyperlipidemia Qualified Code(s): E78.2 - Mixed hyperlipidemia Category: Medical Code(s): E78.5 - Hyperlipidemia, unspecified (5) HTN (hypertension): Status: Acute Qualifiers: Hypertension type: primary hypertension Qualified Code(s): I10 - Essential (primary) hypertension Category: Medical Code(s): I10 - Essential (primary) hypertension (6) CAD (coronary artery disease): Status: Acute Qualifiers: Associated angina: without angina Coronary Disease-Associated Artery/Lesion type: [place] artery [place] vs. transplanted heart: [place] heart Qualified Code(s): I25.10 - Atherosclerotic heart disease of [place] coronary artery without angina pectoris Category: Medical Code(s): I25.10 - Atherosclerotic heart disease of [place] coronary artery without angina pectoris Plan Presented with dyspnea. Discussed case with ER physician, request admission for treatment for CHF versus pneumonia. I agreed to admit for further management. Problems addressed as follows: #Acute respiratory failure with hypoxia Dyspnea on exertion and requiring 2 L nasal cannula to maintain oxygen saturation greater than 90% Likely multifactorial Reports dyspnea on exertion with elevated BNP. Received IV Lasix with good diuresis. Will continue daily Lasix Will obtain echocardiogram in a.m. Chest x-ray similar to prior hospitalization when patient was diagnosed with pneumonia. Will continue Rocephin. Procalcitonin pending Continue bronchodilator as needed initiate steroids. Prior tobacco user. Pulmonology consult in a.m. D-dimer elevated but GFR precludes CT imaging with contrast, will await renal function in a.m. and order if able. #CKD stage IIIa Renal function at baseline Avoid nephrotoxic medications #Coronary artery disease #History of CABG #History of AAA with thrombus Continue home aspirin and Plavix #HTN Continue metoprolol #Hypothyroidism Continue levothyroxine Rounded on patient after nurse practitioner. Personally examined and interviewed patient. Agree with exam findings and care plan as documented. Procalcitonin unremarkable at 0.14. Low concern for pneumonia given normal white count. Responding to diuresis. Wean oxygen as tolerated.
[2024-08-08] MEDS: SODIUM CHLORIDE 3% 15ML NEB 3 ML IH (21:31)
[2024-08-08 22:00] LABS: Lactic Acid Follow Up (RFLX 1) 2.9 mmol/L (0.7-2.1)
[2024-08-08 23:45] LABS: Reflex Lactic (2 hrs) Add Lactic Reflex
[2024-08-09 00:25] LABS: Lactic Acid Follow up (RFLX 2) 2.7 mmol/L (0.7-2.1)
[2024-08-09 03:21] VITALS: BP 153/73; PULSE 88; RESP 18; TEMP 36.6; O2SAT 93
[2024-08-09] MEDS: ACETAMINOPHEN 325MG TAB 650 MG PO ×2 (03:25→11:53)
[2024-08-09 04:00] VITALS: BMI 27.6
--- NOTE | 2024-08-09 06:28 | PC.NURSE ---
Pt is A&OX4 and is tolerating 3L nasal cannula. Lung sounds diminished and bowel sounds active. She has ambulated to the bathroom independently. She did complain of leg pain once this shift and was medicated per MAR. No other complaints at this time, call light within reach.
[2024-08-09 06:51] LABS: Basophils % 0.3 % (0.1-2.0); Eosinophils % 0.1 % (0.1-12.0); Hematocrit 37.5 % (37.0-47.0); Hemoglobin 12.2 g/dL (12.2-16.2); Lymphocytes # 1.2 K/mm3 (0.7-4.5); Lymphocytes % 14.2 % (10-50); Mean Corpuscular HGB Conc 32.6 g/dL (31.8-35.4); Mean Corpuscular Hemoglobin 28.1 pg (27.0-31.2); Mean Corpuscular Volume 86.2 fl (81-99); Mean Platelet Volume 8.6 fl (7.4-10.4); Monocytes # 0.2 K/mm3 (0.1-1.0); Monocytes % 2.6 % (1.7-9.3); Neutrophils % 82.9 % (37.0-80.0); Platelet Count 212 K/mm3 (142-424); Red Blood Count 4.35 M/mm3 (4.20-5.40); Red Cell Distribution Width 14.9 % (11.5-17.5); White Blood Count 8.4 K/mm3 (4.8-10.8)
[2024-08-09 06:59] LABS: Chloride 101 mmol/L (98-107)
[2024-08-09 07:00] LABS: Albumin Level 4.3 g/dl (3.5-5.0); Potassium 3.7 mmoL/L (3.5-5.1); Sodium 138 mmol/L (136-145)
[2024-08-09 07:02] LABS: Anion Gap 14.7 mEq/L (5-15); Blood Urea Nitrogen 25 mg/dl (7-17); Carbon Dioxide 26 mmol/L (22.0-30.0); Creatinine Clearance Estimated 34 mL/min (50-200); Estimated Glomerular Filt Rate 31 ml/min (>60); GFR (African American) 38 ML/MIN (>60)
[2024-08-09 07:03] LABS: Alanine Aminotransferase 95 U/L (12-78); Albumin/Globulin Ratio 1.3 (1.1-1.8); Alkaline Phosphatase 51 U/L (38-126); Aspartate Amino Transferase 101 U/L (14-36); Bilirubin,Total 0.5 mg/dl (0.2-1.3); Calcium 10.6 mg/dl (8.4-10.2); Globulin 3.2 g/dL (1.3-3.2); Glucose 241 mg/dl (74-100); Magnesium 1.7 mg/dl (1.6-2.3); Total Protein,Serum 7.5 g/dl (6.3-8.2)
[2024-08-09 08:00] VITALS: BP 164/65; PULSE 88; RESP 17; TEMP 36.7; O2SAT 97
[2024-08-09 08:51] LABS: HCV Ab Non Reactive (Non Reactive)
[2024-08-09] MEDS: FUROSEMIDE 100MG/10ML VIAL 80 MG IV (09:40)
[2024-08-09] MEDS: predniSONE 20MG TAB 20 MG PO (09:40)
[2024-08-09] MEDS: PAT OWN MED ***METOPROLOL TARTRATE 50MG 50 MG PO (12:28)
--- NOTE | 2024-08-09 13:11 | P.DS_ITS ---
General Admission date:: 08/08/24 Discharge date: 08/09/24 HPI HPI HPI: This is a 79-year-old female with past medical history of AAA, CAD with 2 stents placed in December, hypertension, hyperlipidemia, history of CABG, hypothyroid, [id number] smoking history with smoking cessation in 2007 who presents emergency department today with complaints of shortness of breath. She reports yesterday she developed onset of shortness of breath. States that she has also had low-grade fever over the last couple days with temperature measuring at home of 100. States that she is not more short of breath with ambulation. States that she felt similar to the last time she had pneumonia. Does endorse productive sputum that is white with a green tinge. Denies any sick contacts. Denies any orthopnea or leg swelling. Denies any chest pain. Emergency department workup notable for chest imaging with patchy airspace opacities in the bilateral lower lung zones that are not significantly changed from February. Labs notable for elevated BNP of 1500, D-dimer 1.02, lactic of 2.2, creatinine of 1.4 with a GFR of 40 mildly elevated AST and ALT. Given patient's presentation she was treated with antibiotics for pneumonia and received DuoNeb and steroids for COPD exacerbation and admitted to the hospitalist service Hospital Course Hospital Course Hospital Course: Presented with dyspnea. Discussed case with ER physician, request admission for treatment for CHF versus pneumonia. I agreed to admit for further management. Patient responded quickly to diuresis. On room air by morning. Ambulating independently with sats in the mid 90s on room air. Given improvement, presentation most consistent with CHF exacerbation and volume overload. Responding to diuresis. Follows with [facility] glazier helper, recommend close follow-up with PCP and her glazier helper for further management of CHF. Problems addressed as follows: #Acute respiratory failure with hypoxia # CHF exacerbation, undetermined Dyspnea on exertion and requiring 2 L nasal cannula to maintain oxygen saturation greater than 90%. Concern for respiratory infection versus CHF. Significant cardiac history with history of CABG and leaky valve per her report. Oxygen overnight. BNP elevated at 1500. Treated with dose of Lasix. Diuresed well with improvement in breathing by morning. On room air. Additional Lasix on morning of discharge. Recommend continuing Lasix daily at discharge. Chest imaging concerning for volume overload with prominent fissure on right side. No large focal consolidation. White count normal. No oxygen requirement on discharge. #CKD stage IIIa Renal function at baseline. Creatinine 1.6, BUN 25. Stable during admission. #Coronary artery disease #History of CABG #History of AAA with thrombus Continue home aspirin and Plavix #HTN: Continue metoprolol #Hypothyroidism: Continue levothyroxine Exam Data for Last 24 hours Vital signs and Labs for Last 24 Hours: Temp Pulse Resp BP Pulse Ox O2 Del Method O2 Flow Rate 98.0 F 88 17 164/65 H 97 Room Air 2 08/09/24 08:00 08/09/24 08:00 08/09/24 08:00 08/09/24 08:00 08/09/24 08:00 08/09/24 11:00 08/09/24 09:55 Laboratory Results - last 24 hr 08/08/24 16:30: WBC 10.1, RBC 4.16 L, Hgb 12.2, Hct 35.9 L, MCV 86.4, MCH 29.5, MCHC 34.1, RDW 14.8, Plt Count 196, MPV 9.0, Neut % (Auto) 80.3 H, Lymph % (Auto) 12.0, [place] % (Auto) 4.8, Eos % (Auto) 2.2, Baso % (Auto) 0.6, Neut # (Au to) 8.1 H, Lymph # (Auto) 1.2, [place] # (Auto) 0.5, Eos # (Auto) 0.2, Baso # (Auto) 0.1, Sodium 137, Potassium 4.4, Chloride 105, Carbon Dioxide 25, Anion Gap 11.4, BUN 23 H, Creatinine 1.40 H, Estimated Creat Clear 40, Estimated GFR 36 L, Est GFR ( Amer) 44 L, Glucose 107 H, Calcium 10.7 H, Total Bilirubin 0.9, AST 114 H, ALT 79 H, Alkaline Phosphatase 40, NT-Pro-B Natriuret Pep 1540 H, Total Protein 7.2, Albumin 4.2, Globulin 3.0, Albumin/Globulin Ratio 1.4, Procalcitonin 0.144, Hepatitis C Antibody Non reactive, HIV 1&2 Antibody Rapid Nonreactive 08/08/24 16:43: VBG pH 7.39, VBG pCO2 40.1, VBG pO2 56.4 H, VBG HCO3 23.5, VBG Total CO2 24.7, VBG O2 Saturation 87.3 H, VBG Base Excess -1.5, VBG Lactic Acid 2.2 H 08/08/24 17:01: SARS-CoV-2 (PCR) Not detected, Influenza A Untype (PCR) Not detected, Influenza Type B (PCR) Not detected 08/08/24 18:15: D-Dimer 1.02 H 08/08/24 21:30: Lactate 2.9 H 08/08/24 23:58: Lactate 2.7 H 08/09/24 05:47: WBC 8.4, RBC 4.35, Hgb 12.2, Hct 37.5, MCV 86.2, MCH 28.1, MCHC 32.6, RDW 14.9, Plt Count 212, MPV 8.6, Neut % (Auto) 82.9 H, Lymph % (Auto) 14.2, [place] % (Auto) 2.6, Eos % (Auto) 0.1, Baso % (Auto) 0.3, Neut # (Auto) 7.0, Lymph # (Auto) 1.2, [place] # (Auto) 0.2, Eos # (Auto) 0.0, Baso # (Auto) 0.0, Sodium 138, Potassium 3.7, Chloride 101, Carbon Dioxide 26, Anion Gap 14.7, BUN 25 H, Creatinine 1.60 H, Estimated Creat Clear 34, Estimated GFR 31 L, Est GFR ( Amer) 38 L, Glucose 241 H D, Calcium 10.6 H, Magnesium 1.7, Total Bilirubin 0.5, AST 101 H, ALT 95 H, Alkaline Phosphatase 51, Total Protein 7.5, Albumin 4.3, Globulin 3.2, Albumin/Globulin Ratio 1.3 I & O for Last 24 hours: Intake & Output 08/06/24 08/07/24 08/08/24 08/09/24 23:59 23:59 23:59 23:59 Intake Total 250 / 250 330 / 330 Output Total 210 / 210 1050 / 1050 Balance 40 / 40 -720 / -720 Weight 73.567 kg 73.567 kg Constitutional Constitutional: no acute distress, average body habitus and cooperative *Routine HEENT Exam Head: Present normocephalic Eye: Present EOMI and PERRL ENT: Present mucous membranes moist *Routine Neck Exam Neck: Present supple; Absent lymphadenopathy Routine Chest/Breast/Axilla Exam Comments: Well-healed sternotomy scar *Routine Respiratory Exam Respiratory: Present normal respiratory effort; Absent rhonchi, wheezes or crackles *Routine Cardiovascular Exam Cardiovascular: Present RRR *Routine Abdominal Exam Abdominal: Present soft and normoactive bowel sounds; Absent tenderness or distended *Routine Rectal Exam Patient deferred: visual exam *Routine Exam Patient deferred: external exam *Routine Extremities Exam Extremities: Absent cyanosis, clubbing or edema *Routine Skin Exam Skin: Present warm; Absent rash *Routine Neurological Exam Neurological: Present alert, oriented X3 and moving all extremities; Absent altered mental status Results Data Completed and Pending Labs on day of discharge: Labs from last 24 hours 08/09/24 08/08/24 08/08/24 05:47 23:58 21:30 WBC 8.4 RBC 4.35 Hgb 12.2 Hct 37.5 MCV 86.2 MCH 28.1 MCHC 32.6 RDW 14.9 Plt Count 212 MPV 8.6 Neut % (Auto) 82.9 H Lymph % (Auto) 14.2 [place] % (Auto) 2.6 Eos % (Auto) 0.1 Baso % (Auto) 0.3 Neut # (Auto) 7.0 Lymph # (Auto) 1.2 [place] # (Auto) 0.2 Eos # (Auto) 0.0 Baso # (Auto) 0.0 D-Dimer VBG pH VBG pCO2 VBG pO2 VBG HCO3 VBG Total CO2 VBG O2 Saturation VBG Base Excess VBG Lactic Acid Sodium 138 Potassium 3.7 Chloride 101 Carbon Dioxide 26 Anion Gap 14.7 BUN 25 H Creatinine 1.60 H Estimated Creat Clear 34 Estimated GFR 31 L Est GFR ( Amer) 38 L Glucose 241 H D Lactate 2.7 H 2.9 H Calcium 10.6 H Magnesium 1.7 Total Bilirubin 0.5 AST 101 H ALT 95 H Alkaline Phosphatase 51 NT-Pro-B Natriuret Pep Total Protein 7.5 Albumin 4.3 Globulin 3.2 Albumin/Globulin Ratio 1.3 Procalcitonin SARS-CoV-2 (PCR) Hepatitis C Antibody HIV 1&2 Antibody Rapid Influenza A Untype (PCR) Influenza Type B (PCR) 08/08/24 08/08/24 08/08/24 18:15 17:01 16:43 WBC RBC Hgb Hct MCV MCH MCHC RDW Plt Count MPV Neut % (Auto) Lymph % (Auto) [place] % (Auto) Eos % (Auto) Baso % (Auto) Neut # (Auto) Lymph # (Auto) [place] # (Auto) Eos # (Auto) Baso # (Auto) D-Dimer 1.02 H VBG pH 7.39 VBG pCO2 40.1 VBG pO2 56.4 H VBG HCO3 23.5 VBG Total CO2 24.7 VBG O2 Saturation 87.3 H VBG Base Excess -1.5 VBG Lactic Acid 2.2 H Sodium Potassium Chloride Carbon Dioxide Anion Gap BUN Creatinine Estimated Creat Clear Estimated GFR Est GFR ( Amer) Glucose Lactate Calcium Magnesium Total Bilirubin AST ALT Alkaline Phosphatase NT-Pro-B Natriuret Pep Total Protein Albumin Globulin Albumin/Globulin Ratio Procalcitonin SARS-CoV-2 (PCR) Not detected Hepatitis C Antibody HIV 1&2 Antibody Rapid Influenza A Untype (PCR) Not detected Influenza Type B (PCR) Not detected 08/08/24 16:30 WBC 10.1 RBC 4.16 L Hgb 12.2 Hct 35.9 L MCV 86.4 MCH 29.5 MCHC 34.1 RDW 14.8 Plt Count 196 MPV 9.0 Neut % (Auto) 80.3 H Lymph % (Auto) 12.0 [place] % (Auto) 4.8 Eos % (Auto) 2.2 Baso % (Auto) 0.6 Neut # (Auto) 8.1 H Lymph # (Auto) 1.2 [place] # (Auto) 0.5 Eos # (Auto) 0.2 Baso # (Auto) 0.1 D-Dimer VBG pH VBG pCO2 VBG pO2 VBG HCO3 VBG Total CO2 VBG O2 Saturation VBG Base Excess VBG Lactic Acid Sodium 137 Potassium 4.4 Chloride 105 Carbon Dioxide 25 Anion Gap 11.4 BUN 23 H Creatinine 1.40 H Estimated Creat Clear 40 Estimated GFR 36 L Est GFR ( Amer) 44 L Glucose 107 H Lactate Calcium 10.7 H Magnesium Total Bilirubin 0.9 AST 114 H ALT 79 H Alkaline Phosphatase 40 NT-Pro-B Natriuret Pep 1540 H Total Protein 7.2 Albumin 4.2 Globulin 3.0 Albumin/Globulin Ratio 1.4 Procalcitonin 0.144 SARS-CoV-2 (PCR) Hepatitis C Antibody Non reactive HIV 1&2 Antibody Rapid Nonreactive Influenza A Untype (PCR) Influenza Type B (PCR) DS: Diagnosis Discharge Diagnosis (1) Acute hypoxemic respiratory failure: Status: Acute Code(s): J96.01 - Acute respiratory failure with hypoxia (2) CKD (chronic kidney disease) stage 3, GFR 30-59 ml/min: Status: Acute Code(s): N18.30 - Chronic kidney disease, stage 3 unspecified Qualifiers: Chronic kidney disease stage 3 subtype: stage 3a (GFR 45-59) Qualified Code(s): N18.31 - Chronic kidney disease, stage 3a (3) Hypothyroid: Status: Acute Code(s): E03.9 - Hypothyroidism, unspecified Qualifiers: Hypothyroidism type: acquired Qualified Code(s): E03.9 - Hypothyroidism, unspecified (4) HLD (hyperlipidemia): Status: Acute Code(s): E78.5 - Hyperlipidemia, unspecified Qualifiers: Hyperlipidemia type: mixed hyperlipidemia Qualified Code(s): E78.2 - Mixed hyperlipidemia (5) HTN (hypertension): Status: Acute Code(s): I10 - Essential (primary) hypertension Qualifiers: Hypertension type: primary hypertension Qualified Code(s): I10 - Essential (primary) hypertension (6) CAD (coronary artery disease): Status: Acute Code(s): I25.10 - Atherosclerotic heart disease of [place] coronary artery without angina pectoris Qualifiers: Associated angina: without angina Coronary Disease-Associated Artery/Lesion type: [place] artery [place] vs. transplanted heart: [place] heart Qualified Code(s): I25.10 - Atherosclerotic heart disease of [place] coronary artery without angina pectoris (7) CHF (congestive heart failure): Status: Acute Code(s): I50.9 - Heart failure, unspecified Meds Home Medications and Allergies Home Medications ?Medication ?Instructions ?Recorded ?Confirmed ?Type ropinirole 1 mg tablet 1 mg PO HS 12/03/23 08/08/24 History citalopram 20 mg tablet 20 mg PO DAILY 05/18/24 08/08/24 History levothyroxine 100 mcg tablet 100 mcg PO DAILY 05/18/24 08/08/24 History metoprolol tartrate 50 mg tablet 50 mg PO BID 05/18/24 08/09/24 History aspirin 325 mg tablet 325 mg PO DAILY 08/08/24 08/08/24 History cyclobenzaprine 5 mg tablet 10 mg PO TIDP PRN muscle spasm 08/08/24 08/09/24 History nitrofurantoin macrocrystal 50 mg 50 mg PO DAILY 08/08/24 08/08/24 History capsule furosemide 40 mg tablet (Lasix) 40 mg PO DAILY #30 tabs 08/09/24 Rx New Prescriptions to Start Prescriptions: furosemide [Lasix] Aniceto Shaw Allergies Allergy/AdvReac Type Severity Reaction Status Date / Time ciprofloxacin [From Cipro] Allergy Mild Vomiting Verified 03/11/24 07:15 Sulfa (Sulfonamide Allergy Verified 03/11/24 07:15 Antibiotics) trimethoprim [From Bactrim] Allergy Verified 03/11/24 07:15 Discharge Plan Disposition Patient Disposition: Home, Self-Care Condition: Fair Follow up Plan Follow up with: Joselin Grimm APRN [Primary Care Provider] - Enter time for follow up (please call for appointment) Prescriptions/Medication Reconciliation: New furosemide [Lasix] 40 mg tablet 40 mg PO DAILY Qty: 30 0RF Continued ropinirole 1 mg tablet 1 mg PO HS levothyroxine 100 mcg tablet 100 mcg PO DAILY citalopram 20 mg tablet 20 mg PO DAILY metoprolol tartrate 50 mg tablet 50 mg PO BID cyclobenzaprine 5 mg tablet 10 mg PO TIDP PRN (Reason: muscle spasm) nitrofurantoin macrocrystal 50 mg capsule 50 mg PO DAILY aspirin 325 mg Tablet 325 mg PO DAILY Problem Reconciliation Problems Reviewed?: Yes Patient Discharge Instructions ACTIVITY: Continue current activity DIET: continue same diet Patient Instructions: DI for Respiratory Failure Print Language: [place]ian Providers Primary Care Provider: Joselin Grimm Admit Provider: Aniceto Shaw Attending Provider: Aniceto Shaw
--- NOTE | 2024-08-09 13:47 | PC.NURSE ---
pt's 02 sat was 93% on room air while ambulating in the hallway
--- NOTE | 2024-08-11 16:10 | SW/DCPLANNER ---
Hospital follow up phone call: patient stated that she is feeling much better. Patient was able to schedule her follow up appointments and did leaf size picker her new medication at discharge. Patient did not have any further questions/needs at this time.
== END 2024-08-09 14:38 | disposition home or self-care (01) ==
LOC: ER 18:41 → 2ND 18:51
PROVIDERS: Nurse Practitioner Acute Care; Admitting Provider Internal Medicine Adolescent Medicine; Emergency Provider Emergency Medicine; PCP Nurse Practitioner; Visit Provider Internal Medicine Adolescent Medicine
DX: J96.01 Acute respiratory failure with hypoxia (principal); N18.31 Chronic kidney disease, stage 3a; E03.9 Hypothyroidism, unspecified; E78.2 Mixed hyperlipidemia; I13.0 Hypertensive heart and chronic kidney disease with heart failure and stage 1 through stage 4 chronic kidney disease, or unspecified chronic kidney disease; I25.10 Atherosclerotic heart disease of native coronary artery without angina pectoris; I50.9 Heart failure, unspecified; Z95.5 Presence of coronary angioplasty implant and graft; Z95.1 Presence of aortocoronary bypass graft; Z87.891 Personal history of nicotine dependence; Z86.16 Personal history of COVID-19; Z79.899 Other long term (current) drug therapy
CPT/HCPCS: 36415; 71046; 80053; 82803; 83605; 83735; 83880; 84145; 85025; 85378; 86803; 87040; 87389; 87636; 94761; 99285; G0378; J0696; J1940; J7620

== ENCOUNTER 2024-11-26 08:58 | Outpatient (CLI) | payer MEDICARE, SELFPAY ==
--- NOTE | 2024-11-26 09:01 | XR_ITS ---
FINAL REPORT CLINICAL HISTORY: SOB COMPARISON: 02/14/2024 FINDINGS: PA and lateral views of the chest were obtained. The patient is again noted to be status post median sternotomy. The heart size is normal.. There has been interval worsening of bilateral interstitial opacities and right middle lobe airspace disease. These findings could be related to pulmonary edema or pneumonia. There is no pleural effusion or pneumothorax. No acute osseous abnormality is identified. IMPRESSION: Bilateral interstitial opacities with worsening right middle lobe airspace disease. Findings could be related to pulmonary edema or pneumonia. Reviewed, Interpreted and Dictated by Jo-Ann Jean Baptiste MD Transcribed by Flaca Mackey Authenticated and [facility]
[2024-11-26 10:46] LABS: Anti-Centromere B Antibodies ND; Anti-Jo-1 ND; Antichromatin Antibodies ND; Antiscleroderma-70 Antibodies ND; RNP Antibodies ND; Sjogren's Anti-SS-A ND; Sjogren's Anti-SS-B ND
[2024-11-26 11:20] LABS: Basophils % 0.3 % (0.1-2.0); Eosinophils # 0.1 K/mm3 (0.0-0.4); Eosinophils % 1.2 % (0.1-12.0); Hematocrit 37.9 % (37.0-47.0); Hemoglobin 12.3 g/dL (12.2-16.2); Lymphocytes # 0.8 K/mm3 (0.7-4.5); Lymphocytes % 13.1 % (10-50); Mean Corpuscular HGB Conc 32.5 g/dL (31.8-35.4); Mean Corpuscular Hemoglobin 28.3 pg (27.0-31.2); Mean Corpuscular Volume 87.1 fl (81-99); Mean Platelet Volume 10.6 fl (7.4-10.4); Monocytes # 0.6 K/mm3 (0.1-1.0); Monocytes % 9.2 % (1.7-9.3); Neutrophils # 4.5 K/mm3 (1.8-7.8); Neutrophils % 75.5 % (37.0-80.0); Platelet Count 167 K/mm3 (142-424); Red Blood Count 4.35 M/mm3 (4.20-5.40); Red Cell Distribution Width 15.2 % (11.5-17.5)
[2024-11-26 12:34] LABS: C-Reactive Protein 32.3 mg/L (0-4)
[2024-11-27 09:09] LABS: Antinuclear Antibodies (ANA) Negative (Negative)
[2024-12-01 16:12] LABS: Strongyloides IgG Antibody Negative (Negative)
== END 2024-11-26 23:59 | disposition home or self-care (01) ==
PROVIDERS: PCP Nurse Practitioner; Visit Provider Internal Medicine Pulmonary Disease
DX: R06.02 Shortness of breath (principal); J84.9 Interstitial pulmonary disease, unspecified; R06.09 Other forms of dyspnea; J45.909 Unspecified asthma, uncomplicated; D72.10 Eosinophilia, unspecified
CPT/HCPCS: 36415; 71046; 85025; 86038; 86140; 86225; 86235; 86682; 87070; 87106; 87205

== ENCOUNTER 2024-12-06 11:40 | Emergency (ER) | payer MEDICARE, SELFPAY ==
[2024-12-06 11:41] VITALS: BP 125/94; PULSE 78; RESP 18; TEMP 36.6; O2SAT 95; BMI 25.7
--- NOTE | 2024-12-06 11:50 | ECG_ITS ---
APPROVED REPORT Exam: Resting ECG HR:73 bpm ECG Measurements Heart Rate 73 AXES SD 171 P 35 QRSd 126 QRS 26 QT 367 T 32 QTc 393 Conclusion SINUS RHYTHM RIGHT BUNDLE BRANCH BLOCK [120+ ms QRS DURATION, UPRIGHT V1, 40+ ms S IN I/aVL/V4/V5/V6] ABNORMAL ECG UNCONFIRMED REPORT Electronically signed by : CATHY WHEAT, 12/07/2024 04:39:09
--- NOTE | 2024-12-06 12:02 | XR_ITS ---
PROCEDURE INFORMATION: Exam: XR Chest Exam date and time: 12/06/2024 12:12 PM Age: 79 years old Clinical indication: Shortness of breath; Additional info: Rib pain TECHNIQUE: Imaging protocol: Radiologic exam of the chest. Views: 2 views. COMPARISON: CR XR CHEST 2V 11/26/2024 9:03 AM FINDINGS: Lungs: Opacities in the right upper lobe and left base may represent multifocal pneumonia. Pleural spaces: Unremarkable. No pleural effusion. No pneumothorax. Heart/Mediastinum: Unremarkable. No cardiomegaly. Bones/joints: Median sternotomy IMPRESSION: Opacities in the right upper lobe and left base may represent multifocal pneumonia.
[2024-12-06] MEDS: ASPIRIN 81MG CHEWABLE TABLET 324 MG PO (12:14)
[2024-12-06] MEDS: METHYLPREDNISOLONE SOD SUCC 125MG VIAL 80 MG IV (12:15)
[2024-12-06] MEDS: IPRATROPIUM/ALBUTEROL 3 ML NEB 9 ML IH (12:15)
--- NOTE | 2024-12-06 12:16 | ED_ITS ---
Discharge Plan Disposition Patient Disposition: Home, Self-Care Condition: Good Prescriptions Prescriptions: New doxycycline hyclate 100 mg capsule 100 mg PO BID 14 Days Qty: 28 0RF azithromycin 250 mg tablet See Rx Instructions .ROUTE .COMPLEX Qty: 6 0RF Rx Instructions: For 250 mg dose pack: take 500 mg today (day 1), then 250 mg for 4 days (days 2-5) No Action furosemide 20 mg tablet 20 mg PO BID omega-3 fatty acids 1,000 mg capsule 2,000 mg PO DAILY cyclobenzaprine 10 mg tablet 10 mg PO potassium chloride 10 mEq tablet extended release PO ipratropium-albuterol 0.5 mg-3 mg(2.5 mg base)/3 mL solution for nebulization 3 ml inhalation QID PRN (Reason: shortness of breath or wheezing) 90 Days Qty: 270 2RF cefdinir 300 mg capsule 300 mg PO BID 5 Days Qty: 10 0RF prednisone 20 mg tablet See Rx Instructions .Route .COMPLEX Qty: 15 0RF Rx Instructions: Take 40mg (2 tab) oral once daily for 5 days followed by 20mg (1 tabs) oral once daily for 5 days and then stop taking prednisone. benzonatate 200 mg capsule 200 mg PO BID PRN (Reason: cough) Qty: 30 0RF ropinirole 1 mg tablet 1 mg PO HS levothyroxine 100 mcg tablet 100 mcg PO DAILY citalopram 20 mg tablet 20 mg PO DAILY metoprolol tartrate 50 mg tablet 50 mg PO BID Referrals Follow up/Referrals: Joselin Grimm APRN [Primary Care Provider] - See instructions Clinical Impressions Clinical Impression: Pneumonia Qualifiers: Pneumonia type: due to unspecified organism Laterality: unspecified laterality Lung location: unspecified part of lung Qualified Code(s): J18.9 - Pneumonia, unspecified organism Instructions Patient Instructions: Pneumonia--Adult, DI for Chronic Obstructive Pulmonary Disease Print Language Print Language: Bur[place]ian Discharge ED Provider: Fabián Campos HPI <Joselin Grimm (ED), TABLE AND DESK FINISHER - Last Filed: 12/06/24 13:18> General Chief Complaint: Shortness of Breath/Dyspnea Stated Complaint: SOA x 3 days, poss pnuemonia Time Seen by Provider: 12/06/24 11:49 Mode of Arrival: Ambulatory Source of Information: Patient Limitations: No Limitations Description of Symptoms (Recalled from ER Triage Doc. by RN): Reports increased shortness of breath over the past couple of days. Patient wears home oxygen at 2l/min and states that she has been checking her oxygen saturations at home with them staying in the 90s however she has continued to have shortness of breath. History of Present Illness HPI narrative: This is a 79-year-old female who presents to the ED today for complaint of shortness of breath over the past 2 to 3 days. Patient does have home oxygen and wears 2 L as needed. She has been checking O2 at home and it has been fine. Patient has had difficulty with her O2 and increasing illness over the past year. She had stents placed in February of last year and has been sick with pneumonia and COPD exacerbations since. Today she is tachypneic on exam and coughing but minimally. Last week she had nausea, vomiting and diarrhea. She did take Phenergan for symptoms. Patient has history of COPD, stent placement, CHF. She has an appointment was in May she next week on the . She has an appointment with GI scheduled on the . Related Data Home Medications ?Medication ?Instructions ?Recorded ?Confirmed ropinirole 1 mg tablet 1 mg PO HS 12/03/23 11/26/24 citalopram 20 mg tablet 20 mg PO DAILY 05/18/24 11/26/24 levothyroxine 100 mcg tablet 100 mcg PO DAILY 05/18/24 11/26/24 metoprolol tartrate 50 mg tablet 50 mg PO BID 05/18/24 11/26/24 cyclobenzaprine 10 mg tablet 10 mg PO 10/30/24 11/26/24 furosemide 20 mg tablet 20 mg PO BID 10/30/24 11/26/24 omega-3 fatty acids 1,000 mg 2,000 mg PO DAILY 10/30/24 11/26/24 capsule potassium chloride 10 mEq meq PO 10/30/24 11/26/24 tablet,extended release Previous Rx's ?Medication ?Instructions ?Recorded ipratropium 0.5 mg-albuterol 3 mg 3 ml inhalation QID PRN shortness 10/30/24 (2.5 mg base)/3 mL nebulization of breath or wheezing 90 days #270 soln mL benzonatate 200 mg capsule 200 mg PO BID PRN cough #30 caps 02/12/25 cefdinir 300 mg capsule 300 mg PO BID 5 days #10 caps 11/26/24 prednisone 20 mg tablet See Rx Instructions .Route 11/26/24 .COMPLEX #15 tabs azithromycin 250 mg tablet See Rx Instructions PO .COMPLEX #6 12/06/24 tabs doxycycline hyclate 100 mg capsule 100 mg PO BID 14 days #28 caps 12/06/24 Allergies Allergy/AdvReac Type Severity Reaction Status Date / Time ciprofloxacin (From Cipro) Allergy Mild Vomiting Verified 11/26/24 09:52 Sulfa (Sulfonamide Allergy Verified 11/26/24 09:52 Antibiotics) trimethoprim (From Bactrim) Allergy Verified 11/26/24 09:52 PFS <Joselin Grimm (ED), TABLE AND DESK FINISHER - Last Filed: 12/06/24 13:18> [facility] Disclaimer: The information contained in this section may have been updated after the patient was seen, as this information can be updated by other users. Medical History (Updated 12/06/24 @ 13:16 by Joselin Grimm (ED), TABLE AND DESK FINISHER) Dysphagia Chronic respiratory failure with hypoxia Pulmonary emphysema Pneumonia Multiple pulmonary nodules History of chest pain History of COVID-19 COPD (chronic obstructive pulmonary disease) Menopause Rheumatoid arthritis History of cataract Aneurysm History of smoking 30 or more pack years HLD (hyperlipidemia) HTN (hypertension) CAD (coronary artery disease) Acute UTI Weakness Elevated liver enzymes AAA (abdominal aortic aneurysm) Surgical History History of tonsillectomy History of appendectomy Hx of cholecystectomy H/O: hysterectomy S/P CABG (coronary artery bypass graft) Family History Other Cancer Heart attack Hypertension Stroke Social History Smoking Status: Former smoker second hand exposure: No alcohol intake: never substance use type: denies use current occupational status: retired Travel in the last 8 weeks: None household members: family housing: house Have you lived/traveled outside US in past 30 days?: No Contact w/someone who lives/traveled outside US past 30 days?: No Exposure to someone with infectious disease in past 14 days?: No Do you have a fever (greater than 100.4 F or 38 C)?: No Have you tested positive for COVID-19: No Exposed to someone with COVID-19 in past 14 days?: No Do you have a sore throat?: No Do you have a cough?: No Do you have any weakness?: No Do you have any diarrhea?: No Are you experiencing any unusual bleeding?: No Do you have any muscle aches/pain?: No Do you have any abdominal pain?: No Are you experiencing loss of taste or smell?: No Other Medical History Have you received the Flu Vaccine for this season: No Have you received the Pneumonia Vaccine: Yes <Joselin Grimm (ED), TABLE AND DESK FINISHER - Last Filed: 12/06/24 13:18> ROS Obtained: Yes Systems reviewed as appropriate & no additional complaints except as documented Constitutional Constitutional: Reports as per HPI Physical Exam <Joselinholland Grimm (ED), TABLE AND DESK FINISHER - Last Filed: 12/06/24 13:18> General General appearance: alert and other (Tachypneic) Head Head exam: normocephalic Eye Eye exam: Present normal appearance and PERRL ENT ENT exam: Present normal exam and mucous membranes moist Neck Neck exam: Present normal inspection and trachea midline Chest Chest inspection: Present normal inspection and symmetric chest wall rise Respiratory Respiratory exam: Present wheezes and other (Tachypneic) Cardiovascular Cardiovascular exam: Present regular rate, normal rhythm, normal heart sounds, +S1 and +S2 Abdominal Exam Abdominal exam: Present soft and normal bowel sounds Extremities Exam Extremities exam: Present normal inspection, full ROM and normal capillary refill Neurological Exam Neurological exam: Present alert and oriented X3 Psychiatric Psychiatric exam: Present anxious Skin Skin exam: Present warm and dry Lymphatic Lymphatic Findings: no adenopathy HEART Score <Joselin Grimm (ED), TABLE AND DESK FINISHER - Last Filed: 12/06/24 13:18> HEART Score HEART Score assessment performed?: Yes History (anamnesis): Slightly suspicious ECG: Non-specific disturbance Age: >65 years Risk factors: 1-2 risk factors Troponin: </= normal limit HEART Score: 4 <Fabián Campos MD - Last Filed: 12/06/24 13:54> HEART Score HEART Score: 4 Critical Care <Joselin Grimm (ED), TABLE AND DESK FINISHER - Last Filed: 12/06/24 13:18> Critical Care Time Critical Care Time: No Medical Decision Making <Joselin Grimm (ED), TABLE AND DESK FINISHER - Last Filed: 12/06/24 13:18> Medical Records Medical records reviewed: Yes I reviewed the patient's medical records. Jackson Inquiry Pt receiving controlled substance: No Jackson was queried for this patient: No Vital Signs Vital Signs: 12/06/24 11:41 12/06/24 12:30 12/06/24 13:25 Temperature 97.9 F 98.4 F Temperature Source Oral Oral Pulse Rate 73 80 Pulse Rate [Radial] 78 Respiratory Rate 18 18 Blood Pressure 121/53 L 153/68 H Blood Pressure [Right Arm] 125/94 H Blood Pressure Mean 81 Blood Pressure Mean [Right Arm] 104 Blood Pressure Source Automatic Cuff Blood Pressure Source [Right Arm] Automatic Cuff Blood Pressure Position Sitting Blood Pressure Position [Right Arm] Sitting 02 Sat by Pulse Oximetry 95 98 Oxygen Delivery Method Room Air Nasal Cannula Oxygen Flow Rate (LPM) 3 Lab Data Lab results reviewed: Yes I reviewed the patient's lab results. Labs: Lab Results 12/06/24 12:02: VBG pH 7.42 H, VBG pCO2 40.6, VBG pO2 56.3 H, VBG HCO3 26.0, VBG Total CO2 27.2 H, VBG O2 Saturation 89.5 H, VBG Base Excess 1.6, VBG Lactic Acid 1.4 12/06/24 12:18: WBC 12.8 H, RBC 4.34, Hgb 12.1 L, Hct 37.4, MCV 86.2, MCH 27.9, MCHC 32.4, RDW 14.4, Plt Count 182, MPV 11.1 H, Neut % (Auto) 75.8, Lymph % (Auto) 12.3, [place] % (Auto) 7.8, Eos % (Auto) 1.5, Baso % (Auto) 0.5, Neut # (Auto) 9.7 H, Lymph # (Auto) 1.6, [place] # (Auto) 1.0, Eos # (Auto) 0.2, Baso # (Auto) 0.1, Sodium 136, Potassium 4.4, Chloride 103, Carbon Dioxide 30, Anion Gap 7.4, BUN 32 H, Creatinine 1.10 H, Estimated Creat Clear 45, Estimated GFR 48 L, Est GFR ( Amer) 58 L, Glucose 137 H, Calcium 9.6, Magnesium 1.8, Total Bilirubin 0.6, AST 237 H, ALT 260 H, Alkaline Phosphatase 78, Troponin I < 0.01, NT-Pro-B Natriuret Pep 411, Total Protein 6.8, Albumin 3.4 L, Globulin 3.4 H, A lbumin/Globulin Ratio 1.0 L, Lipase 283 12/06/24 12:18 12/06/24 12:18 Response Orders (Tests/Meds): ED MEDICATIONS Discontinued Medications Generic Name Dose Route Start Last Admin Trade Name Freq PRN Reason Stop Dose Admin Albuterol/Ipratropium 9 ml 12/06/24 12:02 12/06/24 12:15 Ipratropium/Albuterol 3 Ml Neb IH 12/06/24 12:03 9 ml ONCE ONE Administration Aspirin 324 mg 12/06/24 12:02 12/06/24 12:14 Aspirin 81mg Chewable Tablet PO 12/06/24 12:03 324 mg ONCE ONE Administration Magnesium Sulfate 2 gm 12/06/24 12:07 12/06/24 12:31 Magnesium Sulfate In Water 2gm/50ml Premix IV 12/06/24 12:08 2 gm ONCE ONE Administration Methylprednisolone Sodium Succinate 80 mg 12/06/24 12:02 12/06/24 12:15 Methylprednisolone Sod Succ 125mg Vial IV 12/06/24 12:03 80 mg ONCE ONE Administration ORDERS Category Date Time Status Chest XR 2 view (NOT portable) [XR chest 2V] Stat Exams 12/06/24 12:02 Completed CBC [Complete Blood Count Auto Diff] Stat Lab 12/06/24 12:18 Completed Comprehensive Metabolic Panel Stat Lab 12/06/24 12:18 Completed Lipase Stat Lab 12/06/24 12:18 Completed Magnesium Stat Lab 12/06/24 12:18 Completed NT Pro Brain Natriuretic Pep. Stat Lab 12/06/24 12:18 Completed Rapid PCR Covid and Flu A/B Stat Lab 12/06/24 12:41 Received Troponin I Stat Lab 12/06/24 12:04 Ordered Venous Blood Gas Stat RT 12/06/24 12:02 Completed MDM Narrative Medical Decision Narrative: Insert review patient is a 79-year-old female presenting to the emergency department for evaluation of shortness of breath over the last 2 to 3 days. Patient does have a cough but mild. She is not coughing up anything. She did have nausea vomiting diarrhea last week but treated it with promethazine.. Patient is hemodynamically stable and nontoxic-appearing upon arrival, afebrile. Differential diagnosis includes COPD exacerbation, pneumonia, CHF among others. Workup will be conducted with labs, chest x-ray, swab for flu and COVID. We will also perform an EKG as patient has had stent placement in the past.. Initial inventions include DuoNeb, Solu-Medrol, mag to help her tachypnea and shortness of breath.. Initial workup reviewed by me and labs show a mild increase in white count at 12.8. Patient also has kidney changes. She has a history of ANNA's however this is an improvement in her renal function. Patient also has a history of elevated liver enzymes. She sees GI on 31 December to work this up. These are increased more than they were last visit to the ED.. Imaging informally interpreted by me and shows pneumonia and chronic changes. Formal imaging read remarkable for pneumonia. Please see report for complete report. Upon repeat evaluation patient's breathing is improved. Patient was given return precautions. She has a portable oxygen and oxygen at home that she may use if needed. She will go home on azithromycin and doxycycline to cover her pneumonia. Patient stable for discharge home. Discussed with Dr. Campos <Fabián Campos MD - Last Filed: 12/06/24 13:54> Vital Signs Vital Signs: 12/06/24 11:41 12/06/24 12:30 12/06/24 13:25 Temperature 97.9 F 98.4 F Temperature Source Oral Oral Pulse Rate 73 80 Pulse Rate [Radial] 78 Respiratory Rate 18 18 Blood Pressure 121/53 L 153/68 H Blood Pressure [Right Arm] 125/94 H Blood Pressure Mean 81 Blood Pressure Mean [Right Arm] 104 Blood Pressure Source Automatic Cuff Blood Pressure Source [Right Arm] Automatic Cuff Blood Pressure Position Sitting Blood Pressure Position [Right Arm] Sitting 02 Sat by Pulse Oximetry 95 98 Oxygen Delivery Method Room Air Nasal Cannula Oxygen Flow Rate (LPM) 3 Lab Data Labs: Lab Results 12/06/24 12:02: VBG pH 7.42 H, VBG pCO2 40.6, VBG pO2 56.3 H, VBG HCO3 26.0, VBG Total CO2 27.2 H, VBG O2 Saturation 89.5 H, VBG Base Excess 1.6, VBG Lactic Acid 1.4 12/06/24 12:18: WBC 12.8 H, RBC 4.34, Hgb 12.1 L, Hct 37.4, MCV 86.2, MCH 27.9, MCHC 32.4, RDW 14.4, Plt Count 182, MPV 11.1 H, Neut % (Auto) 75.8, Lymph % (Auto) 12.3, [place] % (Auto) 7.8, Eos % (Auto) 1.5, Baso % (Auto) 0.5, Neut # (Auto) 9.7 H, Lymph # (Auto) 1.6, [place] # (Auto) 1.0, Eos # (Auto) 0.2, Baso # (Auto) 0.1, Sodium 136, Potassium 4.4, Chloride 103, Carbon Dioxide 30, Anion Gap 7.4, BUN 32 H, Creatinine 1.10 H, Estimated Creat Clear 45, Estimated GFR 48 L, Est GFR ( Amer) 58 L, Glucose 137 H, Calcium 9.6, Magnesium 1.8, Total Bilirubin 0.6, AST 237 H, ALT 260 H, Alkaline Phosphatase 78, Troponin I < 0.01, NT-Pro-B Natriuret Pep 411, Total Protein 6.8, Albumin 3.4 L, Globulin 3.4 H, A lbumin/Globulin Ratio 1.0 L, Lipase 283 Response Orders (Tests/Meds): ED MEDICATIONS Discontinued Medications Generic Name Dose Route Start Last Admin Trade Name Freq PRN Reason Stop Dose Admin Albuterol/Ipratropium 9 ml 12/06/24 12:02 12/06/24 12:15 Ipratropium/Albuterol 3 Ml Neb IH 12/06/24 12:03 9 ml ONCE ONE Administration Aspirin 324 mg 12/06/24 12:02 12/06/24 12:14 Aspirin 81mg Chewable Tablet PO 12/06/24 12:03 324 mg ONCE ONE Administration Magnesium Sulfate 2 gm 12/06/24 12:07 12/06/24 12:31 Magnesium Sulfate In Water 2gm/50ml Premix IV 12/06/24 12:08 2 gm ONCE ONE Administration Methylprednisolone Sodium Succinate 80 mg 12/06/24 12:02 12/06/24 12:15 Methylprednisolone Sod Succ 125mg Vial IV 12/06/24 12:03 80 mg ONCE ONE Administration ORDERS Category Date Time Status Chest XR 2 view (NOT portable) [XR chest 2V] Stat Exams 12/06/24 12:02 Completed CBC [Complete Blood Count Auto Diff] Stat Lab 12/06/24 12:18 Completed Comprehensive Metabolic Panel Stat Lab 12/06/24 12:18 Completed Lipase Stat Lab 12/06/24 12:18 Completed Magnesium Stat Lab 12/06/24 12:18 Completed NT Pro Brain Natriuretic Pep. Stat Lab 12/06/24 12:18 Completed Rapid PCR Covid and Flu A/B Stat Lab 12/06/24 12:41 Received Troponin I Stat Lab 12/06/24 12:04 Ordered Venous Blood Gas Stat RT 12/06/24 12:02 Completed ECG Data Tracing #1: Attestation: I reviewed this ECG and interpreted as documented below: (Sinus rhythm with right bundle branch block morphology. 73 bpm with OH 171, QRS 126, QTc 393 with normal axis. No acute ischemic change) MDM Narrative Medical Decision Narrative: Insert review patient is a 79-year-old female presenting to the emergency department for evaluation of shortness of breath over the last 2 to 3 days. Patient does have a cough but mild. She is not coughing up anything. She did have nausea vomiting diarrhea last week but treated it with promethazine.. Patient is hemodynamically stable and nontoxic-appearing upon arrival, afebrile. Differential diagnosis includes COPD exacerbation, pneumonia, CHF among others. Workup will be conducted with labs, chest x-ray, swab for flu and COVID. We will also perform an EKG as patient has had stent placement in the past.. Initial inventions include DuoNeb, Solu-Medrol, mag to help her tachypnea and shortness of breath.. Initial workup reviewed by me and labs show a mild increase in white count at 12.8. Patient also has kidney changes. She has a history of ANNA's however this is an improvement in her renal function. Patient also has a history of elevated liver enzymes. She sees GI on 31 December to work this up. These are increased more than they were last visit to the ED.. Imaging informally interpreted by me and shows pneumonia and chronic changes. Formal imaging read remarkable for pneumonia. Please see report for complete report. Upon repeat evaluation patient's breathing is improved. Patient was given return precautions. She has a portable oxygen and oxygen at home that she may use if needed. She will go home on azithromycin and doxycycline to cover her pneumonia. Patient stable for discharge home. Discussed with Dr. Campos I was consulted by the [facility], and we discussed the complexity of the problems being addressed. I approved the treatment and management plan for this patient's care in the Emergency Department, thus performing a substantive portion of the medical decision making. I independently interpreted patient's workup. Leukocytosis, what appears to be multifocal versus atypical pneumonia on chest x-ray. Has as needed oxygen at home as needed, outpatient antibiotics and close outpatient follow-up discussed and appropriate. Fabián Campos MD
--- NOTE | 2024-12-06 12:22 | PC.NURSE ---
PT TO RADIOLOGY
[2024-12-06 12:25] LABS: Lactate Venous 1.4 mmol/L (0.4-2.0); VBG Base Excess 1.6 mmol/L (-2.4-2.3); VBG Oxygen Saturation 89.5 % (50-70); VBG PCO2 40.6 mmol/L (35-51); VBG PH 7.42 mmol/L (7.31-7.41); VBG PO2 56.3 mmol/L (28-40); VBG Total CO2 27.2 mmol/L (23-27)
[2024-12-06 12:25] LABS: Basophils # 0.1 K/mm3 (0-0.2); Basophils % 0.5 % (0.1-2.0); Eosinophils # 0.2 K/mm3 (0.0-0.4); Eosinophils % 1.5 % (0.1-12.0); Hematocrit 37.4 % (37.0-47.0); Hemoglobin 12.1 g/dL (12.2-16.2); Lymphocytes # 1.6 K/mm3 (0.7-4.5); Lymphocytes % 12.3 % (10-50); Mean Corpuscular HGB Conc 32.4 g/dL (31.8-35.4); Mean Corpuscular Hemoglobin 27.9 pg (27.0-31.2); Mean Corpuscular Volume 86.2 fl (81-99); Mean Platelet Volume 11.1 fl (7.4-10.4); Monocytes % 7.8 % (1.7-9.3); Neutrophils # 9.7 K/mm3 (1.8-7.8); Neutrophils % 75.8 % (37.0-80.0); Platelet Count 182 K/mm3 (142-424); Red Blood Count 4.34 M/mm3 (4.20-5.40); Red Cell Distribution Width 14.4 % (11.5-17.5); White Blood Count 12.8 K/mm3 (4.8-10.8)
--- NOTE | 2024-12-06 12:25 | PC.NURSE ---
Pt back in room from Radiology
[2024-12-06 12:30] VITALS: BP 121/53; PULSE 73; O2SAT 98
[2024-12-06 12:32] LABS: Albumin Level 3.4 g/dl (3.5-5.0); Chloride 103 mmol/L (98-107); Sodium 136 mmol/L (136-145)
[2024-12-06 12:33] LABS: Potassium 4.4 mmoL/L (3.5-5.1)
[2024-12-06 12:35] LABS: Alanine Aminotransferase 260 U/L (12-78); Alkaline Phosphatase 78 U/L (38-126); Anion Gap 7.4 mEq/L (5-15); Aspartate Amino Transferase 237 U/L (14-36); Bilirubin,Total 0.6 mg/dl (0.2-1.3); Blood Urea Nitrogen 32 mg/dl (7-17); Calcium 9.6 mg/dl (8.4-10.2); Carbon Dioxide 30 mmol/L (22.0-30.0); Creatinine Clearance Estimated 45 mL/min (50-200); Estimated Glomerular Filt Rate 48 ml/min (>60); GFR (African American) 58 ML/MIN (>60); Globulin 3.4 g/dL (1.3-3.2); Glucose 137 mg/dl (74-100); Lipase 283 U/L (23-300); Total Protein,Serum 6.8 g/dl (6.3-8.2)
[2024-12-06 12:36] LABS: Magnesium 1.8 mg/dl (1.6-2.3)
--- NOTE | 2024-12-06 12:37 | PC.NURSE ---
Patient is in bed with call light in reach. She needs nothing at this time. brother is at bedside.
[2024-12-06 12:43] LABS: Coronavirus 19, PCR Not Detected (NotDetected); Influenza A, PCR Not Detected (NotDetected); Influenza B, PCR Not Detected (NotDetected)
[2024-12-06 12:46] LABS: NT Pro Brain Natriuretic Pep. 411 pg/mL (0-450)
[2024-12-06 12:49] LABS: Troponin I < 0.01 ng/ml (0.00-0.034)
[2024-12-06 13:25] VITALS: BP 153/68; PULSE 80; RESP 18; TEMP 36.9; O2SAT 95
== END 2024-12-06 13:26 | disposition home or self-care (01) ==
PROVIDERS: Emergency Provider Emergency Medicine; PCP Nurse Practitioner
DX: J18.9 Pneumonia, unspecified organism (principal); R05.9 Cough, unspecified; R06.82 Tachypnea, not elsewhere classified; Z87.891 Personal history of nicotine dependence
CPT/HCPCS: 71046; 80053; 82803; 83690; 83735; 83880; 84484; 85025; 87636; 93005; 96374; 96375; 99284; J2919; J3475; J7620

== ENCOUNTER 2024-12-12 13:58 | Outpatient (CLI) | payer MEDICARE, SELFPAY ==
--- NOTE | 2024-12-12 14:01 | CT_ITS ---
FINAL REPORT CLINICAL HISTORY: Lung Nodules COMPARISON: CTA of the chest 02/06/2024 FINDINGS: CT CHEST without contrast TECHNIQUE: Axial CT without contrast This study was performed with techniques to keep radiation doses as low as reasonably achievable, (ALARA). Individualized dose reduction techniques using automated exposure control or adjustment of mA and/or kV according to the patient's size were employed. FINDINGS: There is a left upper lobe nodule best seen on image #16 of series 2, which measures 6 mm in diameter, stable. There is an adjacent 3 mm nodule best seen on image 17, that was not evident on the prior exam, and may have been obscured by lung disease. There are extensive mixed and alveolar opacities throughout the lungs, mildly improved. No new foci of consolidation are noted. No pleural or pericardial effusion is seen . No adenopathy or mass lesion is present . IMPRESSION: Extensive chronic pulmonary disease with ground glass opacities is improved since prior exam. Stable dominant left upper lobe nodule, appears benign. This study was performed using automated techniques to achieve radiation exposure as low as reasonably achievable Reviewed, Interpreted and Dictated by Jacqui Ventura MD Transcribed by Zulema Navarrete Authenticated and [facility]
--- NOTE | 2024-12-12 15:30 | PC.NURSE ---
Patient unable to complete PFT at this time, stated she was in hospital a few days prior. Recommended to the patient that she rescheduleud. 6MWT was completed
== END 2024-12-12 23:59 | disposition home or self-care (01) ==
LOC: RAD 13:58
PROVIDERS: PCP Nurse Practitioner; Visit Provider Internal Medicine Pulmonary Disease
DX: R91.8 Other nonspecific abnormal finding of lung field (principal); R06.09 Other forms of dyspnea
CPT/HCPCS: 71250; 94618

== ENCOUNTER 2024-12-19 12:32 | Outpatient (CLI) | payer MEDICARE, SELFPAY ==
[2024-12-19 13:58] LABS: Uric Acid 10.1 mg/dl (2.5-6.2)
[2024-12-19 14:02] LABS: Erythrocyte Sedimentation Rate 20 mm/hr (0-30)
[2024-12-19 14:03] LABS: C-Reactive Protein 10.3 mg/L (0-4)
[2024-12-20 09:14] LABS: RA Latex Turbid. <10.0 IU/mL (<14.0)
[2024-12-22 10:35] LABS: Antinuclear Antibodies, IFA Negative (.)
[2024-12-23 12:11] LABS: Strongyloides IgG Antibody Negative (Negative)
[2024-12-23 13:28] LABS: QuantiFERON-TB Gold Plus Negative (Negative)
[2024-12-24 16:14] LABS: Aspergillus flavus Negative (Neg:<1:1); Aspergillus fumigatus Negative (Neg:<1:1); Aspergillus niger Negative (Neg:<1:1); Blastomyces Antibody Negative (Neg:<1:1)
[2024-12-26 16:12] LABS: Histoplasma Antibody Quant Negative (Neg:<1:1)
[2024-12-26 21:44] LABS: D001-IgE D pteronyssinus <0.10 kU/L (Class 0); D002-IgE D farinae <0.10 kU/L (Class 0); E001-IgE Cat Dander <0.10 kU/L (Class 0); E005-IgE Dog Dander <0.10 kU/L (Class 0); E072-IgE Mouse Urine <0.10 kU/L (Class 0); G002-IgE Bermuda Grass <0.10 kU/L (Class 0); G006-IgE Timothy Grass <0.10 kU/L (Class 0); I006-IgE Cockroach, German <0.10 kU/L (Class 0); Immunoglobulin E, Total 15 IU/mL (6-495); M001-IgE Penicillium chrysogen <0.10 kU/L (Class 0); M002-IgE Cladosporium herbarum <0.10 kU/L (Class 0); M003-IgE Aspergillus fumigatus <0.10 kU/L (Class 0); M006-IgE Alternaria alternata <0.10 kU/L (Class 0); T001-IgE Maple/Box Elder <0.10 kU/L (Class 0); T003-IgE Common Silver Birch <0.10 kU/L (Class 0); T006-IgE Cedar, Mountain <0.10 kU/L (Class 0); T007-IgE Oak, White <0.10 kU/L (Class 0); T008-IgE Elm, American <0.10 kU/L (Class 0); T010-IgE Walnut <0.10 kU/L (Class 0); T011-IgE Maple Leaf Sycamore <0.10 kU/L (Class 0); T014-IgE Cottonwood <0.10 kU/L (Class 0); T015-IgE Ash, White <0.10 kU/L (Class 0); T022-IgE Pecan, Hickory <0.10 kU/L (Class 0); T070-IgE White Mulberry <0.10 kU/L (Class 0); W001-IgE Ragweed, Short <0.10 kU/L (Class 0); W011-IgE Thistle, Russian <0.10 kU/L (Class 0); W014-IgE Pigweed, Common <0.10 kU/L (Class 0); W018-IgE Sheep Sorrel <0.10 kU/L (Class 0)
== END 2024-12-19 23:59 | disposition home or self-care (01) ==
PROVIDERS: PCP Nurse Practitioner; Visit Provider Internal Medicine Pulmonary Disease
DX: J84.10 Pulmonary fibrosis, unspecified (principal); D72.10 Eosinophilia, unspecified; J30.9 Allergic rhinitis, unspecified; J84.9 Interstitial pulmonary disease, unspecified; R06.09 Other forms of dyspnea; R91.1 Solitary pulmonary nodule
CPT/HCPCS: 36415; 82785; 84550; 85651; 86003; 86038; 86140; 86431; 86480; 86606; 86612; 86682; 86698

== ENCOUNTER 2024-12-23 15:44 | Outpatient (CLI) | payer MEDICARE, SELFPAY ==
--- NOTE | 2024-12-23 16:36 | ECG_ITS ---
APPROVED REPORT Exam: Resting ECG HR:70 bpm ECG Measurements Heart Rate 70 AXES NJ 153 P 37 QRSd 141 QRS 43 QT 406 T 34 QTc 427 Conclusion SINUS RHYTHM INTRAVENTRICULAR CONDUCTION DELAY [130+ ms QRS DURATION] POSSIBLE LATERAL MYOCARDIAL INFARCTION , OF INDETERMINATE AGE [30 ms Q WAVE IN I/aVL/V5/V6] ABNORMAL ECG UNCONFIRMED REPORT Electronically signed by : Saeed De La Paz MD 12/29/2024 08:55:35
[2024-12-23 16:41] VITALS: BMI 26.7
[2024-12-23 16:54] LABS: Basophils % 0.7 % (0.1-2.0); Eosinophils # 0.3 K/mm3 (0.0-0.4); Hematocrit 34.5 % (37.0-47.0); Hemoglobin 11.4 g/dL (12.2-16.2); Lymphocytes # 1.1 K/mm3 (0.7-4.5); Lymphocytes % 25.9 % (10-50); Mean Corpuscular Hemoglobin 28.7 pg (27.0-31.2); Mean Corpuscular Volume 86.9 fl (81-99); Mean Platelet Volume 11.3 fl (7.4-10.4); Monocytes # 0.5 K/mm3 (0.1-1.0); Monocytes % 10.6 % (1.7-9.3); Neutrophils # 2.5 K/mm3 (1.8-7.8); Neutrophils % 56.3 % (37.0-80.0); Platelet Count 147 K/mm3 (142-424); Red Blood Count 3.97 M/mm3 (4.20-5.40); Red Cell Distribution Width 14.5 % (11.5-17.5); White Blood Count 4.4 K/mm3 (4.8-10.8)
[2024-12-23 17:03] LABS: Chloride 99 mmol/L (98-107); Potassium 4.2 mmoL/L (3.5-5.1); Sodium 135 mmol/L (136-145)
[2024-12-23 17:05] LABS: Blood Urea Nitrogen 23 mg/dl (7-17); Creatinine Clearance Estimated 40 mL/min (50-200); Estimated Glomerular Filt Rate 40 ml/min (>60); GFR (African American) 48 ML/MIN (>60)
[2024-12-23 17:06] LABS: Anion Gap 8.2 mEq/L (5-15); Calcium 10.4 mg/dl (8.4-10.2); Carbon Dioxide 32 mmol/L (22.0-30.0); Glucose 115 mg/dl (74-100)
== END 2024-12-23 23:59 | disposition home or self-care (01) ==
LOC: PREOP 15:44
PROVIDERS: Nurse Anesthetist, Certified Registered; PCP Nurse Practitioner; Visit Provider Internal Medicine Pulmonary Disease
DX: Z01.810 Encounter for preprocedural cardiovascular examination (principal); Z01.812 Encounter for preprocedural laboratory examination; I45.89 Other specified conduction disorders; R94.31 Abnormal electrocardiogram [ECG] [EKG]
CPT/HCPCS: 80048; 85025; 93005

== ENCOUNTER 2024-12-29 09:07 | Day surgery (SDC) | payer MEDICARE, SELFPAY ==
[2024-12-24 06:34] VITALS: BMI 26.7
--- NOTE | 2024-12-24 09:07 | SUR.PREOP ---
Received clearance stating pt may continue her aspirin. Spoke w/ Jaz @ Dr Mccurdy's office who states he is ok w/ pt continuing aspirin. Left msg w/ pt's son to notify her of plan of care.
[2024-12-29] VITALS (10 sets, daily range): BP systolic 110–135; BP diastolic 46–78; PULSE 64–79; RESP 16–20; TEMP 36–36.7; O2SAT 89–100
[2024-12-29 09:45] LABS: POC Glucose,Bedside 114 (70-110)
--- NOTE | 2024-12-29 09:49 | P.PNANES_ITS ---
[facility] Disclaimer: The information contained in this section may have been updated after the patient was seen, as this information can be updated by other users. Medical History ILD (interstitial lung disease) Dysphagia Chronic respiratory failure with hypoxia Pulmonary emphysema Pneumonia Multiple pulmonary nodules History of chest pain History of COVID-19 COPD (chronic obstructive pulmonary disease) Menopause Rheumatoid arthritis History of cataract Aneurysm History of smoking 30 or more pack years HLD (hyperlipidemia) HTN (hypertension) CAD (coronary artery disease) Acute UTI Weakness Elevated liver enzymes AAA (abdominal aortic aneurysm) Surgical History History of coronary artery stent placement History of tonsillectomy History of appendectomy Hx of cholecystectomy H/O: hysterectomy S/P CABG (coronary artery bypass graft) Family History Other Cancer Heart attack Hypertension Stroke Social History (Updated 12/29/24 @ 09:34 by Brittani Spencer RN) Smoking Status: Former smoker second hand exposure: No alcohol intake: never substance use type: denies use current occupational status: retired Travel in the last 8 weeks: None household members: family housing: house Have you lived/traveled outside US in past 30 days?: No Contact w/someone who lives/traveled outside US past 30 days?: No Exposure to someone with infectious disease in past 14 days?: No Do you have a fever (greater than 100.4 F or 38 C)?: No Have you tested positive for COVID-19: No Exposed to someone with COVID-19 in past 14 days?: No Do you have a sore throat?: No Do you have a cough?: No Do you have any weakness?: No Are you experiencing any nausea/vomitting?: No Do you have any diarrhea?: No Are you experiencing any unusual bleeding?: No Do you have any muscle aches/pain?: No Do you have any abdominal pain?: No Are you experiencing loss of taste or smell?: No [facility] Anesthesia Checklist Patient Identification Patient Identification: Arm Band, Family and Verbal (Name & ) Structural Data Admitted From: Home Planned Operative Procedure/s: Bronch w/Bx Consent for Planned Operative Procedure(s) Verified: Yes Verified Documents: Surgical Consent and History and Physical NPO Status Verified Time NPO: 00:00 Chart Verification Results Verified: CBC, BMP, ECG and Chest Xray Additional verifications Fingerstick Blood Glucose: 114 Patient : No Anesthesia Reactions: No Hx Blood Transfusions: No Blood Transfusion Reaction: No Cardiovascular Assessment Heart Sounds: S1 & S2 Pulse Rhythm: Irregular Peripheral Edema: No Airway Assessment Mallampati Score:: Class II C-Spine Mobility Assessed: Yes (Limited d/t cervical spondylosis) TMJ Mobility Assessed: Yes Dentition: Edentulous Neurological Assessment Level of Consciousness: Awake, Alert, Appropriate and Follows Commands Hx Seizures: No Numbness or tingling in extremities: No Anesthesia Plan Anesthesia Risk discussed: Yes Anesthesia Plan: Verified ASA Class: III Anesthesia Type: General
[2024-12-29] MEDS: LACTATED RINGERS 1000ML 1,000 ML 25 ML IV (09:51)
--- NOTE | 2024-12-29 11:05 | XR_ITS ---
FINAL REPORT CLINICAL HISTORY: BRONCH 1:58 FLUORO 1.9 frida 27.10 mGy FINDINGS: FLUOROSCOPY LESS THAN 1 HOUR HISTORY: Bronchoscopy FINDINGS: Fluoroscopic guidance was provided for bronchoscopy. 2 spot films were obtained. 1 minute 58 seconds of fluoroscopy time were used, with a dosage of 27.10 mGy. IMPRESSION: As above. Reviewed, Interpreted and Dictated by Jacqui Ventura MD Transcribed by Zulema Navarrete Authenticated and [facility]
--- NOTE | 2024-12-29 11:21 | P.PNANES_ITS ---
[facility] Anesthesia Record Part I Anesthesia Record I Intake, IV Amount: 600 Hydration: Adequate Estimated blood loss (mL): 25 Urine output (mL): 0 Blood Products used (#): none Blood Pressure: 126/78 SaO2: 90 Pulse Rate: 79 Airway Patency: Patent Respiratory Rate: 18 (Coughing) Temperature: 96.8 F Patient is:: Awake (Talking & coughing), Nasal O2 and Stable Stable to PACU at:: 11:19
--- NOTE | 2024-12-29 11:31 | EXP.BRONCH.N ---
Procedure: Date: 12/29/24 Patient Date of :: 1945 Procedure Performed:: Bronchoscopy with airway examination, bronchoalveolar lavage and transbronchial lung biopsy Indications:: Nonresolving pneumonia Interstitial lung disease Performing Provider:: Suri Mccurdy MD Referring Provider:: Joselin Grimm APRN Sedation:: General anesthesia Procedure:: Bronchoscopy airway examination, bronchoalveolar lavage and transbronchial lung biopsy: A clean therapeutic bronchoscopy was advanced through the ET tube and airways were examined up to subsegmental bronchi. Airways appeared grossly normal, no evidence of mucoid secretions, mucous plugging active bleeding/old blood clots noted. Bronchoalveolar lavage was performed in the RIGHT MIDDLE LOBE with instillation of 60 cc normal saline with return of 30 cc clear fluid back. BAL fluid was sent for cell count and differential along with bacterial fungal and AFB stain and cultures. Transbronchial biopsy was performed in the RIGHT UPPER MIDDLE with a total of 7 biopsies performed, 5 biopsy specimens were sent in formalin for cytopathologic examination. The other 2 biopsy samples, were sent one each in two separate normal saline specimen cups for bacterial fungal and AFB stain cultures. Special request was also made for the pathologist to evaluate for AFB and fungal organisms on the cytopathologic examination. Patient tolerated the procedure with no immediate acute complications. We will follow the patient in pulmonary clinic in 7 to 10 days. Findings:: Please see the procedure note Recommendations:: Postoperative bronchoscopy instructions. Follow-up in pulmonary clinic 5 to 7 days post procedure Complications:: No acute immediate complications Estimated blood obtained (mL): 5
--- NOTE | 2024-12-29 11:33 | XR_ITS ---
FINAL REPORT TECHNIQUE: Single view chest CLINICAL HISTORY: post bronch COMPARISON: 12/12/2024 FINDINGS: A single view of the chest was obtained. The heart and mediastinum are within normal limits. Patient is status post CABG. There is new right lower lobe consolidation. Multifocal peripheral opacities are similar to prior exam. There is no pneumothorax. IMPRESSION: New consolidation at the right lung base which could represent hemorrhage or acute pneumonia. Chronic interstitial changes. Reviewed, Interpreted and Dictated by Jacqui Ventura MD Transcribed by Raquel Dwyer Authenticated and [facility]
[2024-12-29] MEDS: IPRATROPIUM/ALBUTEROL 3 ML NEB IH (11:40)
--- NOTE | 2024-12-30 07:04 | EXP.ANES.II ---
[facility] Anesthesia Record Part II Anesthesia Record Part II Discharge Time: 11:44 Destination: Surgical Day Care (OP Surgery) PACU nurse assessment reviewed?: Yes Patient Condition:: Good Anesthesia Complications:: None Swallowing reflex intact?: Yes Airway Patency: Patent Cyanosis?: No Blood Pressure: 125/50 SaO2: 98 Respiratory Rate: 17 Pulse Rate: 72 Temperature: 96.8 F Mental Status: Alert & Oriented Pain level:: 0 Nausea and/or vomitting:: None Intake, IV Amount: 600 Hydration: Adequate
[2024-12-30 07:06] VITALS: BP 125/50; PULSE 72; RESP 17; TEMP 36; O2SAT 98
== END 2024-12-29 12:38 | disposition home or self-care (01) ==
PROVIDERS: PCP Nurse Practitioner; Visit Provider Internal Medicine Pulmonary Disease
PROC: (CPT 31624; principal; 2024-12-29 10:30)
DX: J18.9 Pneumonia, unspecified organism (principal); I10 Essential (primary) hypertension; I25.10 Atherosclerotic heart disease of native coronary artery without angina pectoris; J96.11 Chronic respiratory failure with hypoxia; J84.9 Interstitial pulmonary disease, unspecified; Z87.891 Personal history of nicotine dependence; Z79.899 Other long term (current) drug therapy; Z88.1 Allergy status to other antibiotic agents
CPT/HCPCS: 31624; 31628; 71045; 76000; 82962; 87070; 87102; 87116; 87186; 87205; 87206; 88112; 88312; 89051; J3490; J1100; J2405; J3010; J7120; J7620

== ENCOUNTER 2025-01-08 11:18 | Emergency (ER) | payer MEDICARE, SELFPAY ==
[2025-01-08] VITALS (11 sets, daily range): BP systolic 113–153; BP diastolic 45–73; PULSE 66–82; RESP 16–20; TEMP 36.6–36.8; O2SAT 92–99; BMI 26.4
--- NOTE | 2025-01-08 12:03 | ED_ITS ---
<Statement entered by Lin Byers DO - 01/08/25 16:08> I was consulted by the SIVA, and we discussed the complexity of the problems being addressed. I approved the treatment and management plan for this patient's care in the emergency department, thus performing a substantive portion of the medical decision making. Lin Byers DO Discharge Plan Disposition Patient Disposition: Home, Self-Care Condition: Fair Prescriptions Prescriptions: New ondansetron 4 mg tablet,disintegrating 4 mg PO QID PRN (Reason: nausea and vomiting) Qty: 10 0RF No Action furosemide 20 mg tablet 20 mg PO BID omega-3 fatty acids 1,000 mg capsule 2,000 mg PO DAILY cyclobenzaprine 10 mg tablet 10 mg PO DAILY prednisone 20 mg tablet See Rx Instructions PO .COMPLEX Qty: 122 0RF Rx Instructions: orally; Take 40mg (2 tab) oral once daily for 42 days followed by 20mg (1 tabs) oral once daily for 28 days followed by 10mg(Half tab) oral once daily for 28 days then stop taking prednisone. sulfamethoxazole-trimethoprim [Bactrim DS] 800-160 mg tablet See Rx Instructions PO .COMPLEX Qty: 21 0RF Rx Instructions: orally; 1 tablet orally on Sunday and Sunday every week. ropinirole 1 mg tablet 1 mg PO HS ipratropium-albuterol 0.5 mg-3 mg(2.5 mg base)/3 mL solution for nebulization 3 ml inhalation QID PRN (Reason: shortness of breath or wheezing) 90 Days Qty: 270 2RF levothyroxine 100 mcg tablet 100 mcg PO DAILY citalopram 20 mg tablet 20 mg PO DAILY metoprolol tartrate 50 mg tablet 50 mg PO BID aspirin 325 mg Capsule 325 mg PO DAILY Referrals Follow up/Referrals: Joselin Grimm APRN [Primary Care Provider] - See instructions Activity Restrictions/Add. Instructions Additional Instructions/Restrictions: For theAs we discussed you need to follow-up with your PCP the elevated calcium for not only recheck but referral on for investigation with specialists. You also need to follow-up with your director of scientific research for repeat evaluation of your heart failure, and lastly agreed to contact the gastroenterology clinic for review of the mass that was found in your rectum today as that needs to be added to your WILLIAM. If you have any continued new or worsening signs or symptoms follow-up sooner with your PCP or return to the ER as needed. Clinical Impressions Clinical Impression: Hypercalcemia, Interstitial lung disease, Mass in rectum Nausea & vomiting Qualifiers: Vomiting type: unspecified Qualified Code(s): R11.2 - Nausea with vomiting, unspecified Instructions Patient Instructions: DI for Diarrhea and Traveler's Diarrhea -- Adult, DI for Diarrhea and Traveler's Diarrhea -- Child, DI for Nausea -- Adult, DI for Nausea -- Child Print Language Print Language: Croatian Discharge ED Provider: Lin Byers General Adult HPI General Chief complaint: Nausea/Vomiting/Diarrhea Stated complaint: Vomiting, SOA, Time Seen by Provider: 01/08/25 12:03 Mode of Arrival: Wheelchair Source of Information: Patient Description of Symptoms (Recalled from ER Triage Doc. by RN): Patient states that she was put on prednisone and it has upset her stomach. Reports taking a phenergan at 9am. States that she is just nauseated. History of Present Illness HPI narrative: Patient presents for evaluation of nausea vomiting shortness of breath. Patient has significant comorbidities including versus of lung disease chronically on oxygen 2 and half liters and followed by pulmonology here, history of CHF, chronic kidney disease, hypothyroidism, abdominal aortic aneurysm hyperlipidemia hypertension and coronary artery disease. Patient reports that she was recently started on prednisone for interstitial lung disease with a long taper by pulmonology. Patient also reports that she has had increasing shortness of breath however that has been going on for over a year nothing acute in the last 24 hours. Patient also reports that she has decreased appetite and a globus sensation and has been evaluated by gastroenterology and has an upper endoscopy scheduled for February. Patient also reports that she has frequent nausea vomiting that she has Phenergan for. She has taken her Phenergan today and feels better on arrival. She currently denies chest pain fever chills hemoptysis hematochezia melena diarrhea. Related Data Home Medications ?Medication ?Instructions ?Recorded ?Confirmed ropinirole 1 mg tablet 1 mg PO HS 12/03/23 01/06/25 citalopram 20 mg tablet 20 mg PO DAILY 05/18/24 01/06/25 levothyroxine 100 mcg tablet 100 mcg PO DAILY 05/18/24 01/06/25 metoprolol tartrate 50 mg tablet 50 mg PO BID 05/18/24 01/06/25 cyclobenzaprine 10 mg tablet 10 mg PO DAILY 10/30/24 01/06/25 furosemide 20 mg tablet 20 mg PO BID 10/30/24 01/06/25 omega-3 fatty acids 1,000 mg 2,000 mg PO DAILY 10/30/24 01/06/25 capsule aspirin 325 mg capsule 325 mg PO DAILY 12/23/24 01/06/25 Previous Rx's ?Medication ?Instructions ?Recorded ipratropium 0.5 mg-albuterol 3 mg 3 ml inhalation QID PRN shortness 12/22/24 (2.5 mg base)/3 mL nebulization of breath or wheezing 90 days #270 soln mL prednisone 20 mg tablet See Rx Instructions PO .COMPLEX 01/06/25 #122 tabs sulfamethoxazole 800 See Rx Instructions PO .COMPLEX 01/06/25 mg-trimethoprim 160 mg tablet #21 tabs (Bactrim DS) ondansetron 4 mg disintegrating 4 mg PO QID PRN nausea and 01/08/25 tablet vomiting #10 tabs Allergies Allergy/AdvReac Type Severity Reaction Status Date / Time ciprofloxacin (From Cipro) Allergy Mild Vomiting Verified 01/06/25 09:56 Sulfa (Sulfonamide Allergy Unknown Verified 01/06/25 09:56 Antibiotics) allergy reaction trimethoprim (From Bactrim) Allergy Unknown Verified 01/06/25 09:56 allergy reaction PFSH PFSH Disclaimer: The information contained in this section may have been updated after the patient was seen, as this information can be updated by other users. Medical History ILD (interstitial lung disease) Dysphagia Chronic respiratory failure with hypoxia Pulmonary emphysema Pneumonia Multiple pulmonary nodules History of chest pain History of COVID-19 COPD (chronic obstructive pulmonary disease) Menopause Rheumatoid arthritis History of cataract Aneurysm History of smoking 30 or more pack years HLD (hyperlipidemia) HTN (hypertension) CAD (coronary artery disease) Acute UTI Weakness Elevated liver enzymes AAA (abdominal aortic aneurysm) Surgical History History of coronary artery stent placement History of tonsillectomy History of appendectomy Hx of cholecystectomy H/O: hysterectomy S/P CABG (coronary artery bypass graft) Family History Other Cancer Heart attack Hypertension Stroke Social History Smoking Status: Former smoker second hand exposure: No alcohol intake: never substance use type: denies use current occupational status: retired Travel in the last 8 weeks: None household members: family housing: house Have you lived/traveled outside [place] in past 30 days?: No Contact w/someone who lives/traveled outside US past 30 days?: No Exposure to someone with infectious disease in past 14 days?: No Do you have a fever (greater than 100.4 F or 38 C)?: No Have you tested positive for COVID-19: No Exposed to someone with COVID-19 in past 14 days?: No Do you have a sore throat?: No Do you have a cough?: No Do you have any weakness?: No Do you have any diarrhea?: No Are you experiencing any unusual bleeding?: No Do you have any muscle aches/pain?: No Do you have any abdominal pain?: No Are you experiencing loss of taste or smell?: No Other Medical History Have you received the Flu Vaccine for this season: No Have you received the Pneumonia Vaccine: Yes ROS Obtained: Yes Systems reviewed as appropriate & no additional complaints except as documented Physical Exam General General appearance: alert and in no apparent distress Respiratory Respiratory exam: Present normal lung sounds bilaterally; Absent respiratory distress, wheezes or accessory muscle use Cardiovascular Cardiovascular exam: Present regular rate Neurological Exam Neurological exam: Present alert and oriented X3 Medical Decision Making Medical Records Medical records reviewed: Yes I reviewed the patient's medical records. Screening: Per USPSTF and CDC recommendations, given the prevalence of disease in our region, it is our hospital?s policy to screen for HIV and viral Hepatitis for all patients aged 18 and over and those with ongoing risk factors. [place] Inquiry Pt receiving controlled substance: No Vital Signs: 01/08/25 11:29 01/08/25 11:30 01/08/25 12:00 Temperature 97.9 F Temperature Source Oral Pulse Rate 79 76 Pulse Rate [Radial] 82 Respiratory Rate 16 Blood Pressure 148/61 H 125/47 L Blood Pressure [Right Arm] 144/73 H Blood Pressure Mean Blood Pressure Mean [Right Arm] 96 Blood Pressure Source [Right Arm] Automatic Cuff Blood Pressure Position [Right Arm] Sitting 02 Sat by Pulse Oximetry 92 L 95 94 L Oxygen Delivery Method Nasal Cannula Nasal Cannula Nasal Cannula Oxygen Flow Rate (LPM) 2 01/08/25 12:31 01/08/25 13:00 01/08/25 13:30 Temperature Temperature Source Pulse Rate 75 72 71 Pulse Rate [Radial] Respiratory Rate Blood Pressure 153/45 H 137/54 L 121/50 L Blood Pressure [Right Arm] Blood Pressure Mean Blood Pressure Mean [Right Arm] Blood Pressure Source [Right Arm] Blood Pressure Position [Right Arm] 02 Sat by Pulse Oximetry 95 95 99 Oxygen Delivery Method Nasal Cannula Nasal Cannula Nasal Cannula Oxygen Flow Rate (LPM) 01/08/25 14:00 01/08/25 14:30 01/08/25 15:00 Temperature Temperature Source Pulse Rate 68 69 66 Pulse Rate [Radial] Respiratory Rate Blood Pressure 122/50 L 118/49 L 113/45 L Blood Pressure [Right Arm] Blood Pressure Mean 74 Blood Pressure Mean [Right Arm] Blood Pressure Source [Right Arm] Blood Pressure Position [Right Arm] 02 Sat by Pulse Oximetry 98 97 98 Oxygen Delivery Method Nasal Cannula Nasal Cannula Nasal Cannula Oxygen Flow Rate (LPM) 01/08/25 15:31 01/08/25 15:45 Temperature 98.2 F Temperature Source Pulse Rate 67 76 Pulse Rate [Radial] Respiratory Rate 20 Blood Pressure 124/46 L 124/48 L Blood Pressure [Right Arm] Blood Pressure Mean Blood Pressure Mean [Right Arm] Blood Pressure Source [Right Arm] Blood Pressure Position [Right Arm] 02 Sat by Pulse Oximetry 97 Oxygen Delivery Method Nasal Cannula Nasal Cannula Oxygen Flow Rate (LPM) 2 Lab Data Lab results reviewed: Yes I reviewed the patient's lab results. Lab Results 01/08/25 12:28: WBC 13.8 H, RBC 4.29, Hgb 12.3, Hct 37.5, MCV 87.4, MCH 28.7, MCHC 32.8, RDW 14.1, Plt Count 146, MPV 11.3 H, Neut % (Auto) 92.6 H, Lymph % (Auto) 3.0 L, [place] % (Auto) 3.0, Eos % (Auto) 0.7, Baso % (Auto) 0.2, Neut # (Auto) 12.8 H, Lymph # (Auto) 0.4 L, [place] # (Auto) 0.4, Eos # (Auto) 0.1, Baso # (Auto) 0.0, Total Counted 100, Neutrophils % (Manual) 96 H, Lymphocytes % (Manual) 3 L, Monocytes % (Manual) 1 L, Platelet Estimate Normal, RBC Morphology Normal, Sodium 135 L, Potassium 4.9, Chloride 100, Carbon Dioxide 26, Anion Gap 13.9, BUN 25 H, Creatinine 1.10 H, Estimated Creat Clear 46, Estimated GFR 48 L, Est GFR ( Amer) 58 L, Glucose 153 H, Calcium 10.7 H, Magnesium 1.9, Total Bilirubin 1.3, AST 193 H, ALT 161 H, Alkaline Phosphatase 69, Troponin I < 0.01, NT-Pro-B Natriuret Pep 2990 H, Total Protein 7.6, Albumin 3.9, Globulin 3.7 H, Albumin/Globulin Ratio 1.1, Lipase 120, Procalcitonin 0.777, PTH Intact 26.1 01/08/25 12:28 01/08/25 12:28 Orders (Tests/Meds): ED MEDICATIONS Discontinued Medications Generic Name Dose Route Start Last Admin Trade Name Freq PRN Reason Stop Dose Admin Iopamidol 80 ml 01/08/25 13:16 01/08/25 13:18 Iopamidol-370 (76%);100ml Bottle IV 01/08/25 13:17 80 ml ONCE ONE Administration Ondansetron HCl 4 mg 01/08/25 12:18 01/08/25 12:37 Ondansetron 4mg/2ml Vial IV 01/08/25 12:19 4 mg ONCE ONE Administration Sodium Chloride 40 ml 01/08/25 13:16 01/08/25 13:18 0.9 % Sodium Chloride 50 Ml Vial IV 01/08/25 13:17 40 ml ONCE ONE Administration Sodium Chloride 10 ml 01/08/25 13:17 01/08/25 13:18 Sodium Chloride 0.9% 10ml Syr (Rad Only) IV 01/08/25 13:18 10 ml ONCE ONE Administration ORDERS Category Date Time Status CT angio abdomen pelvis Stat Cat Scan 01/08/25 12:[address] angio chest - dissection Stat Cat Scan 01/08/25 12:18 Completed BNP [NT Pro Brain Natriuretic Pep.] Stat Lab 01/08/25 12:28 Completed CBC w/Auto Diff [Complete Blood Count Auto Diff] Stat Lab 01/08/25 12:28 Completed CMP [Comprehensive Metabolic Panel] Stat Lab 01/08/25 12:28 Completed Intact Parathyroid Hormone Routine Lab 01/08/25 12:28 Completed Lipase Stat Lab 01/08/25 12:28 Completed Magnesium Stat Lab 01/08/25 12:28 Completed Procalcitonin Stat Lab 01/08/25 12:28 Completed Trop I [Troponin I] Stat Lab 01/08/25 12:28 Completed HEART Score History (anamnesis): Slightly suspicious ECG: Non-specific disturbance Age: >65 years Risk factors: Atherosclerosis history Troponin: </= normal limit HEART Score: 5 Medical Decision Narrative: In summary patient is a 79-year-old female who presents to the emergency department for evaluation of dyspnea and nausea vomiting. Patient is hemodynamically stable with a blood pressure 144/73 pulse 82 breathing 16 times a minute satting at 92% on 2 L by nasal cannula upon arrival, afebrile. Physical exam is remarkable for actually clear breath sounds with no increased work of breathing adventitious sounds or accessory muscle use, normal abdominal exam with no rebound no guarding or rigidity normal bowel sounds, no reproducible chest pain on palpation, no dependent edema noted.. Differential diagnosis includes COPD exacerbation versus CHF exacerbation versus upper or lower respiratory infection versus gastroenteritis etc CTAs of the chest abdomen pelvis, twelve-lead EKG hematologic labs.. Initial workup will be conducted with continuous pulse oximetry and cardiac monitoring along with Tylenol and Zofran.. Initial interventions include IV Zofran for now. Initial workup reviewed by me and patient's white count is 13.8 within normal H&H and absolute neutrophil count of 12.8 however patient has been recently initiated on high- dose steroid therapy, creatinine 1.1 and undetectable troponin and NT proBNP of 2990 a lipase of 120 procalcitonin of 0.777 calcium of 10.7 and her albumin is 3.9 this was no need to correct and is true hypercalcemia, and my informal interpretation of her imaging shows that she has stable interstitial lung disease with no new infiltrates pleural effusions and she has what appears to be a rectal mass.. Upon repeat evaluation patient is tolerant of oral intake now after administration of IV Zofran. I reinterviewed the patient regarding her potential use of calcium containing [id number] products which she denies. Patient is also unaware of rectal mass.. Given this I had a shared decision- making discussion with the patient regarding her findings and her WILLIAM and she will follow-up closely with pulmonology, she will follow-up closely with her director of scientific research and call tomorrow to schedule an appointment for repeat echo, she will contact gastroenterology notifying them of the rectal mass she is already scheduled to undergo upper endoscopy in February. I will send a prescription for Zofran to her pharmacy and as this nausea vomiting is usually happening in the daytime upon awakening but shows good nutrition will defer to gastroenterology WILLIAM for further causes. Patient verbalized understanding and agreement. Patient has been given strict return precautions. Critical Care Critical Care Time Critical Care Time: Yes Attestation: On 01/08/25, the high probability of a clinically significant, sudden or life threatening deterioration of the following system(s) required my full and direct attention, intervention and personal management. The time I documented below is in addition to time spent performing reported procedures but includes the following listed in this critical care notation. Total Time Total Critical Care Time: 35
--- NOTE | 2025-01-08 12:18 | CT_ITS ---
FINAL REPORT TECHNIQUE: Axial imaging of the chest is obtained after the administration of contrast. 3-D MIP reformatted images were also obtained and reviewed per PE protocol. CLINICAL HISTORY: Shortness of breath, history of AAA COMPARISON: CT chest 12/12/2024 and CTA chest 02/06/2024 FINDINGS: No aortic dissection or aneurysm. Heart is borderline in size. No evidence of central pulmonary embolism. There is no mediastinal, hilar, or axillary lymphadenopathy. There are changes of emphysema. There has been interval worsening of bilateral groundglass opacities with basilar predominance. Findings could represent pulmonary edema or pneumonia. 2 left upper lobe pulmonary nodules on images 30 and 32 series 5 are unchanged. No new nodules identified. There is no pleural or pericardial effusion. No acute osseous abnormality. IMPRESSION: No aortic aneurysm or dissection. No central pulmonary embolism. Worsening groundglass opacities could represent pulmonary edema or pneumonia. Stable pulmonary nodules. Reviewed, Interpreted and Dictated by Jo-Ann Jean Baptiste MD Transcribed by Nava Johnson Authenticated and [facility]
--- NOTE | 2025-01-08 12:18 | CT_ITS ---
FINAL REPORT TECHNIQUE: Thin section axial images were obtained through the abdomen and pelvis after contrast injection per CT angiogram protocol. Multiplanar reconstruction images were obtained from the axial data. This exam was performed with techniques to keep radiation dose as low as reasonably achievable. This includes automated exposure control, adjustment of the MA and KVP, and iterative reconstruction technique. CLINICAL HISTORY: Shortness of breath, history of AAA COMPARISON: 02/06/2024 FINDINGS: CTA: Infrarenal abdominal aortic aneurysm is noted with left saccular component. Largest aortic diameter is 49 mm, was 49 mm (series 2 image 136). Again seen is chronic focal dissection flap. More inferiorly is a second area of aneurysmal dilatation measuring 31 mm on image 148, unchanged. Mesenteric arteries are patent. Calcification of the origin of the celiac and SMA arteries are stable and stenosis is likely unchanged. Bilateral renal arteries are patent with bilateral dual renal arteries. The iliac vessels are patent. NONVASCULAR: No acute abnormality of the solid organs. The gallbladder is absent. No GI tract abnormality. There is a mass in the upper rectum most consistent with neoplasm. No lymphadenopathy. No free fluid. IMPRESSION: Likely stable abdominal aortic aneurysm with chronic focal dissection. 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 Recommend colonoscopy. Reviewed, Interpreted and Dictated by Jo-Ann Jean Baptiste MD Transcribed by Nava Johnson Authenticated and [facility]
[2025-01-08] MEDS: ONDANSETRON 4MG/2ML VIAL 4 MG IV (12:37)
[2025-01-08 12:41] LABS: Basophils % 0.2 % (0.1-2.0); Eosinophils # 0.1 K/mm3 (0.0-0.4); Eosinophils % 0.7 % (0.1-12.0); Hematocrit 37.5 % (37.0-47.0); Hemoglobin 12.3 g/dL (12.2-16.2); Lymphocytes # 0.4 K/mm3 (0.7-4.5); Mean Corpuscular HGB Conc 32.8 g/dL (31.8-35.4); Mean Corpuscular Hemoglobin 28.7 pg (27.0-31.2); Mean Corpuscular Volume 87.4 fl (81-99); Mean Platelet Volume 11.3 fl (7.4-10.4); Monocytes # 0.4 K/mm3 (0.1-1.0); Neutrophils # 12.8 K/mm3 (1.8-7.8); Neutrophils % 92.6 % (37.0-80.0); Platelet Count 146 K/mm3 (142-424); Red Blood Count 4.29 M/mm3 (4.20-5.40); Red Cell Distribution Width 14.1 % (11.5-17.5); White Blood Count 13.8 K/mm3 (4.8-10.8)
[2025-01-08 12:46] LABS: MANUAL DIFFERENTIAL MANUAL DIFFERENTIAL (MANUAL DIFF)
[2025-01-08 12:53] LABS: Alanine Aminotransferase 161 U/L (12-78); Albumin Level 3.9 g/dl (3.5-5.0); Albumin/Globulin Ratio 1.1 (1.1-1.8); Alkaline Phosphatase 69 U/L (38-126); Anion Gap 13.9 mEq/L (5-15); Aspartate Amino Transferase 193 U/L (14-36); Bilirubin,Total 1.3 mg/dl (0.2-1.3); Blood Urea Nitrogen 25 mg/dl (7-17); Calcium 10.7 mg/dl (8.4-10.2); Carbon Dioxide 26 mmol/L (22.0-30.0); Chloride 100 mmol/L (98-107); Creatinine Clearance Estimated 46 mL/min (50-200); Estimated Glomerular Filt Rate 48 ml/min (>60); GFR (African American) 58 ML/MIN (>60); Globulin 3.7 g/dL (1.3-3.2); Glucose 153 mg/dl (74-100); Lipase 120 U/L (23-300); Magnesium 1.9 mg/dl (1.6-2.3); Potassium 4.9 mmoL/L (3.5-5.1); Sodium 135 mmol/L (136-145); Total Protein,Serum 7.6 g/dl (6.3-8.2)
[2025-01-08 13:03] LABS: NT Pro Brain Natriuretic Pep. 2990 pg/mL (0-450)
[2025-01-08 13:11] LABS: Procalcitonin 0.777 ng/mL (0.0-2.0); Troponin I < 0.01 ng/ml (0.00-0.034)
[2025-01-08] MEDS: IOPAMIDOL-370 (76%);100ML BOTTLE 80 ML IV (13:18)
[2025-01-08] MEDS: SODIUM CHLORIDE 0.9% 10ML SYR (RAD ONLY) 10 ML IV (13:18)
[2025-01-08] MEDS: 0.9 % SODIUM CHLORIDE 50 ML VIAL 40 ML IV (13:18)
[2025-01-08 13:24] LABS: Intact Parathyroid Hormone 26.1 pg/mL (7.5-53.5)
[2025-01-08 13:38] LABS: Lymphocytes % 3 % (10-50); Monocytes % 1 % (2-9); Neutrophils % 96 % (42-76); Platelet Estimate Normal; RBC Morphology Normal; Total Cells Counted 100
== END 2025-01-08 15:46 | disposition home or self-care (01) ==
PROVIDERS: Physician Assistant; Emergency Provider Emergency Medicine; PCP Nurse Practitioner
DX: J84.9 Interstitial pulmonary disease, unspecified (principal); K62.89 Other specified diseases of anus and rectum; E83.52 Hypercalcemia; R06.02 Shortness of breath; R11.2 Nausea with vomiting, unspecified; R63.8 Other symptoms and signs concerning food and fluid intake; R09.A2 Foreign body sensation, throat; Z87.891 Personal history of nicotine dependence
CPT/HCPCS: 71275; 74174; 80053; 83690; 83735; 83880; 83970; 84145; 84484; 85007; 85025; 85027; 96374; 99291; J2405; Q9967

== ENCOUNTER 2025-01-19 08:32 | Day surgery (SDC) | payer MEDICARE, SELFPAY ==
[2025-01-19 08:46] VITALS: BMI 26.7
[2025-01-19] MEDS: LACTATED RINGERS 1000ML 1,000 ML 50 ML IV (08:57)
[2025-01-19 09:04] VITALS: BP 131/43; PULSE 62; RESP 19; TEMP 36.2; O2SAT 97
--- NOTE | 2025-01-19 09:49 | EXP.HP ---
History of Present Illness *Admission Date: 01/19/25 *History of present illness: Mrs. Decker is a 79-year-old female who is here for diagnostic EGD and colonoscopy secondary to loss of appetite, choking, fullness, weight loss and anemia. The patient's CAT scan showed a mass in the upper rectum consistent with neoplasm. The examination is deemed medically necessary for diagnostic panendoscopy. The patient has been seen, interviewed and examined prior to the procedure by both myself and the anesthesia provider. [facility] Disclaimer: The information contained in this section may have been updated after the patient was seen, as this information can be updated by other users. Medical History ILD (interstitial lung disease) Dysphagia Chronic respiratory failure with hypoxia Pulmonary emphysema Pneumonia Multiple pulmonary nodules History of chest pain History of COVID-19 COPD (chronic obstructive pulmonary disease) Menopause Rheumatoid arthritis History of cataract Aneurysm History of smoking 30 or more pack years HLD (hyperlipidemia) HTN (hypertension) CAD (coronary artery disease) Acute UTI Weakness Elevated liver enzymes AAA (abdominal aortic aneurysm) Surgical History History of coronary artery stent placement History of tonsillectomy History of appendectomy Hx of cholecystectomy H/O: hysterectomy S/P CABG (coronary artery bypass graft) Family History Other Cancer Heart attack Hypertension Stroke Social History Smoking Status: Former smoker second hand exposure: No alcohol intake: never substance use type: denies use current occupational status: retired Travel in the last 8 weeks: None household members: family housing: house Have you lived/traveled outside US in past 30 days?: No Contact w/someone who lives/traveled outside US past 30 days?: No Exposure to someone with infectious disease in past 14 days?: No Do you have a fever (greater than 100.4 F or 38 C)?: No Have you tested positive for COVID-19: No Exposed to someone with COVID-19 in past 14 days?: No Do you have a sore throat?: No Do you have a cough?: No Do you have any weakness?: No Do you have any diarrhea?: No Are you experiencing any unusual bleeding?: No Do you have any muscle aches/pain?: No Do you have any abdominal pain?: No Are you experiencing loss of taste or smell?: No Other Medical History Have you received the Flu Vaccine for this season: No Have you received the Pneumonia Vaccine: Yes Review of Systems Review of Systems Review of systems (narrative): Negative *Cardiovascular Comments: Negative *Gastrointestinal Comments: Negative *Genitourinary Comments: Negative *Musculoskeletal Comments: Negative *Neurologic Comments: Negative Meds Home Medications and Allergies Home Medications ?Medication ?Instructions ?Recorded ?Confirmed ?Type ropinirole 1 mg tablet 1 mg PO HS 12/03/23 01/19/25 History citalopram 20 mg tablet 20 mg PO DAILY 05/18/24 01/19/25 History levothyroxine 100 mcg tablet 100 mcg PO DAILY 05/18/24 01/19/25 History metoprolol tartrate 50 mg tablet 50 mg PO BID 05/18/24 01/19/25 History cyclobenzaprine 10 mg tablet 10 mg PO DAILY 10/30/24 01/19/25 History furosemide 20 mg tablet 20 mg PO BID 10/30/24 01/19/25 History omega-3 fatty acids 1,000 mg 2,000 mg PO DAILY 10/30/24 01/19/25 History capsule ipratropium 0.5 mg-albuterol 3 mg 3 ml inhalation QID PRN shortness 12/22/24 01/19/25 Rx (2.5 mg base)/3 mL nebulization of breath or wheezing 90 days #270 soln mL aspirin 325 mg capsule 325 mg PO DAILY 12/23/24 01/19/25 History prednisone 20 mg tablet See Rx Instructions PO .COMPLEX 01/06/25 01/19/25 Rx #122 tabs ondansetron 4 mg disintegrating 4 mg PO QID PRN nausea and 01/08/25 01/19/25 Rx tablet vomiting #10 tabs New Prescriptions to Start Prescriptions: Allergies Allergy/AdvReac Type Severity Reaction Status Date / Time ciprofloxacin (From Cipro) Allergy Mild Vomiting Verified 01/19/25 08:58 Sulfa (Sulfonamide Allergy Unknown Verified 01/19/25 08:58 Antibiotics) allergy reaction trimethoprim (From Bactrim) Allergy Unknown Verified 01/19/25 08:58 allergy reaction Exam Data for Last 24 hours Vital signs and Labs for Last 24 Hours: Temp Pulse Resp BP Pulse Ox O2 Del Method O2 Flow Rate 97.2 F L 62 19 131/43 L 97 Nasal Cannula 2 01/19/25 09:04 01/19/25 09:04 01/19/25 09:04 01/19/25 09:04 01/19/25 09:04 01/19/25 09:04 01/19/25 09:04 I & O for Last 24 hours: Intake & Output 01/16/25 01/17/25 01/18/25 01/19/25 23:59 23:59 23:59 23:59 Weight 156 lb *Routine HEENT Exam Head: Present normocephalic Eye: Present EOMI and PERRL ENT: Present mucous membranes moist *Routine Neck Exam Neck: Present supple *Routine Respiratory Exam Respiratory: Present CTA bilaterally *Routine Cardiovascular Exam Cardiovascular: Present RRR *Routine Abdominal Exam Abdominal: Present soft and normoactive bowel sounds; Absent tenderness *Routine Rectal Exam Rectal:: deferred *Routine Genitalia Exam Genitalia:: deferred *Routine Extremities Exam Extremities: Absent cyanosis, clubbing or edema *Routine Skin Exam Skin: Present warm; Absent rash *Routine Neurological Exam Neurological: Present alert and oriented X3 Assessment and Plan *Assessment and plan (1) Mass in rectum: Status: Acute Category: Medical Code(s): K62.89 - Other specified diseases of anus and rectum (2) Nausea & vomiting: Status: Acute Qualifiers: Vomiting type: unspecified Qualified Code(s): R11.2 - Nausea with vomiting, unspecified Category: Medical Code(s): R11.2 - Nausea with vomiting, unspecified (3) Anemia: Status: Acute Category: Medical Code(s): D64.9 - Anemia, unspecified (4) Vitamin B12 deficiency (non anemic): Status: Acute Category: Medical Code(s): E53.8 - Deficiency of other specified B group vitamins (5) Early satiety: Status: Acute Category: Medical Code(s): R68.81 - Early satiety (6) Weight loss: Status: Acute Category: Medical Code(s): R63.4 - Abnormal weight loss (7) Loss of appetite: Status: Acute Category: Medical Code(s): R63.0 - Anorexia Plan A/P: 1. Mass in the upper rectum with nausea, vomiting, anemia, fullness, weight loss and loss of appetite is the preprocedural diagnosis. The patient will be anesthetized/sedated using MAC sedation. The patient has been seen and examined. Cardiac and lung assessment prior to the examination is stable. Proceed with planned panendoscopy
--- NOTE | 2025-01-19 09:51 | EXP.ANES.CKL ---
[facility] Disclaimer: The information contained in this section may have been updated after the patient was seen, as this information can be updated by other users. Medical History ILD (interstitial lung disease) Dysphagia Chronic respiratory failure with hypoxia Pulmonary emphysema Pneumonia Multiple pulmonary nodules History of chest pain History of COVID-19 COPD (chronic obstructive pulmonary disease) Menopause Rheumatoid arthritis History of cataract Aneurysm History of smoking 30 or more pack years HLD (hyperlipidemia) HTN (hypertension) CAD (coronary artery disease) Acute UTI Weakness Elevated liver enzymes AAA (abdominal aortic aneurysm) Surgical History History of coronary artery stent placement History of tonsillectomy History of appendectomy Hx of cholecystectomy H/O: hysterectomy S/P CABG (coronary artery bypass graft) Family History Other Cancer Heart attack Hypertension Stroke Social History Smoking Status: Former smoker second hand exposure: No alcohol intake: never substance use type: denies use current occupational status: retired Travel in the last 8 weeks: None household members: family housing: house Have you lived/traveled outside US in past 30 days?: No Contact w/someone who lives/traveled outside US past 30 days?: No Exposure to someone with infectious disease in past 14 days?: No Do you have a fever (greater than 100.4 F or 38 C)?: No Have you tested positive for COVID-19: No Exposed to someone with COVID-19 in past 14 days?: No Do you have a sore throat?: No Do you have a cough?: No Do you have any weakness?: No Do you have any diarrhea?: No Are you experiencing any unusual bleeding?: No Do you have any muscle aches/pain?: No Do you have any abdominal pain?: No Are you experiencing loss of taste or smell?: No [facility] Anesthesia Checklist Patient Identification Patient Identification: Arm Band Structural Data Admitted From: Home Planned Operative Procedure/s: EGD/Colonoscopy Consent for Planned Operative Procedure(s) Verified: Yes Verified Documents: Surgical Consent and History and Physical NPO Status Verified Time NPO: 07:00 (finished prep) Additional verifications Anesthesia Reactions: No Hx Blood Transfusions: No Blood Transfusion Reaction: No Airway Assessment Mallampati Score:: Class II C-Spine Mobility Assessed: Yes TMJ Mobility Assessed: Yes Dentition: Edentulous Neurological Assessment Level of Consciousness: Awake, Alert and Appropriate Anesthesia Plan Anesthesia Risk discussed: Yes Anesthesia Plan: Verified ASA Class: III Anesthesia Type: MAC
--- NOTE | 2025-01-19 09:53 | EXP.ANES.CKL ---
[facility] Disclaimer: The information contained in this section may have been updated after the patient was seen, as this information can be updated by other users. Medical History ILD (interstitial lung disease) Dysphagia Chronic respiratory failure with hypoxia Pulmonary emphysema Pneumonia Multiple pulmonary nodules History of chest pain History of COVID-19 COPD (chronic obstructive pulmonary disease) Menopause Rheumatoid arthritis History of cataract Aneurysm History of smoking 30 or more pack years HLD (hyperlipidemia) HTN (hypertension) CAD (coronary artery disease) Acute UTI Weakness Elevated liver enzymes AAA (abdominal aortic aneurysm) Surgical History History of coronary artery stent placement History of tonsillectomy History of appendectomy Hx of cholecystectomy H/O: hysterectomy S/P CABG (coronary artery bypass graft) Family History Other Cancer Heart attack Hypertension Stroke Social History Smoking Status: Former smoker second hand exposure: No alcohol intake: never substance use type: denies use current occupational status: retired Travel in the last 8 weeks: None household members: family housing: house Have you lived/traveled outside US in past 30 days?: No Contact w/someone who lives/traveled outside US past 30 days?: No Exposure to someone with infectious disease in past 14 days?: No Do you have a fever (greater than 100.4 F or 38 C)?: No Have you tested positive for COVID-19: No Exposed to someone with COVID-19 in past 14 days?: No Do you have a sore throat?: No Do you have a cough?: No Do you have any weakness?: No Do you have any diarrhea?: No Are you experiencing any unusual bleeding?: No Do you have any muscle aches/pain?: No Do you have any abdominal pain?: No Are you experiencing loss of taste or smell?: No [facility] Anesthesia Checklist Patient Identification Patient Identification: Arm Band Structural Data Admitted From: Home Additional verifications Anesthesia Reactions: No Hx Blood Transfusions: No Blood Transfusion Reaction: No
[2025-01-19 09:57] VITALS: O2SAT 98
--- NOTE | 2025-01-19 09:58 | HMH.PROCNOTE ---
[facility] Procedure Note Date: 01/19/25 Time: 10:09 Procedure Note:: Upper Endoscopy Procedure Report: Esophagogastroduodenoscopy with cold biopsies and TTS balloon dilation Endoscopost: Jude Lozada II, MD Referring Physician: Joselin CATES Date of Procedure: January 19, 2025 Equipment: Olympus GIF 190 standard upper endoscope Sedation: MAC sedation Indications: Mrs. Decker is a 79-year-old female who is here for diagnostic panendoscopy. She has had an unintentional weight loss of more than 25 pounds over the last 3 or 4 months. She has had a loss of appetite with intermittent episodes of nausea. A couple of months ago she was struggling with globus sensation with thick mucus in her throat and would get choked easily. This resolved. She was found to have B12 deficiency. Her recent hemoglobin hematocrit were 12.3 and 37.5 which is normal and her baseline. She is getting B12 shots. The patient has had elevated liver chemistries with ALT 161 and these have been even more significantly elevated and January 2024. The patient does have a history of choledocholithiasis in the remote past. Her creatinine was mildly elevated recently at 1.10. Imaging of the abdomen showed an infrarenal abdominal aortic aneurysm with chronic focal dissection. She is followed at [facility] cardiology (Dr. Payne). Additionally, her CAT scan showed a mass in the upper rectum consistent with probable neoplasm. Her last colonoscopy was many years ago. The patient does have a history of pulmonary emphysema and CASHD. The patient reports no heartburn or reflux. She has no abdominal pain or change in bowel habits. Procedure: Prior to the procedure, a history and physical exam was performed, and patient's medications and allergies were reviewed. The risks, benefits and alternatives of the sedation and procedure were discussed with the patient. All questions were answered and informed consent was obtained. The patient was brought to the procedure room. Patient identification and proposed procedure were verified by the physician and the nurse. The patient was placed in a left lateral decubitus position and the scope was passed under direct vision. Throughout the procedure, the patient's blood pressure, pulse, and oxygen saturations were monitored continuously. The upper GI endoscopy was accomplished without difficulty. The patient tolerated the procedure well. Findings: The scope was passed directly into the upper esophagus and advanced to the third portion of the duodenum. The post bulbar duodenum, ampulla and duodenal bulb were normal with normal mucosa and conniventes. The scope was withdrawn through a normal duodenal bulb and pylorus into the stomach. There was moderate linear reactive gastropathy of the antrum and body of the stomach. There was no significant atrophy. Biopsies were taken from the antrum. Upon retroflexion there was a very small sliding 1 to 2 cm hiatal hernia. There were no ulcerations or erosions. The scope was then withdrawn into the esophagus. There is no evidence of reflux esophagitis or Armstrong's. There were tertiary contractions and evidence of mild to moderate esophageal dysmotility. The entire esophagus was dilated to 60 Kazakh/20 mm with a TTS hydrostatic balloon. There was mild resistance at the cricopharyngeus. The remainder of the esophageal mucosa was normal. Impression: 1. Nonerosive GERD with mild to moderate esophageal dysmotility and very small sliding hiatal hernia 2. Moderate linear reactive gastropathy Plan: I will follow-up the biopsies. I do feel that her weight loss is multifactorial. We will proceed with colonoscopy especially with rectal mass identified on CAT scan.
--- NOTE | 2025-01-19 10:12 | HMH.PROCNOTE ---
[facility] Procedure Note Date: 01/19/25 Time: 11:00 Procedure Note:: Colonoscopy Procedure Report: Colonoscopy with cold snare polypectomy and snare cautery Endoscopist: Jude Lozada II, MD Referring physician: Joselin CATES Date of Procedure: January 19, 2025 Equipment: Olympus 190 variable stiffness pediatric colonoscope Sedation: MAC sedation Indication: Mrs. Decker is a 79-year-old female who is here for diagnostic panendoscopy. She has had an unintentional weight loss of more than 25 pounds over the last 3 or 4 months. She has had a loss of appetite with intermittent episodes of nausea. A couple of months ago she was struggling with globus sensation with thick mucus in her throat and would get choked easily. This resolved. She was found to have B12 deficiency. Her recent hemoglobin hematocrit were 12.3 and 37.5 which is normal and her baseline. She is getting B12 shots. The patient has had elevated liver chemistries with ALT 161 and these have been even more significantly elevated and January 2024. The patient does have a history of choledocholithiasis in the remote past. Her creatinine was mildly elevated recently at 1.10. Imaging of the abdomen showed an infrarenal abdominal aortic aneurysm with chronic focal dissection. She is followed at [facility] cardiology (Dr. Payne). Additionally, her CAT scan showed a mass in the upper rectum consistent with probable neoplasm. Her last colonoscopy was many years ago. The patient does have a history of pulmonary emphysema and CASHD. The patient reports no heartburn or reflux. She has no abdominal pain or change in bowel habits. Procedure: Prior to the procedure, a history and physical exam was performed, and patient's medications and allergies were reviewed. The risks, benefits and alternatives of the sedation and procedure were discussed with the patient. All questions were answered and informed consent was obtained. The patient was brought to the procedure room. Patient identification and proposed procedure were verified by the physician and the nurse. The patient was placed in a left lateral decubitus position and the scope was passed under direct vision. Throughout the procedure, the patient's blood pressure, pulse, and oxygen saturations were monitored continuously. The colonoscopy was accomplished without difficulty. The patient tolerated the procedure well. Findings: On digital rectal examination there was normal rectal tone. There were no external hemorrhoids. The colonoscope was introduced through the anal canal to the rectum and advanced to the cecum. The ileocecal valve and appendiceal orifice were identified. The scope was advanced a short distance into the ileum which appeared grossly normal. The scope was then withdrawn into the colon. There were 19 colon polyps (cecal x 3, ascending x 4 transverse x 4 and descending x 8 that ranged in size from 4 to 11 mm and were all removed via cold snare polypectomy). Just above the pelvic reflection in the lower sigmoid/rectosigmoid was a larger 3.5 to 4 cm mass that appeared to be entirely advanced adenoma/tubulovillous adenoma. Because of the patient's comorbidities and risk for abdominal surgery, this was evaluated for potential mucosal resection or polypectomy. Large piecemeal sections of this were removed via snare cautery and cold snare polypectomy. At least 50-60 of polypoid mass was removed via cold snare polypectomy and snare cautery. This was behind a haustral fold and because of its large nature would slide back and forth in front of them behind the larger haustral fold making it difficult to grasp completely. After resection of most of this, an Endo Clip was placed at the margin because of some submucosal exposure. It was felt best to have the patient return in 6 to 12 weeks with complete removal of this if it is benign tubulovillous adenoma. The rectum itself was normal. Upon retroflexion within the rectum there were grade 2 internal hemorrhoids. The preparation was excellent throughout with Boaz Preparation Score of 9. The cecal time was 22 minutes. Impression: 1. Large 3.5 to 4 cm lower sigmoid/rectosigmoid mass?rule out tubulovillous adenoma 2. 19 additional colonic polyps 3. Grade 2 internal hemorrhoids Plan: I will follow-up the histology. As long as this is benign and shows no evidence of any high-grade dysplasia or adenocarcinoma, I will have the patient return for complete removal in 6 to 12 weeks. I will discuss the findings with the patient and family.
[2025-01-19 11:05] VITALS: BP 110/54; PULSE 59; RESP 16; O2SAT 100
[2025-01-19 11:15] VITALS: BP 125/51; PULSE 53; RESP 16; O2SAT 100
[2025-01-19 11:25] VITALS: BP 144/53; PULSE 57; RESP 16; O2SAT 100
[2025-01-19 11:35] VITALS: BP 120/47; PULSE 58; RESP 16; O2SAT 100
== END 2025-01-19 11:42 | disposition home or self-care (01) ==
PROVIDERS: PCP Nurse Practitioner; Visit Provider Internal Medicine Gastroenterology
PROC: 0DJ08ZZ Inspection of Upper Intestinal Tract, Via Natural or Artificial Opening Endoscopic (ICD-10-PCS; CPT 45378; principal; 2025-01-19 10:00)
DX: K31.9 Disease of stomach and duodenum, unspecified (principal); K44.9 Diaphragmatic hernia without obstruction or gangrene; K22.4 Dyskinesia of esophagus; K21.9 Gastro-esophageal reflux disease without esophagitis; K63.5 Polyp of colon; C19 Malignant neoplasm of rectosigmoid junction; K64.1 Second degree hemorrhoids; K62.89 Other specified diseases of anus and rectum; R11.2 Nausea with vomiting, unspecified; E53.8 Deficiency of other specified B group vitamins; R63.4 Abnormal weight loss; R63.0 Anorexia
CPT/HCPCS: 43239; 43249; 45385; C1726; J2704; J7120

== ENCOUNTER 2025-02-06 09:33 | Outpatient (CLI) | payer MEDICARE, SELFPAY ==
[2025-02-06] MEDS: ALBUTEROL 0.083% 2.5 MG/3 ML NEB IH (10:30)
[2025-02-06 10:40] VITALS: PULSE 53; PULSE 54
== END 2025-02-06 23:59 | disposition home or self-care (01) ==
LOC: RT 09:34
PROVIDERS: PCP Nurse Practitioner; Visit Provider Internal Medicine Pulmonary Disease
DX: J44.9 Chronic obstructive pulmonary disease, unspecified (principal); R06.09 Other forms of dyspnea
CPT/HCPCS: 94010; 94618; 94640; J7613

== ENCOUNTER 2025-02-10 10:46 | Outpatient (CLI) | payer MEDICARE, SELFPAY ==
--- OUTSIDE RECORDS SUMMARY | 2025-02-10 10:49 | XMS_ITS | Continuity of Care Document ---
Author Organization [facility] Phone Care Team Providers Care Mingle Operator Name Role Phone GINO JACKSON Admitting UNKNOWN, DR Locke Primary Care Unavailable GINO JACKSON Primary Attending [phone] GINO JACKSON Unavailable ALLERGIES AND ADVERSE REACTIONS ALLERGIES AND ADVERSE REACTIONS Code System Allergy Substance Adverse Reaction Date Reaction (Severity) Comment Status Reported By Updated [place] [id number] SNOMED CT Sulfa Antibiotics Adverse reaction to substance Not Specified active [id number] on February 08, 2025 4:58:04 PM UTC RESULTS Patient: MAXIMILIANO FREEDMAN Date of : February 03 4 LABORATORY RESULTS ORDER 100: CBC W/ AUTO DIFF (LOINC: 89348-5) ORDER DATE: February 08, 2025 4:49:00 PM UTC Specimen Source: Whole Blood Specimen Type: Whole blood s ample PERFORMING LAB: [address] [id number] Result Comment: Final Result Date: February 08, 2025 5:22:00 PM UTC (TECH: LM) LOINC TEST FLAG RESULT REFERENCE RANGE UPDA FANTASMA BY 6690-2 Leukocytes [#/volume ] in Blood by Automated count H 12.49 K/uL 4.5 K/uL - 11.5 K/uL February 08, 2025 5:22:00 PM UTC (TECH: LM) 789-8 Erythrocytes [#/volume] in Blood by Automated count N 4.21 M/uL 4.0 M/uL - 5.4 M/uL February 08, 2025 5:22:00 PM UTC (TECH: LM) 718-7 Hemoglobin [Mass/volume] in Blood N 12.1 g/dL 12.0 g/dL - 15.0 g/dL February 08, 2025 5:22:00 PM UTC (TECH: LM) 4544-3 Hematocrit [Volume Fraction] of Blood by Automated count N 37.6 % 35 % - 49 % February 08, 2025 5:22:00 PM UTC (TECH: LM) 787-2 Erythrocyte mean corpuscular volume [Entitic volume] by Automated count N 89.3 fL 80.0 fL - 100.0 fL February 08, 2025 5:22:00 PM UTC (TECH: LM) 785-6 Erythrocyte mean corpuscular hemoglobin [Entitic mass] by Automated count N 28.7 pg 26.0 pg - 32.0 pg February 08, 2025 5:22:00 PM UTC (TECH: LM) 786-4 Erythrocyte mean corpuscular hemoglobin concentration [Mass/volume] by Automated count N 32.2 g/dL 32.0 g/dL - 36.0 g/dL February 08, 2025 5:22:00 PM UTC (TECH: LM) 788-0 Erythrocyte distribution width [Ratio] by Automated count H 14.7 % 11.5 % - 14.5 % February 08, 2025 5:22:00 PM UTC (TECH: LM) 777-3 Platelets [#/volume] in Blood by Automated count L 138 K/uL 142 K/uL - 424 K/uL February 08, 2025 5:22:00 PM UTC (TECH: LM) 02716-6 Platelet mean volume [Entitic volume] in Blood by Automated count H 11.2 fL 6.8 fL - 10.2 fL February 08, 2025 5:22:00 PM UTC (TECH: LM) 92324-6 Neutrophils/100 leukocytes in Blood H 82.0 % 50 % - 70 % February 08 5:22:00 PM UTC (TECH: LM) 27520-0 Lymphocytes/100 leukocytes in Blood L 11.5 % 18.0 % - 42.0 % February 08 5:22:00 PM UTC (TECH: LM) 86053-8 Monocytes/100 leukocytes in Blood N 3.4 % 2.0 % - 11.0 % February 08 5:22:00 PM UTC (TECH: LM) 24968-2 Eosinophils/100 leukocytes in Blood L 0.4 % 1.0 % - 3.0 % February 08 5:22:00 PM UTC (TECH: LM) 91585-4 Basophils/100 leukocytes in Blood N 0.3 % 0.0 % - 2.0 % February 08 5:22:00 PM UTC (TECH: LM) 46181-9 Immature granulocytes/100 leukocytes in Blood by Automated count H 2.4 % 0.0 % - 0.8 % February 08 5:22:00 PM UTC (TECH: LM) 65476-5 Nucleated cells [#/volume] in Blood N 0.0 % February 08 5:22:00 PM UTC (TECH: LM) 94059-9 Neutrophils [#/volume] in Blood N 10.23 K/uL February 08 5:22:00 PM UTC (TECH: LM) 55686-4 Lymphocytes [#/volume] in Blood N 1.44 K/uL February 08 5:22:00 PM UTC (TECH: LM) 62985-7 Monocytes [#/volume] in Blood N 0.43 K/uL February 08, 2025 5:22:00 PM UTC (TECH: LM) 98393-1 Eosinophils [#/volume] in Blood N 0.05 K/uL February 08 5:22:00 PM UTC (TECH: LM) 704-7 Basophils [#/volume] in Blood by Automated count N 0.04 K/uL February 08, 2025 5:22:00 PM UTC (TECH: LM) 22949-4 Immature granulocyte s [#/volume] in Blood N 0.30 K/uL February 08 5:22:00 PM UTC (TECH: LM) 42237-7 Nucleated cells [#/volume] in Blood N 0.00 k/uL February 08 5:22:00 PM UTC (TECH: LM) 79293-4 Manual differential comment [interpretation] in Blood Narrative N NO February 08, 2025 5:22:00 PM UTC (TECH: LM) ORDER 200: COMP METABOLIC PA MOOK (LOINC: 25582-7) ORDER DATE: February 08, 2025 4:49:00 PM UTC Specimen Source: Serum/Plasm a Specimen Type: Acellular blo od (serum or plasma) specimen PERFORMING LAB: [address] [id number] Result Comment: Final Result Date: February 08, 2025 5:19:00 PM UT (TECH: AE) LOINC TEST FLAG RESULT REFERENCE RANGE UPDA FANTASMA BY 2951-2 Sodium [Moles/volume ] in Serum or Plasma L 133 mmol/L 137 mmol/L - 147 mmol/L February 08, 2025 5:19:00 PM UTC (TECH: AEH) 2823-3 Potassium [Moles/volume] in Serum or Plasma H 5.3 mmol/L 3.5 mmol/L - 5.1 mmol/L February 08, 2025 5:19:00 PM UTC (TECH: AEH) 2075-0 Chloride [Moles/volu me] in Serum or Plasma N 102 mmol/L 98 mmol/L - 110 mmol/L February 08, 2025 5:19:00 PM UT (TECH: AEH) 8-9 Carbon dioxide, tota l [Moles/volume] in Serum or Plasma N 25 mmol/L 21 mmol/L - 30 mmol/L February 08, 2025 5:19:00 PM UTC (TECH: AEH) 66853-1 Anion gap in Serum o r Plasma N 6 mmol/L 6 mmol/L - 14 mmol/L February 08, 2025 5:19:00 PM UTC (TECH: AEH) 2345-7 Glucose [Mass/volume ] in Serum or Plasma H 177 mg/dL 70 mg/dL - 115 mg/dL February 08, 2025 5:19:00 PM UTC (TECH: AEH) 3094-0 Urea nitrogen [Mass/volume] in Serum or Plasma H 46 mg/dL 7 mg/dL - 17 mg/dL February 08, 2025 5:19:00 PM UTC (TECH: AEH) 2160-0 Creatinine [Mass/volume] in Serum or Plasma H 1.6 mg/dL 0.5 mg/dL - 1.5 mg/dL February 08, 2025 5:19:00 PM UTC (TECH: AEH) 3097-3 Urea nitrogen/Creatinine [Mass Ratio] in Serum or Plasma H 29 10 - 20 February 08, 2025 5:19:00 PM UTC (TECH: AEH) 94571-1 Glomerular filtratio n rate [Volume Rate/Area] in Serum or Plasma by Creatinine-based formula (MDRD)/1.73 sq M L 33 mL/min >60 February 08, 2025 5:19:00 PM [facility] (TECH: [employer]) 35561-2 Osmolality of Serum or Plasma by calculation N 293 mOsmol/Kg 275 mOsmol/Kg - 301 mOsmol/Kg February 08, 2025 5:19:00 PM [facility] (TECH: [employer]) 2885-2 Protein [Mass/volume ] in Serum or Plasma N 6.5 g/dL 6.2 g/dL - 8.2 g/dL February 08, 2025 5:19:00 PM [facility] (vufind: [employer]) 1751-7 Albumin [Mass/volume ] in Serum or Plasma N 3.6 g/dL 3.5 g/dL - 5.0 g/dL February 08, 2025 5:19:00 PM [facility] (vufind: [employer]) 43096-3 Calcium [Mass/volume ] in Serum or Plasma N 9.9 mg/dL 8.5 mg/dL - 10.8 mg/dL February 08, 2025 5:19:00 PM [facility] (vufind: [employer]) 1975-2 Bilirubin.total [Mass/volume] in Serum or Plasma N 0.6 mg/dL 0.2 mg/dL - 1.3 mg/dL February 08, 2025 5:19:00 PM [facility] (TECH: [employer]) 1920-8 Aspartate aminotransferase [Enzymatic activity/volume] in Serum or Plasma N 36 IU/L 14 IU/L - 36 IU/L February 08, 2025 5:19:00 PM [facility] (TECH: [employer]) 1742-6 Alanine aminotransferase [Enzymatic activity/volume] in Serum or Plasma H 52 IU/L 0 IU/L - 35 IU/L February 08, 2025 5:19:00 PM [facility] (TECH: [employer]) 70714-0 Alkaline phosphatase.bile [Enzymatic activity/volume] in Serum or Plasma N 61 IU/L 38 IU/L - 126 IU/L February 08, 2025 5:19:00 PM [facility] (TECH: [email or web address]) ORDER 300: TROPONIN QUANT (L OINC: 58029-9) ORDER DATE: February 08, 2025 4:49:00 PM UTC Specimen Source: Plasma Specimen Type: Plasma specim en PERFORMING LAB: [address] [id number] Result Comment: Final Result Date: February 08, 2025 5:26:00 PM UTC (TECH: A/V) LOINC TEST FLAG RESULT [place] [address]-0 Troponin I.cardiac [Mass/volume] in Serum or Plasma by Detection limit <= 0.01 ng/mL N <0.012 ng/mL 0.000 ng/mL - 0.034 ng/mL February 08, 2025 5:26:00 PM UTC (TECH: A/V) ORDER 400: TROPONIN I 2 HOUR PROTOCOL (LOINC: 72796-4) ORDER DATE: February 08, 2025 4:49:00 PM UTC Specimen Source: Plasma Specimen Type: Plasma specim en PERFORMING LAB: [address] [id number] Result Comment: Final Result Date: February 08, 2025 7:21:00 PM UTC (TECH: A/V) LOINC TEST FLAG [place] [address]-7 Troponin I.cardiac [Mass/volume] in Serum or Plasma by Detection limit <= 0.01 ng/mL N <0.012 ng/mL 0.000 ng/mL - 0.034 ng/mL February 08, 2025 7:21:00 PM UTC (TECH: A/V) ORDER 500: NT-PRO BNP N-TERM INAL (LOINC: 35572-2) ORDER DATE: February 08, 2025 4:49:00 PM UTC Specimen Source: Serum/Plasm a Specimen Type: Acellular blo od (serum or plasma) specimen PERFORMING LAB: [address] [id number] Result Comment: Final Result Date: February 08, 2025 5:29:00 PM UTC (TECH: AEH) LOINC TEST FLAG RESULT [place] [address]-9 Natriuretic peptide.B prohormone N-Terminal [Mass/volume] in Serum or Plasma N 769.0 pg/ml 0 pg/ml - 1800 pg/ml February 08, 2025 5:29:00 PM UTC (TECH: AEH) ORDER 600: PT PROTIME W INR (LOINC: 32243-2) ORDER DATE: February 08, 2025 4:49:00 PM UTC Specimen Source: Plasma Specimen Type: Plasma specim en PERFORMING LAB: [address] [id number] Result Comment: Final Result Date: February 08, 2025 5:38:00 PM UTC (TECH: A/V) LOINC TEST FLAG RESULT [place] [address]-8 INR in Platelet poor plasma or blood by Coagulation assay N 10.9 seconds 9.0 seconds - 12.0 seconds February 08, 2025 5:38:00 PM UTC (TECH: A/V) 56827-6 INR in Platelet poor plasma by Coagulation assay --post heparin adsorption L 1.0 2.0 - 3.0 February 08, 2025 5:38:00 PM UTC (TECH: A/V) ORDER 900: LIPASE (LOINC: 30 40-3) ORDER DATE: February 08, 2025 4:49:00 PM UTC Specimen Source: Serum/Plasm a Specimen Type: Acellular blo od (serum or plasma) specimen PERFORMING LAB: [address] [id number] Result Comment: Final Result Date: February 08, 2025 5:13:00 PM UTC (TECH: AE) LOINC TEST FLAG RESULT REFERENCE RANGE UPDA FANTASMA BY 3040-3 Lipase [Enzymatic activity/volume] in Serum or Plasma N 273 U/L 23 U/L - 300 U/L February 08, 2025 5:13:00 PM UTC (TECH: AEH) ORDER 1000: MAGNESIUM (LOINC : 59084-2) ORDER DATE: February 08, 2025 4:49:00 PM UTC Specimen Source: Serum/Plasm a Specimen Type: Acellular blo od (serum or plasma) specimen PERFORMING LAB: [address] [id number] Result Comment: Final Result Date: February 08, 2025 5:13:00 PM UTC (TECH: AEH) LOINC TEST FLAG RESULT [place] [address]-1 Magnesium [Mass/volume] in Serum or Plasma N 2.1 mg/dL 1.6 mg/dL - 2.4 mg/dL February 08, 2025 5:13:00 PM UTC (TECH: AEH) ORDER 1200: D-DIMER QUANT (L OINC: 55077-2) ORDER DATE: February 08, 2025 6:13:00 PM UTC Specimen Source: Plasma Specimen Type: Plasma specim en PERFORMING LAB: [address] [id number] Result Comment: Final Result Date: February 08, 2025 7:37:00 PM UTC (TECH: AE) LOINC TEST FLAG RESULT [place] [address]-9 Fibrin D-dimer FEU [Mass/volume] in Platelet poor plasma by Immunoassay HH 1.65 mg/L 0 mg/L - 0.59 mg/L February 08, 2025 7:37:00 PM UTC (TECH: AE) ORDER 1300: TSH (LOINC: 5741 6-0) ORDER DATE: February 08, 2025 6:14:00 PM UTC Specimen Source: Serum/Plasm a Specimen Type: Acellular blo od (serum or plasma) specimen PERFORMING LAB: [address] [id number] Result Comment: Final Result Date: February 08, 2025 7:06:00 PM UTC (TECH: GS) LOINC TEST FLAG RESULT [place] [address]-6 Thyrotropin receptor Ab [Units/volume] in Serum by Immunoassay L <0.015 uIU/mL 0.465 uIU/mL - 4.68 uIU/mL February 08, 2025 7:06:00 PM UTC (TECH: GS) ORDER 1400: T4 FREE (LOINC: 3024-7) ORDER DATE: February 08, 2025 6:14:00 PM UTC Specimen Source: Serum Specimen Type: Serum specime n PERFORMING LAB: [address] [id number] Result Comment: Final Result Date: February 08, 2025 6:50:00 PM UTC (TECH: A/V) LOINC TEST FLAG RESULT REFERENCE [place] 3024-7 Thyroxine (T4) free [Mass/volume] in Serum or Plasma N 1.08 ng/dl 0.78 ng/dl - 2.19 ng/dl February 08, 2025 6:50:00 PM UTC (TECH: A/V) LABORATORY NARRATIVE RESULTS Information is not available RADIOLOGY RESULTS ORDER 800: CHEST 1 VIEW AP ( LOINC: 96319-5) ORDER DATE: February 08, 2025 4:49:00 PM UTC PERFORMING LAB: [address] [id number] Final Result Date: February 08, 2025 5:45:10 PM [facility] (TECH: NETO MCRAE MD) [address] [phone] (Phone) IMAGING REPORT Name: JASMINA VIERA : 1945 Age: 80 Years Patient Type: ER Dept Sex: F Exam Description: CHEST 1 VIEW AP Exam Reason: Chest Pain Order Date/Time: 02/08/2025 01:22:23 PM Dictated By: Fabiano Samaniego MD Ordering Physician: GINO JACKSON Attending Physician: GINO JACKSON EXAMINATION: ONE VIEW CHEST XR CLINICAL INDICATION: Female, 80 years old. Chest Pain. TECHNIQUE: 1 View, AP supine, X-ray of the chest was performed. [id number]. COMPARISON: No prior exam. FINDINGS: Prior median sternotomy. Lungs are clear. No pleural effusion. No pneumothorax. Cardiomediastinal silhouette is unremarkable. Bones are intact. IMPRESSION: Postsurgical changes. Nothing active. Electronically signed by: Fabiano Samaniego MD 02/08/2025 01:45 PM EDT Principal Engine Testing Supervisor PAGE 1 OF 2 Name: JASMINA VIERA : 1945 Age: 80 Years Patient Type: ER Dept Sex: F Exam Description: CHEST 1 VIEW AP Exam Reason: Chest Pain Order Date/Time: 02/08/2025 01:22:23 PM Name: Fabiano Samaniego Provider ID: [id number] PAGE 2 OF 2 ORDER 1500: CT CHEST PULM EM BOLI PROTOCOL (LOINC: 96649-0) ORDER DATE: February 08, 2025 7:44:00 PM [place] PERFORMING LAB: [address] [id number] Final Result Date: February 08, 2025 8:44:05 PM [facility] (TECH: BERNARD REINA MD) [address] [phone] (Phone) IMAGING REPORT Name: JASMINA VIERA : 1945 Age: 80 Years Patient Type: ER Dept Sex: F Exam Description: CT CHEST PULM EMBOLI PROTOCOL Exam Reason: Chest Pain Order Date/Time: 02/08/2025 04:12:08 PM Dictated By: Dio Bird MD Ordering Physician: GINO JACKSON Attending Physician: GINO JACKSON EXAMINATION: CT CHEST ANGIOGRAPHY WITH IV CONTRAST INDICATION:80 years Female 1945 Chest Pain COMPARISON(S): None. TECHNIQUE: CT pulmonary angiogram. One or more of the following dose-optimizing techniques was utilized for this exam: automated exposure control, adjustment of the mA and/or kV according to patient size, and/or use of iterative reconstruction technique. 3-D/MIPS provided FINDINGS: * Soft tissues and axillary regions are unremarkable * Mediastinum/vascular: No evidence of acute pulmonary thromboembolic disease. Prior CABG. No suspicious left adenopathy. No pericardial effusion. * Lungs/pleura: Chronic appearing interstitial changes superimposed moderate emphysema. No acute airspace disease. No pneumothorax or pleural effusion. * No acute abnormality evident in the upper abdomen * No acute osseous abnormality. PAGE 1 OF 2 Name: JASMINA VIERA : 1945 Age: 80 Years Patient Type: ER Dept Sex: F Exam Description: CT CHEST PULM EMBOLI PROTOCOL Exam Reason: Chest Pain Order Date/Time: 02/08/2025 04:12:08 PM IMPRESSION: No evidence of acute pulmonary thromboembolic disease. Chronic appearing interstitial changes and emphysema with no acute airspace disease evident. Electronically signed by: Dio Bird MD 02/08/2025 04:44 PM EDT [employer] Testing Supervisor Name: Dio Bird Provider ID: [id number] PAGE 2 OF 2 PATHOLOGY NARRATIVE RESULTS Information is not available MICROBIOLOGY RESULTS No Micro Labs/Results Exist for Patient BLOOD ADMIN RESULTS Information is not available MEDICATIONS HOME MEDICATIONS Status [facility]NORM [facility] Medication Dose Route Frequency Dates Comments Reported By Updated By Active 268453 074339 95049 metoprolol tartrate 50 mg tablet 1.0 TAB PO BID Last Dose: Last Dose Unknown; [id number] on February 08, 2025 6:12:41 PM [facility] Active 136901 048058 17612 aspirin 325 mg tablet 1.0 TAB PO DAILY Last Dose: Last Dose Unknown; [id number] on February 08, 2025 6:12:42 PM [facility] Active 496200 127623 34973 levothyroxin e 100 mcg tablet 1.0 TAB PO DAILY Last Dose: Last Dose Unknown; [id number] on February 08, 2025 6:12:42 PM [facility] Active 299719 733633 19032 citalopram 20 mg tablet 1.0 TAB PO DAILY Last Dose: Last Dose Unknown; [id number] on February 08, 2025 6:12:42 PM [facility] Active 342082 66359 [place]-3 350 mg-235 mg- 90 mg-597 mg capsule,janie yed release (e.c.) 1.0 TAB PO DAILY Last Dose: Last Dose Unknown; [id number] on February 08, 2025 6:12:42 PM [facility] Active 576370 324064 25363 ropinirole 1 mg tablet 1.0 TAB PO BEDTIME Last Dose: Last Dose Unknown; [id number] on February 08, 2025 6:12:42 PM [facility] DISCHARGE MEDICATIONS Status [facility]NORM [facility] Medication Dose Route Frequency Dates Comments Physician Updated By No Discharge Medication Info rmation Available INPATIENT MEDICATIONS Status RXNORM [facility] Medication Dose Route Frequency Rat e Quantity Dates Comments Physician Updated By Discont inued XXXX XXX0 002 GI COCKTAIL 30 ML SUSP 35.0 ML BY MOUTH ONE TIME ONLY Start: February 08, 2025 5:20:0 0 PM [facility] End: February 08, 2025 5:20:0 0 PM [facility] RENETTA SALDAÑA MD INTERFAC ED on February 08, 2025 5:19:00 PM [facility] Discont inued [id number] 5939 1602 225 famotidine (PEPCID) 10 MG/ML SOLN 20.0 MG IV PUSH ONE TIME ONLY Start: February 08, 2025 5:20:0 0 PM UT End: February 08, 2025 5:20:0 0 PM [facility] RENETTA SALDAÑA MD INTERFAC ED on February 08, 2025 5:19:00 PM [facility] Discont inued 0014 3978 601 enalaprilat (VASOTEC) 1.25 MG/ML INJ 2.5 MG ONE TIME ONLY Start: February 08, 2025 7:02:0 0 PM UTC End: February 08, 2025 7:02:0 0 PM UTC RENETTA SALDAÑA MD INTERF ED on February 08, 2025 7:02:00 PM UTC SOCIAL HISTORY SOCIAL HISTORY SNOMED-CT Social History Element Description Effective Dates Offered Cessation Comment UpdatedBy [id number] Current Tobacco smoking status Never Smoked [id number] on February 08, 2025 5:39:20 PM UTC SOCIAL HISTORY - Gender Sex: Female SOCIAL HISTORY - Status : status i nformation is not available Intention in Next Year: intention information is not available SOCIAL HISTORY - Sexual Behavior Sexual Orientation Gender Identity SNOMED-CT Description SNO MED -CT Description Activity Level No of Partners Partner Type UpdatedBy Information is not available VITAL SIGNS PATIENT VITAL SIGNS This section displays the mo st recent value for each vital sign as of February 10, 2025 11:40:06 AM UTC Loinc Code Vital Sign Activity Date Result Updated By 8310-5 Body temperature February 08, 2025 4:53:00 PM UTC 98.4 [degF] [id number] on February 08, 2025 4:57:27 PM UTC 09191-7 Body weight Measured February 08 4:57:27 PM UTC 72.7 kg (160.0 lb) [id number] on February 08, 2025 4:57:27 PM UTC 8462-4 Diastolic blood pressure February 08, 2025 9:00:00 PM UTC 72.0 mm[Hg] [id number] on February 08, 2025 9:21:40 PM UTC 8867-4 Heart rate February 08, 2025 9:16:00 PM UTC 54 /min [id number] on February 08, 2025 9:21:41 PM UTC 64138-7 Oxygen saturation in Arterial blood by Pulse oximetry February 08, 2025 9:16:00 PM UTC 97.0 % [id number] on February 08, 2025 9:21:41 PM UTC 9279-1 Respiratory rate February 08, 2025 9:16:00 PM UTC 18 /min [id number] on February 08, 2025 9:21:41 PM UTC 8480-6 Systolic blood pressure February 08, 2025 9:00:00 PM UTC 180.0 mm[Hg] [id number] on February 08, 2025 9:21:40 PM UT PEDIATRIC GROWTH CHART - VITAL SIGNS This section displays Head C ircumference Percentile, Weight for Length Percentile and BMI Percentile Loinc Code Pediatric Measure Age (Months) Result Updat ed By No Pediatric Growth Chart Pe rcentile Information Available. HEALTH CONCERNS Problems Concern Status Health Concern problem infor mation not available. Smoking Status Status Years Used Consumed packs p er day Health Concern smoking histo ry information not available. Family History Concern Status Health Concern family histor y information not available. ENCOUNTERS ENCOUNTER INFORMATION Reason for Visit CHEST PAIN [facility] Admission February 08, 2025 4:42:00 PM [place] CL [address] [address] Discharge February 08, 2025 9:22:00 PM UT DI SCHARGED TO HOME OR SELF CARE ENCOUNTER DIAGNOSES Notes information is not alessandra ilable. Code System Diagnosis Onset Date Diagnosis information is not available. ABSTRACT DIAGNOSES Code System Diagnosis Updated By R07.9 ICD10 CHEST PAIN, UNSPECIFIED COH2 992 on February 10, 2025 11:39:32 AM UT M54.9 ICD10 DORSALGIA, UNSPECIFIED COH29 92 on February 10, 2025 11:39:32 AM UT R68.84 ICD10 JAW PAIN [id number] on 2024 11:39:32 AM UT R07.9 ICD10 CHEST PAIN, UNSPECIFIED COH2 992 on February 10, 2025 11:39:32 AM UT E03.8 ICD10 OTHER SPECIFIED HYPOTHYROIDI SM [id number] on February 10, 2025 11:39:32 AM UT I10 ICD10 ESSENTIAL (PRIMARY) HYPERTEN BUNNY [id number] on February 10, 2025 11:39:32 AM UT Z79.82 ICD10 USP (CURRENT) USE OF A SPIRIN [id number] on February 10, 2025 11:39:32 AM UT 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 [id number] on February 10, 2025 11:39:32 AM UT Z95.5 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 [id number] on February 10, 2025 11:39:32 AM UT 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 [id number] on February 10, 2025 11:39:32 AM [facility] Z87.09 ICD10 PERSONAL HISTORY OF OTHER DISEASES OF THE RESPIRATORY SYSTEM [id number] on February 10, 2025 11:39:32 AM [facility] 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 [id number] on February 10, 2025 11:39:32 AM [facility] Z88.2 ICD10 ALLERGY STATUS TO SULFONAMID ES [id number] on February 10, 2025 11:39:32 AM [facility] CARE TEAM Care Mingle Operator Role GINO JACKSON Admitting DR AMAYA Primary Care GINO JACKSON Primary Attending GINO JACKSON Referring CARE TEAM CARE law firm consultant Role on Team Status Start Date End Date Update d By UNKNOWN DR AVENDANO NAME IN PCP normal February 08, 2025 5:33:09 PM [facility] February 08, 2025 9:22:00 PM [facility] [id number] on February 08, 2025 5:33:09 PM [facility] RENETTA SALDAÑA MD Referring normal February 08, 2025 5:33:09 PM [facility] February 08, 2025 9:22:00 PM [facility] [id number] on February 08, 2025 5:33:09 PM [facility] RENETTA SALDAÑA MD Attending normal February 08, 2025 5:33:09 PM [facility] February 08, 2025 9:22:00 PM [place] [id number] on February 08, 2025 5:33:09 PM [facility] RENETTA SALDAÑA MD Admitting normal February 08, 2025 5:33:09 PM [facility] February 08, 2025 9:22:00 PM [facility] [id number] on February 08, 2025 5:33:09 PM [facility]
[2025-02-10 11:25] LABS: Basophils % 0.2 % (0.1-2.0); Eosinophils # 0.1 Kmm3 (0.0-0.4); Eosinophils % 0.4 % (0.1-12.0); Hematocrit 38.9 % (37.0-47.0); Hemoglobin 12.7 g/dL (12.2-16.2); Lymphocytes # 2.6 K/mm3 (0.7-4.5); Lymphocytes % 20.9 % (10-50); Mean Corpuscular HGB Conc 32.6 g/dL (31.8-35.4); Mean Corpuscular Hemoglobin 29.1 pg (27.0-31.2); Mean Corpuscular Volume 89.2 fl (81-99); Mean Platelet Volume 11.3 fl (7.4-10.4); Monocytes # 0.8 K/mm3 (0.1-1.0); Monocytes % 6.7 % (1.7-9.3); Neutrophils # 8.7 K/mm3 (1.8-7.8); Neutrophils % 69.6 % (37.0-80.0); Nucleated Red Blood Cells # 0 10^3/uL; Nucleated Red Blood Cells % 0 %; Platelet Count 154 K/mm3 (142-424); Red Blood Count 4.36 M/mm3 (4.20-5.40); Red Cell Distribution Width 14.8 % (11.5-17.5); Red Cell Distribution Width-SD 47.8 fL; White Blood Count 12.5 K/mm3 (4.8-10.8)
[2025-02-10 11:44] LABS: Albumin Level 3.8 g/dl (3.5-5.0); Chloride 104 mmol/L (98-107); Potassium 4.9 mmoL/L (3.5-5.1); Sodium 137 mmol/L (136-145)
[2025-02-10 11:47] LABS: Alanine Aminotransferase 50 U/L (12-78); Albumin/Globulin Ratio 1.3 (1.1-1.8); Alkaline Phosphatase 59 U/L (38-126); Anion Gap 8.9 mEq/L (5-15); Aspartate Amino Transferase 40 U/L (14-36); Bilirubin,Total 0.8 mg/dl (0.2-1.3); Blood Urea Nitrogen 36 mg/dl (7-17); Calcium 10.4 mg/dl (8.4-10.2); Carbon Dioxide 29 mmol/L (22.0-30.0); Estimated Glomerular Filt Rate 31 ml/min (>60); GFR (African American) 38 ML/MIN (>60); Globulin 2.9 g/dL (1.3-3.2); Glucose 100 mg/dl (74-100); Total Protein,Serum 6.7 g/dl (6.3-8.2)
[2025-02-10 11:52] LABS: C-Reactive Protein 0.7 mg/L (0-4)
[2025-02-11 16:24] LABS: Cytoplasmic (C-ANCA) <1:20 titer (Neg:<1:20); Perinuclear (P-ANCA) <1:20 titer (Neg:<1:20)
[2025-02-14 19:19] LABS: Anti-CCP Abs,IgG and IgA (RDL) < 20 Units (<20)
[2025-02-16 11:55] LABS: Aspergillus fumigatus IgG Negative (Negative); Pigeon Serum Abs Negative (Negative)
[2025-02-16 20:10] LABS: Rheumatoid Factor IGM < 7 U (<7)
== END 2025-02-10 23:59 | disposition home or self-care (01) ==
LOC: LAB 10:47
PROVIDERS: PCP Nurse Practitioner; Visit Provider Internal Medicine Pulmonary Disease
DX: J84.9 Interstitial pulmonary disease, unspecified (principal); R06.09 Other forms of dyspnea; J45.909 Unspecified asthma, uncomplicated
CPT/HCPCS: 36415; 80053; 85025; 86036; 86140; 86200; 86331; 86431; 86602; 86606; 86609

== ENCOUNTER 2025-04-10 09:38 | Outpatient (CLI) | payer MEDICARE, SELFPAY ==
--- OUTSIDE RECORDS SUMMARY | 2025-04-10 09:42 | XMS_ITS ---
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
--- OUTSIDE RECORDS SUMMARY | 2025-04-10 09:42 | XMS_ITS | Clinical Summary ---
Author Organization [facility] Address [address] [id number] Care Team Providers Care In Flight Refueling Operator Name Role Phone Unavailable Primary Care Provider Unavailabl e Social History Tobacco Use Types Packs/Day Years Used Date Smoking Tobacco: Never Assessed Comments Unknown Sex and Gender Information Value Date Recorded Sex Assigned at Not on file Legal Sex Female 6:56 PM EDT Gender Identity Not on file Sexual Orientation Not on file Plan of Treatment Health Maintenance Due Date Last Done Comments UKY-Bone Density Scan 1945 UKY-Depression Screening 1945 UKY-Hepatitis C Screening 1945 UKY-Medicare Annual Wellness (AWV) 1945 UKY-Infant/Child/Adol SDOH Screenings 1946 UKY- SDOH Screenings 02/04/1964 UKY-Adult SDOH Screenings 02/04/1964 UKY-DTaP,Tdap,and Td Vaccines (1 - Tdap) 1965 UKY-Pneumococcal Vaccine: 50+ Years (1 of 1 - PCV) 02/04/1996 UKY-Zoster Vaccines (2 of 2) 12/30/2020 11/04/2020 UKY-RSV Vaccine: 60+ Years or (1 - 1-dose 75+ series) 2021 [id number] Vaccine ( - season) 2024 03/25/2021, 03/04/2021 UKY-Influenza Vaccine (Season Ended) 2025 08/16/2022, 07/28/2016 UKY-Hepatitis A Vaccines Aged Out 09/18/2018 No longer eligible based on patient's age to complete this topic HPV Vaccines Aged Out No longer eligi ble based on patient's age to complete this topic UKY-HIB Vaccines Aged Out No longer e ligible based on patient's age to complete this topic UKY-IPV Vaccines Aged Out No longer e ligible based on patient's age to complete this topic UKY-Rotavirus Vaccines Aged Out No lo nger eligible based on patient's age to complete this topic Insurance [employer] MEDICARE
--- NOTE | 2025-04-10 15:38 | PC.NURSE ---
6 Minute walk completed on Pt without incident.
== END 2025-04-10 23:59 | disposition home or self-care (01) ==
LOC: RT 09:41
PROVIDERS: PCP Nurse Practitioner; Visit Provider Internal Medicine Pulmonary Disease
DX: R94.2 Abnormal results of pulmonary function studies (principal); R06.09 Other forms of dyspnea; R06.02 Shortness of breath
CPT/HCPCS: 94618

== ENCOUNTER 2025-07-07 15:21 | Outpatient (CLI) | payer MEDICARE, SELFPAY ==
--- OUTSIDE RECORDS SUMMARY | 2025-07-07 15:24 | XMS_ITS | Clinical Summary ---
Author Organization [facility] Address [address] [place] [address] Care Team Providers Care Needle Bar Molder Name Role Phone Joselin Grimm APRN Primary Care Provider [phone] Allergies Active Allergy Reactions Criticality Noted Date Comments Rosuvastatin Myalgia 04/27/2016 Atorvastatin Myalgia 04/27/2016 Nitrofurantoin Macrocrystal Nausea Only 016 Topical Sulfur Nausea And Vomiting 02/09/2022 Simvastatin Myalgia 04/27/2016 Medications citalopram (CeleXA) 20 MG tablet take 1 tablet by mouth once daily 0 03/17/2016 Active levothyroxine (SYNTHROID, LEVOTHROID) 100 MCG tablet Take 1 tablet by mouth Daily. 0 03/17/2016 Active metoprolol tartrate (LOPRESSOR) 50 MG tablet 1 tablet 2 (Two) Times a Day. 0 04/18/2016 Active nitroglycerin (NITROSTAT) 0.[address] 1 tablet under the tongue Every 5 (Five) Minutes As Needed for Chest Pain. Take no more than 3 doses in 15 minutes. 25 tablet 6 06/11/2018 Active Acetaminophen (TYLENOL ARTHRITIS PAIN PO) Take 2 tablets by mouth Daily. Active [place]-3 1000 MG capsule Take 2 capsules by mouth Daily. Active Cyanocobalamin 1000 MCG/ML kit Inject as directed Every 30 (Thirty) Days. Active rOPINIRole (REQUIP) 1 MG tablet Take 1 tablet by mouth Every Night. 12/24/2023 Active cholecalciferol (VITAMIN D3) 1.25 MG (11865 UT) capsule 1 capsule. 12/03/2023 Active aspirin 325 MG tablet Take 1 tablet by mouth Daily. Active O2 (OXYGEN) Inhale 2 L/min 1 (One) Time. Active furosemide (LASIX) 20 MG tablet Take 1 tablet by mouth 2 (Two) Times a Day. 60 tablet 08/31/2024 Active predniSONE (DELTASONE) 20 MG tablet Take 2 tablets by mouth Daily. 10 tablet 10/08/2024 Active sulfamethoxazol e-trimethoprim (BACTRIM DS,SEPTRA DS) 800-160 MG per tablet Take 1 tablet by mouth. 02/13/2025 Active pantoprazole (PROTONIX) 40 MG EC tablet Take 1 tablet by mouth Daily. 02/10/2025 Active Biotin 5000 MCG capsule Take 1 capsule by mouth Daily. Active Potassium 99 MG tablet Take 1 tablet by mouth Daily. Active Magnesium 250 MG tablet Take 1 tablet by mouth Daily. Active Garlic 100 MG tablet Take 1 tablet by mouth Daily. Active Active Problems Problem Noted Date Diagnosed Date Moderate protein-calorie malnutrition 08/27/2024 Chronic respiratory failure with hypoxia 024 Weakness generalized 08/26/2024 Unintentional weight loss 08/26/2024 Transaminitis 08/26/2024 Renal insufficiency 08/26/2024 Chest pain 12/27/2023 Precordial chest pain 12/26/2023 Abnormal nuclear stress test 12/26/2023 Ischemic heart disease 04/27/2016 Overview (04/27/2016): a. Left heart catheterization, July 2008. Revealed severe multivessel disease. b. CABG (Dr. Torres, 09/04/2008), JENKINS to LAD, SVG-OM1/ LCx, and SVG to PDA Dyslipidemia 04/27/2016 Hypertension 04/27/2016 Overview (04/27/2016): Normal renal arteriography, July 2002. Hypothyroidism 04/27/2016 Hiatal hernia 04/27/2016 GERD (gastroesophageal reflux disease) 6 Resolved Problems Problem Noted Date Diagnosed Date Resolved Date Hypoxia 08/26/2024 08/26/2024 Encounters Date Type Department Care Team Description 04/09/2025 12:00 PM EDT Office Visit [facility] [address] [place] [address] [place] [address] Aniceto Payne MD Coronary artery disease involving [facility] [place] [place] coronary artery of [facility] [place] heart without angina pectoris (Primary Dx); Primary hypertension; Mixed hyperlipidemia; Nonrheumatic aortic valve stenosis 04/09/2025 Travel 04/06/2025 Telephone [facility] [address] [place] [address] Aniceto Payne MD Medication Reconciliation from Last 3 Months Immunizations Immunization Administration Dates Next Due Fluzone >6mos 07/28/2016 Hepatitis A 09/18/2018 Shingrix 11/04/2020 Family History Medical History Relation Name Comments Heart disease Brother Heart disease Father Heart disease Mother Osteoporosis Mother Scoliosis Mother Relation Name Status Comments Brother Alive Father Mother Social History Tobacco Use Types Packs/Day Years Used Date Smoking Tobacco: Former Cigarettes Q uit: 2008 Passive Smoke Exposure: Past Smokeless Tobacco: Never Tobacco Cessation:Counseling Given: Not Answered Alcohol Use Standard Drinks/Week Comments No 0 (1 standard drink = 0.6 oz pur e alcohol) [facility] Utilities Answer Date Recorded In the past 12 months has [employer], gas, oil, or water [employer] threatened to shut off services in your home? No 08/27/2024 AUDIT-C Answer Date Recorded Q1: How often do you have a drink containing alcohol? Never 08/27/2024 Q2: How many drinks containi ng alcohol do you have on a typical day when you are drinking? Patient does not drink Q3: How often do you have si x or more drinks on one occasion? Never 08/27/2024 Overall Financial Resource Strain (CARDIA) Answe r Date Recorded How hard is it for you to pa y for the very basics like food, housing, medical care, and heating? Somewhat hard 08/27/2024 [facility] [place] of Occupat ional Health - Occupational Stress Questionnaire Answer Date Recorded Do you feel stress - tense, restless, nervous, or anxious, or unable to sleep at night because your mind is troubled all the time - these days? Not at all 08/27/2024 Exercise Vital Sign Answer Date Recorde d On average, how many days pe r week do you engage in moderate to strenuous exercise (like a brisk walk)? 0 days 08/27/2024 On average, how many minutes do you engage in exercise at this level? 0 min 08/27/2024 Hunger Vital Sign Answer Date Recorded Within the past 12 months, y ou worried that your food would run out before you got the money to buy more. Never true 08/27/20 24 Within the past 12 months, t he food you bought just didn't last and you didn't have money to get more. Never true 08/27/2024 PRAPARE - Transportation Answer Date Re corded In the past 12 months, has l ack of transportation kept you from medical appointments or from getting medications? No 08/15 In the past 12 months, has l ack of transportation kept you from meetings, work, or from getting things needed for daily living? No 08/27/2024 Abuse Screen Answer Date Recorded Feels Unsafe at Home or Work/School no 10/08/2024 Feels Threatened by Someone no 09/15 Does Anyone Try to Keep You From Having Contact with Others or Doing Things Outside Your Home? no 10/08/2024 Physical Signs of Abuse Present no 10/08/2024 Housing Stability Answer Date Recorded Current Living Arrangements home 08/15 Potentially Unsafe Housing Conditions none 08/27/2024 Family and Community Support Answer Brett e Recorded If for any reason you need h elp with day-to-day activities such as bathing, preparing meals, shopping, managing finances, etc., do you get the help you need? I don't need any help 08/27/2024 How often do you feel lonely or isolated from those around you? Never 08/27/2024 Employment Answer Date Recorded Do you want help finding or keeping work or a humberto b? Patient declined 08/27/2024 Disabilities Answer Date Recorded Difficulty Concentrating, Remembering or Making Decisions no 08/27/2024 Difficulty Managing Errands Independently no 08/27/2024 Education Answer Date Recorded Do you want help with school or training? For example, starting or completing job training or getting a high school diploma, GED or equivalent Patient declined 08/27/2024 Preferred Language Nauruan 08/27/2024 PHQ-2 Answer Date Recorded Patient Health Questionnaire-2 Score 0 08/27/2024 Comments No Sex and Gender Information Value Date Recorded Sex Assigned at Not on file Legal Sex Female 11:46 AM EDT Gender Identity Not on file Sexual Orientation Not on file Last Filed Vital Signs Vital Sign Reading Time Taken Comments Blood Pressure 136/60 04/09/2025 11:49 AM EDT Pulse 76 04/09/2025 11:49 AM EDT Temperature 36.9 C (98.4 F) 10/09/2024 12:25 AM EST Respiratory Rate 20 10/08/2024 7:59 PM EST Oxygen Saturation 96% 04/09/2025 11:49 AM EDT Inhaled Oxygen Concentration - - Weight 80.3 kg (177 lb) 04/09/2025 11:49 AM EDT Height 162.6 cm (5' 4 ) 04/09/2025 11:49 AM EDT Body Mass Index 30.38 04/09/2025 11:49 AM EDT Plan of Treatment Upcoming Encounters Date Type Department Care Team (Late st Contact Info) Description 08/05/2026 11:45 AM EDT Office Visit [facility] [address] [place] [address] [place] [address] Aniceto Payne MD [address] [facility] [address] [place] [address] Health Maintenance Due Date Last Done Comments DXA SCAN 1945 Pneumococcal Vaccine 50+ (1 of 2 - PCV) 1965 TDAP/TD VACCINES (1 - Tdap) 1965 COLOGUARD 1991 COLON CANCER SCREENING 5 YEA R SIGMOIDOSCOPY 1991 COLONOSCOPY [address]CER SCREENING [address] COLONOGRAPHY 1991 FECAL OCCULT BLOOD TEST 1991 FIT Testing (1 year) 1991 ANNUAL WELLNESS VISIT 03/06/2017 HEPATITIS C SCREENING 03/06/2017 ZOSTER VACCINE (2 of 2) 12/30/2020 11/04/2020 RSV Vaccine - Adults (1 - 1- dose 75+ series) 2021 INFLUENZA VACCINE 05/15/2025 01/01/2025, , 08/16/2022, Additional history exists COVID-19 Vaccine (4 - 2024-2 6 season) 2025 08/10/2023, 03/25/2021, 03/04/2021 LIPID PANEL 08/27/2025 08/27/2024, 12/26/2023 Medical Devices Implanted Type Area Professor Of Psychiatry Device Identifier Shelf Expiration Date Model / Serial / Lot Stnt Cornry Rx Xience/Skypoi nt Rapdxng 4x18mm - [id number] Implanted:Qty : 1 on 12/27/2023 by Kassy Hopson MD at [facility] N/A: Coronary [employer] [id number] / / [id number] Stnt Cornry Rx Xience/Skypoi nt Rapdxng 3.5x18mm - [id number] Implanted:Qty : 1 on 12/27/2023 by Kassy Hopson MD at [facility] N/A: Coronary A[employer] V[employer]ULAR [id number] / / [id number] Procedures Procedure Name Priority Date/Time Associated Diagnosis Comments LIPID PANEL Urgent 08/27/2024 6:03 AM EST from Last 3 Months or Most Recently Relevant to Health Maintenance Results * (ABNORMAL) Lipid Panel (08/27/2024 6:03 AM EST) Total Cholesterol 137 0 - 200 mg/dL 08/27/2024 7:27 AM EST [facility] Triglycerides 142 0 - 150 mg/dL 08/27/2024 7:27 AM EST [facility] HDL Cholesterol 23(L) 40 - 60 mg/dL 08/27/2024 7:27 AM EST [facility] LDL Cholesterol 88 0 - 100 mg/dL 08/27/2024 7:27 AM EST [facility] VLDL Cholesterol 26 5 - 40 mg/dL 08/27/2024 7:27 AM EST [facility] LDL/HDL Ratio 3.72 08/27/2024 7:27 AM EST [facility] Blood Venipuncture / Unknown 08/27/2024 6:03 AM EST 08/27/2024 6:39 AM EST Narrative [facility] - 08/27/2024 7:27 AM EST Cholesterol Reference Ranges (U.S. Department of Health and Human Services ATP III Classifications) Desirable <200 mg/dL Borderline High 200-239 mg/dL High Risk >240 mg/dL Triglyceride Reference Ranges (U.S. Department of Health and Human Services ATP III Classifications) Normal <150 mg/dL Borderline High 150-199 mg/dL High 200-499 mg/dL Very High >500 mg/dL HDL Reference Ranges (U.S. Department of Health and Human Services ATP III Classifications) Low <40 mg/dl (major risk factor for CHD) High >60 mg/dl ('negative' risk factor for CHD) LDL Reference Ranges (U.S. Department of Health and Human Services ATP III Classifications) Optimal <100 mg/dL Near Optimal 100-129 mg/dL Borderline High 130-159 mg/dL High 160-189 mg/dL Very High >189 mg/dL Brittani Orosco PAINTER MAINTENANCE LAB BLOOD ORDERABLES Final Result [facility]
[address] [place] [address], from Last 3 Months or Most Recently Relevant to Health Maintenance Insurance [address] [place] [address] [facility] ADVANTAGE PPO Advance Directives Documents on File Type Date Recorded Patient Physician Recruiter Expl anation LIVING WILL - SCAN 12/27/2023 2:12 PM MARS NG WILL DIRECTIVE, [facility]LEX, 10/30/2014 LIVING WILL - SCAN 12/27/2023 2:10 PM LAST WILL AND TESTMANJINDER, [facility]LEX, 08/19/2015 * No CPR (Do Not Attempt to Resuscitate) (Latest Code Status on File) Date Activated Date Inactivated Comments 08/26/2024 6:16 PM 09/01/2024 1:12 PM Question Answer Comments Code Status (Patient has no pulse and is not breathing): No CPR (Do Not Attempt to Resuscitate) Medical Interventions (Patie nt has pulse or is breathing): Limited Support Medical Intervention Limits: No intubation (DNI) No cardioversion * CPR (Attempt to Resuscitate) Date Activated Date Inactivated Comments 12/26/2023 4:23 PM 12/28/2023 2:17 PM Question Answer Comments Code Status (Patient has no pulse and is not breathing): CPR (Attempt to Resuscitate) Medical Interventions (Patie nt has pulse or is breathing): Full Support Level Of Support Discussed With: Patient Care Teams Needle Bar Molder Relationship Specialty Start Date End Date Joselin Grimm APRN [address] [place] [address] PCP - General Nurse Practitioner 08/22/24
--- OUTSIDE RECORDS SUMMARY | 2025-07-07 15:24 | XMS_ITS | Encounter Summary ---
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 - [employer] [facility] Social History Tobacco Use Types Packs/Day Years Used Date Smoking Tobacco: Never Assessed Comments Unknown Sex and Gender Information Value Date Recorded Sex Assigned at Not on file Legal Sex Female 11:46 AM EDT Gender Identity Not on file Sexual Orientation Not on file documented as of this encounter Plan of Treatment Upcoming Encounters Date Type Department Care Team (Late st Contact Info) Description 08/05/2026 11:45 AM EDT Office Visit [facility] [address] [facility] [address] [place] [address] Aniceto Payne MD [address] [facility] [address] [facility] [address] [place] [address] documented as of this encounter Visit Diagnoses Not on filedocumented in this encounter Additional Health Concerns Infection Onset Date Last Indicated Resolved Time COVID Screen (preop/placement) 08/17/2024 08/17/2024 08/17/2024 1:59 PM EST COVID Screen (preop/placement) 10/08/2024 10/08/2024 10/08/2024 10:09 PM EST documented as of this encounter Care Teams Dirt Bike Racer Relationship Specialty Start Date End Date Joselin Grimm APRN [address] [place] [address] PCP - General Nurse Practitioner 08/22/24 documented as of this encounter
--- OUTSIDE RECORDS SUMMARY | 2025-07-07 15:24 | XMS_ITS | Clinical Summary ---
Author Organization [facility] Address [address] [id number] Care Team Providers Care Electrical And Instrument Mechanic Name Role Phone Unavailable Primary Care Provider [...] Screening 1945 [facility]Y-Medicare Annual Wellness (AWV) 1945 UKY-/Child/Adol SDOH Screenings 1945 UKY- SDOH Screenings 02/04/1964 UKY-Adult SDOH Screenings 02/04/1964 UKY-DTaP,Tdap,and Td Vaccines (1 - Tdap) 1965 UKY-Pneumococcal Vaccine: 50+ Years (1 of 1 - PCV) 02/04/1996 UKY-Zoster Vaccines (2 of 2) 12/30/2020 11/04/2020 UKY-RSV Vaccine: 60+ Years or (1 - 1-dose 75+ series) 2021 [id number] Vaccine (3 - 2024- season) 2025 03/25/2021, 03/04/2021 UKY-Influenza Vaccine (#1) 06/15/202508/16, 07/28/2016 UKY-Hepatitis A Vaccines Aged Out 09/18/2018 [...]
--- NOTE | 2025-07-07 15:27 | XR_ITS ---
FINAL REPORT CLINICAL HISTORY: sob FINDINGS: PA and lateral views of the chest are obtained. There is no prior exam for comparison. Prior median sternotomy. The heart is normal in size. Increased interstitial markings bilaterally with multifocal bilateral lower lobe airspace disease could represent pulmonary edema and/or pneumonia. There is no pleural effusion or pneumothorax. No acute osseous abnormality. IMPRESSION: Findings could represent pulmonary edema and/or pneumonia. Reviewed, Interpreted and Dictated by Jo-Ann Jean Baptiste MD Transcribed by Nava Johnson Authenticated and [facility]
== END 2025-07-07 23:59 | disposition home or self-care (01) ==
LOC: RAD 15:22
PROVIDERS: PCP Nurse Practitioner; Visit Provider Internal Medicine Pulmonary Disease
DX: R91.8 Other nonspecific abnormal finding of lung field (principal); R06.02 Shortness of breath
CPT/HCPCS: 71046

== ENCOUNTER 2025-07-07 15:46 | Outpatient (RCR) | payer MEDICARE, SELFPAY | END 2025-07-07 23:59 | disposition home or self-care (01) | LOC: PT 15:46 | PROVIDERS: Visit Provider Nurse Practitioner | DX: M62.81 Muscle weakness (generalized) (principal) | CPT/HCPCS: 97162 ==

== ENCOUNTER 2025-07-14 13:01 | Outpatient (CLI) | payer MEDICARE, SELFPAY ==
--- OUTSIDE RECORDS SUMMARY | 2025-07-14 13:05 | XMS_ITS | Clinical Summary ---
Author Organization [facility] Address [address] [id number] Care Team Providers Care Sales And Business Development Manager Name Role Phone Unavailable Primary Care Provider [...] or (1 - 1-dose 75+ series) 2021 [id number] Vaccine (3 - 2024- season) 2025 03/25/2021, [...]
--- OUTSIDE RECORDS SUMMARY | 2025-07-14 13:05 | XMS_ITS | Clinical Summary ---
Author Organization [facility] Address [address] [place] [address] Care Team Providers Care Jointer Submarine Cable Name Role Phone Joselin Grimm APRN Primary Care Provider [phone] Allergies Active Allergy Reactions Criticality Noted Date [...] Take 2 tablets by mouth Daily. Active Novelty-3 1000 MG capsule Take 2 capsules by mouth Daily. Active Cyanocobalamin 1000 MCG/ML kit Inject as directed Every 30 (Thirty) Days. Active rOPINIRole (REQUIP) 1 MG tablet Take 1 tablet by mouth Every Night. 12/24/2023 Active cholecalciferol (VITAMIN D3) 1.25 MG (81394 UT) capsule 1 capsule. 12/03/2023 Active aspirin [...] Diagnosed Date Resolved Date Hypoxia 08/26/2024 08/26/2024 Immunizations Immunization Administration Dates Next Due Fluzone [...] Recorded In the past 12 months has th e [employer], gas, oil, or water [employer] threatened to shut off services in your [...] medical care, and heating? Somewhat hard 08/27/2024 [facility] [place] of Occupat ional Health - Occupational Stress [...] or equivalent Patient declined 08/27/2024 Preferred Language Dominican 08/27/2024 PHQ-2 Answer Date Recorded Patient Health [...] Description 08/05/2026 11:45 AM EDT Office Visit [facility] [address] [place] [address] [address] [place] [address] Aniceto Payne MD [address] [place] [address] Health Maintenance Due Date Last Done Comments [...] , 08/16/2022, Additional history exists COVID-19 Vaccine ( - 2024-2 6 season) 2025 08/10/2023, 03/25/2021, 03/04/2021 LIPID PANEL 08/27/2025 08/27/2024, 12/26/2023 Medical Devices Implanted Type Area Production Lapping Machine Operator Device Identifier Shelf Expiration Date Model / Serial / Lot Stnt Cornry Rx Xience/Skypoi nt Rapdxng 4x18mm - [id number] Implanted:Qty : 1 on 12/27/2023 by Kassy Hopson MD at [facility] N/A: Coronary [employer] [id number] / / [id number] Stnt Cornry Rx Xience/Skypoi nt Rapdxng 3.5x18mm - [id number] Implanted:Qty : 1 on 12/27/2023 by Kassy Hopson MD at [facility] N/A: Coronary ALEX[employer]ER VASCULAR [id number] / / [id number] Procedures Procedure Name Priority Date/Time Associated Diagnosis Comments LIPID PANEL Urgent 08/27/2024 6:03 AM EST from Last 3 Months or Most Recently Relevant to Health Maintenance Results * (ABNORMAL) Lipid Panel (08/27/2024 6:03 AM EST) Total Cholesterol 137 0 - 200 mg/dL 08/27/2024 7:27 AM EST [facility] Triglycerides 142 0 - 150 mg/dL 08/27/2024 7:27 AM EST [facility] HDL Cholesterol 23(L) 40 - 60 mg/dL 08/27/2024 7:27 AM EST [facility] LDL Cholesterol 88 0 - 100 mg/dL 08/27/2024 7:27 AM EST [facility] VLDL Cholesterol 26 5 - 40 mg/dL 08/27/2024 7:27 AM EST [facility] LDL/HDL Ratio 3.72 08/27/2024 7:27 AM EST [facility] Blood Venipuncture / Unknown 08/27/2024 6:03 AM EST 08/27/2024 6:39 AM EST Narrative [facility] - 08/27/2024 7:27 AM EST Cholesterol [...] 160-189 mg/dL Very High >189 mg/dL Brittani Hill Kwesi COAT REPAIR INSPECTOR LAB BLOOD ORDERABLES Final Result [facility]
[address] [id number], from Last 3 Months or Most Recently Relevant to Health Maintenance Insurance [facility] PPO Advance Directives Documents on File Type Date Recorded Patient Sponge Press Operator Expl anation LIVING WILL - SCAN 12/27/2023 2:12 PM MARS NG WILL DIRECTIVE, [facility], 10/30/2014 LIVING WILL - SCAN 12/27/2023 2:10 PM LAST WILL AND TESTAMENT, [facility]LEX, 08/19/2015 * No CPR (Do Not [...] Of Support Discussed With: Patient Care Teams Jointer Submarine Cable Relationship Specialty Start Date End Date Joselin Grimm APRN [address] [place] [address] PCP - General Nurse Practitioner 08/22/24
--- OUTSIDE RECORDS SUMMARY | 2025-07-14 13:05 | XMS_ITS | Encounter Summary ---
Author Organization [facility] Address [address] [place] [address] Care Team Providers Care Hard Candy Spinner Name Role Phone Joselin Grimm APRN Primary Care Provider [phone] Encounter Details Date Type Department Care Team (Late st Contact Info) Description 02/11/2016 External CPT II RURAL SOCIOLOGIST - [facility] Social History Tobacco Use [...] Description 08/05/2026 11:45 AM EDT Office Visit [facility] [address] [facility] [place] [address] Aniceto Payne MD [address] [facility] [address] [facility] [address] [place] [address] documented as of this encounter Visit Diagnoses Not on filedocumented in this encounter Additional Health Concerns Infection Onset Date Last Indicated Resolved Time COVID Screen (preop/placement) 08/17/2024 08/17/2024 08/17/2024 1:59 PM EST COVID Screen (preop/placement) 10/08/2024 10/08/2024 10/08/2024 10:09 PM EST documented as of this encounter Care Teams Hard Candy Spinner Relationship Specialty Start Date End Date Joselin Grimm APRN [address] [place] [address] PCP - General Nurse Practitioner 08/22/24 documented as of this encounter
--- NOTE | 2025-07-14 13:11 | XR_ITS ---
FINAL REPORT TECHNIQUE: Chest PA & Lateral CLINICAL HISTORY: Shortness of breath COMPARISON: 07/07/2025 FINDINGS: 2 views of the chest were performed. There is mild cardiomegaly. Sternotomy wires are present. The mediastinum is otherwise within normal limits. There are stable mild chronic changes in both lungs probably due to chronic fibrosis. There is no acute cardiopulmonary process. There are no pleural effusions. There is no pneumothorax. The bony thorax appears intact. IMPRESSION: Stable chronic changes without acute cardiopulmonary process. Reviewed, Interpreted and Dictated by Diallo Pratt MD Transcribed by Flaca Mackey Authenticated and [facility]
== END 2025-07-14 23:59 | disposition home or self-care (01) ==
LOC: RAD 13:03
PROVIDERS: PCP Nurse Practitioner; Visit Provider Internal Medicine Pulmonary Disease
DX: I51.7 Cardiomegaly (principal); J98.9 Respiratory disorder, unspecified
CPT/HCPCS: 71046

== ENCOUNTER 2025-07-24 12:52 | Outpatient (CLI) | payer MEDICARE, SELFPAY ==
--- NOTE | 2025-07-24 14:30 | CT_ITS ---
FINAL REPORT TECHNIQUE: Thin section axial images were obtained from the lung apices through the upper abdomen without contrast. Only inspiration hi-resolution images were obtained and reviewed. This study was performed with techniques to keep radiation doses as low as reasonably achievable (ALARA). Individualized dose reduction techniques using automated exposure control or adjustment of mA and/or kV according to the patient's size were employed. CLINICAL HISTORY: R91.1 - Solitary pulmonary nodule COMPARISON: CTA 01/08/2025 FINDINGS: There is no mediastinal, hilar, or axillary lymphadenopathy. No pleural or pericardial effusion. There are prominent coronary artery and aortic calcifications. Again seen are subpleural and basilar predominant ground glass opacities. Left upper lobe nodule measuring 8 mm on series 2 image 14 is unchanged. There is a second smaller nodule on image 15 of series 2 which is also stable. A 4 mm left upper lobe nodule on image 16 is unchanged. High-resolution images were only obtained in inspiration. Bilateral bronchiectasis is noted. There is mild subpleural honeycomb fibrosis. Limited, unenhanced evaluation of the upper abdomen is without acute abnormality. There is no acute osseous abnormality. IMPRESSION: Interstitial lung disease in a pattern not typical for UIP/IPF, but stable compared to the prior exam. Stable left upper lobe pulmonary nodules. Reviewed, Interpreted and Dictated by Jo-Ann Jean Baptiste MD Transcribed by Nava Johnson Authenticated and . [facility]
== END 2025-07-24 23:59 | disposition home or self-care (01) ==
LOC: RT 12:52
PROVIDERS: PCP Nurse Practitioner; Visit Provider Internal Medicine Pulmonary Disease
DX: J84.9 Interstitial pulmonary disease, unspecified (principal); R91.8 Other nonspecific abnormal finding of lung field; R94.2 Abnormal results of pulmonary function studies
CPT/HCPCS: 71250; 94618

== ENCOUNTER 2025-07-31 11:56 | Outpatient (CLI) | payer MEDICARE, SELFPAY ==
--- OUTSIDE RECORDS SUMMARY | 2025-07-31 11:59 | XMS_ITS | Clinical Summary ---
Author Organization [facility] Address [address] [id number] Care Team Providers Care Wig Comber Name Role Phone Unavailable Primary Care Provider [...] or (1 - 1-dose 75+ series) 2021 [id number] Vaccine (3 - 2024- season) 2025 03/25/2021, [...]
--- OUTSIDE RECORDS SUMMARY | 2025-07-31 11:59 | XMS_ITS | Clinical Summary ---
Author Organization [facility] Address [address] [place] [address] Care Team Providers Care Carriage Operator Name Role Phone Joselin Grimm APRN Primary Care Provider [phone] Allergies Active Allergy Reactions Criticality Noted Date [...] Take 2 tablets by mouth Daily. Active Allgood-3 1000 MG capsule Take 2 capsules by mouth Daily. Active Cyanocobalamin 1000 MCG/ML kit Inject as directed Every 30 (Thirty) Days. Active rOPINIRole (REQUIP) 1 MG tablet Take 1 tablet by mouth Every Night. 12/24/2023 Active cholecalciferol (VITAMIN D3) 1.25 MG (32492 UT) capsule 1 capsule. 12/03/2023 Active aspirin [...] drink = 0.6 oz pur e alcohol) [facility] Utilities Answer Date Recorded In the past 12 months has th e [employer], gas, oil, or water [employer] threatened to shut off services in your [...] medical care, and heating? Somewhat hard 08/27/2024 [facility] [place] of Occupat ional Health - Occupational Stress [...] or equivalent Patient declined 08/27/2024 Preferred Language [place] 08/27/2024 PHQ-2 Answer Date Recorded Patient Health [...] Description 08/05/2026 11:45 AM EDT Office Visit [facility] [address] [place] [address] [place] [address] Aniceto Payne MD [address] [place] [address] Health Maintenance Due Date Last [...] 08/27/2024, 12/26/2023 Medical Devices Implanted Type Area Tugboat Dispatcher Device Identifier Shelf Expiration Date Model / Serial / Lot Stnt [employer] Xience/Skypoi nt Rapdxng 4x18mm - [id number] Implanted:Qty : 1 on 12/27/2023 by Kassy Hopson MD at [facility] N/A: Coronary [employer] [id number] / / [id number] Stnt [employer] Rx Xience/Skyp[employer] nt Rapdxng 3.5x18mm - [id number] Implanted:Qty : 1 on 12/27/2023 by Kassy Hopson MD at [facility] N/A: Coronary [employer] [id number] / / [id number] Procedures Procedure Name Priority Date/Time Associated Diagnosis Comments LIPID PANEL Urgent 08/27/2024 6:03 AM EST from Last 3 Months or Most Recently Relevant to Health Maintenance Results * (ABNORMAL) Lipid Panel (08/27/2024 6:03 AM EST) Total Cholesterol 137 0 - 200 mg/dL 08/27/2024 7:27 AM EST [facility] Triglycerides 142 0 - 150 mg/dL 08/27/2024 7:27 AM EST [facility] HDL Cholesterol 23(L) 40 - 60 mg/dL 08/27/2024 7:27 AM EST [facility] LDL Cholesterol 88 0 - 100 mg/dL 08/27/2024 7:27 AM EST [facility] VLDL Cholesterol 26 5 - 40 mg/dL 08/27/2024 7:27 AM EST [facility] LDL/HDL Ratio 3.72 08/27/2024 7:27 AM EST [facility] Blood Venipuncture / Unknown 08/27/2024 6:03 AM EST 08/27/2024 6:39 AM EST Narrative [facility] - 08/27/2024 7:27 AM EST [...] Very High >189 mg/dL Brittani Hill Kwesi TRANSMISSION ASSEMBLER LAB BLOOD ORDERABLES Final Result [facility]
[address] [id number], from Last 3 Months or Most Recently Relevant to Health Maintenance Insurance [facility] MEDICARE ADVANTAGE PPO Advance Directives Documents on File Type Date Recorded Patient Operations Support Representative Expl anation LIVING WILL - SCAN 12/27/2023 [...] Of Support Discussed With: Patient Care Teams Carriage Operator Relationship Specialty Start Date End Date Joselin Grimm APRN [address] [place] [address] PCP - General Nurse Practitioner 08/22/24
--- OUTSIDE RECORDS SUMMARY | 2025-07-31 11:59 | XMS_ITS | Encounter Summary ---
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[employer] Social History Tobacco Use [...] Visit [facility] [address] [place] [address] [address] [place] [address] Aniceto Payne MD [address] [facility] [address] [facility] [address] [place] [address] documented as of this encounter Visit Diagnoses Not on filedocumented in this encounter Additional Health Concerns Infection Onset Date Last Indicated Resolved Time COVID Screen (preop/placement) 08/17/2024 08/17/2024 08/17/2024 1:59 PM EST COVID Screen (preop/placement) 10/08/2024 10/08/2024 10/08/2024 10:09 PM EST documented as of this encounter Care Teams Analyst Market Intelligence Relationship Specialty Start Date End Date Joselin Grimm APRN [address] [place] [address] PCP - General Nurse Practitioner 08/22/24 documented as of this encounter
--- NOTE | 2025-07-31 12:00 | XR_ITS ---
FINAL REPORT CLINICAL HISTORY: RIB PAIN COMPARISON: Chest x-ray 07/14/2025 FINDINGS: 3 views of the right ribs show no fractures or evidence of rib destruction. There is no pneumothorax or pleural fluid collection. Frontal chest radiograph demonstrates chronic interstitial lung changes. The patient is status post CABG. IMPRESSION: No acute abnormality of the right ribs. Reviewed, Interpreted and Dictated by Jacqui Ventura MD Transcribed by Nava Johnson Authenticated and [facility]
== END 2025-07-31 23:59 | disposition home or self-care (01) ==
LOC: RAD 11:57
PROVIDERS: PCP Nurse Practitioner; Visit Provider Nurse Practitioner
DX: R07.81 Pleurodynia (principal); Z95.1 Presence of aortocoronary bypass graft
CPT/HCPCS: 71101

== ENCOUNTER 2025-08-04 21:13 | Emergency (ER) | payer MEDICARE, SELFPAY ==
[2025-08-04 21:18] VITALS: BP 137/83; PULSE 87; RESP 22; TEMP 36.6; O2SAT 95; BMI 25.7
[2025-08-04 21:21] VITALS: BP 103/86; PULSE 92; RESP 16; TEMP 36.6; O2SAT 98
--- NOTE | 2025-08-04 21:30 | HMH.EDGENADL ---
Discharge Plan Disposition Patient Disposition: Home, Self-Care Prescriptions Prescriptions: No Action furosemide 20 mg tablet 20 mg PO BID omega-3 fatty acids 1,000 mg capsule 2,000 mg PO DAILY cyclobenzaprine 10 mg tablet 10 mg PO DAILY megestrol 20 mg tablet 20 mg PO BID Patient Comments: TAKE 1 TABLET BY MOUTH 2 TIMES A DAY garlic extract 400 mg tablet,delayed release (DR/EC) 400 mg PO DAILY fluticasone propionate [Flonase Allergy Relief] 50 mcg/actuation spray,suspension 2 spray intranasal DAILY 90 Days Qty: 16 2RF Rx Instructions: administer into each nostril ropinirole 1 mg tablet 1 mg PO HS Combivent Respimat 20-100 mcg/actuation mist 1 puff inhalation Q6H PRN (Reason: shortness of breath or wheezing) 90 Days Qty: 4 3RF pantoprazole 40 mg tablet,delayed release (DR/EC) See Rx Instructions .ROUTE .COMPLEX Qty: 56 0RF Dose Instruction: TAKE 1 TABLET BY MOUTH ONCE A DAY Rx Instructions: TAKE 1 TABLET BY MOUTH ONCE A DAY levothyroxine 100 mcg tablet 100 mcg PO DAILY citalopram 20 mg tablet 20 mg PO DAILY metoprolol tartrate 50 mg tablet 50 mg PO BID ondansetron 4 mg tablet,disintegrating 4 mg PO QID PRN (Reason: nausea and vomiting) Qty: 10 0RF aspirin 325 mg Capsule 325 mg PO DAILY Referrals Follow up/Referrals: Joselin Grimm APRN [Primary Care Provider, Medical] - See instructions Activity Restrictions/Add. Instructions Additional Instructions/Restrictions: At this time it was felt you are safe to be discharged home. If new or worsening symptoms please do not hesitate to return the emergency department. For pain please take 1000 mg of Tylenol every 6 hours as needed. Please go to [facility] and get a coccygeal pillow which will help you dramatically. It is important that you stay up and moving so your muscles do not become weak. This should heal on its own over the next 4 weeks. Clinical Impressions Clinical Impression: Closed coccygeal fracture Print Language Print Language: Sami Discharge ED Provider: Jean Paul Khan General Adult HPI <CHIDI Fish - Last Filed: 08/04/25 22:05> General Chief complaint: Fall Stated complaint: 08-04 fell and hurt back Time Seen by Provider: 08/04/25 21:24 Mode of Arrival: Wheelchair Source of Information: Patient and Spouse Description of Symptoms (Recalled from ER Triage Doc. by RN): Pt presents to ED following a fall at home. No LOC, pt just fell on her tailbone and is c/o pain. History of Present Illness HPI narrative: 80-year-old female presents emergency department from attempted mechanical fall, complaining of lower back pain/coccygeal/sacral pain. Patient describes it as a mechanical fall, occurred around 6 PM, patient states she was going to been down , when she lost her balance , falling onto her buttock , denies any presyncopal or syncopal event, denies striking head, denies any LOC, is on antiplatelet therapy with aspirin daily, denies any fever or chills, denies chest pain, does admit to shortness of breath, she has history of COPD former smoker, on 2 L nasal cannula at baseline, denies any abdominal pain nausea vomiting, does have some constipation for the last 1 to 2 days, denies any urinary type symptomatology, however patient has been on p.o. antibiotic, that is unknown for the last week for bladder infection . Patient denies any alcohol or drug use, other past medical history is consistent with ongoing adenocarcinoma of the colon, interstitial lung disease, vitamin B12 deficiency, CKD, AAA unruptured, hyperlipidemia, hypertension, CAD status post CABG several years ago, hypothyroidism. Initial triage vitals are unremarkable on 2 L nasal cannula. Please note that above description of symptoms, in this electronic medical record under categorization of recalled from ER triage doctor by RN are reflective of an initial nursing assessment, however, is not reflective of my full history and physical exam that was personally taken and clarified. Consequentially, this preceding description of symptoms, which may include the patient's categorized chief complaint in the EMR, do not reflect my personal clinical impression, and the ultimate description of history of present illness and patient stated complaints should be deferred to this section of the note. Unless stated otherwise or congruent with this section of the note, additional signs, symptoms, or incongruence should be interpreted as inaccurate with my clinical impression. Onset (ago): hour(s) Related Data Home Medications ?Medication ?Instructions ?Recorded ?Confirmed ropinirole 1 mg tablet 1 mg PO HS 12/03/23 08/04/25 citalopram 20 mg tablet 20 mg PO DAILY 05/18/24 08/04/25 levothyroxine 100 mcg tablet 100 mcg PO DAILY 05/18/24 08/04/25 metoprolol tartrate 50 mg tablet 50 mg PO BID 05/18/24 08/04/25 cyclobenzaprine 10 mg tablet 10 mg PO DAILY 10/30/24 08/04/25 furosemide 20 mg tablet 20 mg PO BID 10/30/24 08/04/25 omega-3 fatty acids 1,000 mg 2,000 mg PO DAILY 10/30/24 08/04/25 capsule aspirin 325 mg capsule 325 mg PO DAILY 12/23/24 08/04/25 garlic extract 400 mg 400 mg PO DAILY 07/14/25 08/04/25 tablet,delayed release megestrol 20 mg tablet 20 mg PO BID 07/14/25 08/04/25 Previous Rx's ?Medication ?Instructions ?Recorded ondansetron 4 mg disintegrating 4 mg PO QID PRN nausea and 01/08/25 tablet vomiting #10 tabs ipratropium 20 mcg-albuterol 100 1 puff inhalation Q6H PRN 02/10/25 mcg/actuation mist for inhalation shortness of breath or wheezing 90 (Combivent Respimat) days #4 grams pantoprazole 40 mg tablet,delayed See Rx Instructions .Route 04/13/25 release .COMPLEX #56 tabs fluticasone propionate 50 2 spray intranasal DAILY 90 days 07/14/25 mcg/actuation nasal #16 grams spray,suspension (Flonase Allergy Relief) Allergies Allergy/AdvReac Type Severity Reaction Status Date / Time ciprofloxacin (From Cipro) Allergy Mild Vomiting Verified 07/14/25 14:33 Sulfa (Sulfonamide Allergy Unknown Verified 07/14/25 14:33 Antibiotics) allergy reaction trimethoprim (From Bactrim) Allergy Unknown Verified 07/14/25 14:33 allergy reaction [facility] <CHIDI Fish - Last Filed: 08/04/25 22:05> [facility] Disclaimer: The information contained in this section may have been updated after the patient was seen, as this information can be updated by other users. Medical History (Updated 08/04/25 @ 23:26 by Jean Paul Khan MD) Allergic rhinitis Gastritis ILD (interstitial lung disease) Dysphagia Chronic respiratory failure with hypoxia Pulmonary emphysema Pneumonia Multiple pulmonary nodules History of chest pain History of COVID-19 COPD (chronic obstructive pulmonary disease) Menopause Rheumatoid arthritis History of cataract Aneurysm History of smoking 30 or more pack years HLD (hyperlipidemia) HTN (hypertension) CAD (coronary artery disease) Acute UTI Weakness Elevated liver enzymes AAA (abdominal aortic aneurysm) Surgical History History of coronary artery stent placement History of tonsillectomy History of appendectomy Hx of cholecystectomy H/O: hysterectomy S/P CABG (coronary artery bypass graft) Family History Other Cancer Heart attack Hypertension Stroke Social History Smoking Status: Former smoker tobacco type: cigarettes packs per day: 1 pack-years: 40 second hand exposure: No alcohol intake: never substance use type: denies use current occupational status: retired Travel in the last 8 weeks?: None household members: family housing: house Have you lived/traveled outside [place] in past 30 days?: No Contact w/someone who lives/traveled outside US past 30 days?: No Exposure to someone with infectious disease in past 14 days?: No Do you have a fever (greater than 100.4 F or 38 C)?: No Have you tested positive for COVID-19?: No Exposed to someone with COVID-19 in past 14 days?: No Do you have a sore throat?: No Do you have a cough?: No Do you have any weakness?: No Do you have any diarrhea?: No Are you experiencing any unusual bleeding?: No Do you have any muscle aches/pain?: No Do you have any abdominal pain?: No Are you experiencing loss of taste or smell?: No Other Medical History Have you received the Flu Vaccine for this season: No Have you received the Pneumonia Vaccine: Yes <CHIDI Fish - Last Filed: 08/04/25 22:05> ROS Obtained: Yes All systems reviewed & no additional complaints except as documented Physical Exam <CHIDI Fish - Last Filed: 08/04/25 22:05> General General appearance: alert and in no apparent distress Head Head exam: atraumatic and normocephalic Eye Eye exam: Present PERRL and EOMI ENT ENT exam: Present mucous membranes moist Neck Neck exam: Present normal inspection Chest Chest inspection: Present normal inspection and symmetric chest wall rise Respiratory Respiratory exam: Absent respiratory distress Cardiovascular Cardiovascular exam: Present regular rate and normal rhythm Abdominal Exam Abdominal exam: Present soft; Absent tenderness or guarding Extremities Exam Extremities exam: Present normal inspection, full ROM and other (Pelvis stable to AP and lateral compression, patient raise his legs to command, no pain to palpation to the bilateral lower and upper extremities, no gross sensation deficit, otherwise neurovascular intact.); Absent tenderness Back Exam Back exam: Present tenderness and paraspinal tenderness; Absent vertebral tenderness Comment: There is mild pain to palpation to the paraspinal musculature of the lumbar spine, negative C-spine paraspinal vertebral tenderness, negative paraspinal and vertebral tenderness to palpation of thoracic spine, negative vertebral tenderness to the lumbar spine, patient does have some coccygeal/sacral pain to palpation to lower buttock/pelvic region. Neurological Exam Neurological exam: Present alert and oriented X3 Psychiatric Psychiatric exam: Present normal affect Skin Skin exam: Present warm and dry Medical Decision Making <CHIDI Fish - Last Filed: 08/04/25 22:05> Medical Records Medical records reviewed: Yes I reviewed the patient's medical records. Screening: Per USPSTF and CDC recommendations, given the prevalence of disease in our region, it is our hospital?s policy to screen for HIV and viral Hepatitis for all patients aged 18 and over and those with ongoing risk factors. Jackson Inquiry Pt receiving controlled substance: Yes [place] was queried for this patient: No Reason not queried -: Emergent pt cond-no time Risks and benefits of using a controlled substance: were discussed with pt by me Vital Signs: 08/04/25 21:18 08/04/25 21:21 08/04/25 22:44 Temperature 97.9 F 98 F Temperature Source Temporal Artery Scan Oral Pulse Rate 92 H Pulse Rate [Right] 87 Respiratory Rate 22 16 Blood Pressure 103/86 L Blood Pressure [Right Arm] 137/83 Blood Pressure Mean [Right Arm] 101 Blood Pressure Source Automatic Cuff Blood Pressure Source [Right Arm] Automatic Cuff Blood Pressure Position Supine Blood Pressure Position [Right Arm] Sitting 02 Sat by Pulse Oximetry 95 98 97 Oxygen Delivery Method Nasal Cannula Nasal Cannula Nasal Cannula Oxygen Flow Rate (LPM) 2 2 2 08/04/25 23:33 Temperature 98.9 F Temperature Source Oral Pulse Rate 82 Pulse Rate [Right] Respiratory Rate 18 Blood Pressure 135/59 L Blood Pressure [Right Arm] Blood Pressure Mean [Right Arm] Blood Pressure Source Blood Pressure Source [Right Arm] Blood Pressure Position Blood Pressure Position [Right Arm] 02 Sat by Pulse Oximetry Oxygen Delivery Method Non-Rebreather Oxygen Flow Rate (LPM) 2 Orders (Tests/Meds): ED MEDICATIONS Discontinued Medications Generic Name Dose Route Start Last Admin Trade Name Freq PRN Reason Stop Dose Admin Hydrocodone Bitart/Acetaminophen 1 tab 08/04/25 21:39 08/04/25 22:05 Hydrocodone/Apap 5/325 Mg Tablet PO 08/04/25 21:40 1 tab ONCE ONE Administration ORDERS Category Date Time Status CT bony pelvis Stat Cat Scan 08/04/25 21:[address] cervical spine wo con Stat Cat Scan 08/04/25 21:[address] head/brain wo con Stat Cat Scan 08/04/25 21:[address] lumbar spine wo con Stat Cat Scan 08/04/25 21:38 Completed Pelvis XR 1-2 views [XR pelvis 1-2V] Stat Exams 08/04/25 21:38 Completed Medical Decision Narrative: 80-year-old female presents emergency department with an mechanical fall complaining of lower buttock/back pain, differential diagnose include but not limited to, hip strain/sprain, pelvic fracture, sacral fracture, coccygeal fracture, lumbar spine fracture, acute lumbar sacral strain, hip fracture among others. . Will obtain CT head without contrast, CT cervical without contrast, CT lumbar spine without contrast, CT bony pelvis and pelvic x-ray for further evaluation/characterization. Will give 5 mg p.o. [place] for pain. Offered laboratory studies to the patient at the bedside patient denied this time would like to only pursue imaging, shared decision-making was utilized I believe this is appropriate, patient describes a mechanical fall, had no presyncopal or syncopal event, has no other acute signs or symptoms. I discussed this patient case with the attending physician Dr. Khan at shift change, he will be assuming the patient's care/workup, disposition is pending imaging studies and clinical reevaluation <Jean Paul Khan MD - Last Filed: 08/04/25 23:11> Vital Signs: 08/04/25 21:18 08/04/25 21:21 08/04/25 22:44 Temperature 97.9 F 98 F Temperature Source Temporal Artery Scan Oral Pulse Rate 92 H Pulse Rate [Right] 87 Respiratory Rate 22 16 Blood Pressure 103/86 L Blood Pressure [Right Arm] 137/83 Blood Pressure Mean [Right Arm] 101 Blood Pressure Source Automatic Cuff Blood Pressure Source [Right Arm] Automatic Cuff Blood Pressure Position Supine Blood Pressure Position [Right Arm] Sitting 02 Sat by Pulse Oximetry 95 98 97 Oxygen Delivery Method Nasal Cannula Nasal Cannula Nasal Cannula Oxygen Flow Rate (LPM) 2 2 2 08/04/25 23:33 Temperature 98.9 F Temperature Source Oral Pulse Rate 82 Pulse Rate [Right] Respiratory Rate 18 Blood Pressure 135/59 L Blood Pressure [Right Arm] Blood Pressure Mean [Right Arm] Blood Pressure Source Blood Pressure Source [Right Arm] Blood Pressure Position Blood Pressure Position [Right Arm] 02 Sat by Pulse Oximetry Oxygen Delivery Method Non-Rebreather Oxygen Flow Rate (LPM) 2 Orders (Tests/Meds): ED MEDICATIONS Discontinued Medications Generic Name Dose Route Start Last Admin Trade Name Freq PRN Reason Stop Dose Admin Hydrocodone Bitart/Acetaminophen 1 tab 08/04/25 21:39 08/04/25 22:05 Hydrocodone/Apap 5/325 Mg Tablet PO 08/04/25 21:40 1 tab ONCE ONE Administration ORDERS Category Date Time Status CT bony pelvis Stat Cat Scan 08/04/25 21:[address] cervical spine wo con Stat Cat Scan 08/04/25 21:[address] head/brain wo con Stat Cat Scan 08/04/25 21:[address] lumbar spine wo con Stat Cat Scan 08/04/25 21:38 Completed Pelvis XR 1-2 views [XR pelvis 1-2V] Stat Exams 08/04/25 21:38 Completed Medical Decision Narrative: 80-year-old female presents emergency department with an mechanical fall complaining of lower buttock/back pain, differential diagnose include but not limited to, hip strain/sprain, pelvic fracture, sacral fracture, coccygeal fracture, lumbar spine fracture, acute lumbar sacral strain, hip fracture among others. . Will obtain CT head without contrast, CT cervical without contrast, CT lumbar spine without contrast, CT bony pelvis and pelvic x-ray for further evaluation/characterization. Will give 5 mg p.o. [place] for pain. Offered laboratory studies to the patient at the bedside patient denied this time would like to only pursue imaging, shared decision-making was utilized I believe this is appropriate, patient describes a mechanical fall, had no presyncopal or syncopal event, has no other acute signs or symptoms. I discussed this patient case with the attending physician Dr. Khan at shift change, he will be assuming the patient's care/workup, disposition is pending imaging studies and clinical reevaluation. Jean Paul Khan MD: I was consulted by the SIVA, and we discussed the complexity of the problems being addressed. I approved the treatment and management plan for this patient's care in the emergency department, thus performing a substantive portion of the medical decision making. Initial CT reads cortical irregularity first coccygeal segment which patient is tender consistent with nondisplaced sacral fracture. No acute lumbar fracture. Remainder of imaging pending at time of transition of care to the oncoming physician, Dr. Rivera. <Romario Rivera MD - Last Filed: 08/04/25 23:44> Vital Signs: 08/04/25 21:18 08/04/25 21:21 08/04/25 22:44 Temperature 97.9 F 98 F Temperature Source Temporal Artery Scan Oral Pulse Rate 92 H Pulse Rate [Right] 87 Respiratory Rate 22 16 Blood Pressure 103/86 L Blood Pressure [Right Arm] 137/83 Blood Pressure Mean [Right Arm] 101 Blood Pressure Source Automatic Cuff Blood Pressure Source [Right Arm] Automatic Cuff Blood Pressure Position Supine Blood Pressure Position [Right Arm] Sitting 02 Sat by Pulse Oximetry 95 98 97 Oxygen Delivery Method Nasal Cannula Nasal Cannula Nasal Cannula Oxygen Flow Rate (LPM) 2 2 2 08/04/25 23:33 Temperature 98.9 F Temperature Source Oral Pulse Rate 82 Pulse Rate [Right] Respiratory Rate 18 Blood Pressure 135/59 L Blood Pressure [Right Arm] Blood Pressure Mean [Right Arm] Blood Pressure Source Blood Pressure Source [Right Arm] Blood Pressure Position Blood Pressure Position [Right Arm] 02 Sat by Pulse Oximetry Oxygen Delivery Method Non-Rebreather Oxygen Flow Rate (LPM) 2 Orders (Tests/Meds): ED MEDICATIONS Discontinued Medications Generic Name Dose Route Start Last Admin Trade Name Freq PRN Reason Stop Dose Admin Hydrocodone Bitart/Acetaminophen 1 tab 08/04/25 21:39 08/04/25 22:05 Hydrocodone/Apap 5/325 Mg Tablet PO 08/04/25 21:40 1 tab ONCE ONE Administration ORDERS Category Date Time Status CT bony pelvis Stat Cat Scan 08/04/25 21:[address] cervical spine wo con Stat Cat Scan 08/04/25 21:[address] head/brain wo con Stat Cat Scan 08/04/25 21:[address] lumbar spine wo con Stat Cat Scan 08/04/25 21:38 Completed Pelvis XR 1-2 views [XR pelvis 1-2V] Stat Exams 08/04/25 21:38 Completed Medical Decision Narrative: 80-year-old female presents emergency department with an mechanical fall complaining of lower buttock/back pain, differential diagnose include but not limited to, hip strain/sprain, pelvic fracture, sacral fracture, coccygeal fracture, lumbar spine fracture, acute lumbar sacral strain, hip fracture among others. . Will obtain CT head without contrast, CT cervical without contrast, CT lumbar spine without contrast, CT bony pelvis and pelvic x-ray for further evaluation/characterization. Will give 5 mg p.o. [place] for pain. Offered laboratory studies to the patient at the bedside patient denied this time would like to only pursue imaging, shared decision-making was utilized I believe this is appropriate, patient describes a mechanical fall, had no presyncopal or syncopal event, has no other acute signs or symptoms. I discussed this patient case with the attending physician Dr. Khan at shift change, he will be assuming the patient's care/workup, disposition is pending imaging studies and clinical reevaluation. Jean Paul Khan MD: I was consulted by the SIVA, and we discussed the complexity of the problems being addressed. I approved the treatment and management plan for this patient's care in the emergency department, thus performing a substantive portion of the medical decision making. Initial CT reads cortical irregularity first coccygeal segment which patient is tender consistent with nondisplaced sacral fracture. No acute lumbar fracture. Remainder of imaging pending at time of transition of care to the oncoming physician, Dr. Rivera. Miguel BATISTA: I assumed care of the patient at the time of handoff from the prior provider. On reassessment, patient remains stable. CT imaging independently interpreted by me does not show any other abnormalities. Given this, patient was discharged in stable condition with instructions to get a medical pillow. Critical Care <CHIDI Fish - Last Filed: 08/04/25 22:05> Critical Care Time Critical Care Time: No
--- NOTE | 2025-08-04 21:37 | CT_ITS ---
PROCEDURE INFORMATION: Exam: CT Pelvis Without Contrast, Skeleton Exam date and time: 08/04/2025 9:58 PM Age: 80 years old Clinical indication: Injury or trauma; Other: Fall, pelvic/coccygeal pain TECHNIQUE: Imaging protocol: Computed tomography of the pelvis without contrast. Exam focused on the skeleton. Radiation optimization: All CT scans at this facility use at least one of these dose optimization techniques: automated exposure control; mA and/or kV adjustment per patient size (includes targeted exams where dose is matched to clinical indication); or iterative reconstruction. COMPARISON: CT ANGIO ABDOMEN PELVIS 01/08/2025 1:15 PM FINDINGS: Bones/joints: Subtle cortical irregularity in the 1st coccygeal segment. Soft tissues: Unremarkable. IMPRESSION: Subtle cortical irregularity in the 1st coccygeal segment. Suspicious for possible nondisplaced fracture.
--- NOTE | 2025-08-04 21:37 | CT_ITS ---
PROCEDURE INFORMATION: Exam: CT Head Without Contrast Exam date and time: 08/04/2025 9:52 PM Age: 80 years old Clinical indication: Injury or trauma; Fall; Blunt trauma (contusions or hematomas) TECHNIQUE: Imaging protocol: Computed tomography of the head without contrast. Radiation optimization: All CT scans at this facility use at least one of these dose optimization techniques: automated exposure control; mA and/or kV adjustment per patient size (includes targeted exams where dose is matched to clinical indication); or iterative reconstruction. COMPARISON: CT ANGIO HEAD 01/10/2024 4:29 PM FINDINGS: Limitations: Motion artifact degrades image quality and limits the sensitivity of this examination. Brain: 8 mm lacunar infarct in the right basal ganglia. No hemorrhage. Unremarkable white matter. No mass effect. Cerebral ventricles: No ventriculomegaly. Paranasal sinuses: Visualized sinuses are unremarkable. No fluid levels. Mastoid air cells: Visualized mastoid air cells are well aerated. Bones: Unremarkable. No acute fracture. Soft tissues: Unremarkable. IMPRESSION: No acute intracranial abnormality.
--- NOTE | 2025-08-04 21:37 | CT_ITS ---
PROCEDURE INFORMATION: Exam: CT Cervical Spine Without Contrast Exam date and time: 08/04/2025 9:54 PM Age: 80 years old Clinical indication: Injury or trauma; Fall; Blunt trauma TECHNIQUE: Imaging protocol: Computed tomography of the cervical spine without contrast. Radiation optimization: All CT scans at this facility use at least one of these dose optimization techniques: automated exposure control; mA and/or kV adjustment per patient size (includes targeted exams where dose is matched to clinical indication); or iterative reconstruction. COMPARISON: MR CERVICAL SPINE WO CON 03/23/2021 4:19 PM FINDINGS: Bones: No acute fracture. Normal alignment. No significant disc bulge or herniation. No severe spinal canal stenosis. Moderate left C4-C5 neural foraminal narrowing. Lungs: Lung apices are normal. Soft tissues: Unremarkable. IMPRESSION: No acute cervical spine fracture.
--- NOTE | 2025-08-04 21:38 | XR_ITS ---
PROCEDURE INFORMATION: Exam: XR Pelvis Exam date and time: 08/04/2025 9:45 PM Age: 80 years old Clinical indication: Pelvic pain; Additional info: Fall TECHNIQUE: Imaging protocol: Radiologic exam of the pelvis. Views: 1 or 2 view. COMPARISON: CT ANGIO ABDOMEN PELVIS 01/08/2025 1:15 PM FINDINGS: Bones/joints: Unremarkable. No acute fracture. Soft tissues: Unremarkable. IMPRESSION: No acute findings.
--- NOTE | 2025-08-04 21:38 | CT_ITS ---
PROCEDURE INFORMATION: Exam: CT Lumbar Spine Without Contrast Exam date and time: 08/04/2025 9:56 PM Age: 80 years old Clinical indication: Injury or trauma; Fall; Blunt trauma (contusions or hematomas); Additional info: Lower back pain after fall TECHNIQUE: Imaging protocol: Computed tomography of the lumbar spine without contrast. Radiation optimization: All CT scans at this facility use at least one of these dose optimization techniques: automated exposure control; mA and/or kV adjustment per patient size (includes targeted exams where dose is matched to clinical indication); or iterative reconstruction. COMPARISON: CT ANGIO ABDOMEN PELVIS 01/08/2025 1:15 PM FINDINGS: Bones/joints: No acute fracture. Normal alignment. No significant disc bulge or herniation. No severe spinal canal stenosis. No significant neural foraminal narrowing. Soft tissues: Stable 4.9 cm aortic aneurysm. IMPRESSION: No acute lumbar spine fracture.
[2025-08-04] MEDS: HYDROCODONE/APAP 5/325 MG TABLET 1 TAB PO (22:05)
[2025-08-04 22:44] VITALS: O2SAT 97
[2025-08-04 23:33] VITALS: BP 135/59; PULSE 82; RESP 18; TEMP 37.2; O2SAT 96
== END 2025-08-04 23:43 | disposition home or self-care (01) ==
PROVIDERS: Emergency Provider Emergency Medicine; PCP Nurse Practitioner
DX: S32.2XXA Fracture of coccyx, initial encounter for closed fracture (principal); W18.39XA Other fall on same level, initial encounter
CPT/HCPCS: 70450; 72125; 72131; 72170; 72192; 99285